=== PATIENT | female | born 1970 | race American Indian/Alaskan Native ===

== ENCOUNTER 2018-12-21 10:48 | Outpatient (CLI) | payer OTHER ==
[2018-12-21] MEDS ORDERED: XYLOCAINE TOPICAL 4% TP ONE (10:53)
[2018-12-21] MEDS ORDERED: SILVER NITRATE TP ONE (10:54)
== END 2018-12-21 10:49 | disposition home or self-care (01) ==
LOC: WOUND 10:48
PROVIDERS: ATTEND Surgery
DX: E11.621 Type 2 diabetes mellitus with foot ulcer (principal); L97.521 Non-pressure chronic ulcer of other part of left foot limited to breakdown of skin; I10 Essential (primary) hypertension; F41.9 Anxiety disorder, unspecified; F32.9 Major depressive disorder, single episode, unspecified
CPT/HCPCS: 10060; G0463; 99205

== ENCOUNTER 2018-12-21 12:32 | Inpatient (IN) | payer OTHER ==
[2018-12-21] MEDS ORDERED: NACL 0.9% 1000 ML 1,000 ML IV ONE (13:10)
--- NOTE | 2018-12-21 13:10 | Event Note ---
ED Screening Note ED Screening Note: SENT FROM WOUND CLINIC FOR ADMIT DM FOOT ULCER ON LEVAQUIN FOR 1 WEEK HYPOGLYCEMIA 56-OJ- AND BG 63 NPO P MN RX LEVAQUIN, STARTED LAST WEEK PO NORVASC WELLBUTRIN GLIMPEPIRIDE HUMALOG HCTZ HYDROXYZINE PRN INS PEN BID LOSARTAN METFORMIN SIMVASTATIN EFFEXOR This initial assessment/diagnostic orders/clinical plan/treatment(s) is/are subject to change based on patients health status, clinical progression and re- assessment by fellow clinical providers in the ED. Further treatment and workup at subsequent clinical providers discretion. Patient/guardian urged not to elope from the ED as their condition may be serious if not clinically assessed and managed. Initial orders include: SEPTIC WORK UP HYPOGLYCEMIA
[2018-12-21] MEDS ORDERED: D50W (25GM) Syringe IV ONE (13:12)
[2018-12-21] MEDS ORDERED: VANCOMYCIN PHARMACY TO DOSE IV SCH (14:00)
[2018-12-21] MEDS ORDERED: VANCOMYCIN 1,750 MG in NACL 0.9% 500 ML 500 ML IV ONE (14:00)
[2018-12-21 14:06] LABS: Basophils # (Auto) 0.1 K/mm3 (0.0-0.1); Basophils % (Auto) 0.7 % (0.0-1.8); Eosinophils # (Auto) 0.1 K/mm3 (0.0-0.4); Eosinophils % (Auto) 1.4 % (0.0-4.3); Hemoglobin 9.9 gm/dl (10.1-14.3); Lymphocytes # (Auto) 1.8 K/mm3 (1.2-5.4); Mean Corpuscular HGB Conc 33 % (30-34); Mean Corpuscular Volume 79 fl (79-97); Monocytes # (Auto) 0.5 K/mm3 (0.0-0.8); Monocytes % (Auto) 5.2 % (0.0-7.3); Platelet Count 527 K/mm3 (140-440); Red Blood Count 3.81 M/mm3 (3.65-5.03); Red Cell Distribution Width 15.4 % (13.2-15.2)
[2018-12-21 14:08] LABS: Mean Corpuscular Hemoglobin 26 pg (28-32)
--- NOTE | 2018-12-21 14:11 | XRay Report ---
LEFT FOOT HISTORY: Wound infection and concern for osteomyelitis. COMPARISON: None. TECHNIQUE: 3 views of the left foot were obtained. FINDINGS: Bones: No fracture or dislocation. Subtle erosion at the base of the proximal phalanx of the fifth t oe and questionable erosion of the medial aspect of the distal fourth metatarsal. Joint spaces: Maintained. Soft tissues: Soft tissue swelling of the forefoot and an oval well demarcated collection of air over lying the distal fourth and fifth tarsals and the proximal phalanx of the or thin fifth toes. No othe r soft tissue air. Additional findings: No foreign body. IMPRESSION: 1. Subtle erosions consistent with osteomyelitis involving the base of the proximal phalanx of the fi fth toe and the distal fourth metatarsal. 2. An air-containing soft tissue defect of the dorsum of the forefoot overlying the distal fourth and fifth metatarsals and the proximal phalanx of the fourth and fifth toes. This may represent air cont ained in a large soft tissue defect. No diffuse air in the soft tissues. Signer Name: Anthony Haddad MD Signed: 12/21/2018 2:07 PM Workstation Name: [id number]
[2018-12-21] MEDS ORDERED: ZOSYN/NS 4.5GM/100ML 4.5 GM/100 ML VIAL IV ONE (14:16)
--- NOTE | 2018-12-21 14:19 | Emergency Department Report ---
- General Chief Complaint: Wound/Laceration Stated Complaint: LT FOOT POST OP Time Seen by Provider: 12/21/18 13:04 Source: patient Mode of arrival: Ambulatory Limitations: No Limitations - History of Present Illness Initial Comments: Patient is a 48-year-old female that presents emergency room for left foot wound. Patient states she went to her primary care and the opening of her foot and found a massive amount of pus and infection. The patient denies pain. Patient states she has diabetes. Patient states that the wound is been going on for about 2 days. Patient states the redness is worsening. Patient states her foot feels warm. -: Sudden Location: other Extremity Location: Left: Foot Place: home Patient Tetanus UTD: Yes Context: other Associated Symptoms: other - Related Data Allergies Allergy/AdvReac Type Severity Reaction Status Date / Time No Known Allergies Allergy Verified 12/21/18 13:12 ED Review of Systems ROS: Stated complaint: LT FOOT POST OP Other details as noted in HPI Constitutional: denies: chills, fever Eyes: denies: eye pain, eye discharge, vision change ENT: denies: ear pain, throat pain Respiratory: denies: cough, shortness of breath, wheezing Cardiovascular: denies: chest pain, palpitations Endocrine: no symptoms reported Gastrointestinal: denies: abdominal pain, nausea, diarrhea Genitourinary: denies: urgency, dysuria, discharge Musculoskeletal: denies: back pain, joint swelling, arthralgia Skin: denies: rash, lesions Neurological: denies: headache, weakness, paresthesias Psychiatric: denies: anxiety, depression Hematological/Lymphatic: denies: easy bleeding, easy bruising ED Past Medical Hx - Past Medical History Previous Medical History?: Yes Hx Hypertension: Yes Hx Diabetes: Yes Hx Headaches / Migraines: Yes Hx Psychiatric Treatment: Yes (Depression/anxiety) Additional medical history: HLD, insomnia, left foot ulcer - Surgical History Past Surgical History?: No - Social History Smoking Status: Never Smoker Substance Use Type: None ED Physical Exam - General Limitations: No Limitations General appearance: alert, in no apparent distress - Head Head exam: Present: atraumatic, normocephalic - Eye Eye exam: Present: normal appearance - ENT ENT exam: Present: mucous membranes moist - Neck Neck exam: Present: normal inspection - Respiratory Respiratory exam: Present: normal lung sounds bilaterally. Absent: respiratory distress - Cardiovascular Cardiovascular Exam: Present: regular rate, normal rhythm. Absent: systolic murmur, diastolic murmur, rubs, gallop - GI/Abdominal GI/Abdominal exam: Present: soft, normal bowel sounds - Extremities Exam Extremities exam: Present: tenderness, other (large open area to the left foot i n between fourth and fifth digit. Redness extends to the ankle. Swelling noted. Discharge noted) - Back Exam Back exam: Present: normal inspection - Neurological Exam Neurological exam: Present: alert, oriented X3 - Psychiatric Psychiatric exam: Present: normal affect, normal mood - Skin Skin exam: Present: warm, dry, intact, normal color. Absent: rash ED Course Vital Signs 12/21/18 12/21/18 12/21/18 13:06 14:24 14:31 Temperature 98.3 F Pulse Rate 116 H 116 H Respiratory 14 16 Rate Blood Pressure 131/79 141/93 Blood Pressure 131/79 [Right] O2 Sat by Pulse 100 99 Oximetry 12/21/18 12/21/18 12/21/18 14:45 15:00 15:15 Temperature 98.5 F Pulse Rate 120 H 112 H 111 H Respiratory 19 13 14 Rate Blood Pressure 134/84 154/92 155/86 Blood Pressure 134/84 [Right] O2 Sat by Pulse 99 95 100 Oximetry - Reevaluation(s) Reevaluation #1: Discussed all results with patient. Patient will be admitted to the hospitalist service. Patient agrees to plan of care. 12/21/18 15:26 - Consultations Consultation #1: Hospitalist consulted for admission. Hospitalist to admit patient. Hospitalist to assume care patient. 12/21/18 15:26 ED Medical Decision Making - Lab Data Result diagrams: 12/21/18 13:45 12/21/18 13:45 - Radiology Data Radiology results: report reviewed LEFT FOOT HISTORY: Wound infection and concern for osteomyelitis. COMPARISON: None. TECHNIQUE: 3 views of the left foot were obtained. FINDINGS: Bones: No fracture or dislocation. Subtle erosion at the base of the proximal phalanx of the fifth toe and questionable erosion of the medial aspect of the distal fourth metatarsal. Joint spaces: Maintained. Soft tissues: Soft tissue swelling of the forefoot and an oval well demarcated collection of air overlying the distal fourth and fifth tarsals and the proximal phalanx of the or thin fifth toes. No other soft tissue air. Additional findings: No foreign body. IMPRESSION: 1. Subtle erosions consistent with osteomyelitis involving the base of the proximal phalanx of the fifth toe and the distal fourth metatarsal. 2. An air-containing soft tissue defect of the dorsum of the forefoot overlying the distal fourth and fifth metatarsals and the proximal phalanx of the fourth and fifth toes. This may represent air contained in a large soft tissue defect. No diffuse air in the soft tissues - Medical Decision Making Patient is a 48-year-old female presents to emergency room with complaints of left foot ulcer and infection. Patient was sent to by her home care for admission. Patient's x-ray done and found to be consistent with osteoarthritis. Patient's labs unremarkable. Patient initially hypoglycemic and given by mouth intake and sugar improved. Patient given IV antibiotics. Patient admitted to the hospitalist service. - Differential Diagnosis possible cellulitis. Foot infection. Diabetic ulcer Critical Care Time: Yes Critical care attestation.: If time is entered above; I have spent that time in minutes in the direct care of this critically ill patient, excluding procedure time. Critical Care Time: 35 minutes ED Disposition Clinical Impression: Diabetic foot infection, Hypoglycemia Diabetic foot ulcer Qualifiers: Diabetic foot ulcer location: midfoot Diabetes mellitus type: type 2 Lat erality: left Non-pressure ulcer stage: with muscle involvement without evidence of necrosis Qualified Code(s): E11.621 - Type 2 diabetes mellitus with foot ulcer Osteomyelitis Qualifiers: Osteomyelitis type: other acute Osteomyelitis location: foot Laterality: left Qualified Code(s): M86.172 - Other acute osteomyelitis, left ankle and foot Disposition: 09 OP ADMIT IP TO THIS HOSP Is pt being admited?: Yes Does the pt Need Aspirin: No Condition: Critical Referrals: EPHRAIM SIMMONS MD [Primary Care Provider] - 3-5 Days Time of Disposition: 15:26
[2018-12-21 14:34] LABS: Alanine Aminotransferase 14 units/L (7-56); Albumin 3.3 g/dL (3.9-5); Albumin 3.7 g/dL (3.9-5); BUN/Creatinine Ratio 12; Blood Urea Nitrogen 7 mg/dL (7-17); Calcium 9.1 mg/dL (8.4-10.2); Hemolysis Index 5
[2018-12-21 14:35] LABS: Bilirubin,Direct < 0.2 mg/dL (0-0.2)
[2018-12-21] MEDS ORDERED: COZAAR PO ONE (16:22)
--- NOTE | 2018-12-22 00:18 | Event Note ---
Date: 12/21/18 See history and physical in the reports Left foot cellulitis//osteomyelitis IV Unasyn and vancomycin initiated
[2018-12-22] MEDS ORDERED: SODIUM CHLORIDE FLUSH SYRINGE 10 ML IV PRN (00:19)
[2018-12-22] MEDS ORDERED: REGLAN IV PRN (00:19)
[2018-12-22] MEDS ORDERED: DILAUDID IV PRN (00:19)
[2018-12-22] MEDS ORDERED: ZOFRAN IV PRN (00:19)
[2018-12-22] MEDS ORDERED: VISTARIL PO PRN (00:28)
[2018-12-22] MEDS: NACL 0.9% 1000 ML 1,000 ML IV SCH (01:19)
[2018-12-22] MEDS: UNASYN/NS 3 GM/100 ML 3 GM/100 ML BAG IV SCH ×4 (01:20→17:17)
--- NOTE | 2018-12-22 03:03 | History and Physical Report ---
CHIEF COMPLAINT: Left foot wound with drainage. HISTORY OF PRESENT ILLNESS: A 48-year-old female with multiple medical problems including hypertension and insulin-dependent diabetes and also depression and anxiety, sent from [facility] for left foot wound and swelling. Apparently, I and D was done and a lot of pus was drained in the wound care clinic. The patient was sent for pain and swelling of the left foot and for IV antibiotics. The patient has pain of 7 on a scale of 1-10. She says it has been going on for only 2 days. No fever or chills. PAST MEDICAL HISTORY: Significant for hypertension, diabetes, headaches, depression, anxiety and hyperlipidemia. PAST SURGICAL HISTORY: Recent I and D of the left foot. SOCIAL HISTORY: Does not smoke. FAMILY HISTORY: Hypertension. REVIEW OF SYSTEMS: Significant for left foot swelling and pain and drainage of pus. Otherwise, review of systems negative. PHYSICAL EXAMINATION: GENERAL: Middle-aged female, cooperative during examination. VITAL SIGNS: Temperature 98.9, pulse is 111, respirations are 16, blood pressure is 150/91. HEENT: Unremarkable. Pupils equal and reactive. NECK: Supple, no lymphadenopathy, no thyromegaly. LUNGS: Clear to auscultation and percussion. Good air entry. CARDIOVASCULAR: S1, S2 heard. No gallop, no murmur, no rub. Apical impulse in left fifth intercostal space and midclavicular line. ABDOMEN: Soft and benign. No hepatosplenomegaly. No guarding, no rigidity. Hernial orifices are normal. EXTREMITIES: Left foot swollen. Drainage in the middle aspect of the dorsum of the foot with a drain present. CENTRAL NERVOUS SYSTEM: Alert and oriented x 4, nonfocal exam. LABORATORY DATA: Significant for white count of 9400, H and H of 9.9 and 30.0, platelet count of 527,000. Electrolytes are normal. Sodium slightly low at 136. Glucose is 106, 118. A1c is 16.1. AST, ALT are normal. Albumin is 3.7, slightly low. X-ray of the foot shows circular erosions consistent with osteomyelitis involving the base of the proximal phalanx of the fifth toe in the distal fourth metatarsal. Air containing soft tissue defect on the dorsum of the forefoot overlying the distal fourth and fifth metatarsals. ASSESSMENT AND PLAN: 1. Left foot cellulitis. The patient initiated on intravenous Unasyn and intravenous vancomycin. The patient may need further debridement. The patient may also have early osteomyelitis. We will consult Surgery and if necessary, orthopedic surgeon. To keep the wound clean. Continue intravenous antibiotics for at least 1 week and depending on the resolution send her home on p.o. oral antibiotics. Infectious Disease consult will be requested. 2. Hypertension. Continue antihypertensives. 3. Insulin-dependent diabetes. Continue home insulin and coverage. Glimepiride may be discontinued. 4. Hyperlipidemia. Continue statins. 5. Deep venous thrombosis prophylaxis. Lovenox 40 mg subcutaneous daily and gastrointestinal prophylaxis. JOB# [id number] JACQUELINE/HERMILO
[2018-12-22] MEDS: VANCOMYCIN 1,500 MG in NACL 0.9% 500 ML 500 ML IV SCH ×2 (04:38→17:51)
[2018-12-22 06:20] LABS: Bilirubin,Urine NEG (Negative); Blood,Urine NEG (Negative); Color,Urine Straw (Yellow); Protein,Urine <15 mg/dL mg/dL (Negative); Urobilinogen,Urine < 2.0 mg/dL (<2.0)
[2018-12-22 06:24] LABS: HCG Qualitative,Urine Negative (Negative)
[2018-12-22] MEDS: HumaLOG SUB-Q SCH ×4 (08:00→22:51)
--- NOTE | 2018-12-22 08:45 | Progress Note ---
Assessment and Plan Assessment and plan: Patient is a 48 yo woman with a history of type 2 DM, hypertension, dyslipidemia, insominia, depression and anxiety disorders who presented to [facility] ED with worsening left foot ulcer from wound care clinich after I-n-D done there resulting in copious amounts of pus drained. In ED triage, she was found to be hypoglycemic at 58 and was given a sugary drink. * MRI left foot with and without contrast Impression: 1. Large soft tissue wound along dorsal aspect of forefoot 2. Osteomyelitis involving the fourth and fifth proximal phalnages and fourth toe metatarsal head 3. Moderate cellulitis of left foot, no drainage fluid collection. Left foot ulcer with Osteomyelitis: consult Surgeon, cellulitis with abscess s/o excisional debridement at wound care clinic, treat with iv abx for couple days, consulted Wound care nurse, ID input noted Hypertension: low salt diet, monitor bmp closely Type 2 DM: ssi, accuchecks and ada diet Dyslipidemia: statin History Interval history: Patient was seen and examined. Follow-up on current diagnosis of Left foot ulcer. No overnight events reported to me. Patient denies any chest pain, shortness breath, nausea/vomiting or severe headaches. Imaging, nursing note, chart, labs and old chart reviewed. Discussed with patient. Hospitalist Physical - Physical exam Narrative exam: Gen: WDWN, NAD, Awake, Alert, Orientated HEENT: NCAT, EOMI, PERRL, OP Clear Neck: supple, no adenopathy, no thyromegaly, no JVD CVS/Heart: Regular tachycardia, normal S1S2, pulses present bilaterally Chest/Lungs: CTA B, Symmetrical chest expansion, good air entry bilaterally GI/Abdomen: soft, NTND, good bowel sounds, no guarding or rebound /Bladder: no suprapubic tenderness, no CVA or paraspinal tenderness Extermity/Skin: abnormal, left anterior foot next under the big toe is a very large at least stage 4 ulcer/crater with sloughing and surrounding redness, warmth, erythema MSK: FROM x 4 Neuro: CN 2-12 grossly intact, no new focal deficits Psych: calm - Constitutional Vitals: Temp Pulse Resp BP Pulse Ox 98.3 F 91 H 18 113/60 96 12/22/18 05:34 12/22/18 05:34 12/22/18 05:34 12/22/18 05:34 12/22/18 05:34 Results - Labs CBC & Chem 7: 12/21/18 13:45 12/21/18 13:45 Labs: Laboratory Last Values WBC 9.4 K/mm3 (4.5-11.0) 12/21/18 13:45 RBC 3.81 M/mm3 (3.65-5.03) 12/21/18 13:45 Hgb 9.9 gm/dl (10.1-14.3) L 12/21/18 13:45 Hct 30.0 % (30.3-42.9) L 12/21/18 13:45 MCV 79 fl (79-97) 12/21/18 13:45 MCH 26 pg (28-32) L 12/21/18 13:45 MCHC 33 % (30-34) 12/21/18 13:45 RDW 15.4 % (13.2-15.2) H 12/21/18 13:45 Plt Count 527 K/mm3 (140-440) H 12/21/18 13:45 Lymph % (Auto) 19.0 % (13.4-35.0) 12/21/18 13:45 [place] % (Auto) 5.2 % (0.0-7.3) 12/21/18 13:45 Eos % (Auto) 1.4 % (0.0-4.3) 12/21/18 13:45 Baso % (Auto) 0.7 % (0.0-1.8) 12/21/18 13:45 Lymph # 1.8 K/mm3 (1.2-5.4) 12/21/18 13:45 [place] # 0.5 K/mm3 (0.0-0.8) 12/21/18 13:45 Eos # 0.1 K/mm3 (0.0-0.4) 12/21/18 13:45 Baso # 0.1 K/mm3 (0.0-0.1) 12/21/18 13:45 Seg Neutrophils % 73.7 % (40.0-70.0) H 12/21/18 13:45 Seg Neutrophils # 7.0 K/mm3 (1.8-7.7) 12/21/18 13:45 APTT 33.2 Sec. (24.2-36.6) 12/21/18 13:45 Sodium 136 mmol/L (137-145) L 12/21/18 13:45 Potassium 4.2 mmol/L (3.6-5.0) 12/21/18 13:45 Chloride 100.2 mmol/L (98-107) 12/21/18 13:45 Carbon Dioxide 24 mmol/L (22-30) 12/21/18 13:45 16 mmol/L 12/21/18 13:45 BUN 7 mg/dL (7-17) 12/21/18 13:45 0.6 mg/dL (0.7-1.2) L 12/21/18 13:45 Estimated GFR > 60 ml/min 12/21/18 13:45 12 % 12/21/18 13:45 Glucose 60 mg/dL (65-100) L 12/21/18 13:45 POC Glucose 79 (70-105) 12/22/18 07:39 16.1 % (4-6) H 12/22/18 00:30 Lactic Acid 1.30 mmol/L (0.7-2.0) 12/21/18 13:45 Calcium 9.1 mg/dL (8.4-10.2) 12/21/18 13:45 < 0.20 mg/dL (0.1-1.2) 12/21/18 13:45 < 0.20 mg/dL (0.1-1.2) 12/21/18 13:45 < 0.2 mg/dL (0-0.2) 12/21/18 13:45 0.0 mg/dL 12/21/18 13:45 AST 18 units/L (5-40) 12/21/18 13:45 AST 18 units/L (5-40) 12/21/18 13:45 ALT 14 units/L (7-56) 12/21/18 13:45 ALT 14 units/L (7-56) 12/21/18 13:45 74 units/L (35-129) 12/21/18 13:45 75 units/L (35-129) 12/21/18 13:45 7.8 g/dL (6.3-8.2) 12/21/18 13:45 7.8 g/dL (6.3-8.2) 12/21/18 13:45 3.3 g/dL (3.9-5) L 12/21/18 13:45 3.7 g/dL (3.9-5) L 12/21/18 13:45 0.7 % 12/21/18 13:45 0.9 % 12/21/18 13:45 Straw (Yellow) 12/22/18 Unknown Clear (Clear) 12/22/18 Unknown 6.0 (5.0-7.0) 12/22/18 Unknown Ur Specific [place] 1.006 (1.003-1.030) 12/22/18 Unknown <15 mg/dl mg/dL (Negative) 12/22/18 Unknown Neg mg/dL (Negative) 12/22/18 Unknown Neg mg/dL (Negative) 12/22/18 Unknown Neg (Negative) 12/22/18 Unknown Neg (Negative) 12/22/18 Unknown Neg (Negative) 12/22/18 Unknown < 2.0 mg/dL (<2.0) 12/22/18 Unknown Ur Leukocyte Esterase Neg (Negative) 12/22/18 Unknown 1.0 /HPF (0.0-6.0) 12/22/18 Unknown 1.0 /HPF (0.0-6.0) 12/22/18 Unknown U Epithel Cells (Auto) 5.0 /HPF (0-13.0) 12/22/18 Unknown Urine HCG, Qual Negative (Negative) 12/22/18 Unknown Active Medications - Current Medications Current Medications: Generic Name Dose Route Start Last Admin Trade Name Freq PRN Reason Stop Dose Admin Acetaminophen 650 mg 12/22/18 00:19 Tylenol PO Q4H PRN Pain MILD(1-3)/Fever >100.5/BASS Amlodipine Besylate 10 mg 12/22/18 10:00 Norvasc PO DAILY CANDY Bupropion HCl 150 mg 12/22/18 10:00 Wellbutrin Xl PO QAM CANDY Enoxaparin Sodium 40 mg 12/22/18 22:00 Lovenox SUB-Q QDAY@2200 CANDY Famotidine 20 mg 12/22/18 10:00 Pepcid PO BID CANDY Hydrochlorothiazide 25 mg 12/22/18 10:00 Hctz PO QDAY CANDY Hydromorphone HCl 0.5 mg 12/22/18 00:19 Dilaudid IV Q3H PRN Pain , Severe (7-10) Hydroxyzine Pamoate 50 mg 12/22/18 00:28 Vistaril PO HS PRN Insomnia Vancomycin HCl 1,500 mg/ 530 mls @ 333.333 mls/hr 12/22/18 05:00 12/22/18 04:38 Sodium Chloride IV 333.333 mls/hr Q12H CANDY Administration Sodium Chloride 1,000 mls @ 42 mls/hr 12/22/18 01:00 12/22/18 01:19 Nacl 0.9% 1000 Ml IV 42 mls/hr DIRECT CANDY Administration Ampicillin Sodium/Sulbactam Sodium 3 gm in 100 mls @ 100 mls/hr 12/22/18 01:00 12/22/18 06:28 Unasyn/Ns 3 Gm/100 Ml IV 100 mls/hr Q6HR CANDY Administration Protocol Insulin Human Lispro 0 unit 12/22/18 07:30 Humalog SUB-Q ACHS [facility] Protocol Losartan Potassium 50 mg 12/22/18 10:00 Cozaar PO QDAY [facility] Metformin HCl 500 mg 12/22/18 08:00 Glucophage PO BIDDIAB [facility] Metoclopramide HCl 10 mg 12/22/18 00:19 Reglan IV Q6H PRN Nausea And Vomiting Ondansetron HCl 4 mg 12/22/18 00:19 Zofran IV Q8H PRN Nausea And Vomiting Oxycodone/Acetaminophen 1 tab 12/22/18 00:19 Percocet 5/325 PO Q6H PRN Pain, Moderate (4-6) Pravastatin Sodium 40 mg 12/22/18 22:00 Pravachol PO QHS [facility] Sodium Chloride 10 ml 12/22/18 10:00 Sodium Chloride Flush Syringe 10 Ml IV BID CANDY Sodium Chloride 10 ml 12/22/18 00:19 Sodium Chloride Flush Syringe 10 Ml IV PRN PRN LINE FLUSH Venlafaxine HCl 37.5 mg 12/22/18 10:00 Effexor PO BID [facility]
[2018-12-22] MEDS: GLUCOPHAGE PO SCH ×2 (09:00→17:51)
[2018-12-22] MEDS ORDERED: VENLAFAXINE HCL 37.5 MG PO SCH (10:00)
[2018-12-22] MEDS: EFFEXOR PO SCH ×2 (11:45→22:50)
[2018-12-22] MEDS: PERCOCET 5/325 PO PRN (12:57)
[2018-12-22] MEDS: NORVASC PO SCH (12:58)
[2018-12-22] MEDS: HCTZ PO SCH (12:58)
[2018-12-22] MEDS: WELLBUTRIN XL PO SCH (12:58)
[2018-12-22] MEDS: COZAAR PO SCH (12:58)
[2018-12-22] MEDS: PEPCID PO SCH ×2 (12:59→22:50)
[2018-12-22] MEDS: SODIUM CHLORIDE FLUSH SYRINGE 10 ML IV SCH ×2 (13:00→22:57)
--- NOTE | 2018-12-22 13:46 | Magnetic Resonance Report ---
MR LE joint LT foot wo/w con INDICATION: Left foot infection. TECHNIQUE: Multiplanar, multisequence MR images were obtained. COMPARISON: Left foot x-ray 12/21/2018 FINDINGS: This study was performed with and without IV contrast. A large soft tissue wound is seen along the do rsal aspect of the forefoot superior to the third and fourth metatarsals. Decreased T1 and increased T2 signal intensity and bone enhancement is seen within the fourth metatarsal head and base of fourt h metatarsal proximal. Abnormal mild increased T2 and decreased T1 signal intensity is seen within th e fifth toe proximal phalanx with corresponding enhancement on postcontrast images. No other abnormal bone marrow signal intensity is seen within the left forefoot. Moderate subcutaneous edema and enhan cement is seen along the dorsal aspect of the foot and intrinsic muscles characteristic for deep and superficial cellulitis. There is no drainable fluid collection IMPRESSION: 1. Large soft tissue wound along dorsal aspect of forefoot. 2 osteomyelitis involving the fourth and fifth proximal phalanges and fourth toe metatarsal head. 3. Moderate cellulitis of left foot. No drainable fluid collection. Signer Name: Sravan Steele MD Signed: 12/22/2018 1:41 PM Workstation Name: [id number]
--- NOTE | 2018-12-22 14:02 | Vascular Lab Report ---
DUPLEX DOPPLER LOWER EXTREMITY ARTERIAL, LEFT LOWER EXTREMITY INDICATION: diabetic foot infection. Left foot ulcer. TECHNIQUE: Arterial duplex examination of both lower extremities performed using B-mode, color flow and spectral Doppler assessment. FINDINGS: LEFT: Common Femoral Artery: PSV 131 cm/sec. Triphasic waveform. Proximal SFA: PSV 134 cm/sec. Triphasic waveform. Mid SFA: PSV 97 cm/sec. Triphasic waveform. Distal SFA: PSV 88 cm/sec. Triphasic waveform. Popliteal artery: PSV 90 cm/sec. Triphasic waveform. Posterior tibial artery: PSV 81 cm/sec. Triphasic waveform. Anterior tibial artery: PSV 60 cm/sec. Triphasic waveform. Mild smooth homogeneous plaque is noted throughout the left lower extremity without evidence of steno sis. IMPRESSION: No significant lower extremity peripheral artery disease. Doppler Waveform: * Triphasic is normal. * Biphasic is abnormal if clear transition from triphasic signal along vascular tree. * Monophasic is abnormal. Signer Name: Param Neves Jr, MD Signed: 12/22/2018 1:58 PM Workstation Name: [id number]
--- NOTE | 2018-12-22 14:20 | Consultation ---
History of Present Illness - Reason for Consult Consult date: 12/22/18 left foot abscess Requesting physician: ELEANOR HENSON - History of Present Illness 48 y/o female with uncontrolled diabetes admitted on 12/21/2018 due to a week history of left forefoot edema, erythema and tenderness. She reports lesion initially was a small blister. She picked on it with twitters and noted worsening edema, erythema and large bulla formation. Seen by primary care and noted massive amount of pus. She wears sandals and has been on her foot a lot recently. In the ED, temp 98.3, HR 116, R 14, BP 131/79. WBC 9.4. Creat 0.6. UA neg. Blood cultures 12/21/2018 no growth today. Wound culture 12/21/2018 Staph. MRI shows large soft tissue wound with osteomyelitis of 4 and 5 phalanx and 4 metatarsal and extensive cellulitis. Art doppler no critical stenosis. Review of Systems: General: no fever, chills, no malaise Cutaneous: no rash, pruritus Head: no headaches or injury Eyes: no changes in vision, eye pain, double vision Ears: no ear pain, ear discharge, ringing or hearing loss Nose: no nose bleeding, stuffiness Mouth & throat: no bleeding gums, no horseness, no dental problems, or swollen glands Neck: no pain, node enlargement/lumps, tyroid enlargement or tenderness Respiratory: no cough, wheezing, sputum, hemoptysis, pleuritic chest pain Cardiovascular: no chest pain, leg edema, cyanosis, [place], orthopnea Musculoskeletal: +left foot edema, erythema Gastrointestinal: +nausea, no vomiting, no hematemesis, diarrhea, constipation, melena, bright red blood in stools, fecal incontinence, jaundice Genitourinary/Reproductive: no frequent urination, dysuria, hematuria, incontinence Neurogical: no seizures, no headaches, no weakness, no paresthesias, no loss of speech or vision; no memory loss, no vertigo, no tremors, no numbness Psychiatric: stable mood; no excessive anxiety, sadness or moodiness Medications and Allergies Allergies Allergy/AdvReac Type Severity Reaction Status Date / Time No Known Allergies Allergy Verified 12/21/18 13:12 Home Medications Medication Instructions Recorded Confirmed Last Taken Type Glimepiride [Amaryl] 2 mg PO BID 12/21/18 12/21/18 Unknown History Hydroxyzine HCl [hydrOXYzine] 50 mg PO HS PRN 12/21/18 12/21/18 Unknown History Insulin Lispro Protamin/Lispro 50 units SUB-Q QAM 12/21/18 12/21/18 12/21/18 History [HumaLOG Mix 75-25 Kwikpen] Insulin Lispro Protamin/Lispro 55 units SUB-Q QPM 12/21/18 12/21/18 Unknown History [HumaLOG Mix 75-25 Kwikpen] Losartan [Cozaar] 50 mg PO QDAY 12/21/18 12/21/18 Unknown History Simvastatin 20 mg PO QPM 12/21/18 12/21/18 Unknown History Venlafaxine HCl [Effexor Xr] 37.5 mg PO BID 12/21/18 12/21/18 Unknown History amLODIPine [Norvasc] 10 mg PO DAILY 12/21/18 12/21/18 Unknown History buPROPion XL [Wellbutrin Xl] 150 mg PO QAM 12/21/18 12/21/18 Unknown History hydroCHLOROthiazide [HCTZ] 25 mg PO QDAY 12/21/18 12/21/18 Unknown History levoFLOXacin [Levaquin TAB] 500 mg PO QDAY 12/21/18 12/21/18 12/21/18 History metFORMIN [Glucophage] 500 mg PO BIDWM 12/21/18 12/21/18 Unknown History Active Meds: Active Medications Acetaminophen (Tylenol) 650 mg PO Q4H PRN PRN Reason: Pain MILD(1-3)/Fever >100.5/BASS Amlodipine Besylate (Norvasc) 10 mg PO DAILY [facility] Last Admin: 12/22/18 12:58 Dose: 10 mg Documented by: Bupropion HCl (Wellbutrin Xl) 150 mg PO QAM [facility] Last Admin: 12/22/18 12:58 Dose: 150 mg Documented by: Enoxaparin Sodium (Lovenox) 40 mg SUB-Q QDAY@2200 [facility] Famotidine (Pepcid) 20 mg PO BID [facility] Last Admin: 12/22/18 12:59 Dose: 20 mg Documented by: Hydrochlorothiazide (Hctz) 25 mg PO QDAY [facility] Last Admin: 12/22/18 12:58 Dose: 25 mg Documented by: Hydromorphone HCl (Dilaudid) 0.5 mg IV Q3H PRN PRN Reason: Pain , Severe (7-10) Hydroxyzine Pamoate (Vistaril) 50 mg PO HS PRN PRN Reason: Insomnia Vancomycin HCl 1,500 mg/ (Sodium Chloride) 530 mls @ 333.333 mls/hr IV Q12H [facility] Last Admin: 12/22/18 04:38 Dose: 333.333 mls/hr Documented by: Sodium Chloride (Nacl 0.9% 1000 Ml) 1,000 mls @ 42 mls/hr IV DIRECT [facility] Last Admin: 12/22/18 01:19 Dose: 42 mls/hr Documented by: Ampicillin Sodium/Sulbactam Sodium (Unasyn/Ns 3 Gm/100 Ml) 3 gm in 100 mls @ 100 mls/hr IV Q6HR [facility]; Protocol Last Admin: 12/22/18 06:28 Dose: 100 mls/hr Documented by: Insulin Human Lispro (Humalog) 0 unit SUB-Q ACHS [facility]; Protocol Last Admin: 12/22/18 13:01 Dose: Not Given Documented by: Losartan Potassium (Cozaar) 50 mg PO QDAY [facility] Last Admin: 12/22/18 12:58 Dose: 50 mg Documented by: Metformin HCl (Glucophage) 500 mg PO BIDDIAB [facility] Last Admin: 12/22/18 09:00 Dose: Not Given Documented by: Metoclopramide HCl (Reglan) 10 mg IV Q6H PRN PRN Reason: Nausea And Vomiting Ondansetron HCl (Zofran) 4 mg IV Q8H PRN PRN Reason: Nausea And Vomiting Oxycodone/Acetaminophen (Percocet 5/325) 1 tab PO Q6H PRN PRN Reason: Pain, Moderate (4-6) Last Admin: 12/22/18 12:57 Dose: 1 tab Documented by: Pravastatin Sodium (Pravachol) 40 mg PO QHS [facility] Sodium Chloride (Sodium Chloride Flush Syringe 10 Ml) 10 ml IV BID [facility] Last Admin: 12/22/18 13:00 Dose: 10 ml Documented by: Sodium Chloride (Sodium Chloride Flush Syringe 10 Ml) 10 ml IV PRN PRN PRN Reason: LINE FLUSH Venlafaxine HCl (Effexor) 37.5 mg PO BID [facility] Physical Examination - Physical Exam Narrative exam: General appearance: Alert in NAD Eyes: anicteric sclerae, moist conjunctivae; no lid-lag; PERRLA HENT: Atraumatic; oropharynx clear with moist mucous membranes and no mucosal ulcerations/no oral thrush; normal hard and soft palate. Normal external ears. Neck: Trachea midline; supple, no thyromegaly or lymphadenopathy Lungs: CTA, with normal respiratory effort and no intercostal retractions CV: RRR no murmur Abdomen: Soft, non-tender; no masses or hepatosplenomegaly Extremities:+extensive left forefoot edema, erythema and wound packed with skin sloughing Skin: Normal temperature, turgor and texture; no rash, ulcers or subcutaneous nodules Psych: Appropriate affect, alert and oriented to person, place and time. Neuro: alert and oriented x 3. Moving all extermities - Constitutional Vitals: Vital Signs Temp Pulse Resp BP Pulse Ox 98.6 F 99 H 20 170/81 97 12/22/18 12:21 12/22/18 12:21 12/22/18 12:21 12/22/18 12:21 12/22/18 12:21 Temperature -Last 24 Hours Temperature 98.6 F Temperature 98.3 F Temperature 98.5 F Temperature 98.9 F Temperature 98.5 F Results - Labs CBC & Chem 7: 12/21/18 13:45 12/21/18 13:45 Labs: Abnormal lab results 12/21/18 12/21/18 12/21/18 Range/Units 13:45 13:45 14:27 Sodium 136 L (137-145) mmol/L Creatinine 0.6 L (0.7-1.2) mg/dL Glucose 60 L (65-100) mg/dL POC Glucose 58 L (70-105) Hemoglobin A1c (4-6) % Albumin 3.3 L 3.7 L (3.9-5) g/dL 12/21/18 12/21/18 12/21/18 Range/Units 15:14 15:53 21:36 Sodium (137-145) mmol/L Creatinine (0.7-1.2) mg/dL Glucose (65-100) mg/dL POC Glucose 68 L 106 H 118 H (70-105) Hemoglobin A1c (4-6) % Albumin (3.9-5) g/dL 12/22/18 Range/Units 00:30 Sodium (137-145) mmol/L Creatinine (0.7-1.2) mg/dL Glucose (65-100) mg/dL POC Glucose (70-105) Hemoglobin A1c 16.1 H (4-6) % Albumin (3.9-5) g/dL Assessment and Plan Cultures: Blood cultures 12/21/2018 no growth today. Wound culture 12/21/2018 Staph. Assessment: 48 y/o female with uncontrolled diabetes admitted on 12/21/2018 due to a week history of left forefoot edema, erythema and tenderness. She reports lesion initially was a small blister. She picked on it with twitters and noted worsening edema, erythema and large bulla formation. Seen by primary care and noted massive amount of pus: 1) Left diabetic foot ulcer with necrotizing cellulitis and osteomyelitis: Wound culture 12/21/2018 Staph. MRI shows large soft tissue wound with osteomyelitis of 4 and 5 phalanx and 4 metatarsal and extensive cellulitis. Art doppler no critical stenosis. 2) Diabetes: uncontrolled. Recommendations: - follow-up blood cultures, wound culture - contact isolation until MRSA is r/o - needs aggressive wound care and IV antibiotics for 6 weeks - place a PICC Will follow. Lois Duran MD Infectious Diseases [employer] [facility] ([facility]) M [phone] O [phone]
--- NOTE | 2018-12-22 15:19 | Progress Note ---
Assessment and Plan - Patient Problems (1) Osteomyelitis of left foot Current Visit: Yes Status: Acute Plan to address problem: 1) I will debride wound at bedside today. 2) Continue IV antibiotics per ID. 3) Continue wound care per Wound Care nurse 4) HBOT in Wound Clinic after discharge. 5) F/u wound cultures Subjective Date of service: 12/22/18 Patient Reports: Positive: no new complaints Objective Vital Signs - 12hr 12/22/18 12/22/18 05:34 12:21 Temperature 98.3 F 98.6 F Pulse Rate 91 H 99 H Respiratory 18 20 Rate Blood Pressure 113/60 170/81 O2 Sat by Pulse 96 97 Oximetry - Integumentary other (Left foot with improved cellulitis but with a moderate amount of necrotic SQ within wound. Will need add'l debridement which will be performed today.) - Labs 12/21/18 13:45 12/21/18 13:45 Diabetes panel 12/22/18 Range/Units 00:30 Hemoglobin A1c 16.1 H (4-6) % - Imaging Additional Studies: LLE arterial dopplers were unremarkable. MRI of left foot was positive for osteomyelitis of the proximal 4th and 5th phalanges and the 4th metatarsal head.
--- NOTE | 2018-12-22 15:26 | Procedure Note ---
Date of procedure: 12/22/18 Pre-op diagnosis: Diabetic left foot wound with infection Post-op diagnosis: same Procedure: Debridement of diabetic left foot wound Description of procedure: The left foot wound was prepped and draped. The wound was surgically, excisionally debrided of necrotic SQ tissue with a curette. Bleeding was minimal and was controlled with pressure. Wound was then packed open with a dry 4 X 4. Procedure was well tolerated. Final wound measurements were: 5 X 2 X 1.5 cm Anesthesia: none Surgeon: ELEANOR HENSON Estimated blood loss: minimal Pathology: none Specimen disposition: discarded Condition: stable Disposition: no change
[2018-12-22] MEDS: TYLENOL PO PRN (20:34)
[2018-12-22] MEDS: LOVENOX SUB-Q SCH (22:50)
[2018-12-22] MEDS: PRAVACHOL PO SCH (22:50)
[2018-12-23] MEDS: UNASYN/NS 3 GM/100 ML 3 GM/100 ML BAG IV SCH ×3 (01:04→12:36)
[2018-12-23] MEDS: PERCOCET 5/325 PO PRN ×2 (01:45→12:30)
[2018-12-23 06:24] LABS: Basophils # (Auto) 0.1 K/mm3 (0.0-0.1); Basophils % (Auto) 0.9 % (0.0-1.8); Eosinophils # (Auto) 0.3 K/mm3 (0.0-0.4); Eosinophils % (Auto) 4.8 % (0.0-4.3); Hematocrit 27.2 % (30.3-42.9); Hemoglobin 8.9 gm/dl (10.1-14.3); Lymphocytes # (Auto) 2.9 K/mm3 (1.2-5.4); Lymphocytes % (Auto) 47.4 % (13.4-35.0); Mean Corpuscular HGB Conc 33 % (30-34); Mean Corpuscular Volume 79 fl (79-97); Monocytes # (Auto) 0.4 K/mm3 (0.0-0.8); Monocytes % (Auto) 7.1 % (0.0-7.3); Platelet Count 456 K/mm3 (140-440); Red Blood Count 3.44 M/mm3 (3.65-5.03); Red Cell Distribution Width 15.6 % (13.2-15.2)
[2018-12-23 06:47] LABS: Mean Corpuscular Hemoglobin 26 pg (28-32)
[2018-12-23 06:49] LABS: Alanine Aminotransferase 10 units/L (7-56); Albumin 2.8 g/dL (3.9-5); BUN/Creatinine Ratio 7; Blood Urea Nitrogen 4 mg/dL (7-17); Calcium 8.7 mg/dL (8.4-10.2); Hemolysis Index 4
[2018-12-23] MEDS: HumaLOG SUB-Q SCH ×3 (08:27→16:30)
[2018-12-23] MEDS: GLUCOPHAGE PO SCH ×2 (08:28→17:51)
--- NOTE | 2018-12-23 12:09 | Progress Note ---
Assessment and Plan Cultures: Blood cultures 12/21/2018 no growth today. Wound culture 12/21/2018 MSSA Assessment: 48 y/o female with uncontrolled diabetes admitted on 12/21/2018 due to a week history of left forefoot edema, erythema and tenderness. She reports lesion initially was a small blister. She picked on it with twitters and noted worsening edema, erythema and large bulla formation. Seen by primary care and noted massive amount of pus: 1) Left diabetic foot ulcer with necrotizing cellulitis and osteomyelitis: Wound culture 12/21/2018 MSSA. MRI shows large soft tissue wound with osteomyelitis of 4 and 5 phalanx and 4 metatarsal and extensive cellulitis. Art doppler no critical stenosis. 2) Diabetes: uncontrolled. Recommendations: - stop contact isolation - needs aggressive wound care - place a PICC today - stop vancomycin and unasyn - start cefazolin - start cefazolin 2 gm IV q 8 hour total 6 weeks until 02/01/2019. Order sent to rehabilitation caseworker. - Ok to d/c home once IV abx are arranged Will follow. Lois Duran MD Infectious Diseases [employer] [facility] ([facility]) M [phone] O [phone] Subjective Date of service: 12/23/18 Principal diagnosis: foot infection Interval history: Patient feels better, pain under control, no fever. Objective - Exam Narrative Exam: General appearance: Alert in NAD Eyes: anicteric sclerae, moist conjunctivae; no lid-lag; PERRLA HENT: Atraumatic; oropharynx clear with moist mucous membranes and no mucosal ulcerations/no oral thrush; normal hard and soft palate. Normal external ears. Neck: Trachea midline; supple, no thyromegaly or lymphadenopathy Lungs: CTA, with normal respiratory effort and no intercostal retractions CV: RRR no murmur Abdomen: Soft, non-tender; no masses or hepatosplenomegaly Extremities:+extensive left forefoot edema, erythema and wound packed with skin sloughing Skin: Normal temperature, turgor and texture; no rash, ulcers or subcutaneous nodules Psych: Appropriate affect, alert and oriented to person, place and time. Neuro: alert and oriented x 3. Moving all extermities - Constitutional Vitals: Vital Signs Temp Pulse Resp BP Pulse Ox 97.8 F 90 20 155/79 94 12/23/18 00:16 12/23/18 00:16 12/23/18 00:16 12/23/18 00:16 12/23/18 00:16 Temperature -Last 24 Hours Temperature 97.8 F Temperature 98.4 F Temperature 98.6 F - Labs CBC & Chem 7: 12/23/18 05:51 12/23/18 05:51 Labs: Abnormal lab results 12/22/18 12/22/18 12/22/18 Range/Units 15:47 17:17 22:03 RBC (3.65-5.03) M/mm3 Hgb (10.1-14.3) gm/dl Hct (30.3-42.9) % MCH (28-32) pg RDW (13.2-15.2) % Plt Count (140-440) K/mm3 Lymph % (Auto) (13.4-35.0) % Eos % (Auto) (0.0-4.3) % Seg Neutrophils % (40.0-70.0) % BUN (7-17) mg/dL Creatinine (0.7-1.2) mg/dL Glucose (65-100) mg/dL POC Glucose 151 H 187 H (70-105) C-Reactive Protein 3.20 H (0.00-1.30) mg/dL Albumin (3.9-5) g/dL 12/23/18 12/23/18 12/23/18 Range/Units 05:51 05:51 07:24 RBC 3.44 L (3.65-5.03) M/mm3 Hgb 8.9 L (10.1-14.3) gm/dl Hct 27.2 L (30.3-42.9) % MCH 26 L (28-32) pg RDW 15.6 H (13.2-15.2) % Plt Count 456 H (140-440) K/mm3 Lymph % (Auto) 47.4 H (13.4-35.0) % Eos % (Auto) 4.8 H (0.0-4.3) % Seg Neutrophils % 39.8 L (40.0-70.0) % BUN 4 L (7-17) mg/dL Creatinine 0.6 L (0.7-1.2) mg/dL Glucose 144 H (65-100) mg/dL POC Glucose 150 H (70-105) C-Reactive Protein (0.00-1.30) mg/dL Albumin 2.8 L (3.9-5) g/dL
[2018-12-23] MEDS: COZAAR PO SCH (12:23)
[2018-12-23] MEDS: PEPCID PO SCH (12:24)
[2018-12-23] MEDS: NORVASC PO SCH (12:24)
[2018-12-23] MEDS: HCTZ PO SCH (12:24)
[2018-12-23] MEDS: WELLBUTRIN XL PO SCH (12:24)
[2018-12-23] MEDS: SODIUM CHLORIDE FLUSH SYRINGE 10 ML IV SCH (12:26)
[2018-12-23] MEDS: EFFEXOR PO SCH (12:30)
[2018-12-23] MEDS: VANCOMYCIN 1,500 MG in NACL 0.9% 500 ML 500 ML IV SCH (12:36)
--- NOTE | 2018-12-23 15:30 | Progress Note ---
Assessment and Plan Assessment and plan: Patient is a 48 yo woman with a history of type 2 DM, hypertension, dyslipidemia, insominia, depression and anxiety disorders who presented to [facility] ED with worsening left foot ulcer from wound care clinich after I-n-D done there resulting in copious amounts of pus drained. In ED triage, she was found to be hypoglycemic at 58 and was given a sugary drink. * MRI left foot with and without contrast Impression: 1. Large soft tissue wound along dorsal aspect of forefoot 2. Osteomyelitis involving the fourth and fifth proximal phalnages and fourth toe metatarsal head 3. Moderate cellulitis of left foot, no drainage fluid collection. Left foot ulcer with Osteomyelitis: consult Surgeon, cellulitis with abscess s/o excisional debridement at wound care clinic, treat with iv abx for couple days, consulted Wound care nurse, ID input noted Hypertension: low salt diet, monitor bmp closely Type 2 DM: ssi, accuchecks and ada diet Dyslipidemia: statin home once IV abx setup. History Interval history: Patient was seen and examined. Follow-up on current diagnosis of Left foot ulcer. No overnight events reported to me. Patient denies any chest pain, shortness breath, nausea/vomiting or severe headaches. Imaging, nursing note, chart, labs and old chart reviewed. Discussed with patient. Hospitalist Physical - Physical exam Narrative exam: Gen: WDWN, NAD, Awake, Alert, Orientated HEENT: NCAT, EOMI, PERRL, OP Clear Neck: supple, no adenopathy, no thyromegaly, no JVD CVS/Heart: Regular tachycardia, normal S1S2, pulses present bilaterally Chest/Lungs: CTA B, Symmetrical chest expansion, good air entry bilaterally GI/Abdomen: soft, NTND, good bowel sounds, no guarding or rebound /Bladder: no suprapubic tenderness, no CVA or paraspinal tenderness Extermity/Skin: abnormal, left anterior foot next under the big toe is a very large at least stage 4 ulcer/crater with sloughing and surrounding redness, wa rmth, erythema MSK: FROM x 4 Neuro: CN 2-12 grossly intact, no new focal deficits Psych: calm - Constitutional Vitals: Temp Pulse Resp BP Pulse Ox 98.4 F 95 H 20 151/81 92 12/23/18 12:01 12/23/18 12:01 12/23/18 12:01 12/23/18 12:01 12/23/18 12:01 Results - Labs CBC & Chem 7: 12/23/18 05:51 12/23/18 05:51 Labs: Laboratory Last Values WBC 6.0 K/mm3 (4.5-11.0) 12/23/18 05:51 RBC 3.44 M/mm3 (3.65-5.03) L 12/23/18 05:51 Hgb 8.9 gm/dl (10.1-14.3) L 12/23/18 05:51 Hct 27.2 % (30.3-42.9) L 12/23/18 05:51 MCV 79 fl (79-97) 12/23/18 05:51 MCH 26 pg (28-32) L 12/23/18 05:51 MCHC 33 % (30-34) 12/23/18 05:51 RDW 15.6 % (13.2-15.2) H 12/23/18 05:51 Plt Count 456 K/mm3 (140-440) H 12/23/18 05:51 Lymph % (Auto) 47.4 % (13.4-35.0) H 12/23/18 05:51 [place] % (Auto) 7.1 % (0.0-7.3) 12/23/18 05:51 Eos % (Auto) 4.8 % (0.0-4.3) H 12/23/18 05:51 Baso % (Auto) 0.9 % (0.0-1.8) 12/23/18 05:51 Lymph # 2.9 K/mm3 (1.2-5.4) 12/23/18 05:51 [place] # 0.4 K/mm3 (0.0-0.8) 12/23/18 05:51 Eos # 0.3 K/mm3 (0.0-0.4) 12/23/18 05:51 Baso # 0.1 K/mm3 (0.0-0.1) 12/23/18 05:51 Seg Neutrophils % 39.8 % (40.0-70.0) L 12/23/18 05:51 Seg Neutrophils # 2.4 K/mm3 (1.8-7.7) 12/23/18 05:51 APTT 33.2 Sec. (24.2-36.6) 12/21/18 13:45 Sodium 139 mmol/L (137-145) 12/23/18 05:51 Potassium 4.6 mmol/L (3.6-5.0) 12/23/18 05:51 Chloride 103.4 mmol/L (98-107) 12/23/18 05:51 Carbon Dioxide 27 mmol/L (22-30) 12/23/18 05:51 13 mmol/L 12/23/18 05:51 BUN 4 mg/dL (7-17) L 12/23/18 05:51 0.6 mg/dL (0.7-1.2) L 12/23/18 05:51 Estimated GFR > 60 ml/min 12/23/18 05:51 7 % 12/23/18 05:51 Glucose 144 mg/dL (65-100) H 12/23/18 05:51 POC Glucose 147 (70-105) H 12/23/18 12:56 16.1 % (4-6) H 12/22/18 00:30 Lactic Acid 1.30 mmol/L (0.7-2.0) 12/21/18 13:45 Calcium 8.7 mg/dL (8.4-10.2) 12/23/18 05:51 < 0.20 mg/dL (0.1-1.2) 12/23/18 05:51 < 0.2 mg/dL (0-0.2) 12/21/18 13:45 0.0 mg/dL 12/21/18 13:45 AST 15 units/L (5-40) 12/23/18 05:51 ALT 10 units/L (7-56) 12/23/18 05:51 60 units/L (35-129) 12/23/18 05:51 3.20 mg/dL (0.00-1.30) H 12/22/18 15:47 6.4 g/dL (6.3-8.2) 12/23/18 05:51 2.8 g/dL (3.9-5) L 12/23/18 05:51 0.8 % 12/23/18 05:51 Straw (Yellow) 12/22/18 Unknown Clear (Clear) 12/22/18 Unknown 6.0 (5.0-7.0) 12/22/18 Unknown Ur Specific [place] 1.006 (1.003-1.030) 12/22/18 Unknown <15 mg/dl mg/dL (Negative) 12/22/18 Unknown Neg mg/dL (Negative) 12/22/18 Unknown Neg mg/dL (Negative) 12/22/18 Unknown Neg (Negative) 12/22/18 Unknown Neg (Negative) 12/22/18 Unknown Neg (Negative) 12/22/18 Unknown < 2.0 mg/dL (<2.0) 12/22/18 Unknown Ur Leukocyte Esterase Neg (Negative) 12/22/18 Unknown 1.0 /HPF (0.0-6.0) 12/22/18 Unknown 1.0 /HPF (0.0-6.0) 12/22/18 Unknown U Epithel Cells (Auto) 5.0 /HPF (0-13.0) 12/22/18 Unknown Urine HCG, Qual Negative (Negative) 12/22/18 Unknown Vancomycin Trough 9.7 ug/mL (5.0-20.0) 12/23/18 09:02 Active Medications - Current Medications Current Medications: Generic Name Dose Route Start Last Admin Trade Name Freq PRN Reason Stop Dose Admin Acetaminophen 650 mg 12/22/18 00:19 12/22/18 20:34 Tylenol PO 650 mg Q4H PRN Administration Pain MILD(1-3)/Fever >100.5/BASS Amlodipine Besylate 10 mg 12/22/18 10:00 12/23/18 12:24 Norvasc PO 10 mg DAILY C[facility]Y Administration Bupropion HCl 150 mg 12/22/18 10:00 12/23/18 12:24 Wellbutrin Xl PO 150 mg QAM C[facility]Y Administration Enoxaparin Sodium 40 mg 12/22/18 22:00 12/22/18 22:50 Lovenox SUB-Q 40 mg QDAY@2200 [facility] Administration Famotidine 20 mg 12/22/18 10:00 12/23/18 12:24 Pepcid PO 20 mg BID [facility]Y Administration Hydrochlorothiazide 25 mg 12/22/18 10:00 12/23/18 12:24 Hctz PO 25 mg QDAY C[facility]Y Administration Hydromorphone HCl 0.5 mg 12/22/18 00:19 Dilaudid IV Q3H PRN Pain , Severe (7-10) Hydroxyzine Pamoate 50 mg 12/22/18 00:28 Vistaril PO HS PRN Insomnia Sodium Chloride 1,000 mls @ 42 mls/hr 12/22/18 01:00 12/22/18 01:19 Nacl 0.9% 1000 Ml IV 42 mls/hr DIRECT [facility] Administration Cefazolin Sodium 2 gm/ Sodium 100 mls @ 200 mls/hr 12/23/18 14:00 Chloride IV 02/01/19 13:59 Q8H [facility]Y Protocol Insulin Human Lispro 0 unit 12/22/18 07:30 12/23/18 08:27 Humalog SUB-Q 2 unit ACHS [facility]Y Administration Protocol Losartan Potassium 50 mg 12/22/18 10:00 12/23/18 12:23 Cozaar PO 50 mg QDAY [facility] Administration Metformin HCl 500 mg 12/22/18 08:00 12/23/18 08:28 Glucophage PO 500 mg BIDDIAB [facility] Administration Metoclopramide HCl 10 mg 12/22/18 00:19 Reglan IV Q6H PRN Nausea And Vomiting Ondansetron HCl 4 mg 12/22/18 00:19 Zofran IV Q8H PRN Nausea And Vomiting Oxycodone/Acetaminophen 1 tab 12/22/18 00:19 12/23/18 12:30 Percocet 5/325 PO 1 tab Q6H PRN Administration Pain, Moderate (4-6) Pravastatin Sodium 40 mg 12/22/18 22:00 12/22/18 22:50 Pravachol PO 40 mg QHS [facility]Y Administration Sodium Chloride 10 ml 12/22/18 10:00 12/23/18 12:26 Sodium Chloride Flush Syringe 10 Ml IV 10 ml BID [facility]Y Administration Sodium Chloride 10 ml 12/22/18 00:19 Sodium Chloride Flush Syringe 10 Ml IV PRN PRN LINE FLUSH Venlafaxine HCl 37.5 mg 12/22/18 10:00 12/23/18 12:30 Effexor PO 37.5 mg BID [facility] Administration
[2018-12-23] MEDS: ceFAZolin 2 GM in NACL 0.9% 100 ML IV SCH (17:51)
[2018-12-23] MEDS: NACL 0.9% 1000 ML 1,000 ML IV SCH (17:52)
[2018-12-24] MEDS: PRAVACHOL PO SCH ×2 (00:03→21:56)
[2018-12-24] MEDS: ceFAZolin 2 GM in NACL 0.9% 100 ML IV SCH ×4 (00:03→21:56)
[2018-12-24] MEDS: LOVENOX SUB-Q SCH ×2 (00:03→21:56)
[2018-12-24] MEDS: PEPCID PO SCH ×3 (00:03→21:56)
[2018-12-24] MEDS: EFFEXOR PO SCH ×3 (00:03→21:56)
[2018-12-24] MEDS: HumaLOG SUB-Q SCH ×5 (00:11→22:00)
[2018-12-24] MEDS: SODIUM CHLORIDE FLUSH SYRINGE 10 ML IV SCH ×3 (00:14→21:57)
[2018-12-24] MEDS: GLUCOPHAGE PO SCH ×2 (09:11→17:31)
[2018-12-24] MEDS: COZAAR PO SCH (11:05)
[2018-12-24] MEDS: NORVASC PO SCH (11:05)
[2018-12-24] MEDS: HCTZ PO SCH (11:05)
[2018-12-24] MEDS: WELLBUTRIN XL PO SCH (11:06)
[2018-12-24] MEDS: TYLENOL PO PRN (11:10)
--- NOTE | 2018-12-24 15:11 | Progress Note ---
Assessment and Plan Assessment and plan: Patient is a 48 yo woman with a history of type 2 DM, hypertension, dyslipidemia, insominia, depression and anxiety disorders who presented to [facility] ED with worsening left foot ulcer from wound care clinich after I-n-D done there resulting in copious amounts of pus drained. In ED triage, she was found to be hypoglycemic at 58 and was given a sugary drink. * MRI left foot with and without contrast Impression: 1. Large soft tissue wound along dorsal aspect of forefoot 2. Osteomyelitis involving the fourth and fifth proximal phalnages and fourth toe metatarsal head 3. Moderate cellulitis of left foot, no drainage fluid collection. Left foot ulcer with Osteomyelitis: consult Surgeon, cellulitis with abscess s/o excisional debridement at wound care clinic, treat with iv abx for couple days, consulted Wound care nurse, ID input noted Hypertension: low salt diet, monitor bmp closely Type 2 DM: ssi, accuchecks and ada diet Dyslipidemia: statin home once IV abx setup. History Interval history: Patient was seen and examined. Follow-up on current diagnosis of Left foot ulcer. No overnight events reported to me. Patient denies any chest pain, shortness breath, nausea/vomiting or severe headaches. Imaging, nursing note, chart, labs and old chart reviewed. Discussed with patient. Hospitalist Physical - Physical exam Narrative exam: Gen: WDWN, NAD, Awake, Alert, Orientated HEENT: NCAT, EOMI, PERRL, OP Clear Neck: supple, no adenopathy, no thyromegaly, no JVD CVS/Heart: Regular tachycardia, normal S1S2, pulses present bilaterally Chest/Lungs: CTA B, Symmetrical chest expansion, good air entry bilaterally GI/Abdomen: soft, NTND, good bowel sounds, no guarding or rebound /Bladder: no suprapubic tenderness, no CVA or paraspinal tenderness Extermity/Skin: abnormal, left anterior foot next under the big toe is a very large at least stage 4 ulcer/crater with sloughing and surrounding redness, wa rmth, erythema MSK: FROM x 4 Neuro: CN 2-12 grossly intact, no new focal deficits Psych: calm - Constitutional Vitals: Temp Pulse Resp BP Pulse Ox 98.3 F 92 H 20 154/92 93 12/24/18 06:11 12/24/18 11:34 12/24/18 11:34 12/24/18 11:34 12/24/18 11:34 Results - Labs CBC & Chem 7: 12/23/18 05:51 12/23/18 05:51 Labs: Laboratory Last Values WBC 6.0 K/mm3 (4.5-11.0) 12/23/18 05:51 RBC 3.44 M/mm3 (3.65-5.03) L 12/23/18 05:51 Hgb 8.9 gm/dl (10.1-14.3) L 12/23/18 05:51 Hct 27.2 % (30.3-42.9) L 12/23/18 05:51 MCV 79 fl (79-97) 12/23/18 05:51 MCH 26 pg (28-32) L 12/23/18 05:51 MCHC 33 % (30-34) 12/23/18 05:51 RDW 15.6 % (13.2-15.2) H 12/23/18 05:51 Plt Count 456 K/mm3 (140-440) H 12/23/18 05:51 Lymph % (Auto) 47.4 % (13.4-35.0) H 12/23/18 05:51 [place] % (Auto) 7.1 % (0.0-7.3) 12/23/18 05:51 Eos % (Auto) 4.8 % (0.0-4.3) H 12/23/18 05:51 Baso % (Auto) 0.9 % (0.0-1.8) 12/23/18 05:51 Lymph # 2.9 K/mm3 (1.2-5.4) 12/23/18 05:51 [place] # 0.4 K/mm3 (0.0-0.8) 12/23/18 05:51 Eos # 0.3 K/mm3 (0.0-0.4) 12/23/18 05:51 Baso # 0.1 K/mm3 (0.0-0.1) 12/23/18 05:51 Seg Neutrophils % 39.8 % (40.0-70.0) L 12/23/18 05:51 Seg Neutrophils # 2.4 K/mm3 (1.8-7.7) 12/23/18 05:51 APTT 33.2 Sec. (24.2-36.6) 12/21/18 13:45 Sodium 139 mmol/L (137-145) 12/23/18 05:51 Potassium 4.6 mmol/L (3.6-5.0) 12/23/18 05:51 Chloride 103.4 mmol/L (98-107) 12/23/18 05:51 Carbon Dioxide 27 mmol/L (22-30) 12/23/18 05:51 13 mmol/L 12/23/18 05:51 BUN 4 mg/dL (7-17) L 12/23/18 05:51 0.6 mg/dL (0.7-1.2) L 12/23/18 05:51 Estimated GFR > 60 ml/min 12/23/18 05:51 7 % 12/23/18 05:51 Glucose 144 mg/dL (65-100) H 12/23/18 05:51 POC Glucose 215 (70-105) H 12/24/18 12:54 16.1 % (4-6) H 12/22/18 00:30 Lactic Acid 1.30 mmol/L (0.7-2.0) 12/21/18 13:45 Calcium 8.7 mg/dL (8.4-10.2) 12/23/18 05:51 < 0.20 mg/dL (0.1-1.2) 12/23/18 05:51 < 0.2 mg/dL (0-0.2) 12/21/18 13:45 0.0 mg/dL 12/21/18 13:45 AST 15 units/L (5-40) 12/23/18 05:51 ALT 10 units/L (7-56) 12/23/18 05:51 60 units/L (35-129) 12/23/18 05:51 3.20 mg/dL (0.00-1.30) H 12/22/18 15:47 6.4 g/dL (6.3-8.2) 12/23/18 05:51 2.8 g/dL (3.9-5) L 12/23/18 05:51 0.8 % 12/23/18 05:51 Straw (Yellow) 12/22/18 Unknown Clear (Clear) 12/22/18 Unknown 6.0 (5.0-7.0) 12/22/18 Unknown Ur Specific [place] 1.006 (1.003-1.030) 12/22/18 Unknown <15 mg/dl mg/dL (Negative) 12/22/18 Unknown Neg mg/dL (Negative) 12/22/18 Unknown Neg mg/dL (Negative) 12/22/18 Unknown Neg (Negative) 12/22/18 Unknown Neg (Negative) 12/22/18 Unknown Neg (Negative) 12/22/18 Unknown < 2.0 mg/dL (<2.0) 12/22/18 Unknown Ur Leukocyte Esterase Neg (Negative) 12/22/18 Unknown 1.0 /HPF (0.0-6.0) 12/22/18 Unknown 1.0 /HPF (0.0-6.0) 12/22/18 Unknown U Epithel Cells (Auto) 5.0 /HPF (0-13.0) 12/22/18 Unknown Urine HCG, Qual Negative (Negative) 12/22/18 Unknown Vancomycin Trough 9.7 ug/mL (5.0-20.0) 12/23/18 09:02 Active Medications - Current Medications Current Medications: Generic Name Dose Route Start Last Admin Trade Name Freq PRN Reason Stop Dose Admin Acetaminophen 650 mg 12/22/18 00:19 12/24/18 11:10 Tylenol PO 650 mg Q4H PRN Administration Pain MILD(1-3)/Fever >100.5/BASS Amlodipine Besylate 10 mg 12/22/18 10:00 12/24/18 11:05 Norvasc PO 10 mg DAILY CANDY Administration Bupropion HCl 150 mg 12/22/18 10:00 12/24/18 11:06 Wellbutrin Xl PO 150 mg QAM CANDY Administration Enoxaparin Sodium 40 mg 12/22/18 22:00 12/24/18 00:03 Lovenox SUB-Q 40 mg QDAY@2200 CANDY Administration Famotidine 20 mg 12/22/18 10:00 12/24/18 11:05 Pepcid PO 20 mg BID CANDY Administration Hydrochlorothiazide 25 mg 12/22/18 10:00 12/24/18 11:05 Hctz PO 25 mg QDAY CANDY Administration Hydromorphone HCl 0.5 mg 12/22/18 00:19 Dilaudid IV Q3H PRN Pain , Severe (7-10) Hydroxyzine Pamoate 50 mg 12/22/18 00:28 Vistaril PO HS PRN Insomnia Sodium Chloride 1,000 mls @ 42 mls/hr 12/22/18 01:00 12/23/18 17:52 Nacl 0.9% 1000 Ml IV 42 mls/hr DIRECT CANDY Administration Cefazolin Sodium 2 gm/ Sodium 100 mls @ 200 mls/hr 12/23/18 14:00 12/24/18 13:27 Chloride IV 02/01/19 13:59 200 mls/hr Q8H CANDY Administration Protocol Insulin Human Lispro 0 unit 12/22/18 07:30 12/24/18 13:29 Humalog SUB-Q 3 unit ACHS CANDY Administration Protocol Losartan Potassium 50 mg 12/22/18 10:00 12/24/18 11:05 Cozaar PO 50 mg QDAY CANDY Administration Metformin HCl 500 mg 12/22/18 08:00 12/24/18 09:11 Glucophage PO 500 mg BIDDIAB CANDY Administration Metoclopramide HCl 10 mg 12/22/18 00:19 Reglan IV Q6H PRN Nausea And Vomiting Ondansetron HCl 4 mg 12/22/18 00:19 Zofran IV Q8H PRN Nausea And Vomiting Oxycodone/Acetaminophen 1 tab 12/22/18 00:19 12/23/18 12:30 Percocet 5/325 PO 1 tab Q6H PRN Administration Pain, Moderate (4-6) Pravastatin Sodium 40 mg 12/22/18 22:00 12/24/18 00:03 Pravachol PO 40 mg QHS CANDY Administration Sodium Chloride 10 ml 12/22/18 10:00 12/24/18 13:26 Sodium Chloride Flush Syringe 10 Ml IV 10 ml BID CANDY Administration Sodium Chloride 10 ml 12/22/18 00:19 Sodium Chloride Flush Syringe 10 Ml IV PRN PRN LINE FLUSH Venlafaxine HCl 37.5 mg 12/22/18 10:00 12/24/18 11:06 Effexor PO 37.5 mg BID CANDY Administration
[2018-12-25] MEDS: NACL 0.9% 1000 ML 1,000 ML IV SCH (03:13)
[2018-12-25] MEDS: ceFAZolin 2 GM in NACL 0.9% 100 ML IV SCH ×3 (06:05→23:10)
[2018-12-25] MEDS: GLUCOPHAGE PO SCH ×2 (08:57→17:35)
[2018-12-25] MEDS: HumaLOG SUB-Q SCH ×4 (08:58→23:11)
[2018-12-25] MEDS: HCTZ PO SCH (10:12)
[2018-12-25] MEDS: PEPCID PO SCH ×2 (10:12→23:11)
[2018-12-25] MEDS: NORVASC PO SCH (10:13)
[2018-12-25] MEDS: WELLBUTRIN XL PO SCH (10:13)
[2018-12-25] MEDS: EFFEXOR PO SCH ×2 (10:13→23:11)
[2018-12-25] MEDS: COZAAR PO SCH (10:13)
[2018-12-25] MEDS: SODIUM CHLORIDE FLUSH SYRINGE 10 ML IV SCH ×2 (10:14→23:12)
--- NOTE | 2018-12-25 14:33 | Progress Note ---
Assessment and Plan Assessment and plan: Patient is a 48 yo woman with a history of type 2 DM, hypertension, dyslipidemia, insominia, depression and anxiety disorders who presented to [facility] ED with worsening left foot ulcer from wound care clinich after I-n-D done there resulting in copious amounts of pus drained. In ED triage, she was found to be hypoglycemic at 58 and was given a sugary drink. * MRI left foot with and without contrast Impression: 1. Large soft tissue wound along dorsal aspect of forefoot 2. Osteomyelitis involving the fourth and fifth proximal phalnages and fourth toe metatarsal head 3. Moderate cellulitis of left foot, no drainage fluid collection. Left foot ulcer with Osteomyelitis: consult Surgeon, cellulitis with abscess s/o excisional debridement at wound care clinic, treat with iv abx for couple days, consulted Wound care nurse, ID input noted Hypertension: low salt diet, monitor bmp closely Type 2 DM: ssi, accuchecks and ada diet Dyslipidemia: statin home once IV abx setup. History Interval history: Patient was seen and examined. Follow-up on current diagnosis of Left foot ulcer. No overnight events reported to me. Patient denies any chest pain, shortness breath, nausea/vomiting or severe headaches. Imaging, nursing note, chart, labs and old chart reviewed. Discussed with patient. Hospitalist Physical - Physical exam Narrative exam: Gen: WDWN, NAD, Awake, Alert, Orientated HEENT: NCAT, EOMI, PERRL, OP Clear Neck: supple, no adenopathy, no thyromegaly, no JVD CVS/Heart: Regular tachycardia, normal S1S2, pulses present bilaterally Chest/Lungs: CTA B, Symmetrical chest expansion, good air entry bilaterally GI/Abdomen: soft, NTND, good bowel sounds, no guarding or rebound /Bladder: no suprapubic tenderness, no CVA or paraspinal tenderness Extermity/Skin: abnormal, left anterior foot next under the big toe is a very large at least stage 4 ulcer/crater with sloughing and surrounding redness, wa rmth, erythema MSK: FROM x 4 Neuro: CN 2-12 grossly intact, no new focal deficits Psych: calm - Constitutional Vitals: Temp Pulse Resp BP Pulse Ox 98.5 F 90 16 152/86 92 12/25/18 11:19 12/25/18 11:19 12/25/18 11:19 12/25/18 11:19 12/25/18 11:19 Results - Labs CBC & Chem 7: 12/23/18 05:51 12/23/18 05:51 Labs: Laboratory Last Values WBC 6.0 K/mm3 (4.5-11.0) 12/23/18 05:51 RBC 3.44 M/mm3 (3.65-5.03) L 12/23/18 05:51 Hgb 8.9 gm/dl (10.1-14.3) L 12/23/18 05:51 Hct 27.2 % (30.3-42.9) L 12/23/18 05:51 MCV 79 fl (79-97) 12/23/18 05:51 MCH 26 pg (28-32) L 12/23/18 05:51 MCHC 33 % (30-34) 12/23/18 05:51 RDW 15.6 % (13.2-15.2) H 12/23/18 05:51 Plt Count 456 K/mm3 (140-440) H 12/23/18 05:51 Lymph % (Auto) 47.4 % (13.4-35.0) H 12/23/18 05:51 [place] % (Auto) 7.1 % (0.0-7.3) 12/23/18 05:51 Eos % (Auto) 4.8 % (0.0-4.3) H 12/23/18 05:51 Baso % (Auto) 0.9 % (0.0-1.8) 12/23/18 05:51 Lymph # 2.9 K/mm3 (1.2-5.4) 12/23/18 05:51 [place] # 0.4 K/mm3 (0.0-0.8) 12/23/18 05:51 Eos # 0.3 K/mm3 (0.0-0.4) 12/23/18 05:51 Baso # 0.1 K/mm3 (0.0-0.1) 12/23/18 05:51 Seg Neutrophils % 39.8 % (40.0-70.0) L 12/23/18 05:51 Seg Neutrophils # 2.4 K/mm3 (1.8-7.7) 12/23/18 05:51 APTT 33.2 Sec. (24.2-36.6) 12/21/18 13:45 Sodium 139 mmol/L (137-145) 12/23/18 05:51 Potassium 4.6 mmol/L (3.6-5.0) 12/23/18 05:51 Chloride 103.4 mmol/L (98-107) 12/23/18 05:51 Carbon Dioxide 27 mmol/L (22-30) 12/23/18 05:51 13 mmol/L 12/23/18 05:51 BUN 4 mg/dL (7-17) L 12/23/18 05:51 0.6 mg/dL (0.7-1.2) L 12/23/18 05:51 Estimated GFR > 60 ml/min 12/23/18 05:51 7 % 12/23/18 05:51 Glucose 144 mg/dL (65-100) H 12/23/18 05:51 POC Glucose 149 (70-105) H 12/25/18 12:24 16.1 % (4-6) H 12/22/18 00:30 Lactic Acid 1.30 mmol/L (0.7-2.0) 12/21/18 13:45 Calcium 8.7 mg/dL (8.4-10.2) 12/23/18 05:51 < 0.20 mg/dL (0.1-1.2) 12/23/18 05:51 < 0.2 mg/dL (0-0.2) 12/21/18 13:45 0.0 mg/dL 12/21/18 13:45 AST 15 units/L (5-40) 12/23/18 05:51 ALT 10 units/L (7-56) 12/23/18 05:51 60 units/L (35-129) 12/23/18 05:51 3.20 mg/dL (0.00-1.30) H 12/22/18 15:47 6.4 g/dL (6.3-8.2) 12/23/18 05:51 2.8 g/dL (3.9-5) L 12/23/18 05:51 0.8 % 12/23/18 05:51 Straw (Yellow) 12/22/18 Unknown Clear (Clear) 12/22/18 Unknown 6.0 (5.0-7.0) 12/22/18 Unknown Ur Specific [place] 1.006 (1.003-1.030) 12/22/18 Unknown <15 mg/dl mg/dL (Negative) 12/22/18 Unknown Neg mg/dL (Negative) 12/22/18 Unknown Neg mg/dL (Negative) 12/22/18 Unknown Neg (Negative) 12/22/18 Unknown Neg (Negative) 12/22/18 Unknown Neg (Negative) 12/22/18 Unknown < 2.0 mg/dL (<2.0) 12/22/18 Unknown Ur Leukocyte Esterase Neg (Negative) 12/22/18 Unknown 1.0 /HPF (0.0-6.0) 12/22/18 Unknown 1.0 /HPF (0.0-6.0) 12/22/18 Unknown U Epithel Cells (Auto) 5.0 /HPF (0-13.0) 12/22/18 Unknown Urine HCG, Qual Negative (Negative) 12/22/18 Unknown Vancomycin Trough 9.7 ug/mL (5.0-20.0) 12/23/18 09:02 Active Medications - Current Medications Current Medications: Generic Name Dose Route Start Last Admin Trade Name Freq PRN Reason Stop Dose Admin Acetaminophen 650 mg 12/22/18 00:19 12/24/18 11:10 Tylenol PO 650 mg Q4H PRN Administration Pain MILD(1-3)/Fever >100.5/BASS Amlodipine Besylate 10 mg 12/22/18 10:00 12/25/18 10:13 Norvasc PO 10 mg DAILY CANDY Administration Bupropion HCl 150 mg 12/22/18 10:00 12/25/18 10:13 Wellbutrin Xl PO 150 mg QAM CANDY Administration Enoxaparin Sodium 40 mg 12/22/18 22:00 12/24/18 21:56 Lovenox SUB-Q 40 mg QDAY@2200 CANDY Administration Famotidine 20 mg 12/22/18 10:00 12/25/18 10:12 Pepcid PO 20 mg BID CANDY Administration Hydrochlorothiazide 25 mg 12/22/18 10:00 12/25/18 10:12 Hctz PO 25 mg QDAY CANDY Administration Hydromorphone HCl 0.5 mg 12/22/18 00:19 Dilaudid IV Q3H PRN Pain , Severe (7-10) Hydroxyzine Pamoate 50 mg 12/22/18 00:28 Vistaril PO HS PRN Insomnia Sodium Chloride 1,000 mls @ 42 mls/hr 12/22/18 01:00 12/25/18 03:13 Nacl 0.9% 1000 Ml IV 42 mls/hr DIRECT CANDY Administration Cefazolin Sodium 2 gm/ Sodium 100 mls @ 200 mls/hr 12/23/18 14:00 12/25/18 06:05 Chloride IV 02/01/19 13:59 200 mls/hr Q8H CANDY Administration Protocol Insulin Human Lispro 0 unit 12/22/18 07:30 12/25/18 12:53 Humalog SUB-Q Not Given ACHS CANDY Protocol Losartan Potassium 50 mg 12/22/18 10:00 12/25/18 10:13 Cozaar PO 50 mg QDAY CANDY Administration Metformin HCl 500 mg 12/22/18 08:00 12/25/18 08:57 Glucophage PO 500 mg BIDDIAB CANDY Administration Metoclopramide HCl 10 mg 12/22/18 00:19 Reglan IV Q6H PRN Nausea And Vomiting Ondansetron HCl 4 mg 12/22/18 00:19 Zofran IV Q8H PRN Nausea And Vomiting Oxycodone/Acetaminophen 1 tab 12/22/18 00:19 12/23/18 12:30 Percocet 5/325 PO 1 tab Q6H PRN Administration Pain, Moderate (4-6) Pravastatin Sodium 40 mg 12/22/18 22:00 12/24/18 21:56 Pravachol PO 40 mg QHS CANDY Administration Sodium Chloride 10 ml 12/22/18 10:00 12/25/18 10:14 Sodium Chloride Flush Syringe 10 Ml IV Not Given BID CANDY Sodium Chloride 10 ml 12/22/18 00:19 Sodium Chloride Flush Syringe 10 Ml IV PRN PRN LINE FLUSH Venlafaxine HCl 37.5 mg 12/22/18 10:00 12/25/18 10:13 Effexor PO 37.5 mg BID CANDY Administration
[2018-12-25] MEDS: LOVENOX SUB-Q SCH (23:10)
[2018-12-25] MEDS: PERCOCET 5/325 PO PRN (23:11)
[2018-12-25] MEDS: PRAVACHOL PO SCH (23:11)
[2018-12-26] MEDS: ceFAZolin 2 GM in NACL 0.9% 100 ML IV SCH ×2 (06:54→13:57)
[2018-12-26] MEDS: NACL 0.9% 1000 ML 1,000 ML IV SCH (06:55)
[2018-12-26] MEDS: HumaLOG SUB-Q SCH ×3 (09:00→18:34)
[2018-12-26] MEDS: GLUCOPHAGE PO SCH ×2 (09:01→18:35)
--- NOTE | 2018-12-26 09:10 | Progress Note ---
Assessment and Plan Cultures: Blood cultures 12/21/2018 no growth today. Wound culture 12/21/2018 MSSA Assessment: 48 y/o female with uncontrolled diabetes admitted on 12/21/2018 due to a week history of left forefoot edema, erythema and tenderness. She reports lesion initially was a small blister. She picked on it with twitters and noted worsening edema, erythema and large bulla formation. Seen by primary care and noted massive amount of pus: 1) Left diabetic foot ulcer with necrotizing cellulitis and osteomyelitis: Wound culture 12/21/2018 MSSA. MRI shows large soft tissue wound with osteomyelitis of 4 and 5 phalanx and 4 metatarsal and extensive cellulitis. Art doppler no critical stenosis. 2) Diabetes: uncontrolled. Recommendations: - needs aggressive wound care - continue Cefazolin - anticipate discharge on cefazolin 2 gm IV q 8 hour total 6 weeks until 02/01/2019. Order sent to case fitter. - Ok to d/c home once IV abx are arranged -f/u ID clinic in 2-3 weeks ID is signing off [facility] M: [phone] O:[phone] Subjective Date of service: 12/26/18 Principal diagnosis: foot infection Interval history: Patient seen and examined. Sitting up in bed, reports no generalized pain or weakness. No fevers. Objective - Exam Narrative Exam: General appearance: Awake. Alert. No acute distress Eyes: anicteric sclerae, moist conjunctivae; no lid-lag; PERRLA HENT: Atraumatic; oropharynx clear with moist mucous membranes and no mucosal ulcerations/no oral thrush; normal hard and soft palate. Normal external ears. Neck: Trachea midline; supple, no thyromegaly or lymphadenopathy Lungs: CTA, with normal respiratory effort and no intercostal retractions CV: RRR no murmur Abdomen: Soft, non-tender; no masses or hepatosplenomegaly Extremities:+extensive left forefoot edema, erythema and wound packed with skin sloughing Skin: Normal temperature, turgor and texture; no rash, ulcers or subcutaneous nodules Psych: Appropriate affect, alert and oriented to person, place and time. Neuro: alert and oriented x 3. Moving all extermities - Constitutional Vitals: Vital Signs Temp Pulse Resp BP Pulse Ox 98.4 F 84 20 149/85 96 12/26/18 06:29 12/26/18 06:29 12/25/18 20:00 12/26/18 06:29 12/26/18 06:29 Temperature -Last 24 Hours Temperature 98.4 F Temperature 97.6 F Temperature 98.8 F Temperature 98.5 F - Labs CBC & Chem 7: 12/23/18 05:51 12/23/18 05:51 Labs: Abnormal lab results 12/25/18 12/25/18 12/25/18 Range/Units 12:24 16:29 22:36 POC Glucose 149 H 164 H 125 H (70-105) 12/26/18 Range/Units 07:26 POC Glucose 164 H (70-105)
[2018-12-26] MEDS: HCTZ PO SCH (10:00)
[2018-12-26] MEDS: COZAAR PO SCH (10:00)
[2018-12-26] MEDS: NORVASC PO SCH (10:00)
[2018-12-26] MEDS: PEPCID PO SCH (10:00)
[2018-12-26] MEDS: WELLBUTRIN XL PO SCH (10:00)
[2018-12-26] MEDS: EFFEXOR PO SCH (10:00)
[2018-12-26] MEDS: SODIUM CHLORIDE FLUSH SYRINGE 10 ML IV SCH (10:01)
--- NOTE | 2018-12-26 14:14 | Progress Note ---
Assessment and Plan Assessment and plan: Patient is a 48 yo woman with a history of type 2 DM, hypertension, dyslipidemia, insominia, depression and anxiety disorders who presented to [facility] ED with worsening left foot ulcer from wound care clinich after I-n-D done there resulting in copious amounts of pus drained. In ED triage, she was found to be hypoglycemic at 58 and was given a sugary drink. * MRI left foot with and without contrast Impression: 1. Large soft tissue wound along dorsal aspect of forefoot 2. Osteomyelitis involving the fourth and fifth proximal phalnages and fourth toe metatarsal head 3. Moderate cellulitis of left foot, no drainage fluid collection. Left foot ulcer with Osteomyelitis: consult Surgeon, cellulitis with abscess s/o excisional debridement at wound care clinic, treat with iv abx for couple days, consulted Wound care nurse, ID input noted Hypertension: low salt diet, monitor bmp closely Type 2 DM: ssi, accuchecks and ada diet Dyslipidemia: statin Disposition: Home once IV abx setup. Patient dose of Vancomycin at 10 pm tonight so discharge in Am to setup prior to night time History Interval history: Patient was seen and examined. Follow-up on current diagnosis of Left foot ulcer. No overnight events reported to me. Patient denies any chest pain, shortn ess breath, nausea/vomiting or severe headaches. Imaging, nursing note, chart, labs and old chart reviewed. Discussed with patient. Hospitalist Physical - Physical exam Narrative exam: Gen: WDWN, NAD, Awake, Alert, Orientated HEENT: NCAT, EOMI, PERRL, OP Clear Neck: supple, no adenopathy, no thyromegaly, no JVD CVS/Heart: Regular tachycardia, normal S1S2, pulses present bilaterally Chest/Lungs: CTA B, Symmetrical chest expansion, good air entry bilaterally GI/Abdomen: soft, NTND, good bowel sounds, no guarding or rebound /Bladder: no suprapubic tenderness, no CVA or paraspinal tenderness Extermity/Skin: abnormal, left anterior foot next under the big toe is a very large at least stage 4 ulcer/crater with sloughing and surrounding redness, warmth, erythema MSK: FROM x 4 Neuro: CN 2-12 grossly intact, no new focal deficits Psych: calm - Constitutional Vitals: Temp Pulse Resp BP Pulse Ox 98.4 F 84 20 149/85 96 07/22/19 06:29 12/26/18 06:29 12/25/18 20:00 12/26/18 06:29 12/26/18 06:29 Results - Labs CBC & Chem 7: 12/23/18 05:51 12/23/18 05:51 Labs: Laboratory Last Values WBC 6.0 K/mm3 (4.5-11.0) 12/23/18 05:51 RBC 3.44 M/mm3 (3.65-5.03) L 12/23/18 05:51 Hgb 8.9 gm/dl (10.1-14.3) L 12/23/18 05:51 Hct 27.2 % (30.3-42.9) L 12/23/18 05:51 MCV 79 fl (79-97) 12/23/18 05:51 MCH 26 pg (28-32) L 12/23/18 05:51 MCHC 33 % (30-34) 12/23/18 05:51 RDW 15.6 % (13.2-15.2) H 12/23/18 05:51 Plt Count 456 K/mm3 (140-440) H 12/23/18 05:51 Lymph % (Auto) 47.4 % (13.4-35.0) H 12/23/18 05:51 [place] % (Auto) 7.1 % (0.0-7.3) 12/23/18 05:51 Eos % (Auto) 4.8 % (0.0-4.3) H 12/23/18 05:51 Baso % (Auto) 0.9 % (0.0-1.8) 12/23/18 05:51 Lymph # 2.9 K/mm3 (1.2-5.4) 12/23/18 05:51 [place] # 0.4 K/mm3 (0.0-0.8) 12/23/18 05:51 Eos # 0.3 K/mm3 (0.0-0.4) 12/23/18 05:51 Baso # 0.1 K/mm3 (0.0-0.1) 12/23/18 05:51 Seg Neutrophils % 39.8 % (40.0-70.0) L 12/23/18 05:51 Seg Neutrophils # 2.4 K/mm3 (1.8-7.7) 12/23/18 05:51 APTT 33.2 Sec. (24.2-36.6) 12/21/18 13:45 Sodium 139 mmol/L (137-145) 12/23/18 05:51 Potassium 4.6 mmol/L (3.6-5.0) 12/23/18 05:51 Chloride 103.4 mmol/L (98-107) 12/23/18 05:51 Carbon Dioxide 27 mmol/L (22-30) 12/23/18 05:51 13 mmol/L 12/23/18 05:51 BUN 4 mg/dL (7-17) L 12/23/18 05:51 0.6 mg/dL (0.7-1.2) L 12/23/18 05:51 Estimated GFR > 60 ml/min 12/23/18 05:51 7 % 12/23/18 05:51 Glucose 144 mg/dL (65-100) H 12/23/18 05:51 POC Glucose 253 (70-105) H 12/26/18 11:23 16.1 % (4-6) H 12/22/18 00:30 Lactic Acid 1.30 mmol/L (0.7-2.0) 12/21/18 13:45 Calcium 8.7 mg/dL (8.4-10.2) 12/23/18 05:51 < 0.20 mg/dL (0.1-1.2) 12/23/18 05:51 < 0.2 mg/dL (0-0.2) 12/21/18 13:45 0.0 mg/dL 12/21/18 13:45 AST 15 units/L (5-40) 12/23/18 05:51 ALT 10 units/L (7-56) 12/23/18 05:51 60 units/L (35-129) 12/23/18 05:51 3.20 mg/dL (0.00-1.30) H 12/22/18 15:47 6.4 g/dL (6.3-8.2) 12/23/18 05:51 2.8 g/dL (3.9-5) L 12/23/18 05:51 0.8 % 12/23/18 05:51 Straw (Yellow) 12/22/18 Unknown Clear (Clear) 12/22/18 Unknown 6.0 (5.0-7.0) 12/22/18 Unknown Ur Specific [place] 1.006 (1.003-1.030) 12/22/18 Unknown <15 mg/dl mg/dL (Negative) 12/22/18 Unknown Neg mg/dL (Negative) 12/22/18 Unknown Neg mg/dL (Negative) 12/22/18 Unknown Neg (Negative) 12/22/18 Unknown Neg (Negative) 12/22/18 Unknown Neg (Negative) 12/22/18 Unknown < 2.0 mg/dL (<2.0) 12/22/18 Unknown Ur Leukocyte Esterase Neg (Negative) 12/22/18 Unknown 1.0 /HPF (0.0-6.0) 12/22/18 Unknown 1.0 /HPF (0.0-6.0) 12/22/18 Unknown U Epithel Cells (Auto) 5.0 /HPF (0-13.0) 12/22/18 Unknown Urine HCG, Qual Negative (Negative) 12/22/18 Unknown Vancomycin Trough 9.7 ug/mL (5.0-20.0) 12/23/18 09:02 Active Medications - Current Medications Current Medications: Generic Name Dose Route Start Last Admin Trade Name Freq PRN Reason Stop Dose Admin Acetaminophen 650 mg 12/22/18 00:19 12/24/18 11:10 Tylenol PO 650 mg Q4H PRN Administration Pain MILD(1-3)/Fever >100.5/BASS Amlodipine Besylate 10 mg 12/22/18 10:00 12/26/18 10:00 Norvasc PO 10 mg DAILY CANDY Administration Bupropion HCl 150 mg 12/22/18 10:00 12/26/18 10:00 Wellbutrin Xl PO 150 mg QAM CANDY Administration Enoxaparin Sodium 40 mg 12/22/18 22:00 12/25/18 23:10 Lovenox SUB-Q 40 mg QDAY@2200 CANDY Administration Famotidine 20 mg 12/22/18 10:00 12/26/18 10:00 Pepcid PO 20 mg BID CANDY Administration Hydrochlorothiazide 25 mg 12/22/18 10:00 12/26/18 10:00 Hctz PO 25 mg QDAY CANDY Administration Hydromorphone HCl 0.5 mg 12/22/18 00:19 Dilaudid IV Q3H PRN Pain , Severe (7-10) Hydroxyzine Pamoate 50 mg 12/22/18 00:28 Vistaril PO HS PRN Insomnia Sodium Chloride 1,000 mls @ 42 mls/hr 12/22/18 01:00 12/26/18 06:55 Nacl 0.9% 1000 Ml IV 42 mls/hr DIRECT CANDY Administration Cefazolin Sodium 2 gm/ Sodium 100 mls @ 200 mls/hr 12/23/18 14:00 12/26/18 13:57 Chloride IV 02/01/19 22:29 200 mls/hr Q8H CANDY Administration Protocol Insulin Human Lispro 0 unit 12/22/18 07:30 12/26/18 13:57 Humalog SUB-Q 4 unit ACHS CANDY Administration Protocol Losartan Potassium 50 mg 12/22/18 10:00 12/26/18 10:00 Cozaar PO 50 mg QDAY CANDY Administration Metformin HCl 500 mg 12/22/18 08:00 12/26/18 09:01 Glucophage PO 500 mg BIDDIAB CANDY Administration Metoclopramide HCl 10 mg 12/22/18 00:19 Reglan IV Q6H PRN Nausea And Vomiting Ondansetron HCl 4 mg 12/22/18 00:19 Zofran IV Q8H PRN Nausea And Vomiting Oxycodone/Acetaminophen 1 tab 12/22/18 00:19 12/25/18 23:11 Percocet 5/325 PO 1 tab Q6H PRN Administration Pain, Moderate (4-6) Pravastatin Sodium 40 mg 12/22/18 22:00 12/25/18 23:11 Pravachol PO 40 mg QHS CANDY Administration Sodium Chloride 10 ml 12/22/18 10:00 12/26/18 10:01 Sodium Chloride Flush Syringe 10 Ml IV 10 ml BID CANDY Administration Sodium Chloride 10 ml 12/22/18 00:19 Sodium Chloride Flush Syringe 10 Ml IV PRN PRN LINE FLUSH Venlafaxine HCl 37.5 mg 12/22/18 10:00 12/26/18 10:00 Effexor PO 37.5 mg BID CANDY Administration
[2018-12-27] MEDS: PRAVACHOL PO SCH (01:06)
[2018-12-27] MEDS: PERCOCET 5/325 PO PRN ×2 (01:06→09:58)
[2018-12-27] MEDS: EFFEXOR PO SCH ×2 (01:06→09:11)
[2018-12-27] MEDS: PEPCID PO SCH ×2 (01:06→09:11)
[2018-12-27] MEDS: LOVENOX SUB-Q SCH (01:07)
[2018-12-27] MEDS: ceFAZolin 2 GM in NACL 0.9% 100 ML IV SCH ×3 (01:07→14:33)
[2018-12-27] MEDS: HumaLOG SUB-Q SCH ×3 (01:20→12:54)
[2018-12-27] MEDS: SODIUM CHLORIDE FLUSH SYRINGE 10 ML IV SCH ×2 (01:22→09:23)
[2018-12-27 08:54] LABS: Hematocrit 24.9 % (30.3-42.9); Hemoglobin 8.1 gm/dl (10.1-14.3); Mean Corpuscular HGB Conc 33 % (30-34); Mean Corpuscular Volume 79 fl (79-97); Platelet Count 336 K/mm3 (140-440); Red Blood Count 3.16 M/mm3 (3.65-5.03); Red Cell Distribution Width 15.2 % (13.2-15.2)
[2018-12-27 09:06] LABS: Mean Corpuscular Hemoglobin 26 pg (28-32)
[2018-12-27] MEDS: HCTZ PO SCH (09:11)
[2018-12-27] MEDS: WELLBUTRIN XL PO SCH (09:11)
[2018-12-27] MEDS: NORVASC PO SCH (09:11)
[2018-12-27] MEDS: COZAAR PO SCH (09:11)
[2018-12-27 09:20] LABS: BUN/Creatinine Ratio 14; Blood Urea Nitrogen 7 mg/dL (7-17); Hemolysis Index 7
[2018-12-27] MEDS: GLUCOPHAGE PO SCH (09:23)
--- NOTE | 2018-12-27 09:44 | Progress Note ---
Assessment and Plan - Patient Problems (1) Osteomyelitis of left foot Current Visit: Yes Status: Acute Plan to address problem: 1) Continue local wound care. 2) Antibiotics per ID 3) F/u in Wound Clinic for HBOT 4) Strict DM management 5) I will sign off. Subjective Date of service: 12/27/18 Patient Reports: Positive: no new complaints Objective Vital Signs - 12hr 12/27/18 12/27/18 00:45 05:30 Temperature 98.1 F 97.8 F Pulse Rate 89 82 Respiratory 20 20 Rate Blood Pressure 147/84 152/79 O2 Sat by Pulse 94 94 Oximetry - Musculoskeletal other (Left foot wound is clean.) - Labs 12/27/18 07:35 12/27/18 07:35 Diabetes panel 12/27/18 Range/Units 07:35 Sodium 137 (137-145) mmol/L Potassium 3.8 (3.6-5.0) mmol/L Chloride 98.2 (98-107) mmol/L Carbon Dioxide 28 (22-30) mmol/L BUN 7 (7-17) mg/dL Creatinine 0.5 L (0.7-1.2) mg/dL Glucose 175 H (65-100) mg/dL Calcium 9.0 (8.4-10.2) mg/dL Calcium panel 12/27/18 Range/Units 07:35 Calcium 9.0 (8.4-10.2) mg/dL Pituitary panel 12/27/18 Range/Units 07:35 Sodium 137 (137-145) mmol/L Potassium 3.8 (3.6-5.0) mmol/L Chloride 98.2 (98-107) mmol/L Carbon Dioxide 28 (22-30) mmol/L BUN 7 (7-17) mg/dL Creatinine 0.5 L (0.7-1.2) mg/dL Glucose 175 H (65-100) mg/dL Calcium 9.0 (8.4-10.2) mg/dL Adrenal panel 12/27/18 Range/Units 07:35 Sodium 137 (137-145) mmol/L Potassium 3.8 (3.6-5.0) mmol/L Chloride 98.2 (98-107) mmol/L Carbon Dioxide 28 (22-30) mmol/L BUN 7 (7-17) mg/dL Creatinine 0.5 L (0.7-1.2) mg/dL Glucose 175 H (65-100) mg/dL Calcium 9.0 (8.4-10.2) mg/dL
[2018-12-27] MEDS: NACL 0.9% 1000 ML 1,000 ML IV SCH (09:58)
[2018-12-27 11:48] VITALS: BP 135/79
--- NOTE | 2018-12-27 11:49 | Discharge Summary ---
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 Remove PICC line after last dose unless otherwise instructed. Lines: PICC Lab monitoring: CBC, AST, ALT, CRP, creat once a week preferly on Wednesday morning. Please fax results to [phone] and call [phone] for critical lab results. Lois Leyva Date: 12/23/2018 Consult to PICC Line RN [CONS] Stat Reason For Exam: IV antibiotics Type Line:: PICC [facility]: [facility] Hospitalization Condition: Critical Pertinent studies: LE MRI LE arterial doppler Foot xry Hospital course: 48 y/o female with uncontrolled diabetes admitted on 12/21/2018 due to a week history of left forefoot edema, erythema and tenderness. She reports lesion initially was a small blister. She picked on it with twitters and noted worsening edema, erythema and large bulla formation. Seen by primary care and noted massive amount of pus: Discharge diagnosis: 1) Left diabetic foot ulcer with necrotizing cellulitis and osteomyelitis: Wound culture 12/21/2018 MSSA. MRI shows large soft tissue wound with osteomyelitis of 4 and 5 phalanx and 4 metatarsal and extensive cellulitis. Art doppler no critical stenosis. s/p excisional debridgement by Dr connolly. d recommended to d/c discharge on cefazolin 2 gm IV q 8 hour total 6 weeks until 02/01/2019. will f/u ID clinic in 2-3 weeks. 2) Diabetes: uncontrolled. counseled compliance 3) HTN, stable 4) HLD, on statin Disposition: [id number] HOME [facility] Time spent for discharge: 34 minutes Core Measure Documentation - Palliative Care Palliative Care/ Comfort Measures: Not Applicable - Core Measures Any of the following diagnoses?: none Exam - Constitutional Vitals: Temp Pulse Resp BP Pulse Ox 97.8 F 82 20 152/79 94 12/27/18 05:30 12/27/18 05:30 12/27/18 05:30 12/27/18 05:30 12/27/18 05:30 Plan Activity: advance as tolerated Weight Bearing Status: Weight Bear as Tolerated Diet: diabetic Wound: per your surgeon's advice Follow up with: EPHRAIM SIMMONS MD [Primary Care Provider] - 3-5 Days LOIS MUNOZ MD [Staff Physician] - 7 Days
== END 2018-12-27 16:27 | disposition home health service (06) | DRG 623 ==
LOC: ED 12:32 → 3A 15:42
PROVIDERS: ADMIT Internal Medicine; ATTEND Internal Medicine
PROC: 0JBR0ZZ Excision of Left Foot Subcutaneous Tissue and Fascia, Open Approach (ICD-10-PCS; principal; 2018-12-22)
PROC: 02HV33Z Insertion of Infusion Device into Superior Vena Cava, Percutaneous Approach (ICD-10-PCS; 2018-12-23)
DX: E11.69 Type 2 diabetes mellitus with other specified complication (principal); M86.172 Other acute osteomyelitis, left ankle and foot; L03.116 Cellulitis of left lower limb; E11.621 Type 2 diabetes mellitus with foot ulcer; L97.529 Non-pressure chronic ulcer of other part of left foot with unspecified severity; I10 Essential (primary) hypertension; E78.5 Hyperlipidemia, unspecified; F41.9 Anxiety disorder, unspecified; F32.9 Major depressive disorder, single episode, unspecified; G43.909 Migraine, unspecified, not intractable, without status migrainosus; E11.649 Type 2 diabetes mellitus with hypoglycemia without coma; Z22.321 Carrier or suspected carrier of Methicillin susceptible Staphylococcus aureus; Z79.899 Other long term (current) drug therapy; Z82.49 Family history of ischemic heart disease and other diseases of the circulatory system; Z79.4 Long term (current) use of insulin
CPT/HCPCS: 36415; 80048; 80053; 80076; 80202; 81001; 81025; 82140; 82962; 83036; 85025; 85027; 85730; 86140; 87040; 87076; 87116; 87186; 96365; 96366; 96367; G0378; A9270-GY; J0295; J0690; J1650; J1815; J2543; J3370; J7030; J7040

== ENCOUNTER 2019-01-04 09:46 | Outpatient (CLI) | payer OTHER ==
[2019-01-04] MEDS ORDERED: XYLOCAINE TOPICAL 4% TP ONE (10:30)
[2019-01-04] MEDS ORDERED: SILVER NITRATE TP ONE (10:30)
== END 2019-01-04 09:47 | disposition home or self-care (01) ==
LOC: WOUND 09:46
PROVIDERS: ATTEND Surgery
DX: E11.621 Type 2 diabetes mellitus with foot ulcer (principal); L97.522 Non-pressure chronic ulcer of other part of left foot with fat layer exposed; I10 Essential (primary) hypertension; F41.9 Anxiety disorder, unspecified; F32.9 Major depressive disorder, single episode, unspecified

== ENCOUNTER 2019-01-04 11:14 | Outpatient (CLI) | payer OTHER ==
--- NOTE | 2019-01-04 12:26 | XRay Report ---
CHEST 2 VIEWS INDICATION: Hyperbaric oxygen therapy preclearance. COMPARISON: None FINDINGS: Support devices: A right arm PICC terminates in the lower SVC. Heart: Within normal limits. Lungs/pleura: No acute air space or interstitial disease. No pneumothorax. Additional findings: None. IMPRESSION: Chest x-ray within normal limits. Signer Name: Param Neves Jr, MD Signed: 01/04/2019 12:21 PM Workstation Name: [id number]
== END 2019-01-04 11:15 | disposition home or self-care (01) ==
LOC: XRAY 11:14
PROVIDERS: ATTEND Surgery
DX: E11.621 Type 2 diabetes mellitus with foot ulcer (principal); L97.521 Non-pressure chronic ulcer of other part of left foot limited to breakdown of skin; I10 Essential (primary) hypertension
CPT/HCPCS: 71046

== ENCOUNTER 2019-01-10 07:44 | Outpatient (CLI) | payer OTHER | END 2019-01-10 07:45 | disposition home or self-care (01) | LOC: WOUND 07:44 | PROVIDERS: ATTEND Surgery | DX: E11.621 Type 2 diabetes mellitus with foot ulcer (principal); L97.422 Non-pressure chronic ulcer of left heel and midfoot with fat layer exposed; I10 Essential (primary) hypertension; F41.9 Anxiety disorder, unspecified; F32.9 Major depressive disorder, single episode, unspecified | CPT/HCPCS: 82962; G0277; 99183 ==

== ENCOUNTER 2019-01-11 07:56 | Outpatient (CLI) | payer OTHER | END 2019-01-11 07:57 | disposition home or self-care (01) | LOC: WOUND 07:56 | PROVIDERS: ATTEND Surgery | DX: E11.621 Type 2 diabetes mellitus with foot ulcer (principal); L97.522 Non-pressure chronic ulcer of other part of left foot with fat layer exposed; L97.422 Non-pressure chronic ulcer of left heel and midfoot with fat layer exposed; I10 Essential (primary) hypertension; F41.9 Anxiety disorder, unspecified; F32.9 Major depressive disorder, single episode, unspecified | CPT/HCPCS: 11043; 82962; G0277; 99183 ==

== ENCOUNTER 2019-01-12 07:54 | Outpatient (CLI) | payer OTHER | END 2019-01-12 07:55 | disposition home or self-care (01) | LOC: WOUND 07:54 | PROVIDERS: ATTEND Surgery | DX: E11.621 Type 2 diabetes mellitus with foot ulcer (principal); L97.422 Non-pressure chronic ulcer of left heel and midfoot with fat layer exposed; I10 Essential (primary) hypertension; F41.9 Anxiety disorder, unspecified; F32.9 Major depressive disorder, single episode, unspecified | CPT/HCPCS: 82962; G0277; 99183 ==

== ENCOUNTER 2019-01-13 07:49 | Outpatient (CLI) | payer OTHER | END 2019-01-13 07:50 | disposition home or self-care (01) | LOC: WOUND 07:49 | PROVIDERS: ATTEND Surgery | DX: E11.621 Type 2 diabetes mellitus with foot ulcer (principal); L97.422 Non-pressure chronic ulcer of left heel and midfoot with fat layer exposed; I10 Essential (primary) hypertension; F41.9 Anxiety disorder, unspecified; F32.9 Major depressive disorder, single episode, unspecified | CPT/HCPCS: 82962; G0277; 99183 ==

== ENCOUNTER 2019-01-16 07:51 | Outpatient (CLI) | payer OTHER | END 2019-01-16 07:52 | disposition home or self-care (01) | LOC: WOUND 07:51 | PROVIDERS: ATTEND Surgery | DX: E11.621 Type 2 diabetes mellitus with foot ulcer (principal); L97.422 Non-pressure chronic ulcer of left heel and midfoot with fat layer exposed; I10 Essential (primary) hypertension; F41.9 Anxiety disorder, unspecified; F32.9 Major depressive disorder, single episode, unspecified | CPT/HCPCS: 82962; G0277; 99183 ==

== ENCOUNTER 2019-01-17 07:52 | Outpatient (CLI) | payer OTHER | END 2019-01-17 07:53 | disposition home or self-care (01) | LOC: WOUND 07:52 | PROVIDERS: ATTEND Surgery | DX: E11.621 Type 2 diabetes mellitus with foot ulcer (principal); L97.422 Non-pressure chronic ulcer of left heel and midfoot with fat layer exposed; I10 Essential (primary) hypertension; F41.9 Anxiety disorder, unspecified; F32.9 Major depressive disorder, single episode, unspecified | CPT/HCPCS: 82962; G0277; 99183 ==

== ENCOUNTER 2019-01-18 07:49 | Outpatient (CLI) | payer OTHER ==
[2019-01-18] MEDS ORDERED: XYLOCAINE TOPICAL 4% TP ONE (10:30)
== END 2019-01-18 07:50 | disposition home or self-care (01) ==
LOC: WOUND 07:49
PROVIDERS: ATTEND Surgery
DX: E11.621 Type 2 diabetes mellitus with foot ulcer (principal); L97.525 Non-pressure chronic ulcer of other part of left foot with muscle involvement without evidence of necrosis; L97.422 Non-pressure chronic ulcer of left heel and midfoot with fat layer exposed; I10 Essential (primary) hypertension; F41.9 Anxiety disorder, unspecified; F32.9 Major depressive disorder, single episode, unspecified
CPT/HCPCS: 11043; 82962; G0277; 99183

== ENCOUNTER 2019-01-19 07:49 | Outpatient (CLI) | payer OTHER | END 2019-01-19 07:50 | disposition home or self-care (01) | LOC: WOUND 07:49 | PROVIDERS: ATTEND Surgery | DX: E11.621 Type 2 diabetes mellitus with foot ulcer (principal); L97.422 Non-pressure chronic ulcer of left heel and midfoot with fat layer exposed; I10 Essential (primary) hypertension; F41.9 Anxiety disorder, unspecified; F32.9 Major depressive disorder, single episode, unspecified | CPT/HCPCS: 82962; G0277; 99183 ==

== ENCOUNTER 2019-01-20 07:57 | Outpatient (CLI) | payer OTHER | END 2019-01-20 07:58 | disposition home or self-care (01) | LOC: WOUND 07:57 | PROVIDERS: ATTEND Surgery | DX: E11.621 Type 2 diabetes mellitus with foot ulcer (principal); L97.422 Non-pressure chronic ulcer of left heel and midfoot with fat layer exposed; I10 Essential (primary) hypertension; F41.9 Anxiety disorder, unspecified; F32.9 Major depressive disorder, single episode, unspecified | CPT/HCPCS: 82962; G0277; 99183 ==

== ENCOUNTER 2019-01-23 07:51 | Outpatient (CLI) | payer OTHER | END 2019-01-23 07:52 | disposition home or self-care (01) | LOC: WOUND 07:51 | PROVIDERS: ATTEND Surgery | DX: E11.621 Type 2 diabetes mellitus with foot ulcer (principal); L97.422 Non-pressure chronic ulcer of left heel and midfoot with fat layer exposed; I10 Essential (primary) hypertension; F41.9 Anxiety disorder, unspecified; F32.9 Major depressive disorder, single episode, unspecified | CPT/HCPCS: 82962; G0277; 99183 ==

== ENCOUNTER 2019-01-24 07:55 | Outpatient (CLI) | payer OTHER | END 2019-01-24 07:56 | disposition home or self-care (01) | LOC: WOUND 07:55 | PROVIDERS: ATTEND Surgery | DX: E11.621 Type 2 diabetes mellitus with foot ulcer (principal); L97.422 Non-pressure chronic ulcer of left heel and midfoot with fat layer exposed; I10 Essential (primary) hypertension; F41.9 Anxiety disorder, unspecified; F32.9 Major depressive disorder, single episode, unspecified | CPT/HCPCS: 82962; G0277; 99183 ==

== ENCOUNTER 2019-01-25 07:54 | Outpatient (CLI) | payer OTHER ==
[2019-01-25] MEDS ORDERED: XYLOCAINE TOPICAL 4% TP ONE (11:00)
[2019-01-25] MEDS ORDERED: SILVER NITRATE TP ONE (11:00)
== END 2019-01-25 07:55 | disposition home or self-care (01) ==
LOC: WOUND 07:54
PROVIDERS: ATTEND Surgery
DX: E11.621 Type 2 diabetes mellitus with foot ulcer (principal); L97.422 Non-pressure chronic ulcer of left heel and midfoot with fat layer exposed; L97.522 Non-pressure chronic ulcer of other part of left foot with fat layer exposed; I10 Essential (primary) hypertension; F41.9 Anxiety disorder, unspecified; F32.9 Major depressive disorder, single episode, unspecified
CPT/HCPCS: 11042; 82962; G0277; 99183

== ENCOUNTER 2019-01-26 07:54 | Outpatient (CLI) | payer OTHER | END 2019-01-26 07:55 | disposition home or self-care (01) | LOC: WOUND 07:54 | PROVIDERS: ATTEND Surgery | DX: E11.621 Type 2 diabetes mellitus with foot ulcer (principal); L97.422 Non-pressure chronic ulcer of left heel and midfoot with fat layer exposed; L97.521 Non-pressure chronic ulcer of other part of left foot limited to breakdown of skin; I10 Essential (primary) hypertension; F41.9 Anxiety disorder, unspecified; F32.9 Major depressive disorder, single episode, unspecified | CPT/HCPCS: 82962; G0277; 99183 ==

== ENCOUNTER 2019-01-27 07:44 | Outpatient (CLI) | payer OTHER | END 2019-01-27 07:45 | disposition home or self-care (01) | LOC: WOUND 07:44 | PROVIDERS: ATTEND Surgery | DX: E11.621 Type 2 diabetes mellitus with foot ulcer (principal); L97.422 Non-pressure chronic ulcer of left heel and midfoot with fat layer exposed; L97.521 Non-pressure chronic ulcer of other part of left foot limited to breakdown of skin; I10 Essential (primary) hypertension; F41.9 Anxiety disorder, unspecified; F32.9 Major depressive disorder, single episode, unspecified | CPT/HCPCS: 82962; G0277; 99183 ==

== ENCOUNTER 2019-01-29 14:22 | Emergency (ER) | payer OTHER ==
[2019-01-29 14:31] VITALS: BP 149/88
--- NOTE | 2019-01-29 14:31 | Event Note ---
ED Screening Note Date of service: 01/29/19 Time: 14:29 ED Screening Note: 48 y o female presents with needing a picc line replacement after hers fell out her right arm on wednesday. had no treatment in 2 days no other cc This initial assessment/diagnostic orders/clinical plan/treatment(s) is/are subject to change based on patients health status, clinical progression and re- assessment by fellow clinical providers in the ED. Further treatment and workup at subsequent clinical providers discretion. Patient/guardian urged not to elope from the ED as their condition may be serious if not clinically assessed and managed. Initial orders include:
--- NOTE | 2019-01-29 14:46 | Emergency Department Report ---
ED General Adult HPI - General Chief complaint: Extremity Problem,Nontraumatic Stated complaint: RT ARM PICC LINE PULLED Time Seen by Provider: 01/29/19 14:29 Source: patient Mode of arrival: Ambulatory Limitations: No Limitations - History of Present Illness Initial comments: 48-year-old female had accidental dislodgment of the PICC line earlier today. She was as a discharge summary indicates below to be continued on Cefzil and until February 01 for osteomyelitis. She goes to hyperbaric therapy daily and the wound clinic weekly. She states that her wound has done very well. Last culture reported on 12/21/2018 indicates MSSA pansensitive to everything. The patient does not complain of any foot pain nor fever or chills. She presents to the emergency Department for for further instruction on what to do. 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 Remove PICC line after last dose unless otherwise instructed. Lines: PICC Lab monitoring: CBC, AST, ALT, CRP, creat once a week preferly on Wednesday morning. Please fax results to [phone] and call [phone] for critical lab results. Lois Leyva Date: 12/23/2018 Consult to PICC Line RN [CONS] Stat Reason For Exam: IV antibiotics Type Line:: PICC - Related Data Home Medications Medication Instructions Recorded Confirmed Last Taken Glimepiride [Amaryl] 2 mg PO BID 12/21/18 12/21/18 Unknown Hydroxyzine HCl [hydrOXYzine] 50 mg PO HS PRN 12/21/18 12/21/18 Unknown Insulin Lispro Protamin/Lispro 50 units SUB-Q QAM 12/21/18 12/21/18 12/21/18 [HumaLOG Mix 75-25 Kwikpen] Insulin Lispro Protamin/Lispro 55 units SUB-Q QPM 12/21/18 12/21/18 Unknown [HumaLOG Mix 75-25 Kwikpen] Losartan [Cozaar] 50 mg PO QDAY 12/21/18 12/21/18 Unknown Simvastatin 20 mg PO QPM 12/21/18 12/21/18 Unknown Venlafaxine HCl [Effexor Xr] 37.5 mg PO BID 12/21/18 12/21/18 Unknown amLODIPine [Norvasc] 10 mg PO DAILY 12/21/18 12/21/18 Unknown buPROPion XL [Wellbutrin XL] 150 mg PO QAM 12/21/18 12/21/18 Unknown hydroCHLOROthiazide [HCTZ] 25 mg PO QDAY 12/21/18 12/21/18 Unknown metFORMIN [Glucophage] 500 mg PO BIDWM 12/21/18 12/21/18 Unknown Previous Rx's Medication Instructions Recorded Last Taken Type oxyCODONE /ACETAMINOPHEN [Percocet 1 tab PO Q6HR PRN #10 tablet 12/27/18 Unknown Rx 5/325] cephALEXin [Keflex] 500 mg PO QID #30 capsule 01/29/19 Unknown Rx Allergies Allergy/AdvReac Type Severity Reaction Status Date / Time No Known Allergies Allergy Verified 12/21/18 13:12 ED Review of Systems ROS: Stated complaint: RT ARM PICC LINE PULLED Other details as noted in HPI Constitutional: denies: chills, fever Eyes: denies: eye pain, eye discharge, vision change ENT: denies: ear pain, throat pain Respiratory: denies: cough, shortness of breath, wheezing Cardiovascular: denies: chest pain, palpitations Endocrine: no symptoms reported Gastrointestinal: denies: abdominal pain, nausea, diarrhea Genitourinary: denies: urgency, dysuria, discharge Musculoskeletal: denies: back pain, joint swelling, arthralgia Skin: denies: rash, lesions Neurological: denies: headache, weakness, paresthesias Psychiatric: denies: anxiety, depression Hematological/Lymphatic: denies: easy bleeding, easy bruising ED Past Medical Hx - Past Medical History Hx Hypertension: Yes Hx Congestive Heart Failure: No Hx Diabetes: Yes Hx Deep Vein Thrombosis: No Hx Headaches / Migraines: Yes Hx Psychiatric Treatment: Yes (Depression/anxiety) Hx Asthma: No Hx COPD: No Additional medical history: HLD, insomnia, left foot ulcer - Surgical History Hx Pacemaker: No Hx Internal Defibrillator: No - Social History Smoking Status: Never Smoker Substance Use Type: None - Medications Home Medications: Home Medications Medication Instructions Recorded Confirmed Last Taken Type Glimepiride [Amaryl] 2 mg PO BID 12/21/18 12/21/18 Unknown History Hydroxyzine HCl [hydrOXYzine] 50 mg PO HS PRN 12/21/18 12/21/18 Unknown History Insulin Lispro Protamin/Lispro 50 units SUB-Q QAM 12/21/18 12/21/18 12/21/18 History [HumaLOG Mix 75-25 Kwikpen] Insulin Lispro Protamin/Lispro 55 units SUB-Q QPM 12/21/18 12/21/18 Unknown History [HumaLOG Mix 75-25 Kwikpen] Losartan [Cozaar] 50 mg PO QDAY 12/21/18 12/21/18 Unknown History Simvastatin 20 mg PO QPM 12/21/18 12/21/18 Unknown History Venlafaxine HCl [Effexor Xr] 37.5 mg PO BID 12/21/18 12/21/18 Unknown History amLODIPine [Norvasc] 10 mg PO DAILY 12/21/18 12/21/18 Unknown History buPROPion XL [Wellbutrin XL] 150 mg PO QAM 12/21/18 12/21/18 Unknown History hydroCHLOROthiazide [HCTZ] 25 mg PO QDAY 12/21/18 12/21/18 Unknown History metFORMIN [Glucophage] 500 mg PO BIDWM 12/21/18 12/21/18 Unknown History oxyCODONE /ACETAMINOPHEN [Percocet 1 tab PO Q6HR PRN #10 tablet 12/27/18 Unknown Rx 5/325] cephALEXin [Keflex] 500 mg PO QID #30 capsule 01/29/19 Unknown Rx ED Physical Exam - General Limitations: No Limitations General appearance: alert, in no apparent distress - Head Head exam: Present: atraumatic, normocephalic - Eye Eye exam: Present: normal appearance. Absent: scleral icterus - ENT ENT exam: Present: mucous membranes moist - Neck Neck exam: Present: normal inspection. Absent: meningismus - Respiratory Respiratory exam: Present: normal lung sounds bilaterally. Absent: respiratory distress - Cardiovascular Cardiovascular Exam: Present: regular rate, normal rhythm. Absent: systolic murmur, diastolic murmur, rubs, gallop - GI/Abdominal GI/Abdominal exam: Present: soft, normal bowel sounds. Absent: distended, tenderness - Extremities Exam Extremities exam: Absent: pedal edema, calf tenderness - Back Exam Back exam: Present: normal inspection - Neurological Exam Neurological exam: Present: alert, oriented X3, CN II-XII intact. Absent: motor sensory deficit (grossly) - Psychiatric Psychiatric exam: Present: normal affect, normal mood - Skin Skin exam: Present: warm, dry, intact, other (there is a skin ulcer which is full thickness of the dorsum of the foot. The edges are clean and well demarcated. The dorsal foot skin is not red and is normal color. There is no signs of any vascular compromise or superinfection.). Absent: rash ED Course Vital Signs 01/29/19 14:29 Temperature 99.3 F Pulse Rate 104 H Respiratory 18 Rate Blood Pressure 149/88 O2 Sat by Pulse 99 Oximetry - Reevaluation(s) Reevaluation #1: I spoke to the infectious disease specialist Dr. Floyd. He stated that it would be appropriate to start the patient on Keflex at this point. She should follow up with them in the office. The patient's last creatinine was 0.5. She'll be started on 500 Keflex 4 times a day. 01/29/19 15:21 01/29/19 15:22 Critical care attestation.: If time is entered above; I have spent that time in minutes in the direct care of this critically ill patient, excluding procedure time. ED Disposition Clinical Impression: Osteomyelitis Qualifiers: Osteomyelitis type: unspecified type Osteomyelitis location: foot Laterality: right Qualified Code(s): M86.9 - Osteomyelitis, unspecified Diabetic foot ulcer Qualifiers: Diabetic foot ulcer location: midfoot Diabetes mellitus type: type 2 Laterality: right Non-pressure ulcer stage: unspecified non-pressure ulcer stage Qualified Code(s): E11.621 - Type 2 diabetes mellitus with foot ulcer; L97.419 - Non-pressure chronic ulcer of right heel and midfoot with unspecified severity Disposition: -01 TO HOME OR SELFCARE Is pt being admited?: No Does the pt Need Aspirin: No Condition: Stable Instructions: Diabetes Mellitus Type 2 in Adults (ED), Diabetic Foot Ulcers (ED) Additional Instructions: Continue your wound care and hyperbaric program. See her infectious disease specialist in the office this week. Rx as directed. Return any apparent probl ems. Prescriptions: cephALEXin [Keflex] 500 mg PO QID #30 capsule Referrals: LOIS MUNOZ MD [Staff Physician] - 2-3 Days Time of Disposition: 15:24
== END 2019-01-29 15:40 | disposition home or self-care (01) ==
LOC: ED 14:22
DX: E11.621 Type 2 diabetes mellitus with foot ulcer (principal); L97.529 Non-pressure chronic ulcer of other part of left foot with unspecified severity; I10 Essential (primary) hypertension; G43.909 Migraine, unspecified, not intractable, without status migrainosus; F32.9 Major depressive disorder, single episode, unspecified; F41.9 Anxiety disorder, unspecified; Z79.4 Long term (current) use of insulin; Z79.899 Other long term (current) drug therapy
CPT/HCPCS: 99282

== ENCOUNTER 2019-01-30 07:41 | Outpatient (CLI) | payer OTHER | END 2019-01-30 07:42 | disposition home or self-care (01) | LOC: WOUND 07:41 | PROVIDERS: ATTEND Surgery | DX: E11.621 Type 2 diabetes mellitus with foot ulcer (principal); L97.422 Non-pressure chronic ulcer of left heel and midfoot with fat layer exposed; L97.521 Non-pressure chronic ulcer of other part of left foot limited to breakdown of skin; I10 Essential (primary) hypertension; F41.9 Anxiety disorder, unspecified; F32.9 Major depressive disorder, single episode, unspecified | CPT/HCPCS: 82962; G0277; 99183 ==

== ENCOUNTER 2019-01-31 07:46 | Outpatient (CLI) | payer OTHER | END 2019-01-31 07:47 | disposition home or self-care (01) | LOC: WOUND 07:46 | PROVIDERS: ATTEND Surgery | DX: E11.621 Type 2 diabetes mellitus with foot ulcer (principal); L97.422 Non-pressure chronic ulcer of left heel and midfoot with fat layer exposed; L97.521 Non-pressure chronic ulcer of other part of left foot limited to breakdown of skin; I10 Essential (primary) hypertension; F41.9 Anxiety disorder, unspecified; F32.9 Major depressive disorder, single episode, unspecified | CPT/HCPCS: 82962; G0277; 99183 ==

== ENCOUNTER 2019-02-01 07:49 | Outpatient (CLI) | payer OTHER | END 2019-02-01 07:50 | disposition home or self-care (01) | LOC: WOUND 07:49 | PROVIDERS: ATTEND Surgery | DX: E11.621 Type 2 diabetes mellitus with foot ulcer (principal); L97.422 Non-pressure chronic ulcer of left heel and midfoot with fat layer exposed; L97.521 Non-pressure chronic ulcer of other part of left foot limited to breakdown of skin; I10 Essential (primary) hypertension; F41.9 Anxiety disorder, unspecified; F32.9 Major depressive disorder, single episode, unspecified | CPT/HCPCS: 11042; 82962; G0277; 99183 ==

== ENCOUNTER 2019-02-02 07:49 | Outpatient (CLI) | payer OTHER | END 2019-02-02 07:50 | disposition home or self-care (01) | LOC: WOUND 07:49 | PROVIDERS: ATTEND Surgery | DX: E11.621 Type 2 diabetes mellitus with foot ulcer (principal); L97.422 Non-pressure chronic ulcer of left heel and midfoot with fat layer exposed; L97.521 Non-pressure chronic ulcer of other part of left foot limited to breakdown of skin; I10 Essential (primary) hypertension; F41.9 Anxiety disorder, unspecified; F32.9 Major depressive disorder, single episode, unspecified | CPT/HCPCS: 82962; 99183; G0277 ==

== ENCOUNTER 2019-02-07 07:42 | Outpatient (CLI) | payer OTHER | END 2019-02-07 07:43 | disposition home or self-care (01) | LOC: WOUND 07:42 | PROVIDERS: ATTEND Surgery | DX: E11.621 Type 2 diabetes mellitus with foot ulcer (principal); L97.422 Non-pressure chronic ulcer of left heel and midfoot with fat layer exposed; L97.521 Non-pressure chronic ulcer of other part of left foot limited to breakdown of skin; I10 Essential (primary) hypertension; F41.9 Anxiety disorder, unspecified; F32.9 Major depressive disorder, single episode, unspecified | CPT/HCPCS: 82962; G0277; 99183 ==

== ENCOUNTER 2019-02-08 07:51 | Outpatient (CLI) | payer OTHER ==
[2019-02-08] MEDS ORDERED: XYLOCAINE TOPICAL 4% TP ONE (10:14)
[2019-02-08] MEDS ORDERED: SILVER NITRATE TP ONE (11:33)
== END 2019-02-08 07:52 | disposition home or self-care (01) ==
LOC: WOUND 07:51
PROVIDERS: ATTEND Surgery
DX: E11.621 Type 2 diabetes mellitus with foot ulcer (principal); L97.422 Non-pressure chronic ulcer of left heel and midfoot with fat layer exposed; L97.521 Non-pressure chronic ulcer of other part of left foot limited to breakdown of skin; I10 Essential (primary) hypertension; F41.9 Anxiety disorder, unspecified; F32.9 Major depressive disorder, single episode, unspecified
CPT/HCPCS: 11042; 82962; G0277; 99183

== ENCOUNTER 2019-02-09 07:57 | Outpatient (CLI) | payer OTHER | END 2019-02-09 07:58 | disposition home or self-care (01) | LOC: WOUND 07:57 | PROVIDERS: ATTEND Surgery | DX: E11.621 Type 2 diabetes mellitus with foot ulcer (principal); L97.422 Non-pressure chronic ulcer of left heel and midfoot with fat layer exposed; L97.521 Non-pressure chronic ulcer of other part of left foot limited to breakdown of skin; I10 Essential (primary) hypertension; F41.9 Anxiety disorder, unspecified; F32.9 Major depressive disorder, single episode, unspecified | CPT/HCPCS: 82962; G0277; 99183 ==

== ENCOUNTER 2019-02-10 07:51 | Outpatient (CLI) | payer OTHER | END 2019-02-10 07:52 | disposition home or self-care (01) | LOC: WOUND 07:51 | PROVIDERS: ATTEND Surgery | DX: E11.621 Type 2 diabetes mellitus with foot ulcer (principal); L97.422 Non-pressure chronic ulcer of left heel and midfoot with fat layer exposed; L97.521 Non-pressure chronic ulcer of other part of left foot limited to breakdown of skin; I10 Essential (primary) hypertension; F41.9 Anxiety disorder, unspecified; F32.9 Major depressive disorder, single episode, unspecified | CPT/HCPCS: 82962; G0277; 99183 ==

== ENCOUNTER 2019-02-13 07:50 | Outpatient (CLI) | payer OTHER | END 2019-02-13 07:51 | disposition home or self-care (01) | LOC: WOUND 07:50 | PROVIDERS: ATTEND Surgery | DX: E11.621 Type 2 diabetes mellitus with foot ulcer (principal); L97.422 Non-pressure chronic ulcer of left heel and midfoot with fat layer exposed; L97.521 Non-pressure chronic ulcer of other part of left foot limited to breakdown of skin; I10 Essential (primary) hypertension; F41.9 Anxiety disorder, unspecified; F32.9 Major depressive disorder, single episode, unspecified | CPT/HCPCS: 82962; G0277; 99183 ==

== ENCOUNTER 2019-02-14 07:58 | Outpatient (CLI) | payer OTHER | END 2019-02-14 07:59 | disposition home or self-care (01) | LOC: WOUND 07:58 | PROVIDERS: ATTEND Surgery | DX: E11.621 Type 2 diabetes mellitus with foot ulcer (principal); L97.422 Non-pressure chronic ulcer of left heel and midfoot with fat layer exposed; L97.521 Non-pressure chronic ulcer of other part of left foot limited to breakdown of skin; I10 Essential (primary) hypertension; F41.9 Anxiety disorder, unspecified; F32.9 Major depressive disorder, single episode, unspecified | CPT/HCPCS: 82962; G0277; 99183 ==

== ENCOUNTER 2019-02-15 07:59 | Outpatient (CLI) | payer OTHER ==
[2019-02-15] MEDS ORDERED: SILVER NITRATE TP NR (10:30)
[2019-02-15] MEDS ORDERED: XYLOCAINE TOPICAL 4% TP ONE (11:00)
== END 2019-02-15 08:00 | disposition home or self-care (01) ==
LOC: WOUND 07:59
PROVIDERS: ATTEND Surgery
DX: E11.621 Type 2 diabetes mellitus with foot ulcer (principal); L97.422 Non-pressure chronic ulcer of left heel and midfoot with fat layer exposed; L97.521 Non-pressure chronic ulcer of other part of left foot limited to breakdown of skin; I10 Essential (primary) hypertension; F41.9 Anxiety disorder, unspecified; F32.9 Major depressive disorder, single episode, unspecified
CPT/HCPCS: 11042; 82962; G0277; 99183

== ENCOUNTER 2019-02-16 07:58 | Outpatient (CLI) | payer OTHER | END 2019-02-16 07:59 | disposition home or self-care (01) | LOC: WOUND 07:58 | PROVIDERS: ATTEND Surgery | DX: E11.621 Type 2 diabetes mellitus with foot ulcer (principal); L97.422 Non-pressure chronic ulcer of left heel and midfoot with fat layer exposed; L97.521 Non-pressure chronic ulcer of other part of left foot limited to breakdown of skin; I10 Essential (primary) hypertension; F41.9 Anxiety disorder, unspecified; F32.9 Major depressive disorder, single episode, unspecified | CPT/HCPCS: 82962; 99183; G0277 ==

== ENCOUNTER 2019-02-17 07:41 | Outpatient (CLI) | payer OTHER | END 2019-02-17 07:42 | disposition home or self-care (01) | LOC: WOUND 07:41 | PROVIDERS: ATTEND Surgery | DX: E11.621 Type 2 diabetes mellitus with foot ulcer (principal); L97.422 Non-pressure chronic ulcer of left heel and midfoot with fat layer exposed; L97.521 Non-pressure chronic ulcer of other part of left foot limited to breakdown of skin; I10 Essential (primary) hypertension; F41.9 Anxiety disorder, unspecified; F32.9 Major depressive disorder, single episode, unspecified | CPT/HCPCS: 99183; G0277 ==

== ENCOUNTER 2019-02-20 07:52 | Outpatient (CLI) | payer OTHER | END 2019-02-20 07:53 | disposition home or self-care (01) | LOC: WOUND 07:52 | PROVIDERS: ATTEND Surgery | DX: E11.621 Type 2 diabetes mellitus with foot ulcer (principal); L97.422 Non-pressure chronic ulcer of left heel and midfoot with fat layer exposed; L97.521 Non-pressure chronic ulcer of other part of left foot limited to breakdown of skin; I10 Essential (primary) hypertension; F41.9 Anxiety disorder, unspecified; F32.9 Major depressive disorder, single episode, unspecified | CPT/HCPCS: 82962; 99183; G0277 ==

== ENCOUNTER 2019-02-21 07:51 | Outpatient (CLI) | payer OTHER | END 2019-02-21 07:52 | disposition home or self-care (01) | LOC: WOUND 07:51 | PROVIDERS: ATTEND Surgery | DX: E11.621 Type 2 diabetes mellitus with foot ulcer (principal); L97.422 Non-pressure chronic ulcer of left heel and midfoot with fat layer exposed; L97.521 Non-pressure chronic ulcer of other part of left foot limited to breakdown of skin; I10 Essential (primary) hypertension; F41.9 Anxiety disorder, unspecified; F32.9 Major depressive disorder, single episode, unspecified | CPT/HCPCS: 82962; 99183; G0277 ==

== ENCOUNTER 2019-02-22 07:46 | Outpatient (CLI) | payer OTHER ==
[2019-02-22] MEDS ORDERED: XYLOCAINE TOPICAL 4% TP ONE (10:09)
[2019-02-22] MEDS ORDERED: SILVER NITRATE TP ONE (10:30)
== END 2019-02-22 07:47 | disposition home or self-care (01) ==
LOC: WOUND 07:46
PROVIDERS: ATTEND Surgery
DX: E11.621 Type 2 diabetes mellitus with foot ulcer (principal); L97.422 Non-pressure chronic ulcer of left heel and midfoot with fat layer exposed; L97.521 Non-pressure chronic ulcer of other part of left foot limited to breakdown of skin; I10 Essential (primary) hypertension; F41.9 Anxiety disorder, unspecified; F32.9 Major depressive disorder, single episode, unspecified
CPT/HCPCS: 11042; G0277; 82962; 99183

== ENCOUNTER 2019-02-23 07:50 | Outpatient (CLI) | payer OTHER | END 2019-02-23 07:51 | disposition home or self-care (01) | LOC: WOUND 07:50 | PROVIDERS: ATTEND Surgery | DX: E11.621 Type 2 diabetes mellitus with foot ulcer (principal); L97.422 Non-pressure chronic ulcer of left heel and midfoot with fat layer exposed; L97.521 Non-pressure chronic ulcer of other part of left foot limited to breakdown of skin; I10 Essential (primary) hypertension; F41.9 Anxiety disorder, unspecified; F32.9 Major depressive disorder, single episode, unspecified | CPT/HCPCS: 82962; 99183; G0277 ==

== ENCOUNTER 2019-03-06 07:53 | Outpatient (CLI) | payer OTHER | END 2019-03-06 07:54 | disposition home or self-care (01) | LOC: WOUND 07:53 | PROVIDERS: ATTEND Surgery | DX: E11.621 Type 2 diabetes mellitus with foot ulcer (principal); L97.422 Non-pressure chronic ulcer of left heel and midfoot with fat layer exposed; L97.521 Non-pressure chronic ulcer of other part of left foot limited to breakdown of skin; I10 Essential (primary) hypertension; F41.9 Anxiety disorder, unspecified; F32.9 Major depressive disorder, single episode, unspecified | CPT/HCPCS: 82962; G0277; 99183 ==

== ENCOUNTER 2019-03-07 07:57 | Outpatient (CLI) | payer OTHER | END 2019-03-07 07:58 | disposition home or self-care (01) | LOC: WOUND 07:57 | PROVIDERS: ATTEND Surgery | DX: E11.621 Type 2 diabetes mellitus with foot ulcer (principal); L97.422 Non-pressure chronic ulcer of left heel and midfoot with fat layer exposed; L97.521 Non-pressure chronic ulcer of other part of left foot limited to breakdown of skin; I10 Essential (primary) hypertension; F41.9 Anxiety disorder, unspecified; F32.9 Major depressive disorder, single episode, unspecified | CPT/HCPCS: 82962; G0277; 99183 ==

== ENCOUNTER 2019-03-08 10:37 | Outpatient (CLI) | payer OTHER | END 2019-03-08 10:38 | disposition home or self-care (01) | LOC: WOUND 10:37 | PROVIDERS: ATTEND Surgery | DX: E11.621 Type 2 diabetes mellitus with foot ulcer (principal); L97.422 Non-pressure chronic ulcer of left heel and midfoot with fat layer exposed; L97.522 Non-pressure chronic ulcer of other part of left foot with fat layer exposed; I10 Essential (primary) hypertension; F41.9 Anxiety disorder, unspecified; F32.9 Major depressive disorder, single episode, unspecified ==

== ENCOUNTER 2019-03-16 11:06 | Outpatient (CLI) | payer OTHER | END 2019-03-16 11:07 | disposition home or self-care (01) | LOC: WOUND 11:06 | PROVIDERS: ATTEND Surgery | DX: E11.621 Type 2 diabetes mellitus with foot ulcer (principal); L97.528 Non-pressure chronic ulcer of other part of left foot with other specified severity; L97.422 Non-pressure chronic ulcer of left heel and midfoot with fat layer exposed; I10 Essential (primary) hypertension; F41.9 Anxiety disorder, unspecified; F32.9 Major depressive disorder, single episode, unspecified | CPT/HCPCS: 99213; G0463 ==

== ENCOUNTER 2022-02-22 19:00 | Inpatient (IN) | payer OTHER ==
[2022-02-23] MEDS ORDERED: KETOROLAC 30 MG/1 ML INJ IV ONE (02:34)
[2022-02-23] MEDS ORDERED: SODIUM CHLORIDE 0.9% 1000 ML 1,000 ML IV ONE ×2 (03:33→04:19)
--- NOTE | 2022-02-23 04:06 | XRay Report ---
CHEST 1 VIEW INDICATION / CLINICAL INFORMATION: FEVER. COMPARISON: 01/04/2019 FINDINGS: SUPPORT DEVICES: None. HEART / MEDIASTINUM: No significant abnormality. LUNGS / PLEURA: Markedly suboptimal inspiration. Given the degree of inspiration, the lungs are diffi cult to evaluate. Given this limitation I do not see any gross acute pulmonary abnormality. No large pleural effusion. No pneumothorax. ADDITIONAL FINDINGS: No significant additional findings. IMPRESSION: 1. Suboptimal inspiration. Given this limitation, no gross acute pulmonary or pleural disease is note d. Signer Name: Mickie Curry MD Signed: 02/23/2022 4:02 AM Workstation Name: [id number]
[2022-02-23 04:25] LABS: Hemoglobin 7.7 gm/dl (10.1-14.3); Mean Corpuscular HGB Conc 33 % (30-34); Mean Corpuscular Volume 77 fl (79-97); Platelet Count 153 K/mm3 (140-440); Red Blood Count 2.98 M/mm3 (3.65-5.03); Red Cell Distribution Width 15.2 % (13.2-15.2)
[2022-02-23 04:33] LABS: Alanine Aminotransferase 144 units/L (7-56); Albumin 3.2 g/dL (3.9-5); BUN/Creatinine Ratio 22; Blood Urea Nitrogen 73 mg/dL (7-17); Calcium 8.2 mg/dL (8.4-10.2); Hemolysis Index 25
[2022-02-23 04:34] LABS: Bacteria,Urine 2+ /HPF (Negative); RBC,Urine < 1.0 /HPF (0.0-6.0); WBC,Urine < 1.0 /HPF (0.0-6.0)
[2022-02-23 04:36] LABS: Color,Urine Yellow (Yellow)
--- NOTE | 2022-02-23 04:38 | Emergency Department Report ---
ED General Adult HPI - General Chief complaint: Hyperglycemia Stated complaint: HYPERGLYCEMIA PUI?: No Time Seen by Provider: 02/23/22 03:25 Source: family (Significant other.), EMS Mode of arrival: Stretcher Limitations: No Limitations - History of Present Illness Initial comments: This is a 51-year-old female brought in by significant other who has known her for the past at least 20 years state that she has a history of hypertension, anxiety, depression; came in today with concerns of elevated glucose. The significant other also state that patient has been more tired and also more flat for the past few days since she was started on amitriptyline for unknown reason. Patient herself denies any discomfort; patient appears to have slow mentation. Severity scale (0 -10): 6 - Related Data Home Medications Medication Instructions Recorded Confirmed Last Taken Glimepiride [Amaryl] 2 mg PO BID 12/21/18 12/21/18 Unknown Hydroxyzine HCl [hydrOXYzine] 50 mg PO HS PRN 12/21/18 12/21/18 Unknown Insulin Lispro Protamin/Lispro 50 units SUB-Q QAM 12/21/18 12/21/18 12/21/18 [HumaLOG Mix 75-25 Kwikpen] Insulin Lispro Protamin/Lispro 55 units SUB-Q QPM 12/21/18 12/21/18 Unknown [HumaLOG Mix 75-25 Kwikpen] Losartan [Cozaar] 50 mg PO QDAY 12/21/18 12/21/18 Unknown Simvastatin 20 mg PO QPM 12/21/18 12/21/18 Unknown Venlafaxine HCl [Effexor Xr] 37.5 mg PO BID 12/21/18 12/21/18 Unknown amLODIPine 10 mg PO DAILY 12/21/18 12/21/18 Unknown buPROPion XL [Wellbutrin XL] 150 mg PO QAM 12/21/18 12/21/18 Unknown hydroCHLOROthiazide [HCTZ] 25 mg PO QDAY 12/21/18 12/21/18 Unknown metFORMIN [Glucophage] 500 mg PO BIDWM 12/21/18 12/21/18 Unknown Previous Rx's Medication Instructions Recorded Last Taken Type oxyCODONE /ACETAMINOPHEN [Percocet 1 tab PO Q6HR PRN #10 tablet 12/27/18 Unknown Rx 5/325] cephALEXin [Keflex] 500 mg PO QID #30 capsule 01/29/19 Unknown Rx Allergies Allergy/AdvReac Type Severity Reaction Status Date / Time No Known Allergies Allergy Verified 12/21/18 13:12 ED Review of Systems ROS: Stated complaint: HYPERGLYCEMIA Other details as noted in HPI Comment: All other systems reviewed and negative ED Past Medical Hx - Past Medical History Previous Medical History?: Yes Hx Hypertension: Yes Hx Congestive Heart Failure: No Hx Diabetes: Yes Hx Deep Vein Thrombosis: No Hx Headaches / Migraines: Yes Hx Psychiatric Treatment: Yes (Depression/anxiety) Hx Asthma: No Hx COPD: No Additional medical history: HLD, insomnia, left foot ulcer - Surgical History Past Surgical History?: No Hx Pacemaker: No Hx Internal Defibrillator: No - Social History Smoking Status: Unknown if ever smoked - Medications Home Medications: Home Medications Medication Instructions Recorded Confirmed Last Taken Type Glimepiride [Amaryl] 2 mg PO BID 12/21/18 12/21/18 Unknown History Hydroxyzine HCl [hydrOXYzine] 50 mg PO HS PRN 12/21/18 12/21/18 Unknown History Insulin Lispro Protamin/Lispro 50 units SUB-Q QAM 12/21/18 12/21/18 12/21/18 History [HumaLOG Mix 75-25 Kwikpen] Insulin Lispro Protamin/Lispro 55 units SUB-Q QPM 12/21/18 12/21/18 Unknown History [HumaLOG Mix 75-25 Kwikpen] Losartan [Cozaar] 50 mg PO QDAY 12/21/18 12/21/18 Unknown History Simvastatin 20 mg PO QPM 12/21/18 12/21/18 Unknown History Venlafaxine HCl [Effexor Xr] 37.5 mg PO BID 12/21/18 12/21/18 Unknown History amLODIPine 10 mg PO DAILY 12/21/18 12/21/18 Unknown History buPROPion XL [Wellbutrin XL] 150 mg PO QAM 12/21/18 12/21/18 Unknown History hydroCHLOROthiazide [HCTZ] 25 mg PO QDAY 12/21/18 12/21/18 Unknown History metFORMIN [Glucophage] 500 mg PO BIDWM 12/21/18 12/21/18 Unknown History oxyCODONE /ACETAMINOPHEN [Percocet 1 tab PO Q6HR PRN #10 tablet 12/27/18 Unknown Rx 5/325] cephALEXin [Keflex] 500 mg PO QID #30 capsule 01/29/19 Unknown Rx ED Physical Exam - General Limitations: No Limitations General appearance: alert, in no apparent distress, lethargic, obese - Head Head exam: Present: atraumatic, normocephalic, normal inspection - Eye Eye exam: Present: normal appearance, PERRL, EOMI Pupils: Present: normal accommodation - ENT ENT exam: Present: normal exam, mucous membranes dry - Neck Neck exam: Present: normal inspection, full ROM - Respiratory Respiratory exam: Present: normal lung sounds bilaterally - Cardiovascular Cardiovascular Exam: Present: regular rate, normal rhythm, normal heart sounds - GI/Abdominal GI/Abdominal exam: Present: soft - Extremities Exam Extremities exam: Present: normal inspection, full ROM, normal capillary refill - Neurological Exam Neurological exam: Present: alert, CN II-XII intact - Psychiatric Psychiatric exam: Present: flat affect (appears to be hyopmanic) - Skin Skin exam: Present: warm, dry, normal color ED Course Vital Signs 02/22/22 02/23/22 02/23/22 19:41 02:25 03:33 Temperature 98.6 F 102.1 F H Pulse Rate 110 H 110 H 108 H Respiratory 18 18 24 Rate Blood Pressure 165/88 126/74 Blood Pressure [Left] O2 Sat by Pulse 96 99 89 Oximetry 02/23/22 02/23/22 02/23/22 03:46 03:53 03:54 Temperature 97.7 F Pulse Rate 107 H 107 H Respiratory 14 14 15 Rate Blood Pressure 131/73 Blood Pressure 131/71 [Left] O2 Sat by Pulse 94 94 94 Oximetry 02/23/22 02/23/22 02/23/22 04:00 04:16 04:30 Temperature Pulse Rate 104 H 105 H 104 H Respiratory 22 11 L 25 H Rate Blood Pressure 102/64 125/68 134/77 Blood Pressure [Left] O2 Sat by Pulse 95 96 100 Oximetry 02/23/22 02/23/22 04:49 05:00 Temperature 97.9 F Pulse Rate 99 H Respiratory 16 20 Rate Blood Pressure 111/67 135/76 Blood Pressure [Left] O2 Sat by Pulse 95 Oximetry - Reevaluation(s) Reevaluation #1: 02/23/22 05:36 SPOKE TO HOSPITALIST WHO KINDLY ACCEPTED THE PATIENT. ED Medical Decision Making - Lab Data Result diagrams: 02/23/22 03:40 02/23/22 03:40 Critical care attestation.: If time is entered above; I have spent that time in minutes in the direct care of this critically ill patient, excluding procedure time. ED Disposition Clinical Impression: Hyperglycemia, BERRY (acute kidney injury), Elevated liver enzymes, UTI (urinary tract infection), Hyponatremia, Microcytic anemia Disposition: ADMITTED INPATIENT Is pt being admited?: Yes Does the pt Need Aspirin: No Condition: Stable Time of Disposition: 05:36
[2022-02-23] MEDS ORDERED: LIDOCAINE-MPF (1%) 10 MG/1 ML VIAL 5 ML INFILTRATI ONE (05:02)
--- NOTE | 2022-02-23 05:02 | Cat Scan Report ---
CT head/brain wo con, 02/23/2022 INDICATION / CLINICAL INFORMATION: ams. TECHNIQUE: Axial CT imaging of the brain was obtained without contrast. Coronal and sagittal reformatted imaging obtained and reviewed. All CT scans at this location are performed using CT dose reduction for ALA RA by means of automated exposure control. COMPARISON: None available. FINDINGS: No intracranial hemorrhage, mass or midline shift is noted. No extra-axial fluid collection or sugges tion of acute territorial infarction. The ventricular system and basilar cisterns are unremarkable. Visualized paranasal sinuses and mastoid air cells are normal in appearance. No calvarial abnormality . IMPRESSION: 1. No acute intracranial abnormality. Signer Name: Mickie Curry MD Signed: 02/23/2022 4:57 AM Workstation Name: [id number]
[2022-02-23] MEDS ORDERED: MORPHINE 2 MG/1 ML INJ IV PRN (05:21)
[2022-02-23] MEDS ORDERED: ONDANSETRON 4 MG/2 ML INJ IV PRN (05:21)
[2022-02-23] MEDS ORDERED: MAGNESIUM HYDROXIDE (MOM) ORAL LIQD UDC PO PRN (05:21)
[2022-02-23] MEDS ORDERED: DEXTROSE 50% IN WATER (25GM) 50 ML SYRINGE IV PRN (05:21)
[2022-02-23] MEDS ORDERED: ACETAMINOPHEN 325 MG TAB PO PRN (05:21)
[2022-02-23] MEDS ORDERED: MORPHINE 4 MG/1 ML INJ IV PRN (05:21)
--- NOTE | 2022-02-23 05:30 | History and Physical Report ---
History of Present Illness Date of examination: 02/23/22 Date of admission: 02/23/2022 Chief complaint: Hyperglycemia History of present illness: 51-year-old female with known history of diabetes mellitus, depression, insomnia and hyperlipidemia presents in the emergency room today accompanied by her for evaluation of elevated blood glucose. Most of the history was provided by the significant order was by the bedside as patient is not quite coherent. Patient's medication was recently adjusted with amitriptyline being added to the regimen. Patient has become increasingly fatigued and has had changes in her mood over the past few days. There has been no fever or chills, no headache or dizziness and no diaphoresis. No nausea vomiting and no abdominal pain. Patient has been having poor oral intake over the past few days. Initial blood glucose was said to be in the 400s and later improved to the 200s upon arrival in the emergency room. Work-up in the emergency room today, significant findings on the labs includes leukocytosis of 12.1, hemoglobin of 7.7 and hematocrit of 23, hyponatremia of 127, BUN of 73 and creatinine of 3.3, elevated LFT with AST of 278 and ALT of 144. Urinalysis had 2+ bacteria and trace leukocyte esterase. CT scan of the head shows no acute abnormality. Chest x-ray shows no acute findings. Patient admits that she normally has heavy periods secondary to her history of uterine fibroids. Patient being admitted for hyperglycemia, anemia, BERRY, elevated liver enzymes and changes in mental status. Past History Past Medical History: diabetes, hypertension, hyperlipidemia, migraines, other (Anxiety/Depression, insomnia) Past Surgical History: No surgical history Social history: denies: no significant social history Family history: denies: no significant family history Medications and Allergies Allergies Allergy/AdvReac Type Severity Reaction Status Date / Time No Known Allergies Allergy Verified 12/21/18 13:12 Home Medications Medication Instructions Recorded Confirmed Last Taken Type Glimepiride [Amaryl] 2 mg PO BID 12/21/18 12/21/18 Unknown History Hydroxyzine HCl [hydrOXYzine] 50 mg PO HS PRN 12/21/18 12/21/18 Unknown History Insulin Lispro Protamin/Lispro 50 units SUB-Q QAM 12/21/18 12/21/18 12/21/18 History [HumaLOG Mix 75-25 Kwikpen] Insulin Lispro Protamin/Lispro 55 units SUB-Q QPM 12/21/18 12/21/18 Unknown History [HumaLOG Mix 75-25 Kwikpen] Losartan [Cozaar] 50 mg PO QDAY 12/21/18 12/21/18 Unknown History Simvastatin 20 mg PO QPM 12/21/18 12/21/18 Unknown History Venlafaxine HCl [Effexor Xr] 37.5 mg PO BID 12/21/18 12/21/18 Unknown History amLODIPine 10 mg PO DAILY 12/21/18 12/21/18 Unknown History buPROPion XL [Wellbutrin XL] 150 mg PO QAM 12/21/18 12/21/18 Unknown History hydroCHLOROthiazide [HCTZ] 25 mg PO QDAY 12/21/18 12/21/18 Unknown History metFORMIN [Glucophage] 500 mg PO BIDWM 12/21/18 12/21/18 Unknown History oxyCODONE /ACETAMINOPHEN [Percocet 1 tab PO Q6HR PRN #10 tablet 12/27/18 Unknown Rx 5/325] cephALEXin [Keflex] 500 mg PO QID #30 capsule 01/29/19 Unknown Rx Review of Systems Constitutional: no fever, no chills Ears, nose, mouth and throat: no nasal congestion, no sore throat Cardiovascular: no chest pain, no palpitations Respiratory: no cough, no shortness of breath Gastrointestinal: no abdominal pain, no nausea, no vomiting, no diarrhea Genitourinary Female: no pelvic pain, no flank pain, no dysuria, no hematuria Menstruation: period heavy Musculoskeletal: no neck pain, no low back pain Integumentary: no rash, no pruritis Neurological: change in mentation, no headaches, no confusion Psychiatric: no anxiety, no depression Endocrine: no polyphagia, no polydipsia, no polyuria, no nocturia Exam - Constitutional Vitals: Temp Pulse Resp BP Pulse Ox 97.9 F 99 H 20 135/76 95 02/23/22 05:00 02/23/22 05:00 02/23/22 05:00 02/23/22 05:00 02/23/22 04:49 General appearance: Present: no acute distress, well-nourished, obese, other (Dry Oral Mucosa, Moderate Pallor) - EENT Eyes: Present: PERRL, EOM intact. Absent: scleral icterus ENT: hearing intact, clear oral mucosa, dentition normal - Neck Neck: Present: supple, normal ROM - Respiratory Respiratory effort: normal Respiratory: bilateral: CTA - Cardiovascular Rhythm: regular Heart Sounds: Present: S1 & S2. Absent: gallop, systolic murmur, diastolic murmur, rub, click - Extremities Extremities: no ischemia, pulses intact, pulses symmetrical, No edema, normal temperature, normal color, Full ROM Peripheral Pulses: within normal limits - Abdominal General gastrointestinal: Present: soft, non-tender, non-distended, normal bowel sounds. Absent: mass - Integumentary Integumentary: Present: clear, warm, dry, normal turgor. Absent: rash - Musculoskeletal Musculoskeletal: strength equal bilaterally - Psychiatric Psychiatric: appropriate mood/affect, intact judgment & insight, memory intact, cooperative - Neurologic Neurologic: CNII-XII intact, no focal deficits, moves all extremities Results - Labs CBC & Chem 7: 02/23/22 03:40 02/23/22 03:40 Labs: Abnormal lab results 02/23/22 02/23/22 02/23/22 Range/Units 02:26 03:40 03:40 WBC 12.1 H (4.5-11.0) K/mm3 RBC 2.98 L (3.65-5.03) M/mm3 Hgb 7.7 L (10.1-14.3) gm/dl Hct 23.0 L (30.3-42.9) % MCV 77 L (79-97) fl MCH 26 L (28-32) pg Sodium 127 L (137-145) mmol/L Chloride 90.0 L (98-107) mmol/L BUN 73 H (7-17) mg/dL Creatinine 3.3 H (0.6-1.2) mg/dL Glucose 204 H (65-100) mg/dL POC Glucose 205 H (70-105) mg/dL Lactic Acid (0.7-2.0) mmol/L Calcium 8.2 L (8.4-10.2) mg/dL AST 278 H (5-40) units/L ALT 144 H (7-56) units/L Alkaline Phosphatase 131 H (35-129) units/L Total Protein 6.1 L (6.3-8.2) g/dL Albumin 3.2 L (3.9-5) g/dL 02/23/22 Range/Units 03:40 WBC (4.5-11.0) K/mm3 RBC (3.65-5.03) M/mm3 Hgb (10.1-14.3) gm/dl Hct (30.3-42.9) % MCV (79-97) fl MCH (28-32) pg Sodium (137-145) mmol/L Chloride (98-107) mmol/L BUN (7-17) mg/dL Creatinine (0.6-1.2) mg/dL Glucose (65-100) mg/dL POC Glucose (70-105) mg/dL Lactic Acid 2.50 H* (0.7-2.0) mmol/L Calcium (8.4-10.2) mg/dL AST (5-40) units/L ALT (7-56) units/L Alkaline Phosphatase (35-129) units/L Total Protein (6.3-8.2) g/dL Albumin (3.9-5) g/dL Assessment and Plan Assessment: 1. Hyperglycemia 2. Anemia 3. BERRY-possibly prerenal 4. Dehydration 5. History of anxiety/depression Plan: 1. Patient admitted and placed on IV fluid. Will monitor inputs and outputs 2. We will monitor Accu-Cheks. Patient placed on sliding scale insulin 3. Consult be placed to nephrology for evaluation of renal function. 4. We will continue to monitor CBC. 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 5. We will request a mental health evaluation prior to discharge. DVT Prophylaxis: Sequential Compression device Code Status: Full Code
--- NOTE | 2022-02-23 08:39 | Ultrasound Report ---
ULTRASOUND RENAL INDICATION / CLINICAL INFORMATION: BERRY. COMPARISON: None available. FINDINGS: RIGHT KIDNEY: Length = 11.2 cm. [normal > 9 cm] - Parenchymal Thickness = 1.6 cm. [normal > 1.5 cm] - Echogenicity: Normal. - Hydronephrosis: None. - Cyst or mass: No significant abnormality. - Stones: None seen. LEFT KIDNEY: Length = 12.4 cm. [normal > 9 cm] - Parenchymal Thickness = 1.7 cm. [normal > 1.5 cm] - Echogenicity: Normal. - Hydronephrosis: None. - Cyst or mass: 2.3 cm cyst near mid pole - Stones: None seen. URINARY BLADDER: There is a hypoechoic ovoid area along the inferior bladder on the right side. There is no convincing internal perfusion on color Doppler interrogation. This may represent debris within the bladder. Focal bladder wall mass is difficult to exclude. Consider further evaluation with CT wi th contrast. FREE FLUID: None. ADDITIONAL FINDINGS: None. IMPRESSION: Unremarkable sonographic appearance of the kidneys. Focal bladder wall thickening or debris is suggested on bladder imaging. Consider further evaluation with CT with contrast. Signer Name: Param Neves Jr, MD Signed: 02/23/2022 8:35 AM Workstation Name: [id number]
--- NOTE | 2022-02-23 08:42 | Ultrasound Report ---
ULTRASOUND PELVIS COMPLETE INDICATION / CLINICAL INFORMATION: Uterine Fibroid. TECHNIQUE: Transabdominal. Duplex Color Doppler used: Yes. COMPARISON: None available FINDINGS: UTERUS: Present. - Appearance (if present): Mildly enlarged - Size in cm (if present): 12.5 x 3.5 x 7.0. - Endometrial Complex (if present): No significant abnormality. Thickness in cm (if measured) = 1.0 - Mass lesions: An approximate 2.2 cm hypoechoic masslike lesion is identified in the lower posterior wall which may represent a fibroid. No additional fibroids are identified. - Additional findings: None. RIGHT ADNEXA: No significant ovarian cyst or mass. Normal color Doppler blood flow. LEFT ADNEXA: No significant ovarian cyst or mass. Normal color Doppler blood flow. URINARY BLADDER: No significant abnormality. FREE FLUID: None. ADDITIONAL FINDINGS: None. IMPRESSION: Mildly enlarged uterus. Probable small fibroid in the lower posterior wall. The ovaries are unremark able. Signer Name: Param Neves Jr, MD Signed: 02/23/2022 8:37 AM Workstation Name: [id number]
--- NOTE | 2022-02-23 08:49 | Consultation ---
History of Present Illness - Reason for Consult Consult date: 02/23/22 acute renal failure - History of Present Illness 51-year-old woman with known history of diabetes mellitus, depression, insomnia, and hyperlipidemia who presents for evaluation of elevated blood glucose. Per report, patient was brought in by as patient was having worsening mood, fatigue. At time of consult, patient awake and alert, denies any known history of kidneey disease. Notes long standing DM however. Currently denies any kidney related symptoms, concerns. Past History Past Medical History: diabetes, hypertension, hyperlipidemia, migraines, other (Anxiety/Depression, insomnia) Past Surgical History: No surgical history Social history: denies: no significant social history Family history: denies: no significant family history Medications and Allergies Allergies Allergy/AdvReac Type Severity Reaction Status Date / Time No Known Allergies Allergy Verified 12/21/18 13:12 Home Medications Medication Instructions Recorded Confirmed Last Taken Type Glimepiride [Amaryl] 2 mg PO BID 12/21/18 12/21/18 Unknown History Hydroxyzine HCl [hydrOXYzine] 50 mg PO HS PRN 12/21/18 12/21/18 Unknown History Insulin Lispro Protamin/Lispro 50 units SUB-Q QAM 12/21/18 12/21/18 12/21/18 History [HumaLOG Mix 75-25 Kwikpen] Insulin Lispro Protamin/Lispro 55 units SUB-Q QPM 12/21/18 12/21/18 Unknown History [HumaLOG Mix 75-25 Kwikpen] Losartan [Cozaar] 50 mg PO QDAY 12/21/18 12/21/18 Unknown History Simvastatin 20 mg PO QPM 12/21/18 12/21/18 Unknown History Venlafaxine HCl [Effexor Xr] 37.5 mg PO BID 12/21/18 12/21/18 Unknown History amLODIPine 10 mg PO DAILY 12/21/18 12/21/18 Unknown History buPROPion XL [Wellbutrin XL] 150 mg PO QAM 12/21/18 12/21/18 Unknown History hydroCHLOROthiazide [HCTZ] 25 mg PO QDAY 12/21/18 12/21/18 Unknown History metFORMIN [Glucophage] 500 mg PO BIDWM 12/21/18 12/21/18 Unknown History oxyCODONE /ACETAMINOPHEN [Percocet 1 tab PO Q6HR PRN #10 tablet 12/27/18 Unknown Rx 5/325] cephALEXin [Keflex] 500 mg PO QID #30 capsule 01/29/19 Unknown Rx Active Meds: Active Medications Acetaminophen (Acetaminophen 325 Mg Tab) 650 mg PO Q4H PRN PRN Reason: Pain MILD(1-3)/Fever >100.5/BASS Dextrose (Dextrose 50% In Water (25gm) 50 Ml Syringe) 0 ml IV Q30MIN PRN; Protocol PRN Reason: Hypoglycemia Sodium Chloride (Nacl 0.9% 1000 Ml) 1,000 mls @ 125 mls/hr IV DIRECT CANDY Insulin Human Lispro (Insulin Lispro 100 Unit/Ml) 0 unit SUB-Q ACHS CANDY; Protocol Magnesium Hydroxide (Magnesium Hydroxide (Mom) Oral Liqd Udc) 30 ml PO Q4H PRN PRN Reason: Constipation Morphine Sulfate (Morphine 2 Mg/1 Ml Inj) 2 mg IV Q4H PRN PRN Reason: Pain, Moderate (4-6) Morphine Sulfate (Morphine 4 Mg/1 Ml Inj) 4 mg IV Q4H PRN PRN Reason: Pain , Severe (7-10) Ondansetron HCl (Ondansetron 4 Mg/2 Ml Inj) 4 mg IV Q8H PRN PRN Reason: Nausea And Vomiting Sodium Chloride (Sodium Chloride 0.9% 10 Ml Flush Syringe) 10 ml IV BID CANDY Sodium Chloride (Sodium Chloride 0.9% 10 Ml Flush Syringe) 10 ml IV PRN PRN PRN Reason: LINE FLUSH Exam - Vital Signs Vital signs: Vital Signs Temp Pulse Resp BP Pulse Ox 98.6 F 110 H 18 165/88 96 02/22/22 19:41 02/22/22 19:41 02/22/22 19:41 02/22/22 19:41 02/22/22 19:41 - General Appearance General appearance: well-developed, well-nourished, obese EENT: ATNC, PERRL Neck: Present: neck supple Respiratory: Clear to Ascultation Heart: regular, S1S2 Gastrointestinal: Present: normoactive bowel sounds Integumentary: no rash, warm and dry Neurologic: no focal deficit, no asterixis, alert and oriented x3 Psychiatric: other (withdrawn) Results - Lab Results 02/23/22 03:40 02/23/22 03:40 Most recent lab results Calcium 8.2 mg/dL (8.4-10.2) L 02/23/22 03:40 Magnesium 2.20 mg/dL (1.7-2.3) 02/23/22 03:40 Assessment and Plan # Acute Kidney Injury: suspect pre-renal injury, no baseline known, do suspect CKD at baseline. - urinalysis noted, check UP/C, check serologies - check CK - check PTH, phos - renal ultrasound without acute obstruction - glucose control per primary, IVF as tolerated - avoid nephrotoxins - renally dose medications - I/Os - no immediate need for kidney biopsy or renal replacement therapy # Hyponatremia: suspect pseudohyponatremia in setting of hyperglycemia, follow for now # Hyperglycemia, DM: per primary # Elevated Liver Enzymes: GI input noted # Microcytic Anemia: check iron panel, GI input noted, plan for colonoscopy # History of anxiety/depression
[2022-02-23] MEDS: SODIUM CHLORIDE 0.9% 1000 ML 1,000 ML IV SCH ×2 (11:15→23:11)
[2022-02-23] MEDS: INSULIN LISPRO 100 UNIT/ML SUB-Q SCH ×4 (11:16→23:09)
--- NOTE | 2022-02-23 11:24 | Gastroenterology Consultation ---
History of Present Illness - Reason for Consult Consult date: 02/23/22 - History of Present Illness Ms. Colón is a 51 y/o F who GI has been consulted on for elevated LFTs. Pt's mentation is slow, but she states she came to the ED d/t new onset "inability to move/speak" after starting amitriptlyine 50mg last week for anxiety/depression. Pt states that she is having difficulty producing speech, but can understand what I am asking/saying w/o issues. Denies previous hepatitis infection or known cirrhosis. Endorses epigastric abd pain x30 days, denies hx of GERD or home PPI/H2 use. Endorses nausea, but denies vomiting. Reports hematochezia x1 month. States the blood is not only on the TP, but will fill the toilet bowel as well. Endorses filler leaf cutter long constipation. Denies previous EGD/Colonoscopy. Denies FMHx of CRC or IBD. Past History Past Medical History: diabetes, hypertension, hyperlipidemia, migraines, other (Anxiety/Depression, insomnia) Past Surgical History: No surgical history Social history: denies: no significant social history Family history: denies: no significant family history Medications and Allergies Allergies Allergy/AdvReac Type Severity Reaction Status Date / Time No Known Allergies Allergy Verified 12/21/18 13:12 Home Medications Medication Instructions Recorded Confirmed Last Taken Type Glimepiride [Amaryl] 2 mg PO BID 12/21/18 12/21/18 Unknown History Hydroxyzine HCl [hydrOXYzine] 50 mg PO HS PRN 12/21/18 12/21/18 Unknown History Insulin Lispro Protamin/Lispro 50 units SUB-Q QAM 12/21/18 12/21/18 12/21/18 History [HumaLOG Mix 75-25 Kwikpen] Insulin Lispro Protamin/Lispro 55 units SUB-Q QPM 12/21/18 12/21/18 Unknown History [HumaLOG Mix 75-25 Kwikpen] Losartan [Cozaar] 50 mg PO QDAY 12/21/18 12/21/18 Unknown History Simvastatin 20 mg PO QPM 12/21/18 12/21/18 Unknown History Venlafaxine HCl [Effexor Xr] 37.5 mg PO BID 12/21/18 12/21/18 Unknown History amLODIPine 10 mg PO DAILY 12/21/18 12/21/18 Unknown History buPROPion XL [Wellbutrin XL] 150 mg PO QAM 12/21/18 12/21/18 Unknown History hydroCHLOROthiazide [HCTZ] 25 mg PO QDAY 12/21/18 12/21/18 Unknown History metFORMIN [Glucophage] 500 mg PO BIDWM 12/21/18 12/21/18 Unknown History oxyCODONE /ACETAMINOPHEN [Percocet 1 tab PO Q6HR PRN #10 tablet 12/27/18 Unknown Rx 5/325] cephALEXin [Keflex] 500 mg PO QID #30 capsule 01/29/19 Unknown Rx Active Meds: Active Medications Acetaminophen (Acetaminophen 325 Mg Tab) 650 mg PO Q4H PRN PRN Reason: Pain MILD(1-3)/Fever >100.5/BASS Dextrose (Dextrose 50% In Water (25gm) 50 Ml Syringe) 0 ml IV Q30MIN PRN; Protocol PRN Reason: Hypoglycemia Sodium Chloride (Nacl 0.9% 1000 Ml) 1,000 mls @ 125 mls/hr IV DIRECT CANDY Insulin Human Lispro (Insulin Lispro 100 Unit/Ml) 0 unit SUB-Q ACHS CANDY; Protocol Magnesium Hydroxide (Magnesium Hydroxide (Mom) Oral Liqd Udc) 30 ml PO Q4H PRN PRN Reason: Constipation Morphine Sulfate (Morphine 2 Mg/1 Ml Inj) 2 mg IV Q4H PRN PRN Reason: Pain, Moderate (4-6) Morphine Sulfate (Morphine 4 Mg/1 Ml Inj) 4 mg IV Q4H PRN PRN Reason: Pain , Severe (7-10) Ondansetron HCl (Ondansetron 4 Mg/2 Ml Inj) 4 mg IV Q8H PRN PRN Reason: Nausea And Vomiting Sodium Chloride (Sodium Chloride 0.9% 10 Ml Flush Syringe) 10 ml IV BID CANDY Sodium Chloride (Sodium Chloride 0.9% 10 Ml Flush Syringe) 10 ml IV PRN PRN PRN Reason: LINE FLUSH Review of Systems - Review of Systems ROS unobtainable: due to mental status Exam - Constitutional Vital Signs: Temp Pulse Resp BP Pulse Ox 97.9 F 91 H 13 128/96 98 02/23/22 05:00 02/23/22 07:15 02/23/22 07:15 02/23/22 07:15 02/23/22 08:11 General appearance: no acute distress - EENT ENT: hearing intact - Gastrointestinal General gastrointestinal: Present: soft, non-tender, non-distended - Labs CBC & Chem 7: 02/23/22 03:40 02/23/22 03:40 Lab Results: Laboratory Results - last 24 hr 02/23/22 02/23/22 02/23/22 02:26 03:40 03:40 WBC 12.1 H RBC 2.98 L Hgb 7.7 L Hct 23.0 L MCV 77 L MCH 26 L MCHC 33 RDW 15.2 Plt Count 153 Sodium 127 L Potassium 3.9 Chloride 90.0 L Carbon Dioxide 22 Anion Gap 19 BUN 73 H Creatinine 3.3 H Estimated GFR 18 BUN/Creatinine Ratio 22 Glucose 204 H POC Glucose 205 H Ketones Quantitative Negative Lactic Acid Calcium 8.2 L Magnesium 2.20 Total Bilirubin 1.10 AST 278 H ALT 144 H Alkaline Phosphatase 131 H Total Protein 6.1 L Albumin 3.2 L Albumin/Globulin Ratio 1.1 TSH Urine Color Urine Turbidity Specific Luckey (Man) Ur Protein (Man) Urine Ketones Ur Ketones (Man) Ur Nitrite (Man) Ur Reducing Substances Urine Bilirubin (Man) Urine Ictotest Leukocyte Esterase (Man) Urine WBC (Auto) Urine RBC (Auto) Urine Bacteria (Auto) Urine RBC (Manual) Plasma/Serum Alcohol 02/23/22 02/23/22 02/23/22 03:40 04:24 04:26 WBC RBC Hgb Hct MCV MCH MCHC RDW Plt Count Sodium Potassium Chloride Carbon Dioxide Anion Gap BUN Creatinine Estimated GFR BUN/Creatinine Ratio Glucose POC Glucose Ketones Quantitative Lactic Acid 2.50 H* Calcium Magnesium Total Bilirubin AST ALT Alkaline Phosphatase Total Protein Albumin Albumin/Globulin Ratio TSH 1.260 Urine Color Yellow Urine Turbidity Cloudy Specific Luckey (Man) 1.020 Ur Protein (Man) 2+ Urine Ketones Negative Ur Ketones (Man) Negative Ur Nitrite (Man) Negative Ur Reducing Substances Not Reportable Urine Bilirubin (Man) Negative Urine Ictotest Not Reportable Leukocyte Esterase (Man) Trace Urine WBC (Auto) < 1.0 Urine RBC (Auto) < 1.0 Urine Bacteria (Auto) 2+ Urine RBC (Manual) 3+ Plasma/Serum Alcohol 02/23/22 02/23/22 05:01 05:17 WBC RBC Hgb Hct MCV MCH MCHC RDW Plt Count Sodium Potassium Chloride Carbon Dioxide Anion Gap BUN Creatinine Estimated GFR BUN/Creatinine Ratio Glucose POC Glucose Ketones Quantitative Lactic Acid 2.20 H* Calcium Magnesium Total Bilirubin AST ALT Alkaline Phosphatase Total Protein Albumin Albumin/Globulin Ratio TSH Urine Color Urine Turbidity Specific Luckey (Man) Ur Protein (Man) Urine Ketones Ur Ketones (Man) Ur Nitrite (Man) Ur Reducing Substances Urine Bilirubin (Man) Urine Ictotest Leukocyte Esterase (Man) Urine WBC (Auto) Urine RBC (Auto) Urine Bacteria (Auto) Urine RBC (Manual) Plasma/Serum Alcohol < 0.01 Assessment and Plan 1. Elevated LFT's - DDX: likely 2/2 to recently starting amitriptyline vs hepatitis vs alcohol vs cirrhosis vs acetaminophen vs other - AST: 278 ALT: 144 - check acute hepatitis panel - continue to trend LFTs - avoid hepatotoxic agents 2. Anemia/hematochezia - DDX: hemorrhoidal vs diverticular vs AVM vs malignancy vs other - hemoglobin 7.7, continue to monitor and transfuse as needed to maintain >7 - given no previous screening colonoscopy, pt is due and given recent onset of hematochezia and anemia, recommend inpatient workup. Timing pending clinical course 3. Constipation - start on daily Miralax 17g - maintain adequate hydration 4. Epigastric pain/Nausea - suspect some component of untreated GERD vs PUD vs gastritis vs esophagititis - start PPI - antiemetic as needed for nausea
--- NOTE | 2022-02-23 14:45 | Event Note ---
Date: 02/23/22 Patient seen and examined 51-year-old woman with known history of diabetes mellitus, depression, insomnia, and hyperlipidemia who presents for evaluation of elevated blood glucose. Per report, patient was brought in by as patient was having worsening mood, fatigue. She also found with elevated lactic acid, BERRY, low H/H. placed on IV f cash, GI consulted plan for EGD tomorrow, consulted psych for h/o depression. --cont current plan of care.
[2022-02-23] MEDS: PANTOPRAZOLE 40 MG INJ IV SCH ×2 (17:14→21:57)
[2022-02-23 17:45] LABS: Hepatitis B Surface Antigen Non-Reactive (Negative); Hepatitis C Virus Antibody Non-Reactive (NonReactive)
[2022-02-23] MEDS ORDERED: POLYETHYLENE GLYCOL/ELECT SOLN 4000 ML PO NR (18:00)
--- NOTE | 2022-02-23 18:02 | Consultation ---
History of Present Illness - Reason for Consult Consult date: 02/23/22 Reason for consult: depression, mental status changes - Chief Complaint Chief complaint: Hyperglycemia - History of Present Psychiatric Illness Patient is a 51 year old female with past psychiatric history of depression and anxiety treated with wellbutrin 150 mg qAM and recently amitriptyline 50 mg qhs. Patient was seen today with at bedside. Patient was alert, oriented to person, and cooperative throughout interview. Patient reports passive suicidal ideation of the last year "If I was gone, it would be better." Patient does not have history of suicide attempts. Patient reports chronic stressor of taking care of her mother who lives with her. Patient denies drug use. Patient attributes recent hospitalization to the amitriptyline 50 mg patient was prescribed by PCP. Patient open to making medication adjustments but asked for resources to establish psychiatric care with a new provider. PAST PSYCHIATRIC HISTORY: Diagnoses: Major depressive disorder Suicide attempts or Self-harm behavior: Denies Prior psychiatric hospitalizations: Denies Substance Abuse history: Denies Previous psychiatric medications tried: Wellbutrin, amitriptyline Outpatient treatment: Meds managed by PCP; no therapy Family Psychiatric History: Uncle and cousin committed suicide SOCIAL HISTORY Marital Status: Living Arrangements: With and mom Employment Status: Employed Access to guns/weapons: Denies Education: Some college History of Abuse: Denies Legal History: Denies MENTAL STATUS EXAMINATION General Appearance and Behavior: Age appropriate, wearing appropriate clothes, cooperative, polite with questioning, good eye contact Cooperation: cooperative Psychomotor Behavior: Psychomotor normal Mood: depressed Affect and affective range: congruent with stated mood Thought Process: goal-oriented Thought Content: reality-based Speech: Low volume, slow rate; apparent difficulty moving jaw Suicidal Ideation: Yes Homicidal Ideation: Denies Hallucination: Denies Delusions: Denies Impulse Control: Fair Insight and Judgment: Fair Memory: Intact Attention: Attentive Orientation: Alert and oriented to person only TREATMENT - advised patient to re-establish outpatient psychiatric care for medication management PSYCHOTHERAPY: Supportive psychotherapy provided MEDICAL: Per primary team DELIRIUM PRECAUTIONS: Please re-orient patient frequently, keep lights on during the day, and minimize benzodiazepines and opiates as these medications could worsen patient's confusion. 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 Mental health cook [facility] will provide outpatient psychiatric resources. FOLLOW-UP: Will sign off. Thank you for the consult. Please contact with any questions and/or concerns. Case staffed with Dr. Belén Varghese. Medications and Allergies Allergies Allergy/AdvReac Type Severity Reaction Status Date / Time No Known Allergies Allergy Verified 12/21/18 13:12 Home Medications Medication Instructions Recorded Confirmed Last Taken Type Glimepiride [Amaryl] 2 mg PO BID 12/21/18 12/21/18 Unknown History Hydroxyzine HCl [hydrOXYzine] 50 mg PO HS PRN 12/21/18 12/21/18 Unknown History Insulin Lispro Protamin/Lispro 50 units SUB-Q QAM 12/21/18 12/21/18 12/21/18 History [HumaLOG Mix 75-25 Kwikpen] Insulin Lispro Protamin/Lispro 55 units SUB-Q QPM 12/21/18 12/21/18 Unknown History [HumaLOG Mix 75-25 Kwikpen] Losartan [Cozaar] 50 mg PO QDAY 12/21/18 12/21/18 Unknown History Simvastatin 20 mg PO QPM 12/21/18 12/21/18 Unknown History Venlafaxine HCl [Effexor Xr] 37.5 mg PO BID 12/21/18 12/21/18 Unknown History amLODIPine 10 mg PO DAILY 12/21/18 12/21/18 Unknown History buPROPion XL [Wellbutrin XL] 150 mg PO QAM 12/21/18 12/21/18 Unknown History hydroCHLOROthiazide [HCTZ] 25 mg PO QDAY 12/21/18 12/21/18 Unknown History metFORMIN [Glucophage] 500 mg PO BIDWM 12/21/18 12/21/18 Unknown History oxyCODONE /ACETAMINOPHEN [Percocet 1 tab PO Q6HR PRN #10 tablet 12/27/18 Unknown Rx 5/325] cephALEXin [Keflex] 500 mg PO QID #30 capsule 01/29/19 Unknown Rx Active Meds: Active Medications Acetaminophen (Acetaminophen 325 Mg Tab) 650 mg PO Q4H PRN PRN Reason: Pain MILD(1-3)/Fever >100.5/BASS Dextrose (Dextrose 50% In Water (25gm) 50 Ml Syringe) 0 ml IV Q30MIN PRN; Protocol PRN Reason: Hypoglycemia Sodium Chloride (Nacl 0.9% 1000 Ml) 1,000 mls @ 125 mls/hr IV DIRECT CANDY Last Admin: 02/23/22 11:15 Dose: 125 mls/hr Insulin Human Lispro (Insulin Lispro 100 Unit/Ml) 0 unit SUB-Q ACHS CANDY; Protocol Last Admin: 02/23/22 17:19 Dose: Not Given Magnesium Hydroxide (Magnesium Hydroxide (Mom) Oral Liqd Udc) 30 ml PO Q4H PRN PRN Reason: Constipation Morphine Sulfate (Morphine 2 Mg/1 Ml Inj) 2 mg IV Q4H PRN PRN Reason: Pain, Moderate (4-6) Morphine Sulfate (Morphine 4 Mg/1 Ml Inj) 4 mg IV Q4H PRN PRN Reason: Pain , Severe (7-10) Ondansetron HCl (Ondansetron 4 Mg/2 Ml Inj) 4 mg IV Q8H PRN PRN Reason: Nausea And Vomiting Pantoprazole Sodium (Pantoprazole 40 Mg Inj) 40 mg IV BID [facility] Last Admin: 02/23/22 17:14 Dose: 40 mg Polyethylene Glycol/Electrolytes (Polyethylene Glycol/Elect Soln 4000 Ml) 4,000 ml PO ONCE NR Stop: 02/23/22 22:00 Sodium Chloride (Sodium Chloride 0.9% 10 Ml Flush Syringe) 10 ml IV BID CANDY Last Admin: 02/23/22 11:15 Dose: 10 ml Sodium Chloride (Sodium Chloride 0.9% 10 Ml Flush Syringe) 10 ml IV PRN PRN PRN Reason: LINE FLUSH Mental Status Exam - Vital signs Last Vital Signs Temp 97.9 F 02/23/22 05:00 Pulse 100 H 02/23/22 13:59 Resp 18 02/23/22 13:45 BP 138/75 02/23/22 13:45 Pulse Ox 93 02/23/22 13:59 Results Result Diagrams: 02/23/22 03:40 02/23/22 03:40 Abnormal lab results 02/23/22 02/23/22 02/23/22 Range/Units 02:26 03:40 03:40 WBC 12.1 H (4.5-11.0) K/mm3 RBC 2.98 L (3.65-5.03) M/mm3 Hgb 7.7 L (10.1-14.3) gm/dl Hct 23.0 L (30.3-42.9) % MCV 77 L (79-97) fl MCH 26 L (28-32) pg Sodium 127 L (137-145) mmol/L Chloride 90.0 L (98-107) mmol/L BUN 73 H (7-17) mg/dL Creatinine 3.3 H (0.6-1.2) mg/dL Glucose 204 H (65-100) mg/dL POC Glucose 205 H (70-105) mg/dL Lactic Acid (0.7-2.0) mmol/L Calcium 8.2 L (8.4-10.2) mg/dL AST 278 H (5-40) units/L ALT 144 H (7-56) units/L Alkaline Phosphatase 131 H (35-129) units/L Total Protein 6.1 L (6.3-8.2) g/dL Albumin 3.2 L (3.9-5) g/dL 02/23/22 02/23/22 02/23/22 Range/Units 03:40 05:17 10:58 WBC (4.5-11.0) K/mm3 RBC (3.65-5.03) M/mm3 Hgb (10.1-14.3) gm/dl Hct (30.3-42.9) % MCV (79-97) fl MCH (28-32) pg Sodium (137-145) mmol/L Chloride (98-107) mmol/L BUN (7-17) mg/dL Creatinine (0.6-1.2) mg/dL Glucose (65-100) mg/dL POC Glucose 239 H (70-105) mg/dL Lactic Acid 2.50 H* 2.20 H* (0.7-2.0) mmol/L Calcium (8.4-10.2) mg/dL AST (5-40) units/L ALT (7-56) units/L Alkaline Phosphatase (35-129) units/L Total Protein (6.3-8.2) g/dL Albumin (3.9-5) g/dL 02/23/22 Range/Units 16:22 WBC (4.5-11.0) K/mm3 RBC (3.65-5.03) M/mm3 Hgb (10.1-14.3) gm/dl Hct (30.3-42.9) % MCV (79-97) fl MCH (28-32) pg Sodium (137-145) mmol/L Chloride (98-107) mmol/L BUN (7-17) mg/dL Creatinine (0.6-1.2) mg/dL Glucose (65-100) mg/dL POC Glucose 295 H (70-105) mg/dL Lactic Acid (0.7-2.0) mmol/L Calcium (8.4-10.2) mg/dL AST (5-40) units/L ALT (7-56) units/L Alkaline Phosphatase (35-129) units/L Total Protein (6.3-8.2) g/dL Albumin (3.9-5) g/dL All other labs normal.
--- NOTE | 2022-02-23 20:11 | XRay Report ---
LEFT HAND 2 VIEW(S) INDICATION / CLINICAL INFORMATION: trauma COMPARISON: None available. FINDINGS: BONES / JOINT(S): No acute fracture or subluxation. No significant arthritis. SOFT TISSUES: No significant abnormality. ADDITIONAL FINDINGS: None. IMPRESSION: 1. No acute findings. Signer Name: Dinesh Restrepo MD Signed: 02/23/2022 8:06 PM Workstation Name: [email or web address]
--- NOTE | 2022-02-23 20:13 | XRay Report ---
LEFT WRIST 2 VIEW(S) INDICATION / CLINICAL INFORMATION: trauma COMPARISON: None available. FINDINGS: BONES / JOINT(S): No acute fracture or subluxation. No significant arthritis. SOFT TISSUES: No significant abnormality. ADDITIONAL FINDINGS: None. IMPRESSION: 1. No acute findings. Signer Name: Dinesh Restrepo MD Signed: 02/23/2022 8:08 PM Workstation Name: [email or web address]
--- NOTE | 2022-02-24 05:32 | Event Note ---
Date: 02/23/22 --patient reports having fall and landed on her left wrist --will order left hand and wrist xry -- denies any trauma to head or any other places -- neurologically intacy and moves all extremity on physical exam -- will cont to follow -- prolong care - 20 [place]ma
[2022-02-24 07:34] LABS: Calcium 7.5 mg/dL (8.4-10.2)
[2022-02-24] MEDS: INSULIN LISPRO 100 UNIT/ML SUB-Q SCH ×4 (08:04→22:29)
[2022-02-24 08:41] LABS: Hematocrit 20.2 % (30.3-42.9); Hemoglobin 6.9 gm/dl (10.1-14.3); Mean Corpuscular Volume 76 fl (79-97); Red Blood Count 2.65 M/mm3 (3.65-5.03)
[2022-02-24 08:42] LABS: Mean Corpuscular HGB Conc 34 % (30-34); Platelet Count 144 K/mm3 (140-440); Red Cell Distribution Width 15.1 % (13.2-15.2)
--- NOTE | 2022-02-24 09:29 | Electrocardiograph Report ---
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
--- NOTE | 2022-02-24 09:35 | Progress Note ---
Assessment and Plan # Acute Kidney Injury: suspect pre-renal injury, no baseline known, do suspect CKD at baseline. - creatinine higher today at 3.3->3.6 this AM, note worsening hemoglobin - urinalysis noted, check UP/C, check serologies-> pending - check CK- pending - PTH 304- consistent with secondary hyperparathyroidism; phos WNL, ca low- start calcitriol - renal ultrasound without acute obstruction - glucose control per primary - continue IVF as tolerated - avoid nephrotoxins - renally dose medications - I/Os- note good urine output - no immediate need for kidney biopsy or renal replacement therapy # Hyponatremia: suspect pseudohyponatremia in setting of hyperglycemia, 129 this AM, continue IVF # Hyperglycemia, DM: per primary # Elevated Liver Enzymes: GI input noted # Microcytic Anemia: check iron panel, GI input noted, plan for colonoscopy- recommend PRBCs given worsening hemoglobin # History of anxiety/depression Subjective Date of service: 02/24/22 Interval history: Resting in bed, awake and arousable, still appearing drowsy Noted to have fall last night on wrists Objective - Exam Narrative Exam: General appearance: well-developed, well-nourished, obese EENT: ATNC, PERRL Neck: Present: neck supple Respiratory: Clear to Ascultation Heart: regular, S1S2 Gastrointestinal: Present: normoactive bowel sounds Integumentary: no rash, warm and dry Neurologic: no focal deficit, no asterixis, alert and oriented x3 Psychiatric: other (withdrawn) - Vital Signs Vital signs: Vital Signs - 12hr 02/23/22 02/24/22 23:00 04:27 Temperature 97.8 F Pulse Rate 99 H Respiratory 16 Rate Blood Pressure 130/74 O2 Sat by Pulse 98 95 Oximetry - Lab 02/24/22 06:55 02/24/22 06:55 Most recent lab results Calcium 7.5 mg/dL (8.4-10.2) L 02/24/22 06:55 Phosphorus 3.30 mg/dL (2.5-4.5) 02/24/22 06:55 Magnesium 2.20 mg/dL (1.7-2.3) 02/23/22 03:40 Medications & Allergies - Medications Allergies/Adverse Reactions: Allergies No Known Allergies Allergy (Verified 12/21/18 13:12) Home Medications: Home Medications Medication Instructions Recorded Confirmed Last Taken Type Glimepiride [Amaryl] 2 mg PO BID 12/21/18 12/21/18 Unknown History Hydroxyzine HCl [hydrOXYzine] 50 mg PO HS PRN 12/21/18 12/21/18 Unknown History Insulin Lispro Protamin/Lispro 50 units SUB-Q QAM 12/21/18 12/21/18 12/21/18 History [HumaLOG Mix 75-25 Kwikpen] Insulin Lispro Protamin/Lispro 55 units SUB-Q QPM 12/21/18 12/21/18 Unknown History [HumaLOG Mix 75-25 Kwikpen] Losartan [Cozaar] 50 mg PO QDAY 12/21/18 12/21/18 Unknown History Simvastatin 20 mg PO QPM 12/21/18 12/21/18 Unknown History Venlafaxine HCl [Effexor Xr] 37.5 mg PO BID 12/21/18 12/21/18 Unknown History amLODIPine 10 mg PO DAILY 12/21/18 12/21/18 Unknown History buPROPion XL [Wellbutrin XL] 150 mg PO QAM 12/21/18 12/21/18 Unknown History hydroCHLOROthiazide [HCTZ] 25 mg PO QDAY 12/21/18 12/21/18 Unknown History metFORMIN [Glucophage] 500 mg PO BIDWM 12/21/18 12/21/18 Unknown History oxyCODONE /ACETAMINOPHEN [Percocet 1 tab PO Q6HR PRN #10 tablet 12/27/18 Un known Rx 5/325] cephALEXin [Keflex] 500 mg PO QID #30 capsule 01/29/19 Unknown Rx Active Medications: Generic Name Dose Route Start Last Admin Trade Name Freq PRN Reason Stop Dose Admin Acetaminophen 650 mg 02/23/22 05:21 Acetaminophen 325 Mg Tab PO Q4H PRN Pain MILD(1-3)/Fever >100.5/BASS Dextrose 0 ml 02/23/22 05:21 Dextrose 50% In Water (25gm) 50 Ml Syringe IV Q30MIN PRN Hypoglycemia Protocol Sodium Chloride 1,000 mls @ 125 mls/hr 02/23/22 05:30 02/23/22 23:11 Nacl 0.9% 1000 Ml IV 125 mls/hr DIRECT CANDY Administration Ceftriaxone Sodium 1 gm in 50 mls @ 100 mls/hr 02/25/22 09:00 Rocephin/Ns 1 Gm/50 Ml IV Q24H CANDY Protocol Insulin Human Lispro 0 unit 02/23/22 07:30 02/23/22 23:09 Insulin Lispro 100 Unit/Ml SUB-Q 3 unit ACHS CANDY Administration Protocol Magnesium Hydroxide 30 ml 02/23/22 05:21 Magnesium Hydroxide (Mom) Oral Liqd Udc PO Q4H PRN Constipation Morphine Sulfate 2 mg 02/23/22 05:21 Morphine 2 Mg/1 Ml Inj IV Q4H PRN Pain, Moderate (4-6) Morphine Sulfate 4 mg 02/23/22 05:21 Morphine 4 Mg/1 Ml Inj IV Q4H PRN Pain , Severe (7-10) Ondansetron HCl 4 mg 02/23/22 05:21 Ondansetron 4 Mg/2 Ml Inj IV Q8H PRN Nausea And Vomiting Pantoprazole Sodium 40 mg 02/23/22 12:00 02/23/22 21:57 Pantoprazole 40 Mg Inj IV 40 mg BID CANDY Administration Sodium Chloride 10 ml 02/23/22 10:00 02/23/22 21:57 Sodium Chloride 0.9% 10 Ml Flush Syringe IV 10 ml BID CANDY Administration Sodium Chloride 10 ml 02/23/22 05:21 Sodium Chloride 0.9% 10 Ml Flush Syringe IV PRN PRN LINE FLUSH
[2022-02-24] MEDS: PANTOPRAZOLE 40 MG INJ IV SCH ×3 (10:19→22:19)
[2022-02-24 10:43] LABS: Basophils % (Manual) 0 % (0.0-1.8); Eosinophils % (Manual) 0 % (0.0-4.3); Hypochromasia 2+; Total Cells Counted 100
[2022-02-24 10:44] LABS: Target Cells Few
[2022-02-24 10:45] LABS: Platelet Estimate Consistent w Auto; Tear Drop Cells Few
[2022-02-24] MEDS: CALCITRIOL 0.25 MCG CAP PO SCH (10:59)
[2022-02-24] MEDS ORDERED: SODIUM CHLORIDE 0.9% 500 ML 500 ML IV NR (13:00)
--- NOTE | 2022-02-24 13:06 | Anesthesia Consultation ---
Anesthesia Consult and Med Hx Date of service: 02/24/22 - Airway Anesthetic Teeth Evaluation: Good ROM Head & Neck: Adequate Mental/Hyoid Distance: Adequate Mallampati Class: Class III Intubation Access Assessment: Probably Good - Cardiac Exam Cardiac Exam: RRR - Pre-Operative Health Status ASA Pre-Surgery Classification: ASA2, Emergency Proposed Anesthetic Plan: MAC - Pulmonary Hx Smoking: No Hx Asthma: No SOB: Yes COPD: No Hx Pneumonia: No - Cardiovascular System Hx Hypertension: Yes Hx Pacemaker: No Hx Internal Defibrillator: No - Central Nervous System Hx Psychiatric Problems: Yes - Endocrine Hx Renal Disease: Yes (Acute kidney injury) Hx Liver Disease: No Hx Insulin Dependent Diabetes: Yes Hx Thyroid Disease: No - Hematic Hx Anemia: Yes - Other Systems Hx Alcohol Use: No Hx Obesity: Yes (BMI 35.6kg) - Additional Comments Anesthesia Medical History Comments: Denies previous anesthesia complication
--- NOTE | 2022-02-24 13:07 | Anesthesia Day of Surgery ---
Anesthesia Day of Surgery - Day of Surgery Patient Examined: Yes Patient H&P Reviewed: Yes Patient is NPO: Yes Beta Blockers: No Cardiac Clearance: No Pulmonary Clearance: No
[2022-02-24] MEDS ORDERED: LIDOCAINE MPF (2%) 20 MG/1 ML VIAL 5 ML ONE (13:08)
[2022-02-24] MEDS ORDERED: ONDANSETRON 4 MG/2 ML INJ ONE (13:08)
[2022-02-24] MEDS ORDERED: propofoL 200 MG/20 ML VIAL IV ONE (13:09)
[2022-02-24] MEDS ORDERED: fentaNYL 100 MCG/2 ML INJ ONE (13:09)
--- NOTE | 2022-02-24 13:54 | Post Operative Note ---
Pre-op diagnosis: GI bleed Post-op diagnosis: same Findings: EGD: hiatal hernia - mild gastritis (bx's) - nl sb Colon: poor prep, completed - internal hemorrhoids - negative other Procedure: egd/colonoscopy Anesthesia: MAC Surgeon: RUSSELL RODRÍGUEZ Estimated blood loss: none Pathology: list Specimen disposition: to lab Condition: stable Disposition: floor
[2022-02-24] MEDS: POTASSIUM CHLORIDE 10 MEQ 10 MEQ/100 ML BAG IV SCH ×3 (15:00→20:03)
--- NOTE | 2022-02-24 16:14 | Post Anesthesia Evaluation ---
- Post Anesthesia Evaluation Patient Participated: Yes Airway Patent: Yes Stable Respiratory Function: Yes Nausea/Vomiting: No Temp > 96.8F: Yes Pain Manageable: Yes Adequeate Hydration: Yes Anesthesia Complications: No Block Receding Appropriately: Not Applicable Patient on Ventilator: No
--- NOTE | 2022-02-24 16:41 | Progress Note ---
Assessment and Plan Assessment and plan: #Microcytic anemia Hemoglobin 7.7--> 6.9 (pending transfusion of 1 unit packed RBC) Gastroenterology consulted; appreciate recs EGD and colonoscopy (02/24/2022) revealing hiatal hernia, mild gastritis (biopsies taken), poor colonoscopy prep, and internal hemorrhoids. Patient will follow-up with gastroenterology in the outpatient setting to undergo a PillCam to evaluate possible cause for lower GI bleed. Continue IV pantoprazole 40 mg twice daily and trend H&H #BERRY secondary to vasomotor nephropathyworsening Creatinine 3.3--> 3.6 Renally dose meds and avoid nephrotoxic drugs. Nephrology consulted; appreciate recs Continue IV fluid resuscitation. #Hyponatremia Sodium 129 Nephrology consulted; appreciate recs. Continue IV fluid resuscitation and encourage p.o. intake. #Hypokalemia Potassium 2.5 Replete. Monitor with repeat BMP. #Insulin dependent type II diabetes mellitus - hemoglobin A1c: Unknown - home regimen: Metformin 500 mg twice daily, lispro 50 units every morning and 55 units every afternoon, glimepiride 2 mg twice daily - current regimen: - blood glucose goal 140-180 while inpatient - continue to monitor #Hypertension #Hyperlipidemia - home medications: Hydrochlorothiazide 25 mg daily, amlodipine 10 mg daily, losartan 50 mg daily, simvastatin 20 mg - current medications: Currently holding as the patient is normotensive - SBP goal <160 and DBP goal <90 while inpatient - continue to monitor #Advanced care planning -Disease education conducted, care plan discussed, diagnoses discussed, prognosis discussed, and patient acknowledges understanding with care plan -Time: +30 min Disposition Plan: Continue medical management Total Time Spent with Patient (Minutes): 45 minutes History Interval history: No acute events overnight. Hospitalist Physical - Constitutional Vitals: Temp Pulse Resp BP Pulse Ox 98.2 F 91 H 16 122/66 100 02/24/22 13:45 02/24/22 14:15 02/24/22 14:15 02/24/22 14:15 02/24/22 14:15 General appearance: Present: no acute distress, well-nourished, obese, other (Dry Oral Mucosa, Moderate Pallor) - EENT Eyes: Present: PERRL, EOM intact ENT: hearing intact, clear oral mucosa, dentition normal - Neck Neck: Present: supple, normal ROM - Respiratory Respiratory effort: normal Respiratory: bilateral: CTA - Cardiovascular Rhythm: regular Heart Sounds: Present: S1 & S2 - Extremities Extremities: no ischemia, pulses intact, pulses symmetrical, No edema, normal temperature, normal color, Full ROM Peripheral Pulses: within normal limits - Abdominal General gastrointestinal: soft, non-tender, non-distended, normal bowel sounds - Integumentary Integumentary: Present: clear, warm, dry - Psychiatric Psychiatric: appropriate mood/affect, intact judgment & insight, memory intact, cooperative - Neurologic Neurologic: CNII-XII intact, moves all extremities - Allied Health Allied health notes reviewed: nursing Results - Labs CBC & Chem 7: 02/24/22 06:55 02/24/22 06:55 Labs: Laboratory Last Values WBC 8.0 K/mm3 (4.5-11.0) 02/24/22 06:55 RBC 2.65 M/mm3 (3.65-5.03) L 02/24/22 06:55 Hgb 6.9 gm/dl (10.1-14.3) L 02/24/22 06:55 Hct 20.2 % (30.3-42.9) L 02/24/22 06:55 MCV 76 fl (79-97) L 02/24/22 06:55 MCH 26 pg (28-32) L 02/24/22 06:55 MCHC 34 % (30-34) 02/24/22 06:55 RDW 15.1 % (13.2-15.2) 02/24/22 06:55 Plt Count 144 K/mm3 (140-440) 02/24/22 06:55 Lymph % (Auto) Hot Press Operator 02/24/22 06:55 Mcminn % (Auto) Hot Press Operator 02/24/22 06:55 Eos % (Auto) Hot Press Operator 02/24/22 06:55 Baso % (Auto) Hot Press Operator 02/24/22 06:55 Lymph # (Auto) Hot Press Operator 02/24/22 06:55 Mcminn # (Auto) Hot Press Operator 02/24/22 06:55 Eos # (Auto) Hot Press Operator 02/24/22 06:55 Baso # (Auto) Hot Press Operator 02/24/22 06:55 Add Manual Diff Complete 02/24/22 06:55 Total Counted 100 02/24/22 06:55 Seg Neutrophils % Hot Press Operator 02/24/22 06:55 Seg Neuts % (Manual) 76.0 % (40.0-70.0) H 02/24/22 06:55 Band Neutrophils % 0 % 02/24/22 06:55 Lymphocytes % (Manual) 11.0 % (13.4-35.0) L 02/24/22 06:55 Reactive Lymphs % (Man) 1.0 % 02/24/22 06:55 Monocytes % (Manual) 12.0 % (0.0-7.3) H 02/24/22 06:55 Eosinophils % (Manual) 0 % (0.0-4.3) 02/24/22 06:55 Basophils % (Manual) 0 % (0.0-1.8) 02/24/22 06:55 Metamyelocytes % 0 % 02/24/22 06:55 Myelocytes % 0 % 02/24/22 06:55 Promyelocytes % 0 % 02/24/22 06:55 Blast Cells % 0 % 02/24/22 06:55 Nucleated RBC % Not Reportable 02/24/22 06:55 Seg Neutrophils # Hot Press Operator 02/24/22 06:55 Seg Neutrophils # Man 6.1 K/mm3 (1.8-7.7) 02/24/22 06:55 Band Neutrophils # 0.0 K/mm3 02/24/22 06:55 Lymphocytes # (Manual) 0.9 K/mm3 (1.2-5.4) L 02/24/22 06:55 Abs React Lymphs (Man) 0.1 K/mm3 02/24/22 06:55 Monocytes # (Manual) 1.0 K/mm3 (0.0-0.8) H 02/24/22 06:55 Eosinophils # (Manual) 0.0 K/mm3 (0.0-0.4) 02/24/22 06:55 Basophils # (Manual) 0.0 K/mm3 (0.0-0.1) 02/24/22 06:55 Metamyelocytes # 0.0 K/mm3 02/24/22 06:55 Myelocytes # 0.0 K/mm3 02/24/22 06:55 Promyelocytes # 0.0 K/mm3 02/24/22 06:55 Blast Cells # 0.0 K/mm3 02/24/22 06:55 WBC Morphology Not Reportable 02/24/22 06:55 Hypersegmented Neuts Not Reportable 02/24/22 06:55 Hyposegmented Neuts Not Reportable 02/24/22 06:55 Hypogranular Neuts Not Reportable 02/24/22 06:55 Smudge Cells Not Reportable 02/24/22 06:55 Toxic Granulation Not Reportable 02/24/22 06:55 Toxic Vacuolation Not Reportable 02/24/22 06:55 Dohle Bodies Not Reportable 02/24/22 06:55 Pelger-Huet Anomaly Not Reportable 02/24/22 06:55 Fiona Rods Not Reportable 02/24/22 06:55 Platelet Estimate Consistent w auto 02/24/22 06:55 Clumped Platelets Not Reportable 02/24/22 06:55 Plt Clumps, EDTA Not Reportable 02/24/22 06:55 Large Platelets Not Reportable 02/24/22 06:55 Giant Platelets Not Reportable 02/24/22 06:55 Platelet Satelliting Not Reportable 02/24/22 06:55 Plt Morphology Comment Not Reportable 02/24/22 06:55 RBC Morphology Not Reportable 02/24/22 06:55 Dimorphic RBCs Not Reportable 02/24/22 06:55 Polychromasia Not Reportable 02/24/22 06:55 Hypochromasia 2+ 02/24/22 06:55 Poikilocytosis Not Reportable 02/24/22 06:55 Anisocytosis Not Reportable 02/24/22 06:55 Microcytosis Not Reportable 02/24/22 06:55 Macrocytosis Not Reportable 02/24/22 06:55 Spherocytes Not Reportable 02/24/22 06:55 Pappenheimer Bodies Not Reportable 02/24/22 06:55 Sickle Cells Not Reportable 02/24/22 06:55 Target Cells Few 02/24/22 06:55 Tear Drop Cells Few 02/24/22 06:55 Ovalocytes Not Reportable 02/24/22 06:55 Helmet Cells Not Reportable 02/24/22 06:55 [place] Bodies Not Reportable 02/24/22 06:55 [place] Rings Not Reportable 02/24/22 06:55 Jose Antonio Cells Not Reportable 02/24/22 06:55 Bite Cells Not Reportable 02/24/22 06:55 Crenated Cell Not Reportable 02/24/22 06:55 Elliptocytes Few 02/24/22 06:55 Acanthocytes (Spur) Not Reportable 02/24/22 06:55 Rouleaux Not Reportable 02/24/22 06:55 Hemoglobin C Crystals Not Reportable 02/24/22 06:55 Schistocytes Not Reportable 02/24/22 06:55 Malaria parasites Not Reportable 02/24/22 06:55 Son Bodies Not Reportable 02/24/22 06:55 Hem Pathologist Commnt No 02/24/22 06:55 Sodium 129 mmol/L (137-145) L 02/24/22 06:55 Potassium 3.5 mmol/L (3.6-5.0) L 02/24/22 06:55 Chloride 92.3 mmol/L (98-107) L 02/24/22 06:55 Carbon Dioxide 16 mmol/L (22-30) L 02/24/22 06:55 Anion Gap 24 mmol/L 02/24/22 06:55 BUN 87 mg/dL (7-17) H 02/24/22 06:55 Creatinine 3.6 mg/dL (0.6-1.2) H 02/24/22 06:55 Estimated GFR 16 ml/min 02/24/22 06:55 BUN/Creatinine Ratio 24 % 02/24/22 06:55 Glucose 257 mg/dL (65-100) H 02/24/22 06:55 POC Glucose 287 mg/dL (70-105) H 02/24/22 16:22 Ketones Quantitative Negative (Negative) 02/23/22 03:40 Lactic Acid 1.80 mmol/L (0.7-2.0) 02/24/22 07:57 Calcium 7.5 mg/dL (8.4-10.2) L 02/24/22 06:55 Phosphorus 3.30 mg/dL (2.5-4.5) 02/24/22 06:55 Magnesium 2.20 mg/dL (1.7-2.3) 02/23/22 03:40 Total Bilirubin 1.10 mg/dL (0.1-1.2) 02/23/22 03:40 AST 278 units/L (5-40) H 02/23/22 03:40 ALT 144 units/L (7-56) H 02/23/22 03:40 Alkaline Phosphatase 131 units/L (35-129) H 02/23/22 03:40 Total Protein 6.1 g/dL (6.3-8.2) L 02/23/22 03:40 Albumin 3.2 g/dL (3.9-5) L 02/23/22 03:40 Albumin/Globulin Ratio 1.1 % 02/23/22 03:40 TSH 1.260 mlU/mL (0.270-4.200) 02/23/22 04:26 PTH Intact 304.1 pg/mL (15-65) H 02/24/22 06:55 Urine Color Yellow (Yellow) 02/23/22 04:24 Urine Turbidity Cloudy (Clear) 02/23/22 04:24 Specific [place] (Man) 1.020 (1.003-1.030) 02/23/22 04:24 Ur Protein (Man) 2+ mg/dL (Negative) 02/23/22 04:24 Urine Ketones Negative mg/dL (Negative) 02/23/22 04:24 Ur Ketones (Man) Negative (Negative) 02/23/22 04:24 Ur Nitrite (Man) Negative (Negative) 02/23/22 04:24 Ur Reducing Substances Not Reportable 02/23/22 04:24 Urine Bilirubin (Man) Negative (Negative) 02/23/22 04:24 Urine Ictotest Not Reportable 02/23/22 04:24 Leukocyte Esterase (Man) Trace (Negative) 02/23/22 04:24 Urine WBC (Auto) < 1.0 /HPF (0.0-6.0) 02/23/22 04:24 Urine RBC (Auto) < 1.0 /HPF (0.0-6.0) 02/23/22 04:24 Urine Bacteria (Auto) 2+ /HPF (Negative) 02/23/22 04:24 Urine RBC (Manual) 3+ (Negative) 02/23/22 04:24 Plasma/Serum Alcohol < 0.01 % (0-0.07) 02/23/22 05:01 Hepatitis A IgM Ab Non-reactive (NonReactive) 02/23/22 15:51 Hep Bs Antigen Non-reactive (Negative) 02/23/22 15:51 Hep B Core IgM Ab Non-reactive (NonReactive) 02/23/22 15:51 Hepatitis C Antibody Non-reactive (NonReactive) 02/23/22 15:51 Microbiology: Microbiology 02/23/22 03:40 Peripheral/Venous Blood Culture - Preliminary Gram Negative Robinson 02/23/22 04:30 Peripheral/Venous Blood Culture - Preliminary NO GROWTH AFTER 24 HOURS Loya/IV: Voiding Method External Female Catheter Active Medications - Current Medications Current Medications: Generic Name Dose Route Start Last Admin Trade Name Freq PRN Reason Stop Dose Admin Acetaminophen 650 mg 02/23/22 05:21 Acetaminophen 325 Mg Tab PO Q4H PRN Pain MILD(1-3)/Fever >100.5/BASS Calcitriol 0.25 mcg 02/24/22 10:00 Calcitriol 0.25 Mcg Cap PO QDAY CANDY Dextrose 0 ml 02/23/22 05:21 Dextrose 50% In Water (25gm) 50 Ml Syringe IV Q30MIN PRN Hypoglycemia Protocol Sodium Chloride 1,000 mls @ 125 mls/hr 02/23/22 05:30 02/23/22 23:11 Nacl 0.9% 1000 Ml IV 125 mls/hr DIRECT CANDY Administration Ceftriaxone Sodium 1 gm in 50 mls @ 100 mls/hr 02/25/22 09:00 Rocephin/Ns 1 Gm/50 Ml IV Q24H CANDY Protocol Sodium Chloride 500 mls @ 0 mls/hr 02/24/22 13:00 Nacl 0.9% 500 Ml IV 02/24/22 19:00 ONCE NR As Directed Potassium Chloride 10 meq in 100 mls @ 100 mls/hr 02/24/22 13:00 Kcl 10meq/100ml IV 02/24/22 16:59 Q1H CANDY Insulin Human Lispro 0 unit 02/23/22 07:30 02/24/22 14:20 Insulin Lispro 100 Unit/Ml SUB-Q 4 unit ACHS CANDY Administration Protocol Magnesium Hydroxide 30 ml 02/23/22 05:21 Magnesium Hydroxide (Mom) Oral Liqd Udc PO Q4H PRN Constipation Morphine Sulfate 2 mg 02/23/22 05:21 Morphine 2 Mg/1 Ml Inj IV Q4H PRN Pain, Moderate (4-6) Morphine Sulfate 4 mg 02/23/22 05:21 Morphine 4 Mg/1 Ml Inj IV Q4H PRN Pain , Severe (7-10) Ondansetron HCl 4 mg 02/23/22 05:21 Ondansetron 4 Mg/2 Ml Inj IV Q8H PRN Nausea And Vomiting Pantoprazole Sodium 40 mg 02/23/22 12:00 02/23/22 21:57 Pantoprazole 40 Mg Inj IV 40 mg BID CANDY Administration Sodium Chloride 10 ml 02/23/22 10:00 02/23/22 21:57 Sodium Chloride 0.9% 10 Ml Flush Syringe IV 10 ml BID CANDY Administration Sodium Chloride 10 ml 02/23/22 05:21 Sodium Chloride 0.9% 10 Ml Flush Syringe IV PRN PRN LINE FLUSH Nutrition/Malnutrition Assess - Dietary Evaluation Nutrition/Malnutrition Findings: Nutrition Notes Start: 02/23/22 16:03 Freq: Status: Active Protocol: Document 02/23/22 16:03 EJ (Rec: 02/23/22 16:37 EJ [id number]) Nutrition Notes Need for Assessment generated from: MD Order,data clerk,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 Current Diet Clear Liquids Diet (since L ), NPO (from 02/24 00:01). Labs/Tests 02/23: Na 127, Cl 90.0, BUN 73 / Crea 3.3, Glu 204, Ca 8.2. Pertinent Medications 02/23: Humalog 3U, others nutritionally unremarkable. 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 Weight Status Obese Subjective/Other Information RD consult for nutrition education, difficulty chewing, poor oral intake, and dietary supplementation assessments. Pt's PO intake of meals has been Fairly tolerated, according to ADL notes. Pt will be on NPO from midnight due to a procedure planned for 02/24: EGD/ Colonoscopy, according to Progress notes. Pt is on Room Air, O2 saturation @ 97%, according to Physical Assessment History notes. Pt complains of Hematochezia, Nausea, and Abdominal Pain for the last 30 days, according to History & Physical notes. There are no reports of any difficulty chewing documented on the chart at the time, will disregard this consult. I will not prescribe dietary supplementation at the time since Pt will be NPO and GI conditions are uncertain at the time, will assess at F/U. Pt still in critical condition , not a candidate for Nutrition Education at the time, will assess feasibility on F/U. Percent of energy/protein needs met: Prescribed Clear Liquids Diet provides for energy/protein needs (590 Kcal/16 g) during LOS. Pt will be on NPO after midnight. Burn Absent Trauma Absent GI Symptoms Nausea,Constipation,Other Food Allergy No Skin Integrity/Comment Assessment WNL. 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 As Evidenced by Signs and Symptoms BMI: 35.5 Kg/m2. Is patient on ventilator? No Is Patient Ambulatory and/or Out of Bed No REE-([facility]-confined to bed) 1755.708 Kcal/Kg value to use for calculation 14 Approximate Energy Requirements Using 1235 kcal/Kg Calculation Used for Recommendations Kcal/kg Additional Notes Protein: 0.8-1.2 g/Kg AdjBW; 55-83 g/day. Fluids: 1 ml/Kcal, or as per MD. Nutrition Intervention Change Diet Order: When pertinent resume Clear Liquids Diet as tolerated. Goal #1 Adjust the dietary intervention to better serve Pt's energy/protein needs and clinical conditions during LOS . Follow-Up By: 03/02/22 Additional Comments Nutrition education will be provided at F/U, if feasible. Continue monitoring food tolerance, %PO intake of meals , and BM.
--- NOTE | 2022-02-24 17:05 | Operative Report ---
DATE OF SURGERY: 02/24/2022 PROCEDURES: EGD with cold biopsies. INDICATIONS: 1. Anemia. 2. GI bleed. MEDICATIONS: Propofol per INSECTICIDE EXPERT. COMPLICATIONS: None. DESCRIPTION OF PROCEDURE: The patient brought to procedure suite. The patient had the procedure discussed with her at length. All risks, complications, and benefits discussed, after which the patient signed for the procedure to be performed. The patient was placed in left lateral decubitus position. Mouth block placed in patient's oral cavity. After adequate sedation with medication as above, endoscope placed in the mouth and brought to level of second portion of duodenum. Retroflexion view performed. The patient's vital signs remained stable throughout the procedure. FINDINGS: There was an irregular Z line, probably from acid reflux noted. Mild gastritis noted in the gastric body with biopsies taken and sent to pathology. Remaining stomach and esophagus otherwise appeared normal. Duodenum appeared to be normal. Retroflexion view performed in the stomach showed no other pathology other than noted above. The patient tolerated the procedure well. No complications noted during procedure. IMPRESSION: 1. Hiatal hernia. 2. Irregular Z line, but no biopsies performed. 3. Gastritis, biopsies performed. 4. Otherwise, normal EGD. RECOMMENDATIONS: 1. Follow up biopsy results. 2. If H. pylori positive, we will treat. 3. PPI daily. 4. Colonoscopy to follow. Further recommendation based on colonoscopy results. TID: [id number] RECEIPT: [id number] [facility]
--- NOTE | 2022-02-24 17:16 | Operative Report ---
DATE OF SURGERY: 02/24/2022 PROCEDURE: Colonoscopy. INDICATIONS: 1. Anemia. 2. Gastrointestinal bleed. 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 COMPLICATIONS: None. DESCRIPTION OF PROCEDURE: The patient was brought to the procedure suite. The patient had the procedure discussed with her at length. All risks, complications, and benefits discussed, after which the patient signed for the procedure to be performed. The patient was placed in left lateral decubitus position. Rectal exam performed prior to insertion of scope. After adequate sedation with medications as above, scope inserted into the rectum and brought to level of cecum. Ileocecal valve, appendiceal orifice, cecal strap were visualized. Colonoscope was then removed and mucosa visualized. Prep quality was poor, but procedure was completed. The patient's vital signs remained stable throughout the procedure. FINDINGS: This was a poor prep procedure, so cannot rule out small to medium lesions. This was completed. There were no obvious mass, lesions, polyps or diverticulosis noted during this procedure. Retroflexion view performed in the rectum showed medium internal hemorrhoids. The patient tolerated the procedure well. No complications noted during procedure. IMPRESSION: 1. Poor prep, but procedure completed. 2. Cannot rule out small to medium lesions. 3. Internal hemorrhoids. 4. Otherwise, normal colonoscopy. RECOMMENDATIONS: 1. High fiber diet. 2. Continue current medications. 3. Follow hematocrit and transfuse as needed. 4. PillCam as an outpatient. 5. Repeat colonoscopy in 3 years. 6. Okay to discharge from GI standpoint with followup as an outpatient. TID: [id number] RECEIPT: [id number] MIKE/DEANN
[2022-02-25] MEDS: POTASSIUM CHLORIDE 10 MEQ 10 MEQ/100 ML BAG IV SCH (01:10)
[2022-02-25] MEDS: SODIUM CHLORIDE 0.9% 1000 ML 1,000 ML IV SCH (01:14)
[2022-02-25 05:45] LABS: Calcium 7.8 mg/dL (8.4-10.2)
[2022-02-25 05:49] LABS: Red Blood Count 3.16 M/mm3 (3.65-5.03)
[2022-02-25 05:50] LABS: Hematocrit 24.7 % (30.3-42.9); Mean Corpuscular HGB Conc 32 % (30-34); Mean Corpuscular Volume 78 fl (79-97); Platelet Count 181 K/mm3 (140-440); Red Cell Distribution Width 15.1 % (13.2-15.2)
[2022-02-25 06:35] LABS: Band Neutrophils # (Manual) 0.2 K/mm3; Basophils % (Manual) 0 % (0.0-1.8); Hypochromasia 1+; Platelet Estimate Consistent w Auto; Total Cells Counted 100
[2022-02-25] MEDS ORDERED: DEXTROSE 50% IN WATER (25GM) 50 ML SYRINGE IV PRN (07:39)
[2022-02-25] MEDS: INSULIN REGULAR, HUMAN 100 UNITS/1 ML SUB-Q SCH ×4 (08:00→22:24)
[2022-02-25] MEDS: CALCITRIOL 0.25 MCG CAP PO SCH ×2 (08:31→14:27)
[2022-02-25] MEDS: PANTOPRAZOLE 40 MG INJ IV SCH (08:31)
[2022-02-25] MEDS: INSULIN NPH/REGULAR 70/30 INJ SUB-Q SCH ×2 (08:46→16:00)
[2022-02-25] MEDS ORDERED: cefTRIAXone/NS 1 GM/50 ML 1 GM/50 ML BAG IV SCH (09:00)
--- NOTE | 2022-02-25 09:07 | Progress Note ---
Assessment and Plan # Acute Kidney Injury: suspect pre-renal injury, no baseline known, do suspect CKD at baseline. - creatinine improving today at 3.3->3.6->2.9 this AM - urinalysis noted, check UP/C, check serologies-> pending - PTH 304- consistent with secondary hyperparathyroidism; phos WNL, ca low- started calcitriol - renal ultrasound without acute obstruction - glucose control per primary - continue IVF as tolerated, encourage po nutrition - avoid nephrotoxins - renally dose medications - I/Os- note good urine output - no immediate need for kidney biopsy or renal replacement therapy - recommend monitoring of renal function/clinical status for at least 24 hours more # Hyponatremia: suspect pseudohyponatremia in setting of hyperglycemia, now improved # Hyperglycemia, DM: per primary # Elevated Liver Enzymes: GI input noted # Microcytic Anemia: check iron panel, GI input noted, note colonoscopy findings. Hemoglobin improved to 8.0 this AM # History of anxiety/depression Subjective Date of service: 02/25/22 Interval history: Resting in bed, awake and more alert this AM Had colonoscopy yesterday Objective - Exam Narrative Exam: General appearance: well-developed, well-nourished, obese EENT: ATNC, PERRL Neck: Present: neck supple Respiratory: Clear to Ascultation Heart: regular, S1S2 Gastrointestinal: Present: normoactive bowel sounds Integumentary: no rash, warm and dry Neurologic: no focal deficit, no asterixis, alert and oriented x3 Psychiatric: other (withdrawn) - Vital Signs Vital signs: Vital Signs - 12hr 02/24/22 02/24/22 02/24/22 22:22 22:23 23:00 Pulse Rate 108 H 82 Respiratory 18 Rate O2 Sat by Pulse 91 95 97 Oximetry - Lab 02/25/22 04:58 02/25/22 04:58 Most recent lab results Calcium 7.8 mg/dL (8.4-10.2) L 02/25/22 04:58 Phosphorus 3.30 mg/dL (2.5-4.5) 02/24/22 06:55 Magnesium 2.20 mg/dL (1.7-2.3) 02/23/22 03:40 Medications & Allergies - Medications Allergies/Adverse Reactions: Allergies No Known Allergies Allergy (Verified 12/21/18 13:12) Home Medications: Home Medications Medication Instructions Recorded Confirmed Last Taken Type Glimepiride [Amaryl] 2 mg PO BID 12/21/18 12/21/18 Unknown History Hydroxyzine HCl [hydrOXYzine] 50 mg PO HS PRN 12/21/18 12/21/18 Unknown History Insulin Lispro Protamin/Lispro 50 units SUB-Q QAM 12/21/18 12/21/18 12/21/18 History [HumaLOG Mix 75-25 Kwikpen] Insulin Lispro Protamin/Lispro 55 units SUB-Q QPM 12/21/18 12/21/18 Unknown History [HumaLOG Mix 75-25 Kwikpen] Losartan [Cozaar] 50 mg PO QDAY 12/21/18 12/21/18 Unknown History Simvastatin 20 mg PO QPM 12/21/18 12/21/18 Unknown History Venlafaxine HCl [Effexor Xr] 37.5 mg PO BID 12/21/18 12/21/18 Unknown History amLODIPine 10 mg PO DAILY 12/21/18 12/21/18 Unknown History buPROPion XL [Wellbutrin XL] 150 mg PO QAM 12/21/18 12/21/18 Unknown History hydroCHLOROthiazide [HCTZ] 25 mg PO QDAY 12/21/18 12/21/18 Unknown History metFORMIN [Glucophage] 500 mg PO BIDWM 12/21/18 12/21/18 Unknown History oxyCODONE /ACETAMINOPHEN [Percocet 1 tab PO Q6HR PRN #10 tablet 12/27/18 Unknown Rx 5/325] cephALEXin [Keflex] 500 mg PO QID #30 capsule 01/29/19 Unknown Rx Active Medications: Generic Name Dose Route Start Last Admin Trade Name Freq PRN Reason Stop Dose Admin Acetaminophen 650 mg 02/23/22 05:21 Acetaminophen 325 Mg Tab PO Q4H PRN Pain MILD(1-3)/Fever >100.5/BASS Calcitriol 0.25 mcg 02/24/22 10:00 02/25/22 08:31 Calcitriol 0.25 Mcg Cap PO 0.25 mcg QDAY CANDY Administration Dextrose 50 ml 02/25/22 07:39 Dextrose 50% In Water (25gm) 50 Ml Syringe IV Q30MIN PRN Hypoglycemia Protocol Ceftriaxone Sodium 1 gm in 50 mls @ 100 mls/hr 02/25/22 09:00 02/25/22 08:31 Rocephin/Ns 1 Gm/50 Ml IV 100 mls/hr Q24H CANDY Administration Protocol Insulin Human Isoph/Insulin Regular 15 unit 02/25/22 08:30 02/25/22 08:46 Insulin Nph/Regular 70/30 Inj SUB-Q 15 unit BIDDIAB CANDY Administration Insulin Human Regular 0 units 02/25/22 08:00 02/25/22 08:00 Insulin Regular, Human 100 Units/1 Ml SUB-Q 4 units ACHS CANDY Administration Protocol Magnesium Hydroxide 30 ml 02/23/22 05:21 Magnesium Hydroxide (Mom) Oral Liqd Udc PO Q4H PRN Constipation Morphine Sulfate 2 mg 02/23/22 05:21 Morphine 2 Mg/1 Ml Inj IV Q4H PRN Pain, Moderate (4-6) Morphine Sulfate 4 mg 02/23/22 05:21 Morphine 4 Mg/1 Ml Inj IV Q4H PRN Pain , Severe (7-10) Ondansetron HCl 4 mg 02/23/22 05:21 Ondansetron 4 Mg/2 Ml Inj IV Q8H PRN Nausea And Vomiting Pantoprazole Sodium 40 mg 02/23/22 12:00 02/25/22 08:31 Pantoprazole 40 Mg Inj IV 40 mg BID CANDY Administration Sodium Chloride 10 ml 02/23/22 10:00 02/24/22 22:19 Sodium Chloride 0.9% 10 Ml Flush Syringe IV 10 ml BID CANDY Administration Sodium Chloride 10 ml 02/23/22 05:21 Sodium Chloride 0.9% 10 Ml Flush Syringe IV PRN PRN LINE FLUSH
[2022-02-25 09:38] LABS: Hematocrit 25.9 % (30.3-42.9); Hemoglobin 8.5 gm/dl (10.1-14.3); Mean Corpuscular HGB Conc 33 % (30-34); Mean Corpuscular Volume 78 fl (79-97); Platelet Count 199 K/mm3 (140-440); Red Blood Count 3.32 M/mm3 (3.65-5.03); Red Cell Distribution Width 15.6 % (13.2-15.2)
--- NOTE | 2022-02-25 12:16 | Progress Note ---
Assessment and Plan Assessment and plan: #Concern for possible acute ischemic CVA #Bilateral lower extremity weakness CT head noncontrast unremarkable. Pending MRI brain without contrast and TTE. Ordering lipid profile and hemoglobin A1c. Consulted PT/OT; pending recs. Neurology consulted; pending recs. #Microcytic anemiaimproving Hemoglobin 7.7--> 6.9--.8.0--> 8.5 (rechecked and without transfusion) Gastroenterology consulted; appreciate recs EGD and colonoscopy (02/24/2022) revealing hiatal hernia, mild gastritis (biopsies taken), poor colonoscopy prep, and internal hemorrhoids. Patient will follow-up with gastroenterology in the outpatient setting to undergo a PillCam to evaluate possible cause for lower GI bleed. Transitioning IV pantoprazole 40 mg twice daily to p.o. 40 mg daily #BERRY secondary to vasomotor nephropathyimproving Creatinine 3.3--> 3.6--> 2.9 Renally dose meds and avoid nephrotoxic drugs. Nephrology consulted; appreciate recs Continue IV fluid resuscitation. #Hyponatremiaresolved Sodium 129--> 137 Nephrology consulted; appreciate recs. Continue IV fluid resuscitation and encourage p.o. intake. #Hypokalemiaresolved Potassium 2.5--> 3.5 Replete. Monitor with repeat BMP. #Insulin dependent type II diabetes mellitus - hemoglobin A1c: Unknown - home regimen: Metformin 500 mg twice daily, lispro 50 units every morning and 55 units every afternoon, glimepiride 2 mg twice daily - current regimen: NPH 70/30 15 units twice daily + moderate SSI - blood glucose goal 140-180 while inpatient - continue to monitor #Hypertension #Hyperlipidemia - home medications: Hydrochlorothiazide 25 mg daily, amlodipine 10 mg daily, losartan 50 mg daily, simvastatin 20 mg - current medications: Currently holding as the patient is normotensive - SBP goal <160 and DBP goal <90 while inpatient - continue to monitor #Advanced care planning -Disease education conducted, care plan discussed, diagnoses discussed, prognosis discussed, and patient acknowledges understanding with care plan -Time: +30 min Disposition Plan: Continue medical management Total Time Spent with Patient (Minutes): 45 minutes History Interval history: Patient underwent EGD and colonoscopy yesterday with gastroenterology that was relatively unremarkable. Patient tolerated the procedure well. Hospitalist Physical - Constitutional Vitals: Temp Pulse Resp BP Pulse Ox 98.5 F 82 18 129/75 97 02/24/22 16:25 02/24/22 22:23 02/24/22 22:22 02/24/22 16:25 02/24/22 23:00 General appearance: Present: no acute distress, well-nourished, obese, other (Dry Oral Mucosa, Moderate Pallor) - EENT Eyes: Present: PERRL, EOM intact ENT: hearing intact, clear oral mucosa, dentition normal - Neck Neck: Present: supple, normal ROM - Respiratory Respiratory effort: normal Respiratory: bilateral: CTA - Cardiovascular Rhythm: regular Heart Sounds: Present: S1 & S2 - Extremities Extremities: no ischemia, pulses intact, pulses symmetrical, No edema, normal temperature, normal color Peripheral Pulses: within normal limits - Abdominal General gastrointestinal: soft, non-tender, non-distended, normal bowel sounds - Integumentary Integumentary: Present: clear, warm, dry - Psychiatric Psychiatric: appropriate mood/affect, intact judgment & insight, memory intact, cooperative - Neurologic Neurologic: CNII-XII intact, focal deficits (Weakness of bilateral lower extremities) - Allied Health Allied health notes reviewed: nursing Results - Labs CBC & Chem 7: 02/25/22 08:39 02/25/22 04:58 Labs: Laboratory Last Values WBC 9.9 K/mm3 (4.5-11.0) 02/25/22 08:39 RBC 3.32 M/mm3 (3.65-5.03) L 02/25/22 08:39 Hgb 8.5 gm/dl (10.1-14.3) L 02/25/22 08:39 Hct 25.9 % (30.3-42.9) L 02/25/22 08:39 MCV 78 fl (79-97) L 02/25/22 08:39 MCH 26 pg (28-32) L 02/25/22 08:39 MCHC 33 % (30-34) 02/25/22 08:39 RDW 15.6 % (13.2-15.2) H 02/25/22 08:39 Plt Count 199 K/mm3 (140-440) 02/25/22 08:39 Lymph % (Auto) [employer] Pay Clerk 02/24/22 06:55 [place] % (Auto) Military Pay Clerk 02/24/22 06:55 Eos % (Auto) [employer] Pay Clerk 02/24/22 06:55 Baso % (Auto) [employer] Pay Clerk 02/24/22 06:55 Lymph # (Auto) Military Pay Clerk 02/24/22 06:55 [place] # (Auto) Military Pay Clerk 02/24/22 06:55 Eos # (Auto) Military Pay Clerk 02/24/22 06:55 Baso # (Auto) Military Pay Clerk 02/24/22 06:55 Add Manual Diff Complete 02/25/22 04:58 Total Counted 100 02/25/22 04:58 Seg Neutrophils % [employer] Clerk 02/24/22 06:55 Seg Neuts % (Manual) 75.0 % (40.0-70.0) H 02/25/22 04:58 Band Neutrophils % 1.0 % 02/25/22 04:58 Lymphocytes % (Manual) 9.0 % (13.4-35.0) L 02/25/22 04:58 Reactive Lymphs % (Man) 0 % 02/25/22 04:58 Monocytes % (Manual) 12.0 % (0.0-7.3) H 02/25/22 04:58 Eosinophils % (Manual) 3.0 % (0.0-4.3) 02/25/22 04:58 Basophils % (Manual) 0 % (0.0-1.8) 02/25/22 04:58 Metamyelocytes % 0 % 02/25/22 04:58 Myelocytes % 0 % 02/25/22 04:58 Promyelocytes % 0 % 02/25/22 04:58 Blast Cells % 0 % 02/25/22 04:58 Nucleated RBC % 1.0 % (0.0-0.9) H 02/25/22 04:58 Seg Neutrophils # Military Pay Clerk 02/24/22 06:55 Seg Neutrophils # Man 12.5 K/mm3 (1.8-7.7) H 02/25/22 04:58 Band Neutrophils # 0.2 K/mm3 02/25/22 04:58 Lymphocytes # (Manual) 1.5 K/mm3 (1.2-5.4) 02/25/22 04:58 Abs React Lymphs (Man) 0.0 K/mm3 02/25/22 04:58 Monocytes # (Manual) 2.0 K/mm3 (0.0-0.8) H 02/25/22 04:58 Eosinophils # (Manual) 0.5 K/mm3 (0.0-0.4) H 02/25/22 04:58 Basophils # (Manual) 0.0 K/mm3 (0.0-0.1) 02/25/22 04:58 Metamyelocytes # 0.0 K/mm3 02/25/22 04:58 Myelocytes # 0.0 K/mm3 02/25/22 04:58 Promyelocytes # 0.0 K/mm3 02/25/22 04:58 Blast Cells # 0.0 K/mm3 02/25/22 04:58 WBC Morphology Not Reportable 02/25/22 04:58 Hypersegmented Neuts Not Reportable 02/25/22 04:58 Hyposegmented Neuts Not Reportable 02/25/22 04:58 Hypogranular Neuts Not Reportable 02/25/22 04:58 Smudge Cells Not Reportable 02/25/22 04:58 Toxic Granulation Not Reportable 02/25/22 04:58 Toxic Vacuolation Not Reportable 02/25/22 04:58 Dohle Bodies Not Reportable 02/25/22 04:58 Pelger-Huet Anomaly Not Reportable 02/25/22 04:58 Fiona Rods Not Reportable 02/25/22 04:58 Platelet Estimate Consistent w auto 02/25/22 04:58 Clumped Platelets Not Reportable 02/25/22 04:58 Plt Clumps, EDTA Not Reportable 02/25/22 04:58 Large Platelets Not Reportable 02/25/22 04:58 Giant Platelets Not Reportable 02/25/22 04:58 Platelet Satelliting Not Reportable 02/25/22 04:58 Plt Morphology Comment Not Reportable 02/25/22 04:58 RBC Morphology Not Reportable 02/25/22 04:58 Dimorphic RBCs Not Reportable 02/25/22 04:58 Polychromasia Not Reportable 02/25/22 04:58 Hypochromasia 1+ 02/25/22 04:58 Poikilocytosis Not Reportable 02/25/22 04:58 Anisocytosis Not Reportable 02/25/22 04:58 Microcytosis Not Reportable 02/25/22 04:58 Macrocytosis Not Reportable 02/25/22 04:58 Spherocytes Not Reportable 02/25/22 04:58 Pappenheimer Bodies Not Reportable 02/25/22 04:58 Sickle Cells Not Reportable 02/25/22 04:58 Target Cells Not Reportable 02/25/22 04:58 Tear Drop Cells Not Reportable 02/25/22 04:58 Ovalocytes Not Reportable 02/25/22 04:58 Helmet Cells Not Reportable 02/25/22 04:58 [place] Bodies Not Reportable 02/25/22 04:58 [place] Rings Not Reportable 02/25/22 04:58 [place] Cells Not Reportable 02/25/22 04:58 Bite Cells Not Reportable 02/25/22 04:58 Crenated Cell Not Reportable 02/25/22 04:58 Elliptocytes Not Reportable 02/25/22 04:58 Acanthocytes (Spur) Not Reportable 02/25/22 04:58 Rouleaux Not Reportable 02/25/22 04:58 Hemoglobin C Crystals Not Reportable 02/25/22 04:58 Schistocytes Not Reportable 02/25/22 04:58 Malaria parasites Not Reportable 02/25/22 04:58 Son Bodies Not Reportable 02/25/22 04:58 Hem Pathologist Commnt No 02/25/22 04:58 Sodium 137 mmol/L (137-145) D 02/25/22 04:58 Potassium 3.7 mmol/L (3.6-5.0) 02/25/22 04:58 Chloride 100.2 mmol/L (98-107) 02/25/22 04:58 Carbon Dioxide 17 mmol/L (22-30) L 02/25/22 04:58 Anion Gap 24 mmol/L 02/25/22 04:58 BUN 87 mg/dL (7-17) H 02/25/22 04:58 Creatinine 2.9 mg/dL (0.6-1.2) H 02/25/22 04:58 Estimated GFR 21 ml/min 02/25/22 04:58 BUN/Creatinine Ratio 30 % 02/25/22 04:58 Glucose 294 mg/dL (65-100) H 02/25/22 04:58 POC Glucose 297 mg/dL (70-105) H 02/25/22 07:17 Hemoglobin A1c 14.3 % (4-6) H 02/25/22 08:39 Ketones Quantitative Negative (Negative) 02/23/22 03:40 Lactic Acid 1.80 mmol/L (0.7-2.0) 02/24/22 07:57 Calcium 7.8 mg/dL (8.4-10.2) L 02/25/22 04:58 Phosphorus 3.30 mg/dL (2.5-4.5) 02/24/22 06:55 Magnesium 2.20 mg/dL (1.7-2.3) 02/23/22 03:40 Total Bilirubin 1.10 mg/dL (0.1-1.2) 02/23/22 03:40 AST 278 units/L (5-40) H 02/23/22 03:40 ALT 144 units/L (7-56) H 02/23/22 03:40 Alkaline Phosphatase 131 units/L (35-129) H 02/23/22 03:40 Total Protein 6.1 g/dL (6.3-8.2) L 02/23/22 03:40 Albumin 3.2 g/dL (3.9-5) L 02/23/22 03:40 Albumin/Globulin Ratio 1.1 % 02/23/22 03:40 TSH 1.260 mlU/mL (0.270-4.200) 02/23/22 04:26 PTH Intact 304.1 pg/mL (15-65) H 02/24/22 06:55 Urine Color Yellow (Yellow) 02/23/22 04:24 Urine Turbidity Cloudy (Clear) 02/23/22 04:24 Specific [place] (Man) 1.020 (1.003-1.030) 02/23/22 04:24 Ur Protein (Man) 2+ mg/dL (Negative) 02/23/22 04:24 Urine Ketones Negative mg/dL (Negative) 02/23/22 04:24 Ur Ketones (Man) Negative (Negative) 02/23/22 04:24 Ur Nitrite (Man) Negative (Negative) 02/23/22 04:24 Ur Reducing Substances Not Reportable 02/23/22 04:24 Urine Bilirubin (Man) Negative (Negative) 02/23/22 04:24 Urine Ictotest Not Reportable 02/23/22 04:24 Leukocyte Esterase (Man) Trace (Negative) 02/23/22 04:24 Urine WBC (Auto) < 1.0 /HPF (0.0-6.0) 02/23/22 04:24 Urine RBC (Auto) < 1.0 /HPF (0.0-6.0) 02/23/22 04:24 Urine Bacteria (Auto) 2+ /HPF (Negative) 02/23/22 04:24 Urine RBC (Manual) 3+ (Negative) 02/23/22 04:24 Plasma/Serum Alcohol < 0.01 % (0-0.07) 02/23/22 05:01 Hepatitis A IgM Ab Non-reactive (NonReactive) 02/23/22 15:51 Hep Bs Antigen Non-reactive (Negative) 02/23/22 15:51 Hep B Core IgM Ab Non-reactive (NonReactive) 02/23/22 15:51 Hepatitis C Antibody Non-reactive (NonReactive) 02/23/22 15:51 Blood Type B POSITIVE 02/25/22 04:58 Antibody Screen Negative 02/25/22 04:58 Crossmatch See Detail 02/25/22 04:58 Microbiology: Microbiology 02/23/22 04:30 Peripheral/Venous Blood Culture - Preliminary NO GROWTH AFTER 48 HOURS 02/23/22 03:40 Peripheral/Venous Blood Culture - Preliminary Gram Negative Robinson Loya/IV: Voiding Method Incontinent Active Medications - Current Medications Current Medications: Generic Name Dose Route Start Last Admin Trade Name Freq PRN Reason Stop Dose Admin Acetaminophen 650 mg 02/23/22 05:21 Acetaminophen 325 Mg Tab PO Q4H PRN Pain MILD(1-3)/Fever >100.5/BASS Calcitriol 0.25 mcg 02/24/22 10:00 02/25/22 08:31 Calcitriol 0.25 Mcg Cap PO 0.25 mcg QDAY CANDY Administration Dextrose 50 ml 02/25/22 07:39 Dextrose 50% In Water (25gm) 50 Ml Syringe IV Q30MIN PRN Hypoglycemia Protocol Insulin Human Isoph/Insulin Regular 15 unit 02/25/22 08:30 02/25/22 08:46 Insulin Nph/Regular 70/30 Inj SUB-Q 15 unit BIDDIAB CANDY Administration Insulin Human Regular 0 units 02/25/22 08:00 02/25/22 08:00 Insulin Regular, Human 100 Units/1 Ml SUB-Q 4 units ACHS CANDY Administration Protocol Magnesium Hydroxide 30 ml 02/23/22 05:21 Magnesium Hydroxide (Mom) Oral Liqd Udc PO Q4H PRN Constipation Morphine Sulfate 2 mg 02/23/22 05:21 Morphine 2 Mg/1 Ml Inj IV Q4H PRN Pain, Moderate (4-6) Morphine Sulfate 4 mg 02/23/22 05:21 Morphine 4 Mg/1 Ml Inj IV Q4H PRN Pain , Severe (7-10) Ondansetron HCl 4 mg 02/23/22 05:21 Ondansetron 4 Mg/2 Ml Inj IV Q8H PRN Nausea And Vomiting Pantoprazole Sodium 40 mg 02/25/22 16:30 Pantoprazole 40 Mg Tab PO BIDAC CANDY Sodium Chloride 10 ml 02/23/22 10:00 02/24/22 22:19 Sodium Chloride 0.9% 10 Ml Flush Syringe IV 10 ml BID CANDY Administration Sodium Chloride 10 ml 02/23/22 05:21 Sodium Chloride 0.9% 10 Ml Flush Syringe IV PRN PRN LINE FLUSH Nutrition/Malnutrition Assess - Dietary Evaluation Nutrition/Malnutrition Findings: Nutrition Notes Start: 02/23/22 16:03 Freq: Status: Active Protocol: Document 02/23/22 16:03 EJ (Rec: 02/23/22 16:37 EJ [id number]) Nutrition Notes Need for Assessment generated from: MD Order,belting and webbing inspector,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 Current Diet Clear Liquids Diet (since L ), NPO (from 02/24 00:01). Labs/Tests 02/23: Na 127, Cl 90.0, BUN 73 / Crea 3.3, Glu 204, Ca 8.2. Pertinent Medications 02/23: Humalog 3U, others nutritionally unremarkable. Height 5 ft 2 in Weight 88.18 kg [place] Body Weight (kg) 50.00 BMI 35.5 Intake Prior to Admission Good Weight change and time frame Pt denies having loss body weight OFFICE RN. Weight Status Obese Subjective/Other Information RD consult for nutrition education, difficulty chewing, poor oral intake, and dietary supplementation assessments. Pt's PO intake of meals has been Fairly tolerated, according to ADL notes. Pt will be on NPO from midnight due to a procedure planned for 02/24: EGD/ Colonoscopy, according to Progress notes. Pt is on Room Air, O2 saturation @ 97%, according to Physical Assessment History notes. Pt complains of Hematochezia, Nausea, and Abdominal Pain for the last 30 days, according to History & Physical notes. There are no reports of any difficulty chewing documented on the chart at the time, will disregard this consult. I will not prescribe dietary supplementation at the time since Pt will be NPO and GI conditions are uncertain at the time, will assess at F/U. Pt still in critical condition , not a candidate for Nutrition Education at the time, will assess feasibility on F/U. Percent of energy/protein needs met: Prescribed Clear Liquids Diet provides for energy/protein needs (590 Kcal/16 g) during LOS. Pt will be on NPO after midnight. Burn Absent Trauma Absent GI Symptoms Nausea,Constipation,Other Food Allergy No Skin Integrity/Comment Assessment WNL. Current % PO Good (75-100%) Minimum of two criteria No Fluid Accumulation N/A Reduced Water Maintenance Supervisor Strength N/A (non-severe) Protein-Calorie Malnutrition N\A #1 Nutrition Diagnosis Overweight/obesity Etiology Possibly secondary to Lifestyle. As Evidenced by Signs and Symptoms BMI: 35.5 Kg/m2. Is patient on ventilator? No Is Patient Ambulatory and/or Out of Bed No REE-([facility]-confined to bed) [phone] Kcal/Kg value to use for calculation 14 Approximate Energy Requirements Using 1235 kcal/Kg Calculation Used for Recommendations Kcal/kg Additional Notes Protein: 0.8-1.2 g/Kg AdjBW; 55-83 g/day. Fluids: 1 ml/Kcal, or as per MD. Nutrition Intervention Change Diet Order: When pertinent resume Clear Liquids Diet as tolerated. Goal #1 Adjust the dietary intervention to better serve Pt's energy/protein needs and clinical conditions during LOS . Follow-Up By: 03/02/22 Additional Comments Nutrition education will be provided at F/U, if feasible. Continue monitoring food tolerance, %PO intake of meals , and BM.
[2022-02-25 14:28] LABS: Chol/HDL Ratio 11.33 %
--- NOTE | 2022-02-25 14:45 | Gastroenterology Progress Note ---
Subjective Date of service: 02/25/22 Interval history: 1. GI: pt denies GI complaints overnight - h/h stable - diet as tolerated - ok to dc from GI standpoint - will sign off, call if needed Objective - Constitutional Vitals: Temp Pulse Resp BP Pulse Ox 98.5 F 82 18 129/75 97 02/24/22 16:25 02/24/22 22:23 02/24/22 22:22 02/24/22 16:25 02/24/22 23:00 - Labs CBC & Chem 7: 02/25/22 08:39 02/25/22 04:58 Labs: Laboratory Results - last 24 hr 02/24/22 02/24/22 02/24/22 12:00 14:07 16:22 WBC RBC Hgb Hct MCV MCH MCHC RDW Plt Count Add Manual Diff Total Counted Seg Neuts % (Manual) Band Neutrophils % Lymphocytes % (Manual) Reactive Lymphs % (Man) Monocytes % (Manual) Eosinophils % (Manual) Basophils % (Manual) Metamyelocytes % Myelocytes % Promyelocytes % Blast Cells % Nucleated RBC % Seg Neutrophils # Man Band Neutrophils # Lymphocytes # (Manual) Abs React Lymphs (Man) Monocytes # (Manual) Eosinophils # (Manual) Basophils # (Manual) Metamyelocytes # Myelocytes # Promyelocytes # Blast Cells # WBC Morphology Hypersegmented Neuts Hyposegmented Neuts Hypogranular Neuts Smudge Cells Toxic Granulation Toxic Vacuolation Dohle Bodies Pelger-Huet Anomaly Fiona Rods Platelet Estimate Clumped Platelets Plt Clumps, EDTA Large Platelets Giant Platelets Platelet Satelliting Plt Morphology Comment RBC Morphology Dimorphic RBCs Polychromasia Hypochromasia Poikilocytosis Anisocytosis Microcytosis Macrocytosis Spherocytes Pappenheimer Bodies Sickle Cells Target Cells Tear Drop Cells Ovalocytes Helmet Cells [place] Bodies [place] Rings [place] Cells Bite Cells Crenated Cell Elliptocytes Acanthocytes (Spur) Rouleaux Hemoglobin C Crystals Schistocytes Malaria parasites Son Bodies Hem Pathologist Commnt Sodium Potassium Chloride Carbon Dioxide Anion Gap BUN Creatinine Estimated GFR BUN/Creatinine Ratio Glucose POC Glucose 300 H 282 H 287 H Hemoglobin A1c Calcium Triglycerides Cholesterol LDL Cholesterol Direct HDL Cholesterol Cholesterol/HDL Ratio Blood Type Antibody Screen Crossmatch 02/24/22 02/25/22 02/25/22 22:24 04:58 04:58 WBC 16.7 H RBC 3.16 L Hgb 8.0 L Hct 24.7 L MCV 78 L MCH 25 L MCHC 32 RDW 15.1 Plt Count 181 Add Manual Diff Complete Total Counted 100 Seg Neuts % (Manual) 75.0 H Band Neutrophils % 1.0 Lymphocytes % (Manual) 9.0 L Reactive Lymphs % (Man) 0 Monocytes % (Manual) 12.0 H Eosinophils % (Manual) 3.0 Basophils % (Manual) 0 Metamyelocytes % 0 Myelocytes % 0 Promyelocytes % 0 Blast Cells % 0 Nucleated RBC % 1.0 H Seg Neutrophils # Man 12.5 H Band Neutrophils # 0.2 Lymphocytes # (Manual) 1.5 Abs React Lymphs (Man) 0.0 Monocytes # (Manual) 2.0 H Eosinophils # (Manual) 0.5 H Basophils # (Manual) 0.0 Metamyelocytes # 0.0 Myelocytes # 0.0 Promyelocytes # 0.0 Blast Cells # 0.0 WBC Morphology Not Reportable Hypersegmented Neuts Not Reportable Hyposegmented Neuts Not Reportable Hypogranular Neuts Not Reportable Smudge Cells Not Reportable Toxic Granulation Not Reportable Toxic Vacuolation Not Reportable Dohle Bodies Not Reportable Pelger-Huet Anomaly Not Reportable Fiona Rods Not Reportable Platelet Estimate Consistent w auto Clumped Platelets Not Reportable Plt Clumps, EDTA Not Reportable Large Platelets Not Reportable Giant Platelets Not Reportable Platelet Satelliting Not Reportable Plt Morphology Comment Not Reportable RBC Morphology Not Reportable Dimorphic RBCs Not Reportable Polychromasia Not Reportable Hypochromasia 1+ Poikilocytosis Not Reportable Anisocytosis Not Reportable Microcytosis Not Reportable Macrocytosis Not Reportable Spherocytes Not Reportable Pappenheimer Bodies Not Reportable Sickle Cells Not Reportable Target Cells Not Reportable Tear Drop Cells Not Reportable Ovalocytes Not Reportable Helmet Cells Not Reportable [place] Bodies Not Reportable [place] Rings Not Reportable [place] Cells Not Reportable Bite Cells Not Reportable Crenated Cell Not Reportable Elliptocytes Not Reportable Acanthocytes (Spur) Not Reportable Rouleaux Not Reportable Hemoglobin C Crystals Not Reportable Schistocytes Not Reportable Malaria parasites Not Reportable Son Bodies Not Reportable Hem Pathologist Commnt No Sodium Potassium Chloride Carbon Dioxide Anion Gap BUN Creatinine Estimated GFR BUN/Creatinine Ratio Glucose POC Glucose 315 H Hemoglobin A1c Calcium Triglycerides Cholesterol LDL Cholesterol Direct HDL Cholesterol Cholesterol/HDL Ratio Blood Type B POSITIVE Antibody Screen Negative Crossmatch See Detail 02/25/22 02/25/22 02/25/22 04:58 04:58 07:17 WBC RBC Hgb Hct MCV MCH MCHC RDW Plt Count Add Manual Diff Total Counted Seg Neuts % (Manual) Band Neutrophils % Lymphocytes % (Manual) Reactive Lymphs % (Man) Monocytes % (Manual) Eosinophils % (Manual) Basophils % (Manual) Metamyelocytes % Myelocytes % Promyelocytes % Blast Cells % Nucleated RBC % Seg Neutrophils # Man Band Neutrophils # Lymphocytes # (Manual) Abs React Lymphs (Man) Monocytes # (Manual) Eosinophils # (Manual) Basophils # (Manual) Metamyelocytes # Myelocytes # Promyelocytes # Blast Cells # WBC Morphology Hypersegmented Neuts Hyposegmented Neuts Hypogranular Neuts Smudge Cells Toxic Granulation Toxic Vacuolation Dohle Bodies Pelger-Huet Anomaly Fiona Rods Platelet Estimate Clumped Platelets Plt Clumps, EDTA Large Platelets Giant Platelets Platelet Satelliting Plt Morphology Comment RBC Morphology Dimorphic RBCs Polychromasia Hypochromasia Poikilocytosis Anisocytosis Microcytosis Macrocytosis Spherocytes Pappenheimer Bodies Sickle Cells Target Cells Tear Drop Cells Ovalocytes Helmet Cells [place] Bodies [place] Rings [place] Cells Bite Cells Crenated Cell Elliptocytes Acanthocytes (Spur) Rouleaux Hemoglobin C Crystals Schistocytes Malaria parasites Son Bodies Hem Pathologist Commnt Sodium 137 D Potassium 3.7 Chloride 100.2 Carbon Dioxide 17 L Anion Gap 24 BUN 87 H Creatinine 2.9 H Estimated GFR 21 BUN/Creatinine Ratio 30 Glucose 294 H POC Glucose 297 H Hemoglobin A1c Calcium 7.8 L Triglycerides 270 H Cholesterol 170 LDL Cholesterol Direct 27 L HDL Cholesterol 15 L Cholesterol/HDL Ratio 11.33 Blood Type Antibody Screen Crossmatch 02/25/22 02/25/22 08:39 08:39 WBC 9.9 RBC 3.32 L Hgb 8.5 L Hct 25.9 L MCV 78 L MCH 26 L MCHC 33 RDW 15.6 H Plt Count 199 Add Manual Diff Total Counted Seg Neuts % (Manual) Band Neutrophils % Lymphocytes % (Manual) Reactive Lymphs % (Man) Monocytes % (Manual) Eosinophils % (Manual) Basophils % (Manual) Metamyelocytes % Myelocytes % Promyelocytes % Blast Cells % Nucleated RBC % Seg Neutrophils # Man Band Neutrophils # Lymphocytes # (Manual) Abs React Lymphs (Man) Monocytes # (Manual) Eosinophils # (Manual) Basophils # (Manual) Metamyelocytes # Myelocytes # Promyelocytes # Blast Cells # WBC Morphology Hypersegmented Neuts Hyposegmented Neuts Hypogranular Neuts Smudge Cells Toxic Granulation Toxic Vacuolation Dohle Bodies Pelger-Huet Anomaly Fiona Rods Platelet Estimate Clumped Platelets Plt Clumps, EDTA Large Platelets Giant Platelets Platelet Satelliting Plt Morphology Comment RBC Morphology Dimorphic RBCs Polychromasia Hypochromasia Poikilocytosis Anisocytosis Microcytosis Macrocytosis Spherocytes Pappenheimer Bodies Sickle Cells Target Cells Tear Drop Cells Ovalocytes Helmet Cells [place] Bodies [place] Rings [place] Cells Bite Cells Crenated Cell Elliptocytes Acanthocytes (Spur) Rouleaux Hemoglobin C Crystals Schistocytes Malaria parasites Son Bodies Hem Pathologist Commnt Sodium Potassium Chloride Carbon Dioxide Anion Gap BUN Creatinine Estimated GFR BUN/Creatinine Ratio Glucose POC Glucose Hemoglobin A1c 14.3 H Calcium Triglycerides Cholesterol LDL Cholesterol Direct HDL Cholesterol Cholesterol/HDL Ratio Blood Type Antibody Screen Crossmatch
--- NOTE | 2022-02-25 15:55 | Magnetic Resonance Report ---
MRI BRAIN WITHOUT CONTRAST INDICATION / CLINICAL INFORMATION: Possible CVA, SLURRED SPEECH, WEAKNESS . TECHNIQUE: Multiplanar, multisequence MR images of the brain were obtained. COMPARISON: Head CT 02/23/2022 FINDINGS: BRAIN / INTRACRANIAL CONTENTS: Restricted diffusion is demonstrated in the body of the corpus callosum in the midline. Multiple smal ler foci of restricted diffusion are demonstrated in the white matter of both frontal lobes and in th e posterior aspect of the medial portion of the right cingulate gyrus. Foci of acute infarction in mu ltiple vascular distributions suggests the possibility of an embolic etiology. Vasculitis could also be considered. Ventricles and cortical sulci are normal in size and configuration. There is no mass effect. No evide nce of intracranial hemorrhage or extra-axial fluid collection is seen. No significant areas of abnor mal brain parenchymal signal intensity are identified. There is no indication of remote cortical infa rction. The brainstem and cerebellum have an unremarkable appearance. MIDLINE STRUCTURES:No abnormalities are seen to involve the pituitary gland. Pineal region has an unr emarkable appearance. CRANIOCERVICAL JUNCTION: No abnormalities are identified at the craniocervical junction. VASCULAR FLOW-VOIDS: Normal flow-voids are present within the major intracranial vessels. ORBITS: The orbits have an unremarkable appearance. SINUSES / MASTOIDS: There is no indication of inflammatory disease in the paranasal sinuses or mastoi d air cells. IMPRESSION: 1. Multiple small foci of acute infarction as described above. The largest lesion is in the body of t he corpus callosum. Signer Name: Tyler Chaudhry MD Signed: 02/25/2022 3:51 PM Workstation Name: [facility]
[2022-02-25] MEDS: PANTOPRAZOLE 40 MG TAB PO SCH (17:27)
--- NOTE | 2022-02-25 19:31 | Progress Note ---
Subjective - Reason for Consult Consult date: 02/25/22 Reason for consult: depression, mental status change - Chief Complaint Chief complaint: 02/24: Patient was seen today. Patient was alert and oriented x3. Patient reports feeling "exhausted," and "down." Patient reports her health is getting worse. Patient reports poor sleep and poor appetite. Patient denies SI HI AVH at this time. Patient listed stressors of her , her mom, and her health issues. Patient reports journaling has been helpful for mitigating emotions brought on by stressors. 02/23: Patient is a 51 year old female with past psychiatric history of depression and anxiety treated with wellbutrin 150 mg qAM and recently amitriptyline 50 mg qhs. Patient was seen today with at bedside. Patient was alert, oriented to person, and cooperative throughout interview. Patient r eports passive suicidal ideation of the last year "If I was gone, it would be better." Patient does not have history of suicide attempts. Patient reports chronic stressor of taking care of her mother who lives with her. Patient denies drug use. Patient attributes recent hospitalization to the amitriptyline 50 mg patient was prescribed by PCP. Patient open to making medication adjustments but asked for resources to establish psychiatric care with a new provider. MENTAL STATUS EXAMINATION General Appearance and Behavior: Age appropriate, wearing appropriate clothes, cooperative, polite with questioning, good eye contact Cooperation: cooperative Psychomotor Behavior: Psychomotor normal Mood: depressed Affect and affective range: congruent with stated mood Thought Process: goal-oriented Thought Content: reality-based Speech: Low volume, slow rate; apparent difficulty moving jaw Suicidal Ideation: Denies Homicidal Ideation: Denies Hallucination: Denies Delusions: Denies Impulse Control: Fair Insight and Judgment: Fair Memory: Intact Attention: Attentive Orientation: Alert and oriented to person only TREATMENT - advised patient to re-establish outpatient psychiatric care for counseling, medication management PSYCHOTHERAPY: Supportive psychotherapy provided MEDICAL: Per primary team DELIRIUM PRECAUTIONS: Please re-orient patient frequently, keep lights on during the day, and minimize benzodiazepines and opiates as these medications could worsen patient's confusion. NOTE SPECIALIST: Defer to primary DISPOSITION: Do not recommend acute inpatient psychiatric hospitalization at this time. FOLLOW-UP: Will follow. Thank you for the consult. Please contact with any questions and/or concerns. Case staffed with Dr. Belén Varghese. Mental Status Exam - Vital signs Last Vital Signs Temp 98 F 02/25/22 18:35 Pulse 110 H 02/25/22 18:35 Resp 20 02/25/22 18:35 BP 150/80 02/25/22 18:35 Pulse Ox 97 02/25/22 18:35
[2022-02-26 07:16] LABS: Calcium 8.2 mg/dL (8.4-10.2)
[2022-02-26 07:28] LABS: Red Blood Count 3.11 M/mm3 (3.65-5.03)
[2022-02-26 07:29] LABS: Hematocrit 23.8 % (30.3-42.9); Hemoglobin 7.7 gm/dl (10.1-14.3); Mean Corpuscular HGB Conc 32 % (30-34); Mean Corpuscular Volume 77 fl (79-97); Platelet Count 269 K/mm3 (140-440); Red Cell Distribution Width 15.2 % (13.2-15.2)
[2022-02-26] MEDS ORDERED: cefTRIAXone/NS 2 GM/100 ML 2 GM/100 ML BAG IV SCH ×2 (08:00→18:00)
[2022-02-26] MEDS: INSULIN NPH/REGULAR 70/30 INJ SUB-Q SCH ×2 (08:30→19:54)
[2022-02-26] MEDS: PANTOPRAZOLE 40 MG TAB PO SCH ×2 (08:32→19:54)
[2022-02-26] MEDS: INSULIN REGULAR, HUMAN 100 UNITS/1 ML SUB-Q SCH ×4 (08:33→22:40)
[2022-02-26] MEDS ORDERED: CEFEPIME/NS 1 GM/100 ML 1 GM/100 ML BAG IV SCH (09:00)
[2022-02-26 09:09] LABS: Band Neutrophils # (Manual) 0.2 K/mm3; Basophils % (Manual) 0 % (0.0-1.8); Hypochromasia 1+; Myelocytes # (Manual) 0.1 K/mm3; Total Cells Counted 100
[2022-02-26 09:10] LABS: Platelet Estimate Consistent w Auto; Target Cells Few
[2022-02-26] MEDS: CALCITRIOL 0.25 MCG CAP PO SCH (12:52)
[2022-02-26] MEDS: INSULIN LISPRO 100 UNIT/ML SUB-Q SCH (12:53)
--- NOTE | 2022-02-26 14:21 | Progress Note ---
Assessment and Plan # Acute Kidney Injury: suspect pre-renal injury, no baseline known, do suspect CKD at baseline. - creatinine improving today at 3.3->3.6->2.9->2.0 this AM - urinalysis noted, check UP/C, check serologies-> pending; hep panel WNL - PTH 304- consistent with secondary hyperparathyroidism; phos WNL, ca low- started calcitriol - renal ultrasound without acute obstruction - glucose control per primary - continue IVF as tolerated, encourage po nutrition - avoid nephrotoxins - renally dose medications - I/Os- note good urine output - no immediate need for kidney biopsy or renal replacement therapy - outpatient CKD/BERRY follow up on discharge, will arrange # Hyponatremia: suspect pseudohyponatremia in setting of hyperglycemia, now improved # Hyperglycemia, DM: per primary # Elevated Liver Enzymes: GI input noted # Microcytic Anemia: check iron panel, GI input noted, note colonoscopy findings. Hemoglobin 7.7 this AM # History of anxiety/depression Subjective Date of service: 02/26/22 Interval history: Resting in bed, awake and alert, denies any renal related concerns Objective - Exam Narrative Exam: General appearance: well-developed, well-nourished, obese EENT: ATNC, PERRL Neck: Present: neck supple Respiratory: Clear to Ascultation Heart: regular, S1S2 Gastrointestinal: Present: normoactive bowel sounds Integumentary: no rash, warm and dry Neurologic: no focal deficit, no asterixis, alert and oriented x3 Psychiatric: other (withdrawn) - Vital Signs Vital signs: Vital Signs - 12hr 02/26/22 02/26/22 04:36 11:26 Temperature 97.5 F L 98.0 F Pulse Rate 101 H 103 H Respiratory 16 18 Rate Blood Pressure 188/94 133/72 O2 Sat by Pulse 98 97 Oximetry - Lab 02/26/22 05:54 02/26/22 05:54 Most recent lab results Calcium 8.2 mg/dL (8.4-10.2) L 02/26/22 05:54 Phosphorus 3.30 mg/dL (2.5-4.5) 02/24/22 06:55 Magnesium 2.20 mg/dL (1.7-2.3) 02/23/22 03:40 Medications & Allergies - Medications Allergies/Adverse Reactions: Allergies No Known Allergies Allergy (Verified 12/21/18 13:12) Home Medications: Home Medications Medication Instructions Recorded Confirmed Last Taken Type Glimepiride [Amaryl] 2 mg PO BID 12/21/18 12/21/18 Unknown History Hydroxyzine HCl [hydrOXYzine] 50 mg PO HS PRN 12/21/18 12/21/18 Unknown History Insulin Lispro Protamin/Lispro 50 units SUB-Q QAM 12/21/18 12/21/18 12/21/18 History [HumaLOG Mix 75-25 Kwikpen] Insulin Lispro Protamin/Lispro 55 units SUB-Q QPM 12/21/18 12/21/18 Unknown History [HumaLOG Mix 75-25 Kwikpen] Losartan [Cozaar] 50 mg PO QDAY 12/21/18 12/21/18 Unknown History Simvastatin 20 mg PO QPM 12/21/18 12/21/18 Unknown History Venlafaxine HCl [Effexor Xr] 37.5 mg PO BID 12/21/18 12/21/18 Unknown History amLODIPine 10 mg PO DAILY 12/21/18 12/21/18 Unknown History buPROPion XL [Wellbutrin XL] 150 mg PO QAM 12/21/18 12/21/18 Unknown History hydroCHLOROthiazide [HCTZ] 25 mg PO QDAY 12/21/18 12/21/18 Unknown History metFORMIN [Glucophage] 500 mg PO BIDWM 12/21/18 12/21/18 Unknown History oxyCODONE /ACETAMINOPHEN [Percocet 1 tab PO Q6HR PRN #10 tablet 12/27/18 Unknown Rx 5/325] cephALEXin [Keflex] 500 mg PO QID #30 capsule 01/29/19 Unknown Rx Active Medications: Generic Name Dose Route Start Last Admin Trade Name Freq PRN Reason Stop Dose Admin Acetaminophen 650 mg 02/23/22 05:21 Acetaminophen 325 Mg Tab PO Q4H PRN Pain MILD(1-3)/Fever >100.5/BASS Atorvastatin Calcium 40 mg 02/25/22 22:00 02/25/22 22:24 Atorvastatin 40 Mg Tab PO 40 mg QHS CANDY Administration Calcitriol 0.25 mcg 02/24/22 10:00 02/26/22 12:52 Calcitriol 0.25 Mcg Cap PO 0.25 mcg QDAY CANDY Administration Dextrose 50 ml 02/25/22 07:39 Dextrose 50% In Water (25gm) 50 Ml Syringe IV Q30MIN PRN Hypoglycemia Protocol Insulin Human Isoph/Insulin Regular 25 unit 02/26/22 08:00 02/26/22 08:30 Insulin Nph/Regular 70/30 Inj SUB-Q 25 unit BIDDIAB CANDY Administration Insulin Human Regular 0 units 02/25/22 08:00 02/26/22 08:33 Insulin Regular, Human 100 Units/1 Ml SUB-Q 3 units ACHS CNADY Administration Protocol Magnesium Hydroxide 30 ml 02/23/22 05:21 Magnesium Hydroxide (Mom) Oral Liqd Udc PO Q4H PRN Constipation Morphine Sulfate 2 mg 02/23/22 05:21 Morphine 2 Mg/1 Ml Inj IV Q4H PRN Pain, Moderate (4-6) Morphine Sulfate 4 mg 02/23/22 05:21 Morphine 4 Mg/1 Ml Inj IV Q4H PRN Pain , Severe (7-10) Ondansetron HCl 4 mg 02/23/22 05:21 Ondansetron 4 Mg/2 Ml Inj IV Q8H PRN Nausea And Vomiting Pantoprazole Sodium 40 mg 02/25/22 16:30 02/26/22 08:32 Pantoprazole 40 Mg Tab PO 40 mg BIDAC CANDY Administration Sodium Chloride 10 ml 02/23/22 10:00 02/26/22 12:52 Sodium Chloride 0.9% 10 Ml Flush Syringe IV 10 ml BID CANDY Administration Sodium Chloride 10 ml 02/23/22 05:21 Sodium Chloride 0.9% 10 Ml Flush Syringe IV PRN PRN LINE FLUSH
--- NOTE | 2022-02-26 15:37 | Consultation ---
History of Present Illness Consult date: 02/26/22 Reason for Consult: cva Chief complaint: "Difficulty speaking" History of present illness: 51 yo right-handed female with htn, dm, hld, migraine d/o, anxiety, depression, insomnia, who notes difficulty with the flow of her words while here in the hospital; notes a chronic hx of difficulty walking (due to weakness of the legs) for a few months, along with a hx of diabetic neuropathy (4 years). She notes a significant family hx of strokes. MRI Brain revealed scattered embolic (shower) of acute infarctions. Past History Past Medical History: diabetes, hypertension, hyperlipidemia, migraines, other (Anxiety/Depression, insomnia) Past Surgical History: No surgical history Social history: no significant social history Family history: no significant family history Medications and Allergies Allergies Allergy/AdvReac Type Severity Reaction Status Date / Time No Known Allergies Allergy Verified 12/21/18 13:12 Home Medications Medication Instructions Recorded Confirmed Last Taken Type Glimepiride [Amaryl] 2 mg PO BID 12/21/18 12/21/18 Unknown History Hydroxyzine HCl [hydrOXYzine] 50 mg PO HS PRN 12/21/18 12/21/18 Unknown History Insulin Lispro Protamin/Lispro 50 units SUB-Q QAM 12/21/18 12/21/18 12/21/18 History [HumaLOG Mix 75-25 Kwikpen] Insulin Lispro Protamin/Lispro 55 units SUB-Q QPM 12/21/18 12/21/18 Unknown History [HumaLOG Mix 75-25 Kwikpen] Losartan [Cozaar] 50 mg PO QDAY 12/21/18 12/21/18 Unknown History Simvastatin 20 mg PO QPM 12/21/18 12/21/18 Unknown History Venlafaxine HCl [Effexor Xr] 37.5 mg PO BID 12/21/18 12/21/18 Unknown History amLODIPine 10 mg PO DAILY 12/21/18 12/21/18 Unknown History buPROPion XL [Wellbutrin XL] 150 mg PO QAM 12/21/18 12/21/18 Unknown History hydroCHLOROthiazide [HCTZ] 25 mg PO QDAY 12/21/18 12/21/18 Unknown History metFORMIN [Glucophage] 500 mg PO BIDWM 12/21/18 12/21/18 Unknown History oxyCODONE /ACETAMINOPHEN [Percocet 1 tab PO Q6HR PRN #10 tablet 12/27/18 Unknown Rx 5/325] cephALEXin [Keflex] 500 mg PO QID #30 capsule 01/29/19 Unknown Rx Active Meds: Active Medications Acetaminophen (Acetaminophen 325 Mg Tab) 650 mg PO Q4H PRN PRN Reason: Pain MILD(1-3)/Fever >100.5/BASS Atorvastatin Calcium (Atorvastatin 40 Mg Tab) 40 mg PO QHS [facility] Last Admin: 02/25/22 22:24 Dose: 40 mg Calcitriol (Calcitriol 0.25 Mcg Cap) 0.25 mcg PO QDAY [facility] Last Admin: 02/26/22 12:52 Dose: 0.25 mcg Dextrose (Dextrose 50% In Water (25gm) 50 Ml Syringe) 50 ml IV Q30MIN PRN; Protocol PRN Reason: Hypoglycemia Insulin Human Isoph/Insulin Regular (Insulin Nph/Regular 70/30 Inj) 25 unit SUB-Q BIDDIAB [facility] Last Admin: 02/26/22 08:30 Dose: 25 unit Insulin Human Regular (Insulin Regular, Human 100 Units/1 Ml) 0 units SUB-Q ACHS [facility]; Protocol Last Admin: 02/26/22 08:33 Dose: 3 units Magnesium Hydroxide (Magnesium Hydroxide (Mom) Oral Liqd Udc) 30 ml PO Q4H PRN PRN Reason: Constipation Morphine Sulfate (Morphine 2 Mg/1 Ml Inj) 2 mg IV Q4H PRN PRN Reason: Pain, Moderate (4-6) Morphine Sulfate (Morphine 4 Mg/1 Ml Inj) 4 mg IV Q4H PRN PRN Reason: Pain , Severe (7-10) Ondansetron HCl (Ondansetron 4 Mg/2 Ml Inj) 4 mg IV Q8H PRN PRN Reason: Nausea And Vomiting Pantoprazole Sodium (Pantoprazole 40 Mg Tab) 40 mg PO BIDAC [facility] Last Admin: 02/26/22 08:32 Dose: 40 mg Sodium Chloride (Sodium Chloride 0.9% 10 Ml Flush Syringe) 10 ml IV BID [facility] Last Admin: 02/26/22 12:52 Dose: 10 ml Sodium Chloride (Sodium Chloride 0.9% 10 Ml Flush Syringe) 10 ml IV PRN PRN PRN Reason: LINE FLUSH Review of Systems All systems: negative (as per hpi;) Physical Examination - Vital Signs Vital Signs: Vital Signs Temp Pulse Resp BP Pulse Ox 98.6 F 110 H 18 165/88 96 02/22/22 19:41 02/22/22 19:41 02/22/22 19:41 02/22/22 19:41 02/22/22 19:41 - Physical Exam Narrative exam: Gen: nad, well-nourished; Head: normocephalic; Eyes: no gaze deviation; no ptosis; ENT: normal vocalization; CVS: warm and well-perfused; Pulm: normal work of breathing; GI: appears non-distended; Ext: no cyanosis appreciated at distal extremities; Skin: no acute rash at distal extremities; Heme: no pathologic ecchymosis appreciated at distal extremities; Neuro: alert, oriented to name, age, month, year, surroundings, no dysarthria, slight expressive aphasia, mild psychomotor slowing, CN 2 - PERRL, visual valdez grossly intact, CN 3, 4, 6 - EOMI, CN 5 - facial sensation symmetric to light touch, CN 7 - facial movement symmetric, CN 8 - hearing grossly intact, CN 9, 10 - uvula midline, CN 11 symmetric shoulder movement, CN 12 - tongue midline; Motor - left pronator drift; at 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; at least 4+/5 at all other exts except right ankle dorsiflexion of 4-/5 and plantar flexion of 4/5; Sensory - light touch symmetric, Cerebellar - fnf /hts intact, Gait - deferred secondary to fall risk; NIHSS (1a.) Level of Consciousness:0 (1b.) LOC Questions:0 (1c.) LOC Commands:0 (2.) Best Gaze:0 (3.) Visual:0 (4.) Facial Palsy:0 (5a.) Motor Arm, Left:1 (5b.) Motor Arm, Right:0 (6a.) Motor Leg, Left:1 (6b.) Motor Leg, Right:1 (7.) Limb Ataxia:0 (8.) Sensory:1 (9.) Best Language:1 (10.) Dysarthria:0 (11.) Extinction and Inattention:0 NIHSS Total Score: 5 Results - Laboratory Findings CBC and BMP: 02/27/22 09:54 02/27/22 09:54 Abnormal Lab Findings: Abnormal Labs 02/23/22 02/23/22 02/23/22 02:26 03:40 03:40 WBC 12.1 H RBC 2.98 L Hgb 7.7 L Hct 23.0 L MCV 77 L MCH 26 L RDW Seg Neuts % (Manual) Lymphocytes % (Manual) Monocytes % (Manual) Nucleated RBC % Seg Neutrophils # Man Lymphocytes # (Manual) Monocytes # (Manual) Eosinophils # (Manual) Sodium 127 L Potassium Chloride 90.0 L Carbon Dioxide BUN 73 H Creatinine 3.3 H Glucose 204 H POC Glucose 205 H Hemoglobin A1c Lactic Acid Calcium 8.2 L AST 278 H ALT 144 H Alkaline Phosphatase 131 H Total Protein 6.1 L Albumin 3.2 L Triglycerides LDL Cholesterol Direct HDL Cholesterol PTH Intact Crossmatch 02/23/22 02/23/22 02/23/22 03:40 05:17 10:58 WBC RBC Hgb Hct MCV MCH RDW Seg Neuts % (Manual) Lymphocytes % (Manual) Monocytes % (Manual) Nucleated RBC % Seg Neutrophils # Man Lymphocytes # (Manual) Monocytes # (Manual) Eosinophils # (Manual) Sodium Potassium Chloride Carbon Dioxide BUN Creatinine Glucose POC Glucose 239 H Hemoglobin A1c Lactic Acid 2.50 H* 2.20 H* Calcium AST ALT Alkaline Phosphatase Total Protein Albumin Triglycerides LDL Cholesterol Direct HDL Cholesterol PTH Intact Crossmatch 02/23/22 02/23/22 02/24/22 16:22 22:31 06:55 WBC RBC 2.65 L Hgb 6.9 L Hct 20.2 L MCV 76 L MCH 26 L RDW Seg Neuts % (Manual) 76.0 H Lymphocytes % (Manual) 11.0 L Monocytes % (Manual) 12.0 H Nucleated RBC % Seg Neutrophils # Man Lymphocytes # (Manual) 0.9 L Monocytes # (Manual) 1.0 H Eosinophils # (Manual) Sodium Potassium Chloride Carbon Dioxide BUN Creatinine Glucose POC Glucose 295 H 232 H Hemoglobin A1c Lactic Acid Calcium AST ALT Alkaline Phosphatase Total Protein Albumin Triglycerides LDL Cholesterol Direct HDL Cholesterol PTH Intact Crossmatch 02/24/22 02/24/22 02/24/22 06:55 06:55 07:24 WBC RBC Hgb Hct MCV MCH RDW Seg Neuts % (Manual) Lymphocytes % (Manual) Monocytes % (Manual) Nucleated RBC % Seg Neutrophils # Man Lymphocytes # (Manual) Monocytes # (Manual) Eosinophils # (Manual) Sodium 129 L Potassium 3.5 L Chloride 92.3 L Carbon Dioxide 16 L BUN 87 H Creatinine 3.6 H Glucose 257 H POC Glucose 260 H Hemoglobin A1c Lactic Acid Calcium 7.5 L AST ALT Alkaline Phosphatase Total Protein Albumin Triglycerides LDL Cholesterol Direct HDL Cholesterol PTH Intact 304.1 H Crossmatch 02/24/22 02/24/22 02/24/22 12:00 14:07 16:22 WBC RBC Hgb Hct MCV MCH RDW Seg Neuts % (Manual) Lymphocytes % (Manual) Monocytes % (Manual) Nucleated RBC % Seg Neutrophils # Man Lymphocytes # (Manual) Monocytes # (Manual) Eosinophils # (Manual) Sodium Potassium Chloride Carbon Dioxide BUN Creatinine Glucose POC Glucose 300 H 282 H 287 H Hemoglobin A1c Lactic Acid Calcium AST ALT Alkaline Phosphatase Total Protein Albumin Triglycerides LDL Cholesterol Direct HDL Cholesterol PTH Intact Crossmatch 02/24/22 02/25/22 02/25/22 22:24 04:58 04:58 WBC 16.7 H RBC 3.16 L Hgb 8.0 L Hct 24.7 L MCV 78 L MCH 25 L RDW Seg Neuts % (Manual) 75.0 H Lymphocytes % (Manual) 9.0 L Monocytes % (Manual) 12.0 H Nucleated RBC % 1.0 H Seg Neutrophils # Man 12.5 H Lymphocytes # (Manual) Monocytes # (Manual) 2.0 H Eosinophils # (Manual) 0.5 H Sodium Potassium Chloride Carbon Dioxide BUN Creatinine Glucose POC Glucose 315 H Hemoglobin A1c Lactic Acid Calcium AST ALT Alkaline Phosphatase Total Protein Albumin Triglycerides LDL Cholesterol Direct HDL Cholesterol PTH Intact Crossmatch See Detail 02/25/22 02/25/22 02/25/22 04:58 04:58 07:17 WBC RBC Hgb Hct MCV MCH RDW Seg Neuts % (Manual) Lymphocytes % (Manual) Monocytes % (Manual) Nucleated RBC % Seg Neutrophils # Man Lymphocytes # (Manual) Monocytes # (Manual) Eosinophils # (Manual) Sodium Potassium Chloride Carbon Dioxide 17 L BUN 87 H Creatinine 2.9 H Glucose 294 H POC Glucose 297 H Hemoglobin A1c Lactic Acid Calcium 7.8 L AST ALT Alkaline Phosphatase Total Protein Albumin Triglycerides 270 H LDL Cholesterol Direct 27 L HDL Cholesterol 15 L PTH Intact Crossmatch 02/25/22 02/25/22 02/25/22 08:39 08:39 17:16 WBC RBC 3.32 L Hgb 8.5 L Hct 25.9 L MCV 78 L MCH 26 L RDW 15.6 H Seg Neuts % (Manual) Lymphocytes % (Manual) Monocytes % (Manual) Nucleated RBC % Seg Neutrophils # Man Lymphocytes # (Manual) Monocytes # (Manual) Eosinophils # (Manual) Sodium Potassium Chloride Carbon Dioxide BUN Creatinine Glucose POC Glucose 422 H Hemoglobin A1c 14.3 H Lactic Acid Calcium AST ALT Alkaline Phosphatase Total Protein Albumin Triglycerides LDL Cholesterol Direct HDL Cholesterol PTH Intact Crossmatch 02/25/22 02/26/22 02/26/22 22:15 05:54 05:54 WBC 12.0 H RBC 3.11 L Hgb 7.7 L Hct 23.8 L MCV 77 L MCH 25 L RDW Seg Neuts % (Manual) 81.0 H Lymphocytes % (Manual) 6.0 L Monocytes % (Manual) Nucleated RBC % 2.0 H Seg Neutrophils # Man 9.7 H Lymphocytes # (Manual) 0.7 L Monocytes # (Manual) Eosinophils # (Manual) Sodium Potassium 3.4 L Chloride Carbon Dioxide BUN 65 H Creatinine 2.0 H Glucose 173 H POC Glucose 289 H Hemoglobin A1c Lactic Acid Calcium 8.2 L AST ALT Alkaline Phosphatase Total Protein Albumin Triglycerides LDL Cholesterol Direct HDL Cholesterol PTH Intact Crossmatch 02/26/22 02/26/22 07:39 11:27 WBC RBC Hgb Hct MCV MCH RDW Seg Neuts % (Manual) Lymphocytes % (Manual) Monocytes % (Manual) Nucleated RBC % Seg Neutrophils # Man Lymphocytes # (Manual) Monocytes # (Manual) Eosinophils # (Manual) Sodium Potassium Chloride Carbon Dioxide BUN Creatinine Glucose POC Glucose 209 H 238 H Hemoglobin A1c Lactic Acid Calcium AST ALT Alkaline Phosphatase Total Protein Albumin Triglycerides LDL Cholesterol Direct HDL Cholesterol PTH Intact Crossmatch Assessment and Plan 51 yo right-handed female with htn, dm, hld, migraine d/o, anxiety, depression, insomnia, who notes difficulty with the flow of her words while here in the hospital; notes a chronic hx of difficulty walking (due to weakness of the legs) for a few months, along with a hx of diabetic neuropathy (4 years). 1. Acute Ischemic Stroke ([facility]: cardioembolic): ASA 325 mg PO qday, MRI Brain w/o contrast, CTA Head/Neck w/ & w/o contrast, TTEcho, if normal, then VINICIO and long-term cardiac monitoring; confirm LDL/HgbA1C/TSH/Covid-19, telemetry, NIHSS q4 hours; SBP goal 160-200 mmHg and DBP 80-100 mmHg for 24 hours more. Statin therapy for a goal LDL of 70, when patient passes swallow evaluation. PT/OT/ST/Swallow evaluation. Long-term risk-factor modification, including a strict diet/exercise regimen for secondary stroke prophylaxis. Stroke education prior to discharge. Followup with Stroke Neurology in 4 weeks. 2. Hypertension - goal SBP 160-200 mmHg and DBP 80-100 mmHg for 24 hours more. 3. Diabetes Mellitus - maintain euglycemia. 4. Hyperlipidemia - goal LDL of 70 w/ statin therapy if no contraindications. 5. Dysphasia (Expressive) / Dysphagia - st / swallow evaluation/monitoring. 6. Acute Left Arm/Hand Weakness - pt/ot evaluation/monitoring. 7. Bilateral Leg Weakness / Unsteady Gait - mri c/t/l spine w/ wo contrast; pt/ot evaluation/monitoring. Leroy Bobby MD Neurology [id number]
--- NOTE | 2022-02-26 17:12 | Progress Note ---
Assessment and Plan Assessment and plan: #E. coli bacteremia 1 out of 2 bottles positive for E. coli bacteremia. Rocephin 2 g daily (antibiotic course of 7 days) #acute ischemic CVA #Bilateral lower extremity weakness CT head noncontrast unremarkable. Pending MRI brain without contrast and TTE. Hemoglobin A1c 14.3. Lipid profile: Triglycerides 270, cholesterol 170, LDL 27, HDL 15. Consulted PT/OT; recommending acute rehab. Pending authorization. Neurology consulted; pending recs. #Microcytic anemiaimproving Hemoglobin 7.7--> 6.9--.8.0--> 8.5 (rechecked and without transfusion) Gastroenterology consulted; appreciate recs EGD and colonoscopy (02/24/2022) revealing hiatal hernia, mild gastritis (biopsies taken), poor colonoscopy prep, and internal hemorrhoids. Patient will follow-up with gastroenterology in the outpatient setting to undergo a PillCam to evaluate possible cause for lower GI bleed. Transitioning IV pantoprazole 40 mg twice daily to p.o. 40 mg daily #BERRY secondary to vasomotor nephropathyimproving Creatinine 3.3--> 3.6--> 2.9--> 2.0 Renally dose meds and avoid nephrotoxic drugs. Nephrology consulted; appreciate recs Continue IV fluid resuscitation. #Hyponatremiaresolved Sodium 129--> 137 Nephrology consulted; appreciate recs. Continue IV fluid resuscitation and encourage p.o. intake. #Hypokalemiaresolved Potassium 2.5--> 3.5 Replete. Monitor with repeat BMP. #Insulin dependent type II diabetes mellitus - hemoglobin A1c: Unknown - home regimen: Metformin 500 mg twice daily, lispro 50 units every morning and 55 units every afternoon, glimepiride 2 mg twice daily - current regimen: NPH 70/30 15 units twice daily + moderate SSI - blood glucose goal 140-180 while inpatient - continue to monitor #Hypertension #Hyperlipidemia - home medications: Hydrochlorothiazide 25 mg daily, amlodipine 10 mg daily, losartan 50 mg daily, simvastatin 20 mg - current medications: Currently holding as the patient is normotensive - SBP goal <160 and DBP goal <90 while inpatient - continue to monitor #Advanced care planning -Disease education conducted, care plan discussed, diagnoses discussed, prognosis discussed, and patient acknowledges understanding with care plan -Time: +30 min Disposition Plan: Pending acute rehab authorization Total Time Spent with Patient (Minutes): 45 minutes History Interval history: No acute events overnight. Hospitalist Physical - Constitutional Vitals: Temp Pulse Resp BP Pulse Ox 98.0 F 103 H 18 133/72 97 02/26/22 11:26 02/26/22 11:26 02/26/22 11:26 02/26/22 11:02/26/22 11:26 General appearance: Present: no acute distress, well-nourished, obese, other (Dry Oral Mucosa, Moderate Pallor) - EENT Eyes: Present: PERRL, EOM intact ENT: hearing intact, clear oral mucosa, dentition normal - Neck Neck: Present: supple, normal ROM - Respiratory Respiratory effort: normal Respiratory: bilateral: CTA - Cardiovascular Rhythm: regular Heart Sounds: Present: S1 & S2 - Extremities Extremities: no ischemia, pulses intact, pulses symmetrical, No edema, normal temperature, normal color Peripheral Pulses: within normal limits - Abdominal General gastrointestinal: soft, non-tender, non-distended, normal bowel sounds - Integumentary Integumentary: Present: clear, warm, dry - Psychiatric Psychiatric: appropriate mood/affect, cooperative - Neurologic Neurologic: CNII-XII intact, moves all extremities - Allied Health Allied health notes reviewed: nursing Results - Labs CBC & Chem 7: 02/26/22 05:54 02/26/22 05:54 Labs: Laboratory Last Values WBC 12.0 K/mm3 (4.5-11.0) H 02/26/22 05:54 RBC 3.11 M/mm3 (3.65-5.03) L 02/26/22 05:54 Hgb 7.7 gm/dl (10.1-14.3) L 02/26/22 05:54 Hct 23.8 % (30.3-42.9) L 02/26/22 05:54 MCV 77 fl (79-97) L 02/26/22 05:54 MCH 25 pg (28-32) L 02/26/22 05:54 MCHC 32 % (30-34) 02/26/22 05:54 RDW 15.2 % (13.2-15.2) 02/26/22 05:54 Plt Count 269 K/mm3 (140-440) 02/26/22 05:54 Lymph % (Auto) Irrigator Valve Pipe 02/26/22 05:54 [place] % (Auto) Irrigator Valve Pipe 02/26/22 05:54 Eos % (Auto) Irrigator Valve Pipe 02/26/22 05:54 Baso % (Auto) Irrigator Valve Pipe 02/26/22 05:54 Lymph # (Auto) Irrigator Valve Pipe 02/26/22 05:54 [place] # (Auto) Irrigator Valve Pipe 02/26/22 05:54 Eos # (Auto) Irrigator Valve Pipe 02/26/22 05:54 Baso # (Auto) Irrigator Valve Pipe 02/26/22 05:54 Add Manual Diff Complete 02/26/22 05:54 Total Counted 100 02/26/22 05:54 Seg Neutrophils % Irrigator Valve Pipe 02/26/22 05:54 Seg Neuts % (Manual) 81.0 % (40.0-70.0) H 02/26/22 05:54 Band Neutrophils % 2.0 % 02/26/22 05:54 Lymphocytes % (Manual) 6.0 % (13.4-35.0) L 02/26/22 05:54 Reactive Lymphs % (Man) 3.0 % 02/26/22 05:54 Monocytes % (Manual) 3.0 % (0.0-7.3) 02/26/22 05:54 Eosinophils % (Manual) 3.0 % (0.0-4.3) 02/26/22 05:54 Basophils % (Manual) 0 % (0.0-1.8) 02/26/22 05:54 Metamyelocytes % 1.0 % 02/26/22 05:54 Myelocytes % 1.0 % 02/26/22 05:54 Promyelocytes % 0 % 02/26/22 05:54 Blast Cells % 0 % 02/26/22 05:54 Nucleated RBC % 2.0 % (0.0-0.9) H 02/26/22 05:54 Seg Neutrophils # Irrigator Valve Pipe 02/26/22 05:54 Seg Neutrophils # Man 9.7 K/mm3 (1.8-7.7) H 02/26/22 05:54 Band Neutrophils # 0.2 K/mm3 02/26/22 05:54 Lymphocytes # (Manual) 0.7 K/mm3 (1.2-5.4) L 02/26/22 05:54 Abs React Lymphs (Man) 0.4 K/mm3 02/26/22 05:54 Monocytes # (Manual) 0.4 K/mm3 (0.0-0.8) 02/26/22 05:54 Eosinophils # (Manual) 0.4 K/mm3 (0.0-0.4) 02/26/22 05:54 Basophils # (Manual) 0.0 K/mm3 (0.0-0.1) 02/26/22 05:54 Metamyelocytes # 0.1 K/mm3 02/26/22 05:54 Myelocytes # 0.1 K/mm3 02/26/22 05:54 Promyelocytes # 0.0 K/mm3 02/26/22 05:54 Blast Cells # 0.0 K/mm3 02/26/22 05:54 WBC Morphology Not Reportable 02/26/22 05:54 Hypersegmented Neuts Not Reportable 02/26/22 05:54 Hyposegmented Neuts Not Reportable 02/26/22 05:54 Hypogranular Neuts Not Reportable 02/26/22 05:54 Smudge Cells Not Reportable 02/26/22 05:54 Toxic Granulation Not Reportable 02/26/22 05:54 Toxic Vacuolation Not Reportable 02/26/22 05:54 Dohle Bodies Not Reportable 02/26/22 05:54 Pelger-Huet Anomaly Not Reportable 02/26/22 05:54 Fiona Rods Not Reportable 02/26/22 05:54 Platelet Estimate Consistent w auto 02/26/22 05:54 Clumped Platelets Not Reportable 02/26/22 05:54 Plt Clumps, EDTA Not Reportable 02/26/22 05:54 Large Platelets Not Reportable 02/26/22 05:54 Giant Platelets Not Reportable 02/26/22 05:54 Platelet Satelliting Not Reportable 02/26/22 05:54 Plt Morphology Comment Not Reportable 02/26/22 05:54 RBC Morphology Not Reportable 02/26/22 05:54 Dimorphic RBCs Not Reportable 02/26/22 05:54 Polychromasia Not Reportable 02/26/22 05:54 Hypochromasia 1+ 02/26/22 05:54 Poikilocytosis Not Reportable 02/26/22 05:54 Anisocytosis Not Reportable 02/26/22 05:54 Microcytosis Not Reportable 02/26/22 05:54 Macrocytosis Not Reportable 02/26/22 05:54 Spherocytes Not Reportable 02/26/22 05:54 Pappenheimer Bodies Not Reportable 02/26/22 05:54 Sickle Cells Not Reportable 02/26/22 05:54 Target Cells Few 02/26/22 05:54 Tear Drop Cells Not Reportable 02/26/22 05:54 Ovalocytes Not Reportable 02/26/22 05:54 Helmet Cells Not Reportable 02/26/22 05:54 Hodge-Winston Bodies Not Reportable 02/26/22 05:54 Stryker Rings Not Reportable 02/26/22 05:54 Jose Antonio Cells Not Reportable 02/26/22 05:54 Bite Cells Not Reportable 02/26/22 05:54 Crenated Cell Not Reportable 02/26/22 05:54 Elliptocytes Not Reportable 02/26/22 05:54 Acanthocytes (Spur) Not Reportable 02/26/22 05:54 Rouleaux Not Reportable 02/26/22 05:54 Hemoglobin C Crystals Not Reportable 02/26/22 05:54 Schistocytes Not Reportable 02/26/22 05:54 Malaria parasites Not Reportable 02/26/22 05:54 Son Bodies Not Reportable 02/26/22 05:54 Hem Pathologist Commnt No 02/26/22 05:54 Sodium 137 mmol/L (137-145) 02/26/22 05:54 Potassium 3.4 mmol/L (3.6-5.0) L 02/26/22 05:54 Chloride 101.2 mmol/L (98-107) 02/26/22 05:54 Carbon Dioxide 22 mmol/L (22-30) 02/26/22 05:54 Anion Gap 17 mmol/L 02/26/22 05:54 BUN 65 mg/dL (7-17) H 02/26/22 05:54 Creatinine 2.0 mg/dL (0.6-1.2) H 02/26/22 05:54 Estimated GFR 32 ml/min 02/26/22 05:54 BUN/Creatinine Ratio 33 % 02/26/22 05:54 Glucose 173 mg/dL (65-100) H 02/26/22 05:54 POC Glucose 157 mg/dL (70-105) H 02/26/22 16:06 Hemoglobin A1c 14.3 % (4-6) H 02/25/22 08:39 Ketones Quantitative Negative (Negative) 02/23/22 03:40 Lactic Acid 1.80 mmol/L (0.7-2.0) 02/24/22 07:57 Calcium 8.2 mg/dL (8.4-10.2) L 02/26/22 05:54 Phosphorus 3.30 mg/dL (2.5-4.5) 02/24/22 06:55 Magnesium 2.20 mg/dL (1.7-2.3) 02/23/22 03:40 Total Bilirubin 1.10 mg/dL (0.1-1.2) 02/23/22 03:40 AST 278 units/L (5-40) H 02/23/22 03:40 ALT 144 units/L (7-56) H 02/23/22 03:40 Alkaline Phosphatase 131 units/L (35-129) H 02/23/22 03:40 Total Protein 6.1 g/dL (6.3-8.2) L 02/23/22 03:40 Albumin 3.2 g/dL (3.9-5) L 02/23/22 03:40 Albumin/Globulin Ratio 1.1 % 02/23/22 03:40 Triglycerides 270 mg/dL (2-149) H 02/25/22 04:58 Cholesterol 170 mg/dL (50-199) 02/25/22 04:58 LDL Cholesterol Direct 27 mg/dL (50-130) L 02/25/22 04:58 HDL Cholesterol 15 mg/dL (40-59) L 02/25/22 04:58 Cholesterol/HDL Ratio 11.33 % 02/25/22 04:58 TSH 1.260 mlU/mL (0.270-4.200) 02/23/22 04:26 PTH Intact 304.1 pg/mL (15-65) H 02/24/22 06:55 Urine Color Yellow (Yellow) 02/23/22 04:24 Urine Turbidity Cloudy (Clear) 02/23/22 04:24 Specific [place] (Man) 1.020 (1.003-1.030) 02/23/22 04:24 Ur Protein (Man) 2+ mg/dL (Negative) 02/23/22 04:24 Urine Ketones Negative mg/dL (Negative) 02/23/22 04:24 Ur Ketones (Man) Negative (Negative) 02/23/22 04:24 Ur Nitrite (Man) Negative (Negative) 02/23/22 04:24 Ur Reducing Substances Not Reportable 02/23/22 04:24 Urine Bilirubin (Man) Negative (Negative) 02/23/22 04:24 Urine Ictotest Not Reportable 02/23/22 04:24 Leukocyte Esterase (Man) Trace (Negative) 02/23/22 04:24 Urine WBC (Auto) < 1.0 /HPF (0.0-6.0) 02/23/22 04:24 Urine RBC (Auto) < 1.0 /HPF (0.0-6.0) 02/23/22 04:24 Urine Bacteria (Auto) 2+ /HPF (Negative) 02/23/22 04:24 Urine RBC (Manual) 3+ (Negative) 02/23/22 04:24 Nasal Screen MRSA (PCR) Negative (Negative) 02/25/22 Unknown Plasma/Serum Alcohol < 0.01 % (0-0.07) 02/23/22 05:01 Hepatitis A IgM Ab Non-reactive (NonReactive) 02/23/22 15:51 Hep Bs Antigen Non-reactive (Negative) 02/23/22 15:51 Hep B Core IgM Ab Non-reactive (NonReactive) 02/23/22 15:51 Hepatitis C Antibody Non-reactive (NonReactive) 02/23/22 15:51 Blood Type B POSITIVE 02/25/22 04:58 Antibody Screen Negative 02/25/22 04:58 Crossmatch See Detail 02/25/22 04:58 Microbiology: Microbiology 02/23/22 03:40 Peripheral/Venous Blood Culture - Preliminary Escherichia Coli 02/23/22 04:30 Peripheral/Venous Blood Culture - Preliminary NO GROWTH AFTER 72 HOURS Loya/IV: Voiding Method Incontinent Active Medications - Current Medications Current Medications: Generic Name Dose Route Start Last Admin Trade Name Freq PRN Reason Stop Dose Admin Acetaminophen 650 mg 02/23/22 05:21 Acetaminophen 325 Mg Tab PO Q4H PRN Pain MILD(1-3)/Fever >100.5/BASS Atorvastatin Calcium 40 mg 02/25/22 22:00 02/25/22 22:24 Atorvastatin 40 Mg Tab PO 40 mg QHS CANDY Administration Calcitriol 0.25 mcg 02/24/22 10:00 02/26/22 12:52 Calcitriol 0.25 Mcg Cap PO 0.25 mcg QDAY CANDY Administration Dextrose 50 ml 02/25/22 07:39 Dextrose 50% In Water (25gm) 50 Ml Syringe IV Q30MIN PRN Hypoglycemia Protocol Insulin Human Isoph/Insulin Regular 25 unit 02/26/22 08:00 02/26/22 08:30 Insulin Nph/Regular 70/30 Inj SUB-Q 25 unit BIDDIAB CANDY Administration Insulin Human Regular 0 units 02/25/22 08:00 02/26/22 12:11 Insulin Regular, Human 100 Units/1 Ml SUB-Q 3 units ACHS CANDY Administration Protocol Magnesium Hydroxide 30 ml 02/23/22 05:21 Magnesium Hydroxide (Mom) Oral Liqd Udc PO Q4H PRN Constipation Morphine Sulfate 2 mg 02/23/22 05:21 Morphine 2 Mg/1 Ml Inj IV Q4H PRN Pain, Moderate (4-6) Morphine Sulfate 4 mg 02/23/22 05:21 Morphine 4 Mg/1 Ml Inj IV Q4H PRN Pain , Severe (7-10) Ondansetron HCl 4 mg 02/23/22 05:21 Ondansetron 4 Mg/2 Ml Inj IV Q8H PRN Nausea And Vomiting Pantoprazole Sodium 40 mg 02/25/22 16:30 02/26/22 08:32 Pantoprazole 40 Mg Tab PO 40 mg BIDAC CANDY Administration Sodium Chloride 10 ml 02/23/22 10:00 02/26/22 12:52 Sodium Chloride 0.9% 10 Ml Flush Syringe IV 10 ml BID CANDY Administration Sodium Chloride 10 ml 02/23/22 05:21 Sodium Chloride 0.9% 10 Ml Flush Syringe IV PRN PRN LINE FLUSH Nutrition/Malnutrition Assess - Dietary Evaluation Nutrition/Malnutrition Findings: Nutrition Notes Start: 02/23/22 16:03 Freq: Status: Active Protocol: Document 02/23/22 16:03 EJ (Rec: 02/23/22 16:37 EJ [id number]) Nutrition Notes Need for Assessment generated from: MD Order,radiology interventional physician,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 Current Diet Clear Liquids Diet (since L ), NPO (from 02/24 00:01). Labs/Tests 02/23: Na 127, Cl 90.0, BUN 73 / Crea 3.3, Glu 204, Ca 8.2. Pertinent Medications 02/23: Humalog 3U, others nutritionally unremarkable. Height 5 ft 2 in Weight 88.18 kg [place] Body Weight (kg) 50.00 BMI 35.5 Intake Prior to Admission Good Weight change and time frame Pt denies having loss body weight [facility]. Weight Status Obese Subjective/Other Information RD consult for nutrition education, difficulty chewing, poor oral intake, and dietary supplementation assessments. Pt's PO intake of meals has been Fairly tolerated, according to ADL notes. Pt will be on NPO from midnight due to a procedure planned for 02/24: EGD/ Colonoscopy, according to Progress notes. Pt is on Room Air, O2 saturation @ 97%, according to Physical Assessment History notes. Pt complains of Hematochezia, Nausea, and Abdominal Pain for the last 30 days, according to History & Physical notes. There are no reports of any difficulty chewing documented on the chart at the time, will disregard this consult. I will not prescribe dietary supplementation at the time since Pt will be NPO and GI conditions are uncertain at the time, will assess at F/U. Pt still in critical condition , not a candidate for Nutrition Education at the time, will assess feasibility on F/U. Percent of energy/protein needs met: Prescribed Clear Liquids Diet provides for energy/protein needs (590 Kcal/16 g) during LOS. Pt will be on NPO after midnight. Burn Absent Trauma Absent GI Symptoms Nausea,Constipation,Other Food Allergy No Skin Integrity/Comment Assessment WNL. Current % PO Good (75-100%) Minimum of two criteria No Fluid Accumulation N/A Reduced Centrifuge Separator Tender Strength N/A (non-severe) Protein-Calorie Malnutrition N\A #1 Nutrition Diagnosis Overweight/obesity Etiology Possibly secondary to Lifestyle. As Evidenced by Signs and Symptoms BMI: 35.5 Kg/m2. Is patient on ventilator? No Is Patient Ambulatory and/or Out of Bed No REE-([facility]-confined to bed) 1755.708 Kcal/Kg value to use for calculation 14 Approximate Energy Requirements Using 1235 kcal/Kg Calculation Used for Recommendations Kcal/kg Additional Notes Protein: 0.8-1.2 g/Kg AdjBW; 55-83 g/day. Fluids: 1 ml/Kcal, or as per MD. Nutrition Intervention Change Diet Order: When pertinent resume Clear Liquids Diet as tolerated. Goal #1 Adjust the dietary intervention to better serve Pt's energy/protein needs and clinical conditions during LOS . Follow-Up By: 03/02/22 Additional Comments Nutrition education will be provided at F/U, if feasible. Continue monitoring food tolerance, %PO intake of meals , and BM.
--- NOTE | 2022-02-26 17:38 | Progress Note ---
Subjective - Reason for Consult Consult date: 02/26/22 Reason for consult: depression, mental status change - Chief Complaint Chief complaint: 02/25: Patient was seen today. Patient was alert and oriented x3. Patient reports she feels like her mental and physical health is worsening. Patient reports depressed mood and endorses passive suicidal ideation without plan. Patient reports poor sleep and okay appetite. Patient reports she would prefer not to st art medications to address SI at this time. Patient reports hesitation to start medications at this time due to current health issues, but is open to medications in the future. 02/24: Patient was seen today. Patient was alert and oriented x3. Patient reports feeling "exhausted," and "down." Patient reports her health is getting worse. Patient reports poor sleep and poor appetite. Patient denies SI HI AVH at this time. Patient listed stressors of her , her mom, and her health issues. Patient reports journaling has been helpful for mitigating emotions brought on b y stressors. 02/23: Patient is a 51 year old female with past psychiatric history of depression and anxiety treated with wellbutrin 150 mg qAM and recently amitriptyline 50 mg qhs. Patient was seen today with at bedside. Patient was alert, oriented to person, and cooperative throughout interview. Patient reports passive suicidal ideation of the last year "If I was gone, it would be better." Patient does not have history of suicide attempts. Patient reports chronic stressor of taking care of her mother who lives with her. Patient denies drug use. Patient attributes recent hospitalization to the amitriptyline 50 mg patient was prescribed by PCP. Patient open to making medication adjustments but asked for resources to establish psychiatric care with a new provider. MENTAL STATUS EXAMINATION General Appearance and Behavior: Age appropriate, wearing appropriate clothes, polite with questioning, good eye contact Cooperation: cooperative Psychomotor Behavior: Psychomotor normal Mood: depressed Affect and affective range: congruent with stated mood Thought Process: goal-oriented Thought Content: reality-based Speech: Low volume, slow rate; apparent difficulty moving jaw Suicidal Ideation: Yes passive Homicidal Ideation: Denies Hallucination: Denies Delusions: Denies Impulse Control: Fair Insight and Judgment: Fair Memory: Intact Attention: Attentive Orientation: Alert and oriented x3 TREATMENT PSYCHOTHERAPY: Supportive psychotherapy provided MEDICAL: Per primary team DELIRIUM PRECAUTIONS: Please re-orient patient frequently, keep lights on during the day, and minimize benzodiazepines and opiates as these medications could worsen patient's confusion. COAT CHECKER: Defer to primary DISPOSITION: Do not recommend acute inpatient psychiatric hospitalization at this time. FOLLOW-UP: Will follow. Thank you for the consult. Please contact with any questions and/or concerns. Case staffed with Dr. Belén Varghese. Mental Status Exam - Vital signs Last Vital Signs Temp 98.0 F 02/26/22 11:26 Pulse 103 H 02/26/22 11:26 Resp 18 02/26/22 11:26 BP 133/72 02/26/22 11:26 Pulse Ox 97 02/26/22 11:26
[2022-02-26] MEDS ORDERED: MIRTAZAPINE 15 MG TAB PO SCH (22:00)
[2022-02-27] MEDS: INSULIN REGULAR, HUMAN 100 UNITS/1 ML SUB-Q SCH ×4 (07:50→23:06)
[2022-02-27] MEDS ORDERED: levoFLOXacin 750 MG TAB PO SCH (10:00)
[2022-02-27] MEDS: PANTOPRAZOLE 40 MG TAB PO SCH ×2 (10:16→17:43)
[2022-02-27] MEDS: INSULIN NPH/REGULAR 70/30 INJ SUB-Q SCH ×2 (10:16→17:42)
[2022-02-27] MEDS: CALCITRIOL 0.25 MCG CAP PO SCH (10:17)
[2022-02-27 10:19] LABS: Hematocrit 21.4 % (30.3-42.9); Hemoglobin 7.2 gm/dl (10.1-14.3); Mean Corpuscular HGB Conc 34 % (30-34); Mean Corpuscular Volume 76 fl (79-97); Platelet Count 264 K/mm3 (140-440); Red Blood Count 2.84 M/mm3 (3.65-5.03); Red Cell Distribution Width 15.7 % (13.2-15.2)
[2022-02-27 10:44] LABS: Calcium 7.9 mg/dL (8.4-10.2)
--- NOTE | 2022-02-27 11:04 | Magnetic Resonance Report ---
MR MRA/MRV head wo con INDICATION / CLINICAL INFORMATION: acute ischemic stroke. TECHNIQUE: MRA of the head. 3-D/MIP reformats postprocessed. Percentage stenosis is determined by direct quantit ative measurements of distal internal carotid artery diameter compared with normal reference segments or by criteria similar to NASCET where applicable. COMPARISON: 02/23/22 FINDINGS: MRA HEAD: Intracranial vertebral arteries: No occlusion or significant stenosis. Basilar artery: No occlusion or significant stenosis. Posterior cerebral arteries: No occlusion or significant stenosis. Intracranial internal carotid arteries: No occlusion or significant stenosis. Anterior cerebral arteries: No occlusion or significant stenosis. Middle cerebral arteries: No occlusion or significant stenosis. No aneurysm. Additional findings: None. IMPRESSION: 1. No occlusion or significant stenosis of the major intracranial vasculature. Signer Name: Rolan Garcia MD Signed: 02/27/2022 10:59 AM Workstation Name: [id number]
--- NOTE | 2022-02-27 13:16 | Progress Note ---
Subjective - Reason for Consult Consult date: 02/27/22 Reason for consult: depression - Chief Complaint Chief complaint: The patient was seen today. She is awake, but takes a few minutes to acknowledge me. She has a lot of difficulty articulating her thoughts. She is unable to answer or take several minutes to answer simple questions. She says "I'm trying to get it together." She was able to tell me she felt depressed. She denies SI/HI or hallucinations. MRI Brain revealed scattered embolic (shower) of acute infarctions. REVIEW OF SYSTEMS Constitutional: Negative for weight loss ENT: Negative for stridor Respiratory: Negative for cough or hemoptysis All other systems reviewed and are negative MENTAL STATUS EXAMINATION General Appearance and Behavior: Age appropriate, wearing appropriate clothes, polite with questioning, good eye contact Cooperation: cooperative Psychomotor Behavior: Psychomotor normal Mood: depressed Affect and affective range: congruent with stated mood Thought Process: goal-oriented Thought Content: reality-based Speech: Low volume, slow rate; apparent difficulty moving jaw Suicidal Ideation: Denies Homicidal Ideation: Denies Hallucination: Denies Delusions: Denies Impulse Control: Fair Insight and Judgment: Fair Memory: Intact Attention: Attentive Orientation: Alert and oriented x3 Assessment: Altered Mental Status Assessment PSYCHOTHERAPY: Supportive psychotherapy provided MEDICAL: Per primary team DELIRIUM PRECAUTIONS: Please re-orient patient frequently, keep lights on during the day, and minimize benzodiazepines and opiates as these medications could worsen patient's confusion. RESIDENTIAL LAWN SPECIALIST: Defer to primary DISPOSITION: Do not recommend acute inpatient psychiatric hospitalization at this time. FOLLOW-UP: Will follow. Thank you for the consult. Please contact with any questions and/or concerns. Case staffed with Dr. Meyer Mental Status Exam - Vital signs Last Vital Signs Temp 98.1 F 02/27/22 11:26 Pulse 100 H 02/27/22 11:26 Resp 18 02/27/22 11:26 BP 151/79 02/27/22 11:26 Pulse Ox 94 02/27/22 11:26
--- NOTE | 2022-02-27 14:18 | Progress Note ---
Assessment and Plan # Acute Kidney Injury: suspect pre-renal injury, no baseline known, do suspect CKD at baseline. - creatinine improving today at 3.3->3.6->2.9->2.0->1.5 this AM - urinalysis noted, check UP/C, check serologies-> pending; hep panel/compleme nts WNL - PTH 304- consistent with secondary hyperparathyroidism; phos WNL, ca low- started calcitriol - renal ultrasound without acute obstruction - glucose control per primary - IVF prn, encourage po nutrition - avoid nephrotoxins - renally dose medications - I/Os- note good urine output - no immediate need for kidney biopsy or renal replacement therapy - outpatient CKD/BERRY follow up on discharge, will arrange # Hyponatremia: suspect pseudohyponatremia in setting of hyperglycemia, now improved/stable # Hyperglycemia, DM: per primary # Elevated Liver Enzymes: GI input noted # Microcytic Anemia: check iron panel, GI input noted, note colonoscopy findings. Hemoglobin 7.7->7.2 this AM # History of anxiety/depression Subjective Date of service: 02/27/22 Interval history: Resting in bed, awake and alert, denies any renal related concerns Objective - Exam Narrative Exam: General appearance: well-developed, well-nourished, obese EENT: ATNC, PERRL Neck: Present: neck supple Respiratory: Clear to Ascultation Heart: regular, S1S2 Gastrointestinal: Present: normoactive bowel sounds Integumentary: no rash, warm and dry Neurologic: no focal deficit, no asterixis, alert and oriented x3 Psychiatric: other (withdrawn) - Vital Signs Vital signs: Vital Signs - 12hr 02/27/22 02/27/22 04:03 11:26 Temperature 98.4 F 98.1 F Pulse Rate 92 H 100 H Respiratory 18 18 Rate Blood Pressure 145/57 151/79 O2 Sat by Pulse 94 94 Oximetry - Lab 02/27/22 09:54 02/27/22 09:54 Most recent lab results Calcium 7.9 mg/dL (8.4-10.2) L 02/27/22 09:54 Phosphorus 3.30 mg/dL (2.5-4.5) 02/24/22 06:55 Magnesium 2.20 mg/dL (1.7-2.3) 02/23/22 03:40 Medications & Allergies - Medications Allergies/Adverse Reactions: Allergies No Known Allergies Allergy (Verified 12/21/18 13:12) Home Medications: Home Medications Medication Instructions Recorded Confirmed Last Taken Type Glimepiride [Amaryl] 2 mg PO BID 12/21/18 12/21/18 Unknown History Hydroxyzine HCl [hydrOXYzine] 50 mg PO HS PRN 12/21/18 12/21/18 Unknown History Insulin Lispro Protamin/Lispro 50 units SUB-Q QAM 12/21/18 12/21/18 12/21/18 History [HumaLOG Mix 75-25 Kwikpen] Insulin Lispro Protamin/Lispro 55 units SUB-Q QPM 12/21/18 12/21/18 Unknown History [HumaLOG Mix 75-25 Kwikpen] Losartan [Cozaar] 50 mg PO QDAY 12/21/18 12/21/18 Unknown History Simvastatin 20 mg PO QPM 12/21/18 12/21/18 Unknown History Venlafaxine HCl [Effexor Xr] 37.5 mg PO BID 12/21/18 12/21/18 Unknown History amLODIPine 10 mg PO DAILY 12/21/18 12/21/18 Unknown History buPROPion XL [Wellbutrin XL] 150 mg PO QAM 12/21/18 12/21/18 Unknown History hydroCHLOROthiazide [HCTZ] 25 mg PO QDAY 12/21/18 12/21/18 Unknown History metFORMIN [Glucophage] 500 mg PO BIDWM 12/21/18 12/21/18 Unknown History oxyCODONE /ACETAMINOPHEN [Percocet 1 tab PO Q6HR PRN #10 tablet 12/27/18 Unknown Rx 5/325] cephALEXin [Keflex] 500 mg PO QID #30 capsule 01/29/19 Unknown Rx Active Medications: Generic Name Dose Route Start Last Admin Trade Name Freq PRN Reason Stop Dose Admin Acetaminophen 650 mg 02/23/22 05:21 Acetaminophen 325 Mg Tab PO Q4H PRN Pain MILD(1-3)/Fever >100.5/BASS Atorvastatin Calcium 40 mg 02/25/22 22:00 02/26/22 21:16 Atorvastatin 40 Mg Tab PO 40 mg QHS CANDY Administration Calcitriol 0.25 mcg 02/24/22 10:00 02/27/22 10:17 Calcitriol 0.25 Mcg Cap PO 0.25 mcg QDAY CANDY Administration Dextrose 50 ml 02/25/22 07:39 Dextrose 50% In Water (25gm) 50 Ml Syringe IV Q30MIN PRN Hypoglycemia Protocol Insulin Human Isoph/Insulin Regular 25 unit 02/26/22 08:00 02/27/22 10:16 Insulin Nph/Regular 70/30 Inj SUB-Q 25 unit BIDDIAB CANDY Administration Insulin Human Regular 0 units 02/25/22 08:00 02/27/22 12:18 Insulin Regular, Human 100 Units/1 Ml SUB-Q 3 units ACHS CANDY Administration Protocol Levofloxacin 750 mg 02/27/22 10:00 02/27/22 10:16 Levofloxacin 750 Mg Tab PO 03/04/22 10:01 750 mg Q48HR CANDY Administration Protocol Magnesium Hydroxide 30 ml 02/23/22 05:21 Magnesium Hydroxide (Mom) Oral Liqd Udc PO Q4H PRN Constipation Morphine Sulfate 2 mg 02/23/22 05:21 Morphine 2 Mg/1 Ml Inj IV Q4H PRN Pain, Moderate (4-6) Morphine Sulfate 4 mg 02/23/22 05:21 02/27/22 10:18 Morphine 4 Mg/1 Ml Inj IV 4 mg Q4H PRN Administration Pain , Severe (7-10) Ondansetron HCl 4 mg 02/23/22 05:21 Ondansetron 4 Mg/2 Ml Inj IV Q8H PRN Nausea And Vomiting Pantoprazole Sodium 40 mg 02/25/22 16:30 02/27/22 10:16 Pantoprazole 40 Mg Tab PO 40 mg BIDAC CANDY Administration Sodium Chloride 10 ml 02/23/22 10:00 02/27/22 10:17 Sodium Chloride 0.9% 10 Ml Flush Syringe IV 10 ml BID CANDY Administration Sodium Chloride 10 ml 02/23/22 05:21 Sodium Chloride 0.9% 10 Ml Flush Syringe IV PRN PRN LINE FLUSH
[2022-02-27 15:38] LABS: Albumin 2.5 g/dL (3.8-4.8); Gamma Globulin 0.7 g/dL (0.8-1.7)
--- NOTE | 2022-02-27 19:18 | Progress Note ---
Assessment and Plan Assessment and plan: #E. coli bacteremia 1 out of 2 bottles positive for E. coli bacteremia. Rocephin 2 g daily (antibiotic course of 7 days) #Acute ischemic CVA #Bilateral lower extremity weakness CT head noncontrast unremarkable. MRI brain without contrast (02/25/2022) revealing "multiple small foci of acute infarction with the largest lesion in the body of the corpus callosum". TTE (02/25/2022) revealing EF 60-65% with normal-sized LV, normal LV systolic function, moderate concentric LVH, unremarkable for PFO, borderline pulmonary hypertension, and RVSP is 25-30 mmHg. Hemoglobin A1c 14.3. Lipid profile: Triglycerides 270, cholesterol 170, LDL 27, HDL 15. Consulted PT/OT; recommending acute rehab. Pending authorization. Neurology consulted; appreciate recs. Patient refusing further MRI studies to further evaluate bilateral lower extremity weakness. #Microcytic anemia Hemoglobin 7.7--> 6.9--.8.0--> 8.5-->7.2 (rechecked and without transfusion) Gastroenterology consulted; appreciate recs EGD and colonoscopy (02/24/2022) revealing hiatal hernia, mild gastritis (biopsies taken), poor colonoscopy prep, and internal hemorrhoids. Patient will follow-up with gastroenterology in the outpatient setting to undergo a PillCam to evaluate possible cause for lower GI bleed. Continue p.o. pantoprazole 40 mg daily #BERRY secondary to vasomotor nephropathyimproving Creatinine 3.3--> 3.6--> 2.9--> 2.0-->1.5 Renally dose meds and avoid nephrotoxic drugs. Nephrology consulted; appreciate recs Continue IV fluid resuscitation. #Hyponatremiaresolved Sodium 129--> 137 Nephrology consulted; appreciate recs. Continue IV fluid resuscitation and encourage p.o. intake. #Hypokalemiaresolved Potassium 2.5--> 3.5 Replete. Monitor with repeat BMP. #Insulin dependent type II diabetes mellitus - hemoglobin A1c: 14.3 - home regimen: Metformin 500 mg twice daily, lispro 50 units every morning and 55 units every afternoon, glimepiride 2 mg twice daily - current regimen: NPH 70/30 25 units twice daily + moderate SSI - blood glucose goal 140-180 while inpatient - continue to monitor #Hypertension #Hyperlipidemia - home medications: Hydrochlorothiazide 25 mg daily, amlodipine 10 mg daily, losartan 50 mg daily, simvastatin 20 mg - current medications: Currently holding as the patient is normotensive - SBP goal <160 and DBP goal <90 while inpatient - continue to monitor #Advanced care planning -Disease education conducted, care plan discussed, diagnoses discussed, prognosis discussed, and patient acknowledges understanding with care plan -Time: +30 min #Discharge planning - Patient is pending acute rehab authorization and placement - Case management has been made aware. Disposition Plan: Pending rehab authorization Total Time Spent with Patient (Minutes): 45 minutes History Interval history: No acute events overnight. Hospitalist Physical - Constitutional Vitals: Temp Pulse Resp BP Pulse Ox 97.3 F L 101 H 18 170/85 99 02/27/22 16:18 02/27/22 16:18 02/27/22 16:18 02/27/22 16:18 02/27/22 16:18 General appearance: Present: no acute distress, well-nourished, obese, other (Dry Oral Mucosa, Moderate Pallor) - EENT Eyes: Present: PERRL, EOM intact ENT: hearing intact, clear oral mucosa, dentition normal - Neck Neck: Present: supple, normal ROM - Respiratory Respiratory effort: normal Respiratory: bilateral: CTA - Cardiovascular Rhythm: regular Heart Sounds: Present: S1 & S2 - Extremities Extremities: no ischemia, pulses intact, pulses symmetrical, No edema, normal temperature, normal color Peripheral Pulses: within normal limits - Abdominal General gastrointestinal: soft, non-tender, non-distended, normal bowel sounds - Integumentary Integumentary: Present: clear, warm, dry - Psychiatric Psychiatric: agitated, other (Incongruent memory and frequent changing of medical history to various providers) - Neurologic Neurologic: CNII-XII intact - Allied Health Allied health notes reviewed: nursing Results - Labs CBC & Chem 7: 02/27/22 09:54 02/27/22 09:54 Labs: Laboratory Last Values WBC 13.9 K/mm3 (4.5-11.0) H 02/27/22 09:54 RBC 2.84 M/mm3 (3.65-5.03) L 02/27/22 09:54 Hgb 7.2 gm/dl (10.1-14.3) L 02/27/22 09:54 Hct 21.4 % (30.3-42.9) L 02/27/22 09:54 MCV 76 fl (79-97) L 02/27/22 09:54 MCH 25 pg (28-32) L 02/27/22 09:54 MCHC 34 % (30-34) 02/27/22 09:54 RDW 15.7 % (13.2-15.2) H 02/27/22 09:54 Plt Count 264 K/mm3 (140-440) 02/27/22 09:54 Lymph % (Auto) Room Service Food Server 02/26/22 05:54 [place] % (Auto) Room Service Food Server 02/26/22 05:54 Eos % (Auto) Room Service Food Server 02/26/22 05:54 Baso % (Auto) Room Service Food Server 02/26/22 05:54 Lymph # (Auto) Room Service Food Server 02/26/22 05:54 [place] # (Auto) Room Service Food Server 02/26/22 05:54 Eos # (Auto) Room Service Food Server 02/26/22 05:54 Baso # (Auto) Room Service Food Server 02/26/22 05:54 Add Manual Diff Complete 02/26/22 05:54 Total Counted 100 02/26/22 05:54 Seg Neutrophils % Room Service [employer] Server 02/26/22 05:54 Seg Neuts % (Manual) 81.0 % (40.0-70.0) H 02/26/22 05:54 Band Neutrophils % 2.0 % 02/26/22 05:54 Lymphocytes % (Manual) 6.0 % (13.4-35.0) L 02/26/22 05:54 Reactive Lymphs % (Man) 3.0 % 02/26/22 05:54 Monocytes % (Manual) 3.0 % (0.0-7.3) 02/26/22 05:54 Eosinophils % (Manual) 3.0 % (0.0-4.3) 02/26/22 05:54 Basophils % (Manual) 0 % (0.0-1.8) 02/26/22 05:54 Metamyelocytes % 1.0 % 02/26/22 05:54 Myelocytes % 1.0 % 02/26/22 05:54 Promyelocytes % 0 % 02/26/22 05:54 Blast Cells % 0 % 02/26/22 05:54 Nucleated RBC % 2.0 % (0.0-0.9) H 02/26/22 05:54 Seg Neutrophils # Room Service Food Server 02/26/22 05:54 Seg Neutrophils # Man 9.7 K/mm3 (1.8-7.7) H 02/26/22 05:54 Band Neutrophils # 0.2 K/mm3 02/26/22 05:54 Lymphocytes # (Manual) 0.7 K/mm3 (1.2-5.4) L 02/26/22 05:54 Abs React Lymphs (Man) 0.4 K/mm3 02/26/22 05:54 Monocytes # (Manual) 0.4 K/mm3 (0.0-0.8) 02/26/22 05:54 Eosinophils # (Manual) 0.4 K/mm3 (0.0-0.4) 02/26/22 05:54 Basophils # (Manual) 0.0 K/mm3 (0.0-0.1) 02/26/22 05:54 Metamyelocytes # 0.1 K/mm3 02/26/22 05:54 Myelocytes # 0.1 K/mm3 02/26/22 05:54 Promyelocytes # 0.0 K/mm3 02/26/22 05:54 Blast Cells # 0.0 K/mm3 02/26/22 05:54 WBC Morphology Not Reportable 02/26/22 05:54 Hypersegmented Neuts Not Reportable 02/26/22 05:54 Hyposegmented Neuts Not Reportable 02/26/22 05:54 Hypogranular Neuts Not Reportable 02/26/22 05:54 Smudge Cells Not Reportable 02/26/22 05:54 Toxic Granulation Not Reportable 02/26/22 05:54 Toxic Vacuolation Not Reportable 02/26/22 05:54 Dohle Bodies Not Reportable 02/26/22 05:54 Pelger-Huet Anomaly Not Reportable 02/26/22 05:54 Fiona Rods Not Reportable 02/26/22 05:54 Platelet Estimate Consistent w auto 02/26/22 05:54 Clumped Platelets Not Reportable 02/26/22 05:54 Plt Clumps, EDTA Not Reportable 02/26/22 05:54 Large Platelets Not Reportable 02/26/22 05:54 Giant Platelets Not Reportable 02/26/22 05:54 Platelet Satelliting Not Reportable 02/26/22 05:54 Plt Morphology Comment Not Reportable 02/26/22 05:54 RBC Morphology Not Reportable 02/26/22 05:54 Dimorphic RBCs Not Reportable 02/26/22 05:54 Polychromasia Not Reportable 02/26/22 05:54 Hypochromasia 1+ 02/26/22 05:54 Poikilocytosis Not Reportable 02/26/22 05:54 Anisocytosis Not Reportable 02/26/22 05:54 Microcytosis Not Reportable 02/26/22 05:54 Macrocytosis Not Reportable 02/26/22 05:54 Spherocytes Not Reportable 02/26/22 05:54 Pappenheimer Bodies Not Reportable 02/26/22 05:54 Sickle Cells Not Reportable 02/26/22 05:54 Target Cells Few 02/26/22 05:54 Tear Drop Cells Not Reportable 02/26/22 05:54 Ovalocytes Not Reportable 02/26/22 05:54 Helmet Cells Not Reportable 02/26/22 05:54 [place] Bodies Not Reportable 02/26/22 05:54 [place] Rings Not Reportable 02/26/22 05:54 [place] Cells Not Reportable 02/26/22 05:54 Bite Cells Not Reportable 02/26/22 05:54 Crenated Cell Not Reportable 02/26/22 05:54 Elliptocytes Not Reportable 02/26/22 05:54 Acanthocytes (Spur) Not Reportable 02/26/22 05:54 Rouleaux Not Reportable 02/26/22 05:54 Hemoglobin C Crystals Not Reportable 02/26/22 05:54 Schistocytes Not Reportable 02/26/22 05:54 Malaria parasites Not Reportable 02/26/22 05:54 Son Bodies Not Reportable 02/26/22 05:54 Hem Pathologist Commnt No 02/26/22 05:54 Sodium 133 mmol/L (137-145) L 02/27/22 09:54 Potassium 3.7 mmol/L (3.6-5.0) 02/27/22 09:54 Chloride 98.2 mmol/L (98-107) 02/27/22 09:54 Carbon Dioxide 20 mmol/L (22-30) L 02/27/22 09:54 Anion Gap 19 mmol/L 02/27/22 09:54 BUN 43 mg/dL (7-17) H 02/27/22 09:54 Creatinine 1.5 mg/dL (0.6-1.2) H 02/27/22 09:54 Estimated GFR 45 ml/min 02/27/22 09:54 BUN/Creatinine Ratio 29 % 02/27/22 09:54 Glucose 180 mg/dL (65-100) H 02/27/22 09:54 POC Glucose 217 mg/dL (70-105) H 02/27/22 11:26 Hemoglobin A1c 14.3 % (4-6) H 02/25/22 08:39 Ketones Quantitative Negative (Negative) 02/23/22 03:40 Lactic Acid 1.80 mmol/L (0.7-2.0) 02/24/22 07:57 Calcium 7.9 mg/dL (8.4-10.2) L 02/27/22 09:54 Phosphorus 3.30 mg/dL (2.5-4.5) 02/24/22 06:55 Magnesium 2.20 mg/dL (1.7-2.3) 02/23/22 03:40 Total Bilirubin 1.10 mg/dL (0.1-1.2) 02/23/22 03:40 AST 278 units/L (5-40) H 02/23/22 03:40 ALT 144 units/L (7-56) H 02/23/22 03:40 Alkaline Phosphatase 131 units/L (35-129) H 02/23/22 03:40 Serum Total Protein 5.7 g/dL (6.1-8.1) L 02/24/22 06:55 Total Protein 6.1 g/dL (6.3-8.2) L 02/23/22 03:40 Albumin 2.5 g/dL (3.8-4.8) L 02/24/22 06:55 Albumin/Globulin Ratio 1.1 % 02/23/22 03:40 Vfrud-9-Oljyvvrjq 0.8 g/dL (0.2-0.3) H 02/24/22 06:55 Nqulv-1-Egxnillge 1.0 g/dL (0.5-0.9) H 02/24/22 06:55 Beta Globulins 0.3 g/dL (0.2-0.5) 02/24/22 06:55 Gamma Globulins 0.7 g/dL (0.8-1.7) L 02/24/22 06:55 Abnorm Protein Band 1 see below 02/24/22 06:55 PEP Interpretation see below H 02/24/22 06:55 Triglycerides 270 mg/dL (2-149) H 02/25/22 04:58 Cholesterol 170 mg/dL (50-199) 02/25/22 04:58 LDL Cholesterol Direct 27 mg/dL (50-130) L 02/25/22 04:58 HDL Cholesterol 15 mg/dL (40-59) L 02/25/22 04:58 Cholesterol/HDL Ratio 11.33 % 02/25/22 04:58 Vitamin B12 1636 pg/mL (211-911) H 02/27/22 09:54 TSH 1.440 mlU/mL (0.270-4.200) 02/27/22 09:54 PTH Intact 304.1 pg/mL (15-65) H 02/24/22 06:55 Urine Color Yellow (Yellow) 02/23/22 04:24 Urine Turbidity Cloudy (Clear) 02/23/22 04:24 Specific [place] (Man) 1.020 (1.003-1.030) 02/23/22 04:24 Ur Protein (Man) 2+ mg/dL (Negative) 02/23/22 04:24 Urine Ketones Negative mg/dL (Negative) 02/23/22 04:24 Ur Ketones (Man) Negative (Negative) 02/23/22 04:24 Ur Nitrite (Man) Negative (Negative) 02/23/22 04:24 Ur Reducing Substances Not Reportable 02/23/22 04:24 Urine Bilirubin (Man) Negative (Negative) 02/23/22 04:24 Urine Ictotest Not Reportable 02/23/22 04:24 Leukocyte Esterase (Man) Trace (Negative) 02/23/22 04:24 Urine WBC (Auto) < 1.0 /HPF (0.0-6.0) 02/23/22 04:24 Urine RBC (Auto) < 1.0 /HPF (0.0-6.0) 02/23/22 04:24 Urine Bacteria (Auto) 2+ /HPF (Negative) 02/23/22 04:24 Urine RBC (Manual) 3+ (Negative) 02/23/22 04:24 Nasal Screen MRSA (PCR) Negative (Negative) 02/25/22 Unknown Plasma/Serum Alcohol < 0.01 % (0-0.07) 02/23/22 05:01 Complement C3 116 mg/dL (83-193) 02/24/22 06:55 Complement C4 17 mg/dL (15-57) 02/24/22 06:55 Syphilis IgG/IgM Ab Nonreactive (NonReactive) 02/27/22 09:54 Coronavirus (PCR) Negative (Negative) 02/27/22 Unknown Hepatitis A IgM Ab Non-reactive (NonReactive) 02/23/22 15:51 Hep Bs Antigen Non-reactive (Negative) 02/23/22 15:51 Hep B Core IgM Ab Non-reactive (NonReactive) 02/23/22 15:51 Hepatitis C Antibody Non-reactive (NonReactive) 02/23/22 15:51 Blood Type B POSITIVE 02/25/22 04:58 Antibody Screen Negative 02/25/22 04:58 Crossmatch See Detail 02/25/22 04:58 Microbiology: Microbiology 02/23/22 04:30 Peripheral/Venous Blood Culture - Preliminary NO GROWTH AFTER 4 DAYS Loya/IV: Voiding Method Incontinent Active Medications - Current Medications Current Medications: Generic Name Dose Route Start Last Admin Trade Name Freq PRN Reason Stop Dose Admin Acetaminophen 650 mg 02/23/22 05:21 Acetaminophen 325 Mg Tab PO Q4H PRN Pain MILD(1-3)/Fever >100.5/BASS Atorvastatin Calcium 40 mg 02/25/22 22:00 02/26/22 21:16 Atorvastatin 40 Mg Tab PO 40 mg QHS CANDY Administration Calcitriol 0.25 mcg 02/24/22 10:00 02/27/22 10:17 Calcitriol 0.25 Mcg Cap PO 0.25 mcg QDAY CANDY Administration Dextrose 50 ml 02/25/22 07:39 Dextrose 50% In Water (25gm) 50 Ml Syringe IV Q30MIN PRN Hypoglycemia Protocol Insulin Human Isoph/Insulin Regular 25 unit 02/26/22 08:00 02/27/22 17:42 Insulin Nph/Regular 70/30 Inj SUB-Q 25 unit BIDDIAB CANDY Administration Insulin Human Regular 0 units 02/25/22 08:00 02/27/22 16:50 Insulin Regular, Human 100 Units/1 Ml SUB-Q Not Given ACHS CANDY Protocol Levofloxacin 750 mg 02/27/22 10:00 02/27/22 10:16 Levofloxacin 750 Mg Tab PO 03/04/22 10:01 750 mg Q48HR CANDY Administration Protocol Magnesium Hydroxide 30 ml 02/23/22 05:21 Magnesium Hydroxide (Mom) Oral Liqd Udc PO Q4H PRN Constipation Morphine Sulfate 2 mg 02/23/22 05:21 Morphine 2 Mg/1 Ml Inj IV Q4H PRN Pain, Moderate (4-6) Morphine Sulfate 4 mg 02/23/22 05:21 02/27/22 10:18 Morphine 4 Mg/1 Ml Inj IV 4 mg Q4H PRN Administration Pain , Severe (7-10) Ondansetron HCl 4 mg 02/23/22 05:21 Ondansetron 4 Mg/2 Ml Inj IV Q8H PRN Nausea And Vomiting Pantoprazole Sodium 40 mg 02/25/22 16:30 02/27/22 17:43 Pantoprazole 40 Mg Tab PO 40 mg BIDAC CANDY Administration Sodium Chloride 10 ml 02/23/22 10:00 02/27/22 10:17 Sodium Chloride 0.9% 10 Ml Flush Syringe IV 10 ml BID CANDY Administration Sodium Chloride 10 ml 02/23/22 05:21 Sodium Chloride 0.9% 10 Ml Flush Syringe IV PRN PRN LINE FLUSH Nutrition/Malnutrition Assess - Dietary Evaluation Nutrition/Malnutrition Findings: Nutrition Notes Start: 02/23/22 16:03 Freq: Status: Active Protocol: Document 02/23/22 16:03 EJ (Rec: 02/23/22 16:37 EJ [id number]) Nutrition Notes Need for Assessment generated from: MD Order,parking lot manager,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 Current Diet Clear Liquids Diet (since L ), NPO (from 02/24 00:01). Labs/Tests 02/23: Na 127, Cl 90.0, BUN 73 / Crea 3.3, Glu 204, Ca 8.2. Pertinent Medications 02/23: Humalog 3U, others nutritionally unremarkable. Height 5 ft 2 in Weight 88.18 kg [place] Body Weight (kg) 50.00 BMI 35.5 Intake Prior to Admission Good Weight change and time frame Pt denies having loss body weight MANAGEMENT INTERN. Weight Status Obese Subjective/Other Information RD consult for nutrition education, difficulty chewing, poor oral intake, and dietary supplementation assessments. Pt's PO intake of meals has been Fairly tolerated, according to ADL notes. Pt will be on NPO from midnight due to a procedure planned for 02/24: EGD/ Colonoscopy, according to Progress notes. Pt is on Room Air, O2 saturation @ 97%, according to Physical Assessment History notes. Pt complains of Hematochezia, Nausea, and Abdominal Pain for the last 30 days, according to History & Physical notes. There are no reports of any difficulty chewing documented on the chart at the time, will disregard this consult. I will not prescribe dietary supplementation at the time since Pt will be NPO and GI conditions are uncertain at the time, will assess at F/U. Pt still in critical condition , not a candidate for Nutrition Education at the time, will assess feasibility on F/U. Percent of energy/protein needs met: Prescribed Clear Liquids Diet provides for energy/protein needs (590 Kcal/16 g) during LOS. Pt will be on NPO after midnight. Burn Absent Trauma Absent GI Symptoms Nausea,Constipation,Other Food Allergy No Skin Integrity/Comment Assessment WNL. Current % PO Good (75-100%) Minimum of two criteria No Fluid Accumulation N/A Reduced Chronic Disease Manager Strength N/A (non-severe) Protein-Calorie Malnutrition N\\A #1 Nutrition Diagnosis Overweight/obesity Etiology Possibly secondary to Lifestyle. As Evidenced by Signs and Symptoms BMI: 35.5 Kg/m2. Is patient on ventilator? No Is Patient Ambulatory and/or Out of Bed No REE-([facility]-confined to bed) [phone] Kcal/Kg value to use for calculation 14 Approximate Energy Requirements Using 1235 kcal/Kg Calculation Used for Recommendations Kcal/kg Additional Notes Protein: 0.8-1.2 g/Kg AdjBW; 55-83 g/day. Fluids: 1 ml/Kcal, or as per MD. Nutrition Intervention Change Diet Order: When pertinent resume Clear Liquids Diet as tolerated. Goal #1 Adjust the dietary intervention to better serve Pt's energy/protein needs and clinical conditions during LOS . Follow-Up By: 03/02/22 Additional Comments Nutrition education will be provided at F/U, if feasible. Continue monitoring food tolerance, %PO intake of meals , and BM.
[2022-02-27 20:49] LABS: Basophils % (Manual) 0 % (0.0-1.8); Eosinophils % (Manual) 0 % (0.0-4.3); Hypochromasia 1+; Platelet Estimate Consistent w Auto; Total Cells Counted 100
[2022-02-28] MEDS: INSULIN REGULAR, HUMAN 100 UNITS/1 ML SUB-Q SCH ×4 (10:21→23:10)
[2022-02-28] MEDS: PANTOPRAZOLE 40 MG TAB PO SCH ×2 (10:23→17:36)
[2022-02-28] MEDS: CALCITRIOL 0.25 MCG CAP PO SCH (10:24)
[2022-02-28] MEDS: INSULIN NPH/REGULAR 70/30 INJ SUB-Q SCH ×2 (10:24→17:31)
--- NOTE | 2022-02-28 10:44 | Progress Note ---
Subjective - Reason for Consult Consult date: 02/28/22 Reason for consult: depression - Chief Complaint Chief complaint: The patient was seen today. The patient MRI showed infacts. She is able to articulate her thoughts a little better today. She says she feels depressed. She says "all the time. I always feel this way." She denies SI/HI. The patient says she doesn't sleep well at night. She denies hallucinations of any kind. REVIEW OF SYSTEMS Constitutional: Negative for weight loss ENT: Negative for stridor Respiratory: Negative for cough or hemoptysis All other systems reviewed and are negative MENTAL STATUS EXAMINATION General Appearance and Behavior: Age appropriate, wearing appropriate clothes, polite with questioning, good eye contact Cooperation: cooperative Psychomotor Behavior: Psychomotor normal Mood: depressed Affect and affective range: congruent with stated mood Thought Process: goal-oriented Thought Content: reality-based Speech: difficulty articulating thoughts Suicidal Ideation: Denies Homicidal Ideation: Denies Hallucination: Denies Delusions: Denies Impulse Control: Fair Insight and Judgment: Fair Memory: Intact Attention: Attentive Orientation: Alert and oriented x 3 Assessment: Major Depressive Disorder Assessment Lexapro 5mg po daily Trazodone 50mg po qhs MEDICAL: Per primary team DELIRIUM PRECAUTIONS: Please re-orient patient frequently, keep lights on during the day, and minimize benzodiazepines and opiates as these medications could worsen patient's confusion. ADMINISTRATIVE ASSISTANT DATA ENTRY: Defer to primary DISPOSITION: Do not recommend acute inpatient psychiatric hospitalization at this time. FOLLOW-UP: Will follow. Thank you for the consult. Please contact with any questions and/or concerns. Case staffed with Dr. Meyer Mental Status Exam - Vital signs Last Vital Signs Temp 98.3 F 02/28/22 05:34 Pulse 100 H 02/28/22 05:34 Resp 18 02/28/22 05:34 BP 151/67 02/28/22 05:34 Pulse Ox 97 02/28/22 05:34
[2022-02-28] MEDS: ESCITALOPRAM 10 MG TAB PO SCH (12:46)
--- NOTE | 2022-02-28 13:11 | Progress Note ---
Assessment and Plan Assessment and plan: #E. coli bacteremia 1 out of 2 bottles positive for E. coli bacteremia. Rocephin 2 g daily (antibiotic course of 7 days; completes on 03/02/2022) #Acute ischemic CVA #Bilateral lower extremity weakness CT head noncontrast unremarkable. MRI brain without contrast (02/25/2022) revealing "multiple small foci of acute infarction with the largest lesion in the body of the corpus callosum". TTE (02/25/2022) revealing EF 60-65% with normal-sized LV, normal LV systolic function, moderate concentric LVH, unremarkable for PFO, borderline pulmonary hypertension, and RVSP is 25-30 mmHg. Hemoglobin A1c 14.3. Lipid profile: Triglycerides 270, cholesterol 170, LDL 27, HDL 15. Consulted PT/OT; recommending acute rehab. Pending authorization. Neurology consulted; appreciate recs. Patient refusing further MRI studies to further evaluate bilateral lower extremity weakness. #Microcytic anemia Hemoglobin 7.7--> 6.9--.8.0--> 8.5-->7.2 (rechecked and without transfusion) Gastroenterology consulted; appreciate recs EGD and colonoscopy (02/24/2022) revealing hiatal hernia, mild gastritis (biopsies taken), poor colonoscopy prep, and internal hemorrhoids. Patient will follow-up with gastroenterology in the outpatient setting to undergo a PillCam to evaluate possible cause for lower GI bleed. Continue p.o. pantoprazole 40 mg daily #BERRY secondary to vasomotor nephropathyimproving Creatinine 3.3--> 3.6--> 2.9--> 2.0-->1.5 Renally dose meds and avoid nephrotoxic drugs. Nephrology consulted; appreciate recs Continue IV fluid resuscitation. #Hyponatremiaresolved Sodium 129--> 137 Nephrology consulted; appreciate recs. Continue IV fluid resuscitation and encourage p.o. intake. #Hypokalemiaresolved Potassium 2.5--> 3.5 Replete. Monitor with repeat BMP. #Insulin dependent type II diabetes mellitus - hemoglobin A1c: 14.3 - home regimen: Metformin 500 mg twice daily, lispro 50 units every morning and 55 units every afternoon, glimepiride 2 mg twice daily - current regimen: NPH 70/30 25 units twice daily + moderate SSI - blood glucose goal 140-180 while inpatient - continue to monitor #Hypertension #Hyperlipidemia - home medications: Hydrochlorothiazide 25 mg daily, amlodipine 10 mg daily, losartan 50 mg daily, simvastatin 20 mg - current medications: Currently holding as the patient is normotensive - SBP goal <160 and DBP goal <90 while inpatient - continue to monitor #Depression Dietary consulted; appreciate recs Starting Lexapro 5 mg daily and trazodone 50 mg nightly #Advanced care planning -Disease education conducted, care plan discussed, diagnoses discussed, prognosis discussed, and patient acknowledges understanding with care plan -Time: +30 min #Discharge planning - Patient is pending acute rehab authorization and placement - Case management has been made aware. Disposition Plan: Pending rehab authorization Total Time Spent with Patient (Minutes): 30 minutes History Interval history: No acute events overnight. Hospitalist Physical - Constitutional Vitals: Temp Pulse Resp BP Pulse Ox 97.9 F 100 H 18 133/41 98 02/28/22 10:12 02/28/22 10:12 02/28/22 10:12 02/28/22 10:12 02/28/22 10:12 General appearance: Present: no acute distress, well-nourished, obese, other (Dry Oral Mucosa, Moderate Pallor) - EENT Eyes: Present: PERRL, EOM intact ENT: hearing intact, clear oral mucosa, dentition normal - Neck Neck: Present: supple, normal ROM - Respiratory Respiratory effort: normal Respiratory: bilateral: CTA - Cardiovascular Rhythm: regular Heart Sounds: Present: S1 & S2 - Extremities Extremities: no ischemia, pulses intact, pulses symmetrical, No edema, normal temperature, normal color Peripheral Pulses: within normal limits - Abdominal General gastrointestinal: soft, non-tender, non-distended, normal bowel sounds - Integumentary Integumentary: Present: clear, warm, dry - Psychiatric Psychiatric: appropriate mood/affect, depressed - Neurologic Neurologic: CNII-XII intact - Allied Health Allied health notes reviewed: nursing Results - Labs CBC & Chem 7: 02/27/22 09:54 02/27/22 09:54 Labs: Laboratory Last Values WBC 13.9 K/mm3 (4.5-11.0) H 02/27/22 09:54 RBC 2.84 M/mm3 (3.65-5.03) L 02/27/22 09:54 Hgb 7.2 gm/dl (10.1-14.3) L 02/27/22 09:54 Hct 21.4 % (30.3-42.9) L 02/27/22 09:54 MCV 76 fl (79-97) L 02/27/22 09:54 MCH 25 pg (28-32) L 02/27/22 09:54 MCHC 34 % (30-34) 02/27/22 09:54 RDW 15.7 % (13.2-15.2) H 02/27/22 09:54 Plt Count 264 K/mm3 (140-440) 02/27/22 09:54 Lymph % (Auto) Warehouse Administrator 02/26/22 05:54 [place] % (Auto) Warehouse Administrator 02/26/22 05:54 Eos % (Auto) Warehouse Administrator 02/26/22 05:54 Baso % (Auto) Warehouse Administrator 02/26/22 05:54 Lymph # (Auto) Warehouse Administrator 02/26/22 05:54 [place] # (Auto) Warehouse Administrator 02/26/22 05:54 Eos # (Auto) Warehouse Administrator 02/26/22 05:54 Baso # (Auto) Warehouse Administrator 02/26/22 05:54 Add Manual Diff Complete 02/27/22 09:54 Total Counted 100 02/27/22 09:54 Seg Neutrophils % Warehouse Administrator 02/26/22 05:54 Seg Neuts % (Manual) 86.0 % (40.0-70.0) H 02/27/22 09:54 Band Neutrophils % 0 % 02/27/22 09:54 Lymphocytes % (Manual) 8.0 % (13.4-35.0) L 02/27/22 09:54 Reactive Lymphs % (Man) 0 % 02/27/22 09:54 Monocytes % (Manual) 6.0 % (0.0-7.3) 02/27/22 09:54 Eosinophils % (Manual) 0 % (0.0-4.3) 02/27/22 09:54 Basophils % (Manual) 0 % (0.0-1.8) 02/27/22 09:54 Metamyelocytes % 0 % 02/27/22 09:54 Myelocytes % 0 % 02/27/22 09:54 Promyelocytes % 0 % 02/27/22 09:54 Blast Cells % 0 % 02/27/22 09:54 Nucleated RBC % Not Reportable 02/27/22 09:54 Seg Neutrophils # Warehouse Administrator 02/26/22 05:54 Seg Neutrophils # Man 12.0 K/mm3 (1.8-7.7) H 02/27/22 09:54 Band Neutrophils # 0.0 K/mm3 02/27/22 09:54 Lymphocytes # (Manual) 1.1 K/mm3 (1.2-5.4) L 02/27/22 09:54 Abs React Lymphs (Man) 0.0 K/mm3 02/27/22 09:54 Monocytes # (Manual) 0.8 K/mm3 (0.0-0.8) 02/27/22 09:54 Eosinophils # (Manual) 0.0 K/mm3 (0.0-0.4) 02/27/22 09:54 Basophils # (Manual) 0.0 K/mm3 (0.0-0.1) 02/27/22 09:54 Metamyelocytes # 0.0 K/mm3 02/27/22 09:54 Myelocytes # 0.0 K/mm3 02/27/22 09:54 Promyelocytes # 0.0 K/mm3 02/27/22 09:54 Blast Cells # 0.0 K/mm3 02/27/22 09:54 WBC Morphology Not Reportable 02/27/22 09:54 Hypersegmented Neuts Not Reportable 02/27/22 09:54 Hyposegmented Neuts Not Reportable 02/27/22 09:54 Hypogranular Neuts Not Reportable 02/27/22 09:54 Smudge Cells Not Reportable 02/27/22 09:54 Toxic Granulation Not Reportable 02/27/22 09:54 Toxic Vacuolation Not Reportable 02/27/22 09:54 Dohle Bodies Not Reportable 02/27/22 09:54 Pelger-Huet Anomaly Not Reportable 02/27/22 09:54 Fiona Rods Not Reportable 02/27/22 09:54 Platelet Estimate Consistent w auto 02/27/22 09:54 Clumped Platelets Not Reportable 02/27/22 09:54 Plt Clumps, EDTA Not Reportable 02/27/22 09:54 Large Platelets Not Reportable 02/27/22 09:54 Giant Platelets Not Reportable 02/27/22 09:54 Platelet Satelliting Not Reportable 02/27/22 09:54 Plt Morphology Comment Not Reportable 02/27/22 09:54 RBC Morphology Not Reportable 02/27/22 09:54 Dimorphic RBCs Not Reportable 02/27/22 09:54 Polychromasia Not Reportable 02/27/22 09:54 Hypochromasia 1+ 02/27/22 09:54 Poikilocytosis Not Reportable 02/27/22 09:54 Anisocytosis Not Reportable 02/27/22 09:54 Microcytosis Not Reportable 02/27/22 09:54 Macrocytosis Not Reportable 02/27/22 09:54 Spherocytes Not Reportable 02/27/22 09:54 Pappenheimer Bodies Not Reportable 02/27/22 09:54 Sickle Cells Not Reportable 02/27/22 09:54 Target Cells Not Reportable 02/27/22 09:54 Tear Drop Cells Not Reportable 02/27/22 09:54 Ovalocytes Not Reportable 02/27/22 09:54 Helmet Cells Not Reportable 02/27/22 09:54 [place] Bodies Not Reportable 02/27/22 09:54 Cooper Rings Not Reportable 02/27/22 09:54 Devol Cells Not Reportable 02/27/22 09:54 Bite Cells Not Reportable 02/27/22 09:54 Crenated Cell Not Reportable 02/27/22 09:54 Elliptocytes Not Reportable 02/27/22 09:54 Acanthocytes (Spur) Not Reportable 02/27/22 09:54 Rouleaux Not Reportable 02/27/22 09:54 Hemoglobin C Crystals Not Reportable 02/27/22 09:54 Schistocytes Not Reportable 02/27/22 09:54 Malaria parasites Not Reportable 02/27/22 09:54 Son Bodies Not Reportable 02/27/22 09:54 Hem Pathologist Commnt No 02/27/22 09:54 Sodium 133 mmol/L (137-145) L 02/27/22 09:54 Potassium 3.7 mmol/L (3.6-5.0) 02/27/22 09:54 Chloride 98.2 mmol/L (98-107) 02/27/22 09:54 Carbon Dioxide 20 mmol/L (22-30) L 02/27/22 09:54 Anion Gap 19 mmol/L 02/27/22 09:54 BUN 43 mg/dL (7-17) H 02/27/22 09:54 Creatinine 1.5 mg/dL (0.6-1.2) H 02/27/22 09:54 Estimated GFR 45 ml/min 02/27/22 09:54 BUN/Creatinine Ratio 29 % 02/27/22 09:54 Glucose 180 mg/dL (65-100) H 02/27/22 09:54 POC Glucose 155 mg/dL (70-105) H 02/28/22 08:07 Hemoglobin A1c 14.3 % (4-6) H 02/25/22 08:39 Ketones Quantitative Negative (Negative) 02/23/22 03:40 Lactic Acid 1.80 mmol/L (0.7-2.0) 02/24/22 07:57 Calcium 7.9 mg/dL (8.4-10.2) L 02/27/22 09:54 Phosphorus 3.30 mg/dL (2.5-4.5) 02/24/22 06:55 Magnesium 2.20 mg/dL (1.7-2.3) 02/23/22 03:40 Total Bilirubin 1.10 mg/dL (0.1-1.2) 02/23/22 03:40 AST 278 units/L (5-40) H 02/23/22 03:40 ALT 144 units/L (7-56) H 02/23/22 03:40 Alkaline Phosphatase 131 units/L (35-129) H 02/23/22 03:40 Serum Total Protein 5.7 g/dL (6.1-8.1) L 02/24/22 06:55 Total Protein 6.1 g/dL (6.3-8.2) L 02/23/22 03:40 Albumin 2.5 g/dL (3.8-4.8) L 02/24/22 06:55 Albumin/Globulin Ratio 1.1 % 02/23/22 03:40 Bvjvn-0-Noiokyonl 0.8 g/dL (0.2-0.3) H 02/24/22 06:55 Gheqp-1-Roobtqfcp 1.0 g/dL (0.5-0.9) H 02/24/22 06:55 Beta Globulins 0.3 g/dL (0.2-0.5) 02/24/22 06:55 Gamma Globulins 0.7 g/dL (0.8-1.7) L 02/24/22 06:55 Abnorm Protein Band 1 see below 02/24/22 06:55 PEP Interpretation see below H 02/24/22 06:55 Triglycerides 270 mg/dL (2-149) H 02/25/22 04:58 Cholesterol 170 mg/dL (50-199) 02/25/22 04:58 LDL Cholesterol Direct 27 mg/dL (50-130) L 02/25/22 04:58 HDL Cholesterol 15 mg/dL (40-59) L 02/25/22 04:58 Cholesterol/HDL Ratio 11.33 % 02/25/22 04:58 Vitamin B12 1636 pg/mL (211-911) H 02/27/22 09:54 TSH 1.440 mlU/mL (0.270-4.200) 02/27/22 09:54 PTH Intact 304.1 pg/mL (15-65) H 02/24/22 06:55 Urine Color Yellow (Yellow) 02/23/22 04:24 Urine Turbidity Cloudy (Clear) 02/23/22 04:24 Specific [place] (Man) 1.020 (1.003-1.030) 02/23/22 04:24 Ur Protein (Man) 2+ mg/dL (Negative) 02/23/22 04:24 Urine Ketones Negative mg/dL (Negative) 02/23/22 04:24 Ur Ketones (Man) Negative (Negative) 02/23/22 04:24 Ur Nitrite (Man) Negative (Negative) 02/23/22 04:24 Ur Reducing Substances Not Reportable 02/23/22 04:24 Urine Bilirubin (Man) Negative (Negative) 02/23/22 04:24 Urine Ictotest Not Reportable 02/23/22 04:24 Leukocyte Esterase (Man) Trace (Negative) 02/23/22 04:24 Urine WBC (Auto) < 1.0 /HPF (0.0-6.0) 02/23/22 04:24 Urine RBC (Auto) < 1.0 /HPF (0.0-6.0) 02/23/22 04:24 Urine Bacteria (Auto) 2+ /HPF (Negative) 02/23/22 04:24 Urine RBC (Manual) 3+ (Negative) 02/23/22 04:24 Nasal Screen MRSA (PCR) Negative (Negative) 02/25/22 Unknown Plasma/Serum Alcohol < 0.01 % (0-0.07) 02/23/22 05:01 Complement C3 116 mg/dL (83-193) 02/24/22 06:55 Complement C4 17 mg/dL (15-57) 02/24/22 06:55 Syphilis IgG/IgM Ab Nonreactive (NonReactive) 02/27/22 09:54 Coronavirus (PCR) Negative (Negative) 02/27/22 Unknown Hepatitis A IgM Ab Non-reactive (NonReactive) 02/23/22 15:51 Hep Bs Antigen Non-reactive (Negative) 02/23/22 15:51 Hep B Core IgM Ab Non-reactive (NonReactive) 02/23/22 15:51 Hepatitis C Antibody Non-reactive (NonReactive) 02/23/22 15:51 Blood Type B POSITIVE 02/25/22 04:58 Antibody Screen Negative 02/25/22 04:58 Crossmatch See Detail 02/25/22 04:58 Microbiology: Microbiology 02/23/22 04:30 Peripheral/Venous Blood Culture - Final NO GROWTH AFTER 5 DAYS Loya/IV: Voiding Method Incontinent Active Medications - Current Medications Current Medications: Generic Name Dose Route Start Last Admin Trade Name Freq PRN Reason Stop Dose Admin Acetaminophen 650 mg 02/23/22 05:21 Acetaminophen 325 Mg Tab PO Q4H PRN Pain MILD(1-3)/Fever >100.5/BASS Atorvastatin Calcium 40 mg 02/25/22 22:00 02/27/22 23:22 Atorvastatin 40 Mg Tab PO 40 mg QHS CANDY Administration Calcitriol 0.25 mcg 02/24/22 10:00 02/28/22 10:24 Calcitriol 0.25 Mcg Cap PO 0.25 mcg QDAY CANDY Administration Dextrose 50 ml 02/25/22 07:39 Dextrose 50% In Water (25gm) 50 Ml Syringe IV Q30MIN PRN Hypoglycemia Protocol Escitalopram Oxalate 5 mg 02/28/22 11:00 02/28/22 12:46 Escitalopram 10 Mg Tab PO 5 mg QDAY CANDY Administration Insulin Human Isoph/Insulin Regular 25 unit 02/26/22 08:00 02/28/22 10:24 Insulin Nph/Regular 70/30 Inj SUB-Q 25 unit BIDDIAB CANDY Administration Insulin Human Regular 0 units 02/25/22 08:00 02/28/22 12:40 Insulin Regular, Human 100 Units/1 Ml SUB-Q Not Given ACHS [facility] Protocol Levofloxacin 750 mg 02/27/22 10:00 02/27/22 10:16 Levofloxacin 750 Mg Tab PO 03/04/22 10:01 750 mg Q48HR CANDY Administration Protocol Magnesium Hydroxide 30 ml 02/23/22 05:21 Magnesium Hydroxide (Mom) Oral Liqd Udc PO Q4H PRN Constipation Morphine Sulfate 2 mg 02/23/22 05:21 Morphine 2 Mg/1 Ml Inj IV Q4H PRN Pain, Moderate (4-6) Morphine Sulfate 4 mg 02/23/22 05:21 02/27/22 10:18 Morphine 4 Mg/1 Ml Inj IV 4 mg Q4H PRN Administration Pain , Severe (7-10) Ondansetron HCl 4 mg 02/23/22 05:21 Ondansetron 4 Mg/2 Ml Inj IV Q8H PRN Nausea And Vomiting Pantoprazole Sodium 40 mg 02/25/22 16:30 02/28/22 10:23 Pantoprazole 40 Mg Tab PO 40 mg BIDAC CANDY Administration Sodium Chloride 10 ml 02/23/22 10:00 02/28/22 10:25 Sodium Chloride 0.9% 10 Ml Flush Syringe IV 10 ml BID CANDY Administration Sodium Chloride 10 ml 02/23/22 05:21 Sodium Chloride 0.9% 10 Ml Flush Syringe IV PRN PRN LINE FLUSH Trazodone HCl 50 mg 02/28/22 22:00 Trazodone 50 Mg Tab PO QHS [facility] Nutrition/Malnutrition Assess - Dietary Evaluation Nutrition/Malnutrition Findings: Nutrition Notes Start: 02/23/22 16:03 Freq: Status: Active Protocol: Document 02/23/22 16:03 EJ (Rec: 02/23/22 16:37 EJ [id number]) Nutrition Notes Need for Assessment 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 Current Diet Clear Liquids Diet (since L ), NPO (from 02/24 00:01). Labs/Tests 02/23: Na 127, Cl 90.0, BUN 73 / Crea 3.3, Glu 204, Ca 8.2. Pertinent Medications 02/23: Humalog 3U, others nutritionally unremarkable. Height 5 ft 2 in Weight 88.18 kg [place] Body Weight (kg) 50.00 BMI 35.5 Intake Prior to Admission Good Weight change and time frame Pt denies having loss body weight [employer]. Weight Status Obese Subjective/Other Information RD consult for nutrition education, difficulty chewing, poor oral intake, and dietary supplementation assessments. Pt's PO intake of meals has been Fairly tolerated, according to ADL notes. Pt will be on NPO from midnight due to a procedure planned for 02/24: EGD/ Colonoscopy, according to Progress notes. Pt is on Room Air, O2 saturation @ 97%, according to Physical Assessment History notes. Pt complains of Hematochezia, Nausea, and Abdominal Pain for the last 30 days, according to History & Physical notes. There are no reports of any difficulty chewing documented on the chart at the time, will disregard this consult. I will not prescribe dietary supplementation at the time since Pt will be NPO and GI conditions are uncertain at the time, will assess at F/U. Pt still in critical condition , not a candidate for Nutrition Education at the time, will assess feasibility on F/U. Percent of energy/protein needs met: Prescribed Clear Liquids Diet provides for energy/protein needs (590 Kcal/16 g) during LOS. Pt will be on NPO after midnight. Burn Absent Trauma Absent GI Symptoms Nausea,Constipation,Other Food Allergy No Skin Integrity/Comment Assessment WNL. 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 As Evidenced by Signs and Symptoms BMI: 35.5 Kg/m2. Is patient on ventilator? No Is Patient Ambulatory and/or Out of Bed No REE-([facility]-confined to bed) [phone] Kcal/Kg value to use for calculation 14 Approximate Energy Requirements Using 1235 kcal/Kg Calculation Used for Recommendations Kcal/kg Additional Notes Protein: 0.8-1.2 g/Kg AdjBW; 55-83 g/day. Fluids: 1 ml/Kcal, or as per MD. Nutrition Intervention Change Diet Order: When pertinent resume Clear Liquids Diet as tolerated. Goal #1 Adjust the dietary intervention to better serve Pt's energy/protein needs and clinical conditions during LOS . Follow-Up By: 03/02/22 Additional Comments Nutrition education will be provided at F/U, if feasible. Continue monitoring food tolerance, %PO intake of meals , and BM.
--- NOTE | 2022-02-28 15:40 | Progress Note ---
Assessment and Plan # Acute Kidney Injury: suspect pre-renal injury, no baseline known, do suspect CKD at baseline. - creatinine improving 3.3->3.6->2.9->2.0->1.5 yesterday AM, no labs for review today - urinalysis noted, check UP/C, check serologies-> pending; hep panel/complements WNL - PTH 304- consistent with secondary hyperparathyroidism; phos WNL, ca low- started calcitriol - renal ultrasound without acute obstruction - glucose control per primary - IVF prn, encourage po nutrition - avoid nephrotoxins - renally dose medications - I/Os- note good urine output - no immediate need for kidney biopsy or renal replacement therapy - outpatient CKD/BERRY follow up on discharge, will arrange # Hyponatremia: suspect pseudohyponatremia in setting of hyperglycemia, now improved/stable # Hyperglycemia, DM: per primary # Elevated Liver Enzymes: GI input noted # Microcytic Anemia: check iron panel, GI input noted, note colonoscopy findings. Hemoglobin last 7.7->7.2 # History of anxiety/depression Subjective Date of service: 02/28/22 Interval history: Resting in bed, no acute concerns Objective - Exam Narrative Exam: General appearance: well-developed, well-nourished, obese EENT: ATNC, PERRL Neck: Present: neck supple Respiratory: Clear to Ascultation Heart: regular, S1S2 Gastrointestinal: Present: normoactive bowel sounds Integumentary: no rash, warm and dry Neurologic: no focal deficit, no asterixis, alert and oriented x3 Psychiatric: other (withdrawn) - Vital Signs Vital signs: Vital Signs - 12hr 02/28/22 02/28/22 05:34 10:12 Temperature 98.3 F 97.9 F Pulse Rate 100 H 100 H Respiratory 18 18 Rate Blood Pressure 151/67 133/41 O2 Sat by Pulse 97 98 Oximetry - Lab 02/27/22 09:54 02/27/22 09:54 Most recent lab results Calcium 7.9 mg/dL (8.4-10.2) L 02/27/22 09:54 Phosphorus 3.30 mg/dL (2.5-4.5) 02/24/22 06:55 Magnesium 2.20 mg/dL (1.7-2.3) 02/23/22 03:40 Medications & Allergies - Medications Allergies/Adverse Reactions: Allergies No Known Allergies Allergy (Verified 12/21/18 13:12) Home Medications: Home Medications Medication Instructions Recorded Confirmed Last Taken Type Glimepiride [Amaryl] 2 mg PO BID 12/21/18 12/21/18 Unknown History Hydroxyzine HCl [hydrOXYzine] 50 mg PO HS PRN 12/21/18 12/21/18 Unknown History Insulin Lispro Protamin/Lispro 50 units SUB-Q QAM 12/21/18 12/21/18 12/21/18 History [HumaLOG Mix 75-25 Kwikpen] Insulin Lispro Protamin/Lispro 55 units SUB-Q QPM 12/21/18 12/21/18 Unknown History [HumaLOG Mix 75-25 Kwikpen] Losartan [Cozaar] 50 mg PO QDAY 12/21/18 12/21/18 Unknown History Simvastatin 20 mg PO QPM 12/21/18 12/21/18 Unknown History Venlafaxine HCl [Effexor Xr] 37.5 mg PO BID 12/21/18 12/21/18 Unknown History amLODIPine 10 mg PO DAILY 12/21/18 12/21/18 Unknown History buPROPion XL [Wellbutrin XL] 150 mg PO QAM 12/21/18 12/21/18 Unknown History hydroCHLOROthiazide [HCTZ] 25 mg PO QDAY 12/21/18 12/21/18 Unknown History metFORMIN [Glucophage] 500 mg PO BIDWM 12/21/18 12/21/18 Unknown History oxyCODONE /ACETAMINOPHEN [Percocet 1 tab PO Q6HR PRN #10 tablet 12/27/18 Unknown Rx 5/325] cephALEXin [Keflex] 500 mg PO QID #30 capsule 01/29/19 Unknown Rx Active Medications: Generic Name Dose Route Start Last Admin Trade Name Freq PRN Reason Stop Dose Admin Acetaminophen 650 mg 02/23/22 05:21 Acetaminophen 325 Mg Tab PO Q4H PRN Pain MILD(1-3)/Fever >100.5/BASS Atorvastatin Calcium 40 mg 02/25/22 22:00 02/27/22 23:22 Atorvastatin 40 Mg Tab PO 40 mg QHS CANDY Administration Calcitriol 0.25 mcg 02/24/22 10:00 02/28/22 10:24 Calcitriol 0.25 Mcg Cap PO 0.25 mcg QDAY CANDY Administration Dextrose 50 ml 02/25/22 07:39 Dextrose 50% In Water (25gm) 50 Ml Syringe IV Q30MIN PRN Hypoglycemia Protocol Escitalopram Oxalate 5 mg 02/28/22 11:00 02/28/22 12:46 Escitalopram 10 Mg Tab PO 5 mg QDAY CANDY Administration Insulin Human Isoph/Insulin Regular 25 unit 02/26/22 08:00 02/28/22 10:24 Insulin Nph/Regular 70/30 Inj SUB-Q 25 unit BIDDIAB CANDY Administration Insulin Human Regular 0 units 02/25/22 08:00 02/28/22 12:40 Insulin Regular, Human 100 Units/1 Ml SUB-Q Not Given ACHS CANDY Protocol Levofloxacin 750 mg 02/27/22 10:00 02/27/22 10:16 Levofloxacin 750 Mg Tab PO 03/03/22 10:01 750 mg Q48HR CANDY Administration Protocol Magnesium Hydroxide 30 ml 02/23/22 05:21 Magnesium Hydroxide (Mom) Oral Liqd Udc PO Q4H PRN Constipation Morphine Sulfate 2 mg 02/23/22 05:21 Morphine 2 Mg/1 Ml Inj IV Q4H PRN Pain, Moderate (4-6) Morphine Sulfate 4 mg 02/23/22 05:21 02/27/22 10:18 Morphine 4 Mg/1 Ml Inj IV 4 mg Q4H PRN Administration Pain , Severe (7-10) Ondansetron HCl 4 mg 02/23/22 05:21 Ondansetron 4 Mg/2 Ml Inj IV Q8H PRN Nausea And Vomiting Pantoprazole Sodium 40 mg 02/25/22 16:30 02/28/22 10:23 Pantoprazole 40 Mg Tab PO 40 mg BIDAC CANDY Administration Sodium Chloride 10 ml 02/23/22 10:00 02/28/22 10:25 Sodium Chloride 0.9% 10 Ml Flush Syringe IV 10 ml BID CANDY Administration Sodium Chloride 10 ml 02/23/22 05:21 Sodium Chloride 0.9% 10 Ml Flush Syringe IV PRN PRN LINE FLUSH Trazodone HCl 50 mg 02/28/22 22:00 Trazodone 50 Mg Tab PO QHS CANDY
[2022-02-28] MEDS: traZODone 50 MG TAB PO SCH (23:10)
[2022-03-01 08:18] LABS: Hematocrit 20.6 % (30.3-42.9); Hemoglobin 6.7 gm/dl (10.1-14.3); Mean Corpuscular HGB Conc 33 % (30-34); Mean Corpuscular Volume 77 fl (79-97); Platelet Count 255 K/mm3 (140-440); Red Blood Count 2.67 M/mm3 (3.65-5.03); Red Cell Distribution Width 16.1 % (13.2-15.2)
[2022-03-01] MEDS: INSULIN REGULAR, HUMAN 100 UNITS/1 ML SUB-Q SCH ×4 (08:22→22:17)
[2022-03-01] MEDS: PANTOPRAZOLE 40 MG TAB PO SCH ×2 (08:22→16:12)
[2022-03-01] MEDS: INSULIN NPH/REGULAR 70/30 INJ SUB-Q SCH ×2 (08:22→16:12)
[2022-03-01 08:32] LABS: Calcium 7.9 mg/dL (8.4-10.2)
[2022-03-01] MEDS: CALCITRIOL 0.25 MCG CAP PO SCH (09:03)
[2022-03-01] MEDS: ESCITALOPRAM 10 MG TAB PO SCH (09:03)
[2022-03-01] MEDS: levoFLOXacin 750 MG TAB PO SCH (09:04)
--- NOTE | 2022-03-01 09:07 | Progress Note ---
Assessment and Plan Assessment and plan: #E. coli bacteremia 1 out of 2 bottles positive for E. coli bacteremia. Rocephin 2 g daily (antibiotic course of 7 days; completes on 03/02/2022) #Acute ischemic CVA #Bilateral lower extremity weakness CT head noncontrast unremarkable. MRI brain without contrast (02/25/2022) revealing "multiple small foci of acute infarction with the largest lesion in the body of the corpus callosum". TTE (02/25/2022) revealing EF 60-65% with normal-sized LV, normal LV systolic function, moderate concentric LVH, unremarkable for PFO, borderline pulmonary hypertension, and RVSP is 25-30 mmHg. Hemoglobin A1c 14.3. Lipid profile: Triglycerides 270, cholesterol 170, LDL 27, HDL 15. Consulted PT/OT; recommending acute rehab. Pending authorization. Neurology consulted; appreciate recs. Patient refusing further MRI studies to further evaluate bilateral lower extremity weakness. #Microcytic anemia Hemoglobin 7.7--> 6.9--.8.0--> 8.5-->7.2 (rechecked and without transfusion) Gastroenterology consulted; appreciate recs EGD and colonoscopy (02/24/2022) revealing hiatal hernia, mild gastritis (biopsies taken), poor colonoscopy prep, and internal hemorrhoids. Patient will follow-up with gastroenterology in the outpatient setting to undergo a PillCam to evaluate possible cause for lower GI bleed. Continue p.o. pantoprazole 40 mg daily #BERRY secondary to vasomotor nephropathyresolved Creatinine 3.3--> 3.6--> 2.9--> 2.0-->1.5-->1.2 Renally dose meds and avoid nephrotoxic drugs. Nephrology consulted; appreciate recs Continue IV fluid resuscitation. #Hyponatremiaresolved Sodium 129--> 137 Nephrology consulted; appreciate recs. Continue IV fluid resuscitation and encourage p.o. intake. #Hypokalemiaresolved Potassium 2.5--> 3.5 Replete. Monitor with repeat BMP. #Insulin dependent type II diabetes mellitus - hemoglobin A1c: 14.3 - home regimen: Metformin 500 mg twice daily, lispro 50 units every morning and 55 units every afternoon, glimepiride 2 mg twice daily - current regimen: NPH 70/30 25 units twice daily + moderate SSI - blood glucose goal 140-180 while inpatient - continue to monitor #Hypertension #Hyperlipidemia - home medications: Hydrochlorothiazide 25 mg daily, amlodipine 10 mg daily, losartan 50 mg daily, simvastatin 20 mg - current medications: Amlodipine 10 mg daily, losartan 50 mg daily, hydrochl orothiazide 25 mg daily, atorvastatin 40 mg daily, metoprolol tartrate 25 mg twice daily - SBP goal <160 and DBP goal <90 while inpatient - continue to monitor #Depression Dietary consulted; appreciate recs Continue Lexapro 5 mg daily and trazodone 50 mg nightly #Advanced care planning -Disease education conducted, care plan discussed, diagnoses discussed, prognosis discussed, and patient acknowledges understanding with care plan -Time: +30 min #Discharge planning - Patient is pending acute rehab authorization and placement - Case management has been made aware. Disposition Plan: Pending acute rehab placement Total Time Spent with Patient (Minutes): 30 minutes History Interval history: No acute events overnight. Hospitalist Physical - Constitutional Vitals: Temp Pulse Resp BP Pulse Ox 98.4 F 99 H 20 147/67 99 02/28/22 23:15 02/28/22 23:15 03/01/22 08:46 02/28/22 23:15 03/01/22 08:46 General appearance: Present: no acute distress, well-nourished, obese, other (Dry Oral Mucosa, Moderate Pallor) - EENT Eyes: Present: PERRL, EOM intact ENT: hearing intact, clear oral mucosa, dentition normal - Neck Neck: Present: supple, normal ROM - Respiratory Respiratory effort: normal Respiratory: bilateral: CTA - Cardiovascular Rhythm: regular Heart Sounds: Present: S1 & S2 - Extremities Extremities: no ischemia, pulses intact, pulses symmetrical, No edema, normal temperature, normal color Peripheral Pulses: within normal limits - Abdominal General gastrointestinal: soft, non-tender, non-distended, normal bowel sounds - Integumentary Integumentary: Present: clear, warm, dry - Psychiatric Psychiatric: appropriate mood/affect, depressed - Neurologic Neurologic: CNII-XII intact - Allied Health Allied health notes reviewed: nursing Results - Labs CBC & Chem 7: 03/01/22 06:32 03/01/22 06:32 Labs: Laboratory Last Values WBC 13.0 K/mm3 (4.5-11.0) H 03/01/22 06:32 RBC 2.67 M/mm3 (3.65-5.03) L 03/01/22 06:32 Hgb 6.7 gm/dl (10.1-14.3) L 03/01/22 06:32 Hct 20.6 % (30.3-42.9) L 03/01/22 06:32 MCV 77 fl (79-97) L 03/01/22 06:32 MCH 25 pg (28-32) L 03/01/22 06:32 MCHC 33 % (30-34) 03/01/22 06:32 RDW 16.1 % (13.2-15.2) H 03/01/22 06:32 Plt Count 255 K/mm3 (140-440) 03/01/22 06:32 Lymph % (Auto) Retail Office Manager 02/26/22 05:54 [place] % (Auto) Retail Office Manager 02/26/22 05:54 Eos % (Auto) Retail Office Manager 02/26/22 05:54 Baso % (Auto) Retail Office Manager 02/26/22 05:54 Lymph # (Auto) Retail Office Manager 02/26/22 05:54 [place] # (Auto) Retail Office Manager 02/26/22 05:54 Eos # (Auto) Retail Office Manager 02/26/22 05:54 Baso # (Auto) Retail Office Manager 02/26/22 05:54 Add Manual Diff Complete 02/27/22 09:54 Total Counted 100 02/27/22 09:54 Seg Neutrophils % Retail Office Manager 02/26/22 05:54 Seg Neuts % (Manual) 86.0 % (40.0-70.0) H 02/27/22 09:54 Band Neutrophils % 0 % 02/27/22 09:54 Lymphocytes % (Manual) 8.0 % (13.4-35.0) L 02/27/22 09:54 Reactive Lymphs % (Man) 0 % 02/27/22 09:54 Monocytes % (Manual) 6.0 % (0.0-7.3) 02/27/22 09:54 Eosinophils % (Manual) 0 % (0.0-4.3) 02/27/22 09:54 Basophils % (Manual) 0 % (0.0-1.8) 02/27/22 09:54 Metamyelocytes % 0 % 02/27/22 09:54 Myelocytes % 0 % 02/27/22 09:54 Promyelocytes % 0 % 02/27/22 09:54 Blast Cells % 0 % 02/27/22 09:54 Nucleated RBC % Not Reportable 02/27/22 09:54 Seg Neutrophils # Retail Office Manager 02/26/22 05:54 Seg Neutrophils # Man 12.0 K/mm3 (1.8-7.7) H 02/27/22 09:54 Band Neutrophils # 0.0 K/mm3 02/27/22 09:54 Lymphocytes # (Manual) 1.1 K/mm3 (1.2-5.4) L 02/27/22 09:54 Abs React Lymphs (Man) 0.0 K/mm3 02/27/22 09:54 Monocytes # (Manual) 0.8 K/mm3 (0.0-0.8) 02/27/22 09:54 Eosinophils # (Manual) 0.0 K/mm3 (0.0-0.4) 02/27/22 09:54 Basophils # (Manual) 0.0 K/mm3 (0.0-0.1) 02/27/22 09:54 Metamyelocytes # 0.0 K/mm3 02/27/22 09:54 Myelocytes # 0.0 K/mm3 02/27/22 09:54 Promyelocytes # 0.0 K/mm3 02/27/22 09:54 Blast Cells # 0.0 K/mm3 02/27/22 09:54 WBC Morphology Not Reportable 02/27/22 09:54 Hypersegmented Neuts Not Reportable 02/27/22 09:54 Hyposegmented Neuts Not Reportable 02/27/22 09:54 Hypogranular Neuts Not Reportable 02/27/22 09:54 Smudge Cells Not Reportable 02/27/22 09:54 Toxic Granulation Not Reportable 02/27/22 09:54 Toxic Vacuolation Not Reportable 02/27/22 09:54 Dohle Bodies Not Reportable 02/27/22 09:54 Pelger-Huet Anomaly Not Reportable 02/27/22 09:54 Fiona Rods Not Reportable 02/27/22 09:54 Platelet Estimate Consistent w auto 02/27/22 09:54 Clumped Platelets Not Reportable 02/27/22 09:54 Plt Clumps, EDTA Not Reportable 02/27/22 09:54 Large Platelets Not Reportable 02/27/22 09:54 Giant Platelets Not Reportable 02/27/22 09:54 Platelet Satelliting Not Reportable 02/27/22 09:54 Plt Morphology Comment Not Reportable 02/27/22 09:54 RBC Morphology Not Reportable 02/27/22 09:54 Dimorphic RBCs Not Reportable 02/27/22 09:54 Polychromasia Not Reportable 02/27/22 09:54 Hypochromasia 1+ 02/27/22 09:54 Poikilocytosis Not Reportable 02/27/22 09:54 Anisocytosis Not Reportable 02/27/22 09:54 Microcytosis Not Reportable 02/27/22 09:54 Macrocytosis Not Reportable 02/27/22 09:54 Spherocytes Not Reportable 02/27/22 09:54 Pappenheimer Bodies Not Reportable 02/27/22 09:54 Sickle Cells Not Reportable 02/27/22 09:54 Target Cells Not Reportable 02/27/22 09:54 Tear Drop Cells Not Reportable 02/27/22 09:54 Ovalocytes Not Reportable 02/27/22 09:54 Helmet Cells Not Reportable 02/27/22 09:54 Hodge-Honaker Bodies Not Reportable 02/27/22 09:54 [place] Rings Not Reportable 02/27/22 09:54 Jose Antonio Cells Not Reportable 02/27/22 09:54 Bite Cells Not Reportable 02/27/22 09:54 Crenated Cell Not Reportable 02/27/22 09:54 Elliptocytes Not Reportable 02/27/22 09:54 Acanthocytes (Spur) Not Reportable 02/27/22 09:54 Rouleaux Not Reportable 02/27/22 09:54 Hemoglobin C Crystals Not Reportable 02/27/22 09:54 Schistocytes Not Reportable 02/27/22 09:54 Malaria parasites Not Reportable 02/27/22 09:54 Son Bodies Not Reportable 02/27/22 09:54 Hem Pathologist Commnt No 02/27/22 09:54 Sodium 133 mmol/L (137-145) L 03/01/22 06:32 Potassium 3.7 mmol/L (3.6-5.0) 03/01/22 06:32 Chloride 98.6 mmol/L (98-107) 03/01/22 06:32 Carbon Dioxide 23 mmol/L (22-30) 03/01/22 06:32 Anion Gap 15 mmol/L 03/01/22 06:32 BUN 19 mg/dL (7-17) H 03/01/22 06:32 Creatinine 1.2 mg/dL (0.6-1.2) 03/01/22 06:32 Estimated GFR 58 ml/min 03/01/22 06:32 BUN/Creatinine Ratio 16 % 03/01/22 06:32 Glucose 92 mg/dL (65-100) 03/01/22 06:32 POC Glucose 144 mg/dL (70-105) H 02/28/22 21:43 Hemoglobin A1c 14.3 % (4-6) H 02/25/22 08:39 Ketones Quantitative Negative (Negative) 02/23/22 03:40 Lactic Acid 1.80 mmol/L (0.7-2.0) 02/24/22 07:57 Calcium 7.9 mg/dL (8.4-10.2) L 03/01/22 06:32 Phosphorus 3.30 mg/dL (2.5-4.5) 02/24/22 06:55 Magnesium 2.20 mg/dL (1.7-2.3) 02/23/22 03:40 Total Bilirubin 1.10 mg/dL (0.1-1.2) 02/23/22 03:40 AST 278 units/L (5-40) H 02/23/22 03:40 ALT 144 units/L (7-56) H 02/23/22 03:40 Alkaline Phosphatase 131 units/L (35-129) H 02/23/22 03:40 Serum Total Protein 5.7 g/dL (6.1-8.1) L 02/24/22 06:55 Total Protein 6.1 g/dL (6.3-8.2) L 02/23/22 03:40 Albumin 2.5 g/dL (3.8-4.8) L 02/24/22 06:55 Albumin/Globulin Ratio 1.1 % 02/23/22 03:40 Kcnas-9-Pneilcdqk 0.8 g/dL (0.2-0.3) H 02/24/22 06:55 Hjdjn-2-Pkwrhlmyf 1.0 g/dL (0.5-0.9) H 02/24/22 06:55 Beta Globulins 0.3 g/dL (0.2-0.5) 02/24/22 06:55 Gamma Globulins 0.7 g/dL (0.8-1.7) L 02/24/22 06:55 Abnorm Protein Band 1 see below 02/24/22 06:55 PEP Interpretation see below H 02/24/22 06:55 Triglycerides 270 mg/dL (2-149) H 02/25/22 04:58 Cholesterol 170 mg/dL (50-199) 02/25/22 04:58 LDL Cholesterol Direct 27 mg/dL (50-130) L 02/25/22 04:58 HDL Cholesterol 15 mg/dL (40-59) L 02/25/22 04:58 Cholesterol/HDL Ratio 11.33 % 02/25/22 04:58 Vitamin B12 1636 pg/mL (211-911) H 02/27/22 09:54 TSH 1.440 mlU/mL (0.270-4.200) 02/27/22 09:54 PTH Intact 304.1 pg/mL (15-65) H 02/24/22 06:55 Urine Color Yellow (Yellow) 02/23/22 04:24 Urine Turbidity Cloudy (Clear) 02/23/22 04:24 Specific Ramsay (Man) 1.020 (1.003-1.030) 02/23/22 04:24 Ur Protein (Man) 2+ mg/dL (Negative) 02/23/22 04:24 Urine Ketones Negative mg/dL (Negative) 02/23/22 04:24 Ur Ketones (Man) Negative (Negative) 02/23/22 04:24 Ur Nitrite (Man) Negative (Negative) 02/23/22 04:24 Ur Reducing Substances Not Reportable 02/23/22 04:24 Urine Bilirubin (Man) Negative (Negative) 02/23/22 04:24 Urine Ictotest Not Reportable 02/23/22 04:24 Leukocyte Esterase (Man) Trace (Negative) 02/23/22 04:24 Urine WBC (Auto) < 1.0 /HPF (0.0-6.0) 02/23/22 04:24 Urine RBC (Auto) < 1.0 /HPF (0.0-6.0) 02/23/22 04:24 Urine Bacteria (Auto) 2+ /HPF (Negative) 02/23/22 04:24 Urine RBC (Manual) 3+ (Negative) 02/23/22 04:24 Nasal Screen MRSA (PCR) Negative (Negative) 02/25/22 Unknown Plasma/Serum Alcohol < 0.01 % (0-0.07) 02/23/22 05:01 Complement C3 116 mg/dL (83-193) 02/24/22 06:55 Complement C4 17 mg/dL (15-57) 02/24/22 06:55 Syphilis IgG/IgM Ab Nonreactive (NonReactive) 02/27/22 09:54 Coronavirus (PCR) Negative (Negative) 02/27/22 Unknown Hepatitis A IgM Ab Non-reactive (NonReactive) 02/23/22 15:51 Hep Bs Antigen Non-reactive (Negative) 02/23/22 15:51 Hep B Core IgM Ab Non-reactive (NonReactive) 02/23/22 15:51 Hepatitis C Antibody Non-reactive (NonReactive) 02/23/22 15:51 Blood Type B POSITIVE 02/25/22 04:58 Antibody Screen Negative 02/25/22 04:58 Crossmatch See Detail 02/25/22 04:58 Microbiology: Microbiology 02/23/22 04:30 Peripheral/Venous Blood Culture - Final NO GROWTH AFTER 5 DAYS Loya/IV: Voiding Method External Female Catheter Active Medications - Current Medications Current Medications: Generic Name Dose Route Start Last Admin Trade Name Freq PRN Reason Stop Dose Admin Acetaminophen 650 mg 02/23/22 05:21 Acetaminophen 325 Mg Tab PO Q4H PRN Pain MILD(1-3)/Fever >100.5/BASS Atorvastatin Calcium 40 mg 02/25/22 22:00 02/28/22 23:10 Atorvastatin 40 Mg Tab PO 40 mg QHS CANDY Administration Calcitriol 0.25 mcg 02/24/22 10:00 03/01/22 09:03 Calcitriol 0.25 Mcg Cap PO 0.25 mcg QDAY CANDY Administration Dextrose 50 ml 02/25/22 07:39 Dextrose 50% In Water (25gm) 50 Ml Syringe IV Q30MIN PRN Hypoglycemia Protocol Escitalopram Oxalate 5 mg 02/28/22 11:00 03/01/22 09:03 Escitalopram 10 Mg Tab PO 5 mg QDAY CANDY Administration Insulin Human Isoph/Insulin Regular 25 unit 02/26/22 08:00 03/01/22 08:22 Insulin Nph/Regular 70/30 Inj SUB-Q Not Given BIDDIAB [facility] Insulin Human Regular 0 units 02/25/22 08:00 03/01/22 08:22 Insulin Regular, Human 100 Units/1 Ml SUB-Q Not Given ACHS [facility] Protocol Levofloxacin 750 mg 03/01/22 10:00 Levofloxacin 750 Mg Tab PO 03/03/22 23:59 Q24HR [facility] Protocol Magnesium Hydroxide 30 ml 02/23/22 05:21 Magnesium Hydroxide (Mom) Oral Liqd Udc PO Q4H PRN Constipation Metoprolol Tartrate 25 mg 03/01/22 10:00 Metoprolol Tartrate 25 Mg Tab PO BID CANDY Morphine Sulfate 2 mg 02/23/22 05:21 Morphine 2 Mg/1 Ml Inj IV Q4H PRN Pain, Moderate (4-6) Morphine Sulfate 4 mg 02/23/22 05:21 02/27/22 10:18 Morphine 4 Mg/1 Ml Inj IV 4 mg Q4H PRN Administration Pain , Severe (7-10) Ondansetron HCl 4 mg 02/23/22 05:21 Ondansetron 4 Mg/2 Ml Inj IV Q8H PRN Nausea And Vomiting Pantoprazole Sodium 40 mg 02/25/22 16:30 03/01/22 08:22 Pantoprazole 40 Mg Tab PO 40 mg BIDAC CANDY Administration Sodium Chloride 10 ml 02/23/22 10:00 03/01/22 09:04 Sodium Chloride 0.9% 10 Ml Flush Syringe IV 10 ml BID CANDY Administration Sodium Chloride 10 ml 02/23/22 05:21 Sodium Chloride 0.9% 10 Ml Flush Syringe IV PRN PRN LINE FLUSH Trazodone HCl 50 mg 02/28/22 22:00 02/28/22 23:10 Trazodone 50 Mg Tab PO 50 mg QHS CANDY Administration Nutrition/Malnutrition Assess - Dietary Evaluation Nutrition/Malnutrition Findings: Nutrition Notes Start: 02/23/22 16:03 Freq: Status: Active Protocol: Document 02/23/22 16:03 EJ (Rec: 02/23/22 16:37 EJ [id number]) Nutrition Notes Need for Assessment generated from: MD Order,complex care nurse,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 Current Diet Clear Liquids Diet (since L ), NPO (from 02/24 00:01). Labs/Tests 02/23: Na 127, Cl 90.0, BUN 73 / Crea 3.3, Glu 204, Ca 8.2. Pertinent Medications 02/23: Humalog 3U, others nutritionally unremarkable. 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 Weight Status Obese Subjective/Other Information RD consult for nutrition education, difficulty chewing, poor oral intake, and dietary supplementation assessments. Pt's PO intake of meals has been Fairly tolerated, according to ADL notes. Pt will be on NPO from midnight due to a procedure planned for 02/24: EGD/ Colonoscopy, according to Progress notes. Pt is on Room Air, O2 saturation @ 97%, according to Physical Assessment History notes. Pt complains of Hematochezia, Nausea, and Abdominal Pain for the last 30 days, according to History & Physical notes. There are no reports of any difficulty chewing documented on the chart at the time, will disregard this consult. I will not prescribe dietary supplementation at the time since Pt will be NPO and GI conditions are uncertain at the time, will assess at F/U. Pt still in critical condition , not a candidate for Nutrition Education at the time, will assess feasibility on F/U. Percent of energy/protein needs met: Prescribed Clear Liquids Diet provides for energy/protein needs (590 Kcal/16 g) during LOS. Pt will be on NPO after midnight. Burn Absent Trauma Absent GI Symptoms Nausea,Constipation,Other Food Allergy No Skin Integrity/Comment Assessment WNL. Current % PO Good (75-100%) Minimum of two criteria No Fluid Accumulation N/A Reduced Cash Applications Associate Strength N/A (non-severe) Protein-Calorie Malnutrition N\\A #1 Nutrition Diagnosis Overweight/obesity Etiology Possibly secondary to Lifestyle. As Evidenced by Signs and Symptoms BMI: 35.5 Kg/m2. Is patient on ventilator? No Is Patient Ambulatory and/or Out of Bed No REE-([facility] or-confined to bed) 1755.708 Kcal/Kg value to use for calculation 14 Approximate Energy Requirements Using 1235 kcal/Kg Calculation Used for Recommendations Kcal/kg Additional Notes Protein: 0.8-1.2 g/Kg AdjBW; 55-83 g/day. Fluids: 1 ml/Kcal, or as per MD. Nutrition Intervention Change Diet Order: When pertinent resume Clear Liquids Diet as tolerated. Goal #1 Adjust the dietary intervention to better serve Pt's energy/protein needs and clinical conditions during LOS . Follow-Up By: 03/02/22 Additional Comments Nutrition education will be provided at F/U, if feasible. Continue monitoring food tolerance, %PO intake of meals , and BM.
[2022-03-01] MEDS: METOPROLOL TARTRATE 25 MG TAB PO SCH ×2 (09:09→22:17)
--- NOTE | 2022-03-01 12:05 | Progress Note ---
Subjective - Reason for Consult Consult date: 03/01/22 Reason for consult: depression - Chief Complaint Chief complaint: The patient was seen today. Her spouse is at bedside. She is smiling and appears upbeat. She sitting up in bed. The patient says she's happy "because he's here." She is articulating her thoughts better. She says she slept well last night. The patient also says her depression has improved. She denies SI/HI or hallucinations. I discuss with them both the need to establish and follow up with outpatient psychiatry. I also informed that the patient would be given scripts and resources to maintain her mental wellness. Her spouse is asking about her physical therapy and recovery. The both thank me at the end of the visit. REVIEW OF SYSTEMS Constitutional: Negative for weight loss ENT: Negative for stridor Respiratory: Negative for cough or hemoptysis All other systems reviewed and are negative MENTAL STATUS EXAMINATION General Appearance and Behavior: Age appropriate, wearing appropriate clothes, polite with questioning, good eye contact, smiling, calm, cooperative Cooperation: cooperative Psychomotor Behavior: Psychomotor normal Mood: a lot better Affect and affective range: congruent with stated mood, Euthymic Thought Process: goal-oriented Thought Content: reality-based Speech: difficulty articulating thoughts Suicidal Ideation: Denies Homicidal Ideation: Denies Hallucination: Denies Delusions: Denies Impulse Control: Normal Insight and Judgment: Limited Memory: Limited Attention: Attentive Orientation: Alert and oriented Assessment: Major Depressive Disorder Assessment Lexapro 5mg po daily Trazodone 50mg po qhs MEDICAL: Per primary team DELIRIUM PRECAUTIONS: Please re-orient patient frequently, keep lights on during the day, and minimize benzodiazepines and opiates as these medications could worsen patient's confusion. 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 FOLLOW-UP: Will sign off. The greenhouse technician to give all necessary outpatient resources. Thank you for the consult. Please contact with any questions and/or concerns. Case staffed with Dr. Meyer Mental Status Exam - Vital signs Last Vital Signs Temp 98.7 F 03/01/22 09:10 Pulse 102 H 03/01/22 09:10 Resp 20 03/01/22 09:10 BP 142/63 03/01/22 09:10 Pulse Ox 94 03/01/22 09:10
[2022-03-01] MEDS: LOSARTAN 50 MG TAB PO SCH (12:41)
[2022-03-01] MEDS: amLODIPine 10 MG TAB PO SCH (12:41)
[2022-03-01] MEDS: hydroCHLOROthiazide 25 MG TAB PO SCH (12:41)
[2022-03-01] MEDS: ASPIRIN 325 MG TAB PO SCH (12:41)
[2022-03-01 15:04] LABS: Band Neutrophils # (Manual) 0.1 K/mm3; Basophils % (Manual) 0 % (0.0-1.8); Hypochromasia 1+; Monocytes % (Manual) 0 % (0.0-7.3); Myelocytes # (Manual) 0.3 K/mm3; Total Cells Counted 100
[2022-03-01 15:05] LABS: Platelet Estimate Consistent w Auto
--- NOTE | 2022-03-01 15:27 | Progress Note ---
Assessment and Plan # Acute Kidney Injury: suspect pre-renal injury, no baseline known, do suspect CKD at baseline. - creatinine improving 3.3->3.6->2.9->2.0->1.5->1.2 - urinalysis noted, check UP/C, check serologies-> pending; hep panel/complements WNL - PTH 304- consistent with secondary hyperparathyroidism; phos WNL, ca low- started calcitriol - renal ultrasound without acute obstruction - glucose control per primary - IVF prn, encourage po nutrition - avoid nephrotoxins - renally dose medications - I/Os- note good urine output - no immediate need for kidney biopsy or renal replacement therapy - outpatient CKD/BERRY follow up on discharge, will arrange # Hyponatremia: suspect pseudohyponatremia in setting of hyperglycemia, now improved/stable # Hyperglycemia, DM: per primary # Elevated Liver Enzymes: GI input noted # Microcytic Anemia: check iron panel, GI input noted, note colonoscopy findings. Hemoglobin last 7.7->7.2->6.7, recommend transfusion # History of anxiety/depression Subjective Date of service: 03/01/22 Interval history: Resting in bed, no acute concerns Objective - Exam Narrative Exam: General appearance: well-developed, well-nourished, obese EENT: ATNC, PERRL Neck: Present: neck supple Respiratory: Clear to Ascultation Heart: regular, S1S2 Gastrointestinal: Present: normoactive bowel sounds Integumentary: no rash, warm and dry Neurologic: no focal deficit, no asterixis, alert and oriented x3 Psychiatric: other (withdrawn) - Vital Signs Vital signs: Vital Signs - 12hr 03/01/22 03/01/22 03/01/22 08:46 09:09 09:10 Temperature 98.7 F Pulse Rate 101 H 102 H Respiratory 20 20 Rate Blood Pressure 142/63 142/63 O2 Sat by Pulse 99 94 Oximetry - Lab 03/01/22 06:32 03/01/22 06:32 Most recent lab results Calcium 7.9 mg/dL (8.4-10.2) L 03/01/22 06:32 Phosphorus 3.30 mg/dL (2.5-4.5) 02/24/22 06:55 Magnesium 2.20 mg/dL (1.7-2.3) 02/23/22 03:40 Medications & Allergies - Medications Allergies/Adverse Reactions: Allergies No Known Allergies Allergy (Verified 12/21/18 13:12) Home Medications: Home Medications Medication Instructions Recorded Confirmed Last Taken Type Glimepiride [Amaryl] 2 mg PO BID 12/21/18 12/21/18 Unknown History Hydroxyzine HCl [hydrOXYzine] 50 mg PO HS PRN 12/21/18 12/21/18 Unknown History Insulin Lispro Protamin/Lispro 50 units SUB-Q QAM 12/21/18 12/21/18 12/21/18 History [HumaLOG Mix 75-25 Kwikpen] Insulin Lispro Protamin/Lispro 55 units SUB-Q QPM 12/21/18 12/21/18 Unknown History [HumaLOG Mix 75-25 Kwikpen] Losartan [Cozaar] 50 mg PO QDAY 12/21/18 12/21/18 Unknown History Simvastatin 20 mg PO QPM 12/21/18 12/21/18 Unknown History Venlafaxine HCl [Effexor Xr] 37.5 mg PO BID 12/21/18 12/21/18 Unknown History amLODIPine 10 mg PO DAILY 12/21/18 12/21/18 Unknown History buPROPion XL [Wellbutrin XL] 150 mg PO QAM 12/21/18 12/21/18 Unknown History hydroCHLOROthiazide [HCTZ] 25 mg PO QDAY 12/21/18 12/21/18 Unknown History metFORMIN [Glucophage] 500 mg PO BIDWM 12/21/18 12/21/18 Unknown History oxyCODONE /ACETAMINOPHEN [Percocet 1 tab PO Q6HR PRN #10 tablet 12/27/18 Unknown Rx 5/325] cephALEXin [Keflex] 500 mg PO QID #30 capsule 01/29/19 Unknown Rx Escitalopram Oxalate [Lexapro] 5 mg PO QDAY #30 03/01/22 Unknown Rx Trazodone HCl 50 mg PO DAILY #30 03/01/22 Unknown Rx Active Medications: Generic Name Dose Route Start Last Admin Trade Name Freq PRN Reason Stop Dose Admin Acetaminophen 650 mg 02/23/22 05:21 Acetaminophen 325 Mg Tab PO Q4H PRN Pain MILD(1-3)/Fever >100.5/BASS Amlodipine Besylate 10 mg 03/01/22 10:00 03/01/22 12:41 Amlodipine 10 Mg Tab PO 10 mg DAILY CANDY Administration Aspirin 325 mg 03/01/22 10:00 03/01/22 12:41 Aspirin 325 Mg Tab PO 325 mg QDAY CANDY Administration Atorvastatin Calcium 40 mg 02/25/22 22:00 02/28/22 23:10 Atorvastatin 40 Mg Tab PO 40 mg QHS CANDY Administration Calcitriol 0.25 mcg 02/24/22 10:00 03/01/22 09:03 Calcitriol 0.25 Mcg Cap PO 0.25 mcg QDAY CANDY Administration Dextrose 50 ml 02/25/22 07:39 Dextrose 50% In Water (25gm) 50 Ml Syringe IV Q30MIN PRN Hypoglycemia Protocol Escitalopram Oxalate 5 mg 02/28/22 11:00 03/01/22 09:03 Escitalopram 10 Mg Tab PO 5 mg QDAY CANDY Administration Hydrochlorothiazide 25 mg 03/01/22 10:00 03/01/22 12:41 Hydrochlorothiazide 25 Mg Tab PO 25 mg QDAY CANDY Administration Insulin Human Isoph/Insulin Regular 25 unit 02/26/22 08:00 03/01/22 08:22 Insulin Nph/Regular 70/30 Inj SUB-Q Not Given BIDDIAB CANDY Insulin Human Regular 0 units 02/25/22 08:00 03/01/22 12:41 Insulin Regular, Human 100 Units/1 Ml SUB-Q 2 units ACHS CANDY Administration Protocol Levofloxacin 750 mg 03/01/22 10:00 03/01/22 09:04 Levofloxacin 750 Mg Tab PO 03/03/22 23:59 750 mg Q24HR CANDY Administration Protocol Losartan Potassium 50 mg 03/01/22 10:00 03/01/22 12:41 Losartan 50 Mg Tab PO 50 mg QDAY CANDY Administration Magnesium Hydroxide 30 ml 02/23/22 05:21 Magnesium Hydroxide (Mom) Oral Liqd Udc PO Q4H PRN Constipation Metoprolol Tartrate 25 mg 03/01/22 10:00 03/01/22 09:09 Metoprolol Tartrate 25 Mg Tab PO 25 mg BID CANDY Administration Morphine Sulfate 2 mg 02/23/22 05:21 Morphine 2 Mg/1 Ml Inj IV Q4H PRN Pain, Moderate (4-6) Morphine Sulfate 4 mg 02/23/22 05:21 02/27/22 10:18 Morphine 4 Mg/1 Ml Inj IV 4 mg Q4H PRN Administration Pain , Severe (7-10) Ondansetron HCl 4 mg 02/23/22 05:21 Ondansetron 4 Mg/2 Ml Inj IV Q8H PRN Nausea And Vomiting Pantoprazole Sodium 40 mg 02/25/22 16:30 03/01/22 08:22 Pantoprazole 40 Mg Tab PO 40 mg BIDAC CANDY Administration Sodium Chloride 10 ml 02/23/22 10:00 03/01/22 09:04 Sodium Chloride 0.9% 10 Ml Flush Syringe IV 10 ml BID CANDY Administration Sodium Chloride 10 ml 02/23/22 05:21 Sodium Chloride 0.9% 10 Ml Flush Syringe IV PRN PRN LINE FLUSH Trazodone HCl 50 mg 02/28/22 22:00 02/28/22 23:10 Trazodone 50 Mg Tab PO 50 mg QHS CANDY Administration
[2022-03-01] MEDS: traZODone 50 MG TAB PO SCH (22:16)
[2022-03-02 07:18] LABS: ANA Screen, IFA Negative (Negative)
[2022-03-02] MEDS: INSULIN NPH/REGULAR 70/30 INJ SUB-Q SCH ×2 (08:00→16:33)
[2022-03-02] MEDS: INSULIN REGULAR, HUMAN 100 UNITS/1 ML SUB-Q SCH ×4 (08:08→23:11)
[2022-03-02] MEDS: PANTOPRAZOLE 40 MG TAB PO SCH ×2 (08:21→16:33)
[2022-03-02] MEDS: CALCITRIOL 0.25 MCG CAP PO SCH (09:11)
[2022-03-02] MEDS: amLODIPine 10 MG TAB PO SCH (09:11)
[2022-03-02] MEDS: LOSARTAN 50 MG TAB PO SCH (09:11)
[2022-03-02] MEDS: ESCITALOPRAM 10 MG TAB PO SCH (09:11)
[2022-03-02] MEDS: hydroCHLOROthiazide 25 MG TAB PO SCH (09:11)
[2022-03-02] MEDS: ASPIRIN 325 MG TAB PO SCH (09:11)
[2022-03-02] MEDS: METOPROLOL TARTRATE 25 MG TAB PO SCH ×2 (09:11→23:11)
[2022-03-02] MEDS: levoFLOXacin 750 MG TAB PO SCH (09:12)
[2022-03-02] MEDS ORDERED: SODIUM CHLORIDE 0.9% 500 ML 500 ML IV NR (09:58)
[2022-03-02 10:28] LABS: Myeloperoxidase Antibody <1.0 AI (<1.0)
--- NOTE | 2022-03-02 10:56 | Progress Note ---
Assessment and Plan Impression: * Acute kidney injury secondary to prerenal azotemia * EColi bacteremia * Hyponatremia * Type II diabetes mellitus * Anemia Plan: * BERRY resolved. Continue conservative management * Abx per primary team * Dose medications for renal function * Avoid potential nephrotoxins * Will follow peripherally Subjective Date of service: 03/02/22 Objective - Vital Signs Vital signs: Vital Signs - 12hr 03/02/22 03/02/22 03/02/22 04:41 08:14 09:11 Temperature 99.3 F 97.7 F Pulse Rate 92 H 91 H 91 H Respiratory 16 20 Rate Blood Pressure 137/61 134/56 134/56 O2 Sat by Pulse 95 96 Oximetry - General Appearance General appearance: well-developed, well-nourished EENT: ATNC Respiratory: Present: Clear to Ascultation Cardiology: regular, S1S2 Gastrointestinal: obese Integumentary: warm and dry Neurologic: alert and oriented x3 Psychiatric: cooperative - Lab 03/01/22 06:32 03/01/22 06:32 Most recent lab results Calcium 7.9 mg/dL (8.4-10.2) L 03/01/22 06:32 Phosphorus 3.30 mg/dL (2.5-4.5) 02/24/22 06:55 Magnesium 2.20 mg/dL (1.7-2.3) 02/23/22 03:40 Medications & Allergies - Medications Allergies/Adverse Reactions: Allergies No Known Allergies Allergy (Verified 12/21/18 13:12) Home Medications: Home Medications Medication Instructions Recorded Confirmed Last Taken Type Glimepiride [Amaryl] 2 mg PO BID 12/21/18 12/21/18 Unknown History Hydroxyzine HCl [hydrOXYzine] 50 mg PO HS PRN 12/21/18 12/21/18 Unknown History Insulin Lispro Protamin/Lispro 50 units SUB-Q QAM 12/21/18 12/21/18 12/21/18 History [HumaLOG Mix 75-25 Kwikpen] Insulin Lispro Protamin/Lispro 55 units SUB-Q QPM 12/21/18 12/21/18 Unknown History [HumaLOG Mix 75-25 Kwikpen] Losartan [Cozaar] 50 mg PO QDAY 12/21/18 12/21/18 Unknown History Simvastatin 20 mg PO QPM 12/21/18 12/21/18 Unknown History Venlafaxine HCl [Effexor Xr] 37.5 mg PO BID 12/21/18 12/21/18 Unknown History amLODIPine 10 mg PO DAILY 12/21/18 12/21/18 Unknown History buPROPion XL [Wellbutrin XL] 150 mg PO QAM 12/21/18 12/21/18 Unknown History hydroCHLOROthiazide [HCTZ] 25 mg PO QDAY 12/21/18 12/21/18 Unknown History metFORMIN [Glucophage] 500 mg PO BIDWM 12/21/18 12/21/18 Unknown History oxyCODONE /ACETAMINOPHEN [Percocet 1 tab PO Q6HR PRN #10 tablet 12/27/18 Unknown Rx 5/325] cephALEXin [Keflex] 500 mg PO QID #30 capsule 01/29/19 Unknown Rx Escitalopram Oxalate [Lexapro] 5 mg PO QDAY #30 03/01/22 Unknown Rx Trazodone HCl 50 mg PO DAILY #30 03/01/22 Unknown Rx Active Medications: Generic Name Dose Route Start Last Admin Trade Name Freq PRN Reason Stop Dose Admin Acetaminophen 650 mg 02/23/22 05:21 Acetaminophen 325 Mg Tab PO Q4H PRN Pain MILD(1-3)/Fever >100.5/BASS Amlodipine Besylate 10 mg 03/01/22 10:00 03/02/22 09:11 Amlodipine 10 Mg Tab PO 10 mg DAILY CANDY Administration Aspirin 325 mg 03/01/22 10:00 03/02/22 09:11 Aspirin 325 Mg Tab PO 325 mg QDAY CANDY Administration Atorvastatin Calcium 40 mg 02/25/22 22:00 03/01/22 22:16 Atorvastatin 40 Mg Tab PO 40 mg QHS CANDY Administration Calcitriol 0.25 mcg 02/24/22 10:00 03/02/22 09:11 Calcitriol 0.25 Mcg Cap PO 0.25 mcg QDAY CANDY Administration Dextrose 50 ml 02/25/22 07:39 Dextrose 50% In Water (25gm) 50 Ml Syringe IV Q30MIN PRN Hypoglycemia Protocol Escitalopram Oxalate 5 mg 02/28/22 11:00 03/02/22 09:11 Escitalopram 10 Mg Tab PO 5 mg QDAY CANDY Administration Hydrochlorothiazide 25 mg 03/01/22 10:00 03/02/22 09:11 Hydrochlorothiazide 25 Mg Tab PO 25 mg QDAY CANDY Administration Sodium Chloride 500 mls @ 0 mls/hr 03/02/22 09:58 Nacl 0.9% 500 Ml IV 03/03/22 09:57 ONCE NR As Directed Insulin Human Isoph/Insulin Regular 25 unit 02/26/22 08:00 03/01/22 16:12 Insulin Nph/Regular 70/30 Inj SUB-Q 25 unit BIDDIAB CANDY Administration Insulin Human Regular 0 units 02/25/22 08:00 03/02/22 08:08 Insulin Regular, Human 100 Units/1 Ml SUB-Q Not Given ACHS CANDY Protocol Levofloxacin 750 mg 03/01/22 10:00 03/02/22 09:12 Levofloxacin 750 Mg Tab PO 03/03/22 23:59 750 mg Q24HR CANDY Administration Protocol Losartan Potassium 50 mg 03/01/22 10:00 03/02/22 09:11 Losartan 50 Mg Tab PO 50 mg QDAY CANDY Administration Magnesium Hydroxide 30 ml 02/23/22 05:21 Magnesium Hydroxide (Mom) Oral Liqd Udc PO Q4H PRN Constipation Metoprolol Tartrate 25 mg 03/01/22 10:00 03/02/22 09:11 Metoprolol Tartrate 25 Mg Tab PO 25 mg BID CANDY Administration Morphine Sulfate 2 mg 02/23/22 05:21 Morphine 2 Mg/1 Ml Inj IV Q4H PRN Pain, Moderate (4-6) Morphine Sulfate 4 mg 02/23/22 05:21 02/27/22 10:18 Morphine 4 Mg/1 Ml Inj IV 4 mg Q4H PRN Administration Pain , Severe (7-10) Ondansetron HCl 4 mg 02/23/22 05:21 03/01/22 16:13 Ondansetron 4 Mg/2 Ml Inj IV 4 mg Q8H PRN Administration Nausea And Vomiting Pantoprazole Sodium 40 mg 02/25/22 16:30 03/02/22 08:21 Pantoprazole 40 Mg Tab PO 40 mg BIDAC CANDY Administration Sodium Chloride 10 ml 02/23/22 10:00 03/02/22 09:12 Sodium Chloride 0.9% 10 Ml Flush Syringe IV 10 ml BID CANDY Administration Sodium Chloride 10 ml 02/23/22 05:21 Sodium Chloride 0.9% 10 Ml Flush Syringe IV PRN PRN LINE FLUSH Trazodone HCl 50 mg 02/28/22 22:00 03/01/22 22:16 Trazodone 50 Mg Tab PO 50 mg QHS CANDY Administration
--- NOTE | 2022-03-02 14:02 | Progress Note ---
Assessment and Plan Assessment and plan: #E. coli bacteremiaresolved 1 out of 2 bottles positive for E. coli bacteremia. Rocephin 2 g daily (antibiotic course of 7 days; completes on 03/02/2022) #Acute ischemic CVA #Bilateral lower extremity weakness CT head noncontrast unremarkable. MRI brain without contrast (02/25/2022) revealing "multiple small foci of acute infarction with the largest lesion in the body of the corpus callosum". TTE (02/25/2022) revealing EF 60-65% with normal-sized LV, normal LV systolic function, moderate concentric LVH, unremarkable for PFO, borderline pulmonary hypertension, and RVSP is 25-30 mmHg. Hemoglobin A1c 14.3. Lipid profile: Triglycerides 270, cholesterol 170, LDL 27, HDL 15. Consulted PT/OT; recommending acute rehab. Pending authorization. Neurology consulted; appreciate recs. Patient refusing further MRI studies to further evaluate bilateral lower extremity weakness. #Microcytic anemia Hemoglobin 7.7--> 6.9--.8.0--> 8.5-->7.2-->6.8 (rechecked and without transfusion). Transfusing 1 unit packed RBC. Gastroenterology consulted; appreciate recs EGD and colonoscopy (02/24/2022) revealing hiatal hernia, mild gastritis (biopsies taken), poor colonoscopy prep, and internal hemorrhoids. Patient will follow-up with gastroenterology in the outpatient setting to undergo a PillCam to evaluate possible cause for lower GI bleed. Continue p.o. pantoprazole 40 mg daily #BERRY secondary to vasomotor nephropathyresolved Creatinine 3.3--> 3.6--> 2.9--> 2.0-->1.5-->1.2 Renally dose meds and avoid nephrotoxic drugs. Nephrology consulted; appreciate recs Continue IV fluid resuscitation. #Hyponatremiaresolved Sodium 129--> 137 Nephrology consulted; appreciate recs. Continue IV fluid resuscitation and encourage p.o. intake. #Hypokalemiaresolved Potassium 2.5--> 3.5 Replete. Monitor with repeat BMP. #Insulin dependent type II diabetes mellitus - hemoglobin A1c: 14.3 - home regimen: Metformin 500 mg twice daily, lispro 50 units every morning and 55 units every afternoon, glimepiride 2 mg twice daily - current regimen: NPH 70/30 25 units twice daily + moderate SSI - blood glucose goal 140-180 while inpatient - continue to monitor #Hypertension #Hyperlipidemia - home medications: Hydrochlorothiazide 25 mg daily, amlodipine 10 mg daily, losartan 50 mg daily, simvastatin 20 mg - current medications: Amlodipine 10 mg daily, losartan 50 mg daily, hydrochlorothiazide 25 mg daily, atorvastatin 40 mg daily, metoprolol tartrate 25 mg twice daily - SBP goal <160 and DBP goal <90 while inpatient - continue to monitor #Depression Dietary consulted; appreciate recs Continue Lexapro 5 mg daily and trazodone 50 mg nightly #Advanced care planning -Disease education conducted, care plan discussed, diagnoses discussed, prognosis discussed, and patient acknowledges understanding with care plan -Time: +30 min #Discharge planning - Patient is pending acute rehab authorization and placement - Case management has been made aware. Disposition Plan: Pending acute rehab authorization Total Time Spent with Patient (Minutes): 30 minutes History Interval history: No acute events overnight. Hospitalist Physical - Constitutional Vitals: Temp Pulse Resp BP Pulse Ox 97.7 F 91 H 20 134/56 96 03/02/22 08:14 03/02/22 09:11 03/02/22 08:14 03/02/22 09:11 03/02/22 08:14 General appearance: Present: no acute distress, well-nourished, obese, other (Dry Oral Mucosa, Moderate Pallor) - EENT Eyes: Present: PERRL, EOM intact ENT: hearing intact, clear oral mucosa, dentition normal - Neck Neck: Present: supple, normal ROM - Respiratory Respiratory effort: normal Respiratory: bilateral: CTA - Cardiovascular Rhythm: regular Heart Sounds: Present: S1 & S2 - Extremities Extremities: no ischemia, pulses intact, pulses symmetrical, No edema, normal temperature, normal color Peripheral Pulses: within normal limits - Abdominal General gastrointestinal: soft, non-tender, non-distended, normal bowel sounds - Integumentary Integumentary: Present: clear, warm, dry - Psychiatric Psychiatric: depressed, other (Limited insight regarding overall medical conditions) - Neurologic Neurologic: CNII-XII intact - Allied Health Allied health notes reviewed: nursing Results - Labs CBC & Chem 7: 03/01/22 06:32 03/01/22 06:32 Labs: Laboratory Last Values WBC 13.0 K/mm3 (4.5-11.0) H 03/01/22 06:32 RBC 2.67 M/mm3 (3.65-5.03) L 03/01/22 06:32 Hgb 6.7 gm/dl (10.1-14.3) L 03/01/22 06:32 Hct 20.6 % (30.3-42.9) L 03/01/22 06:32 MCV 77 fl (79-97) L 03/01/22 06:32 MCH 25 pg (28-32) L 03/01/22 06:32 MCHC 33 % (30-34) 03/01/22 06:32 RDW 16.1 % (13.2-15.2) H 03/01/22 06:32 Plt Count 255 K/mm3 (140-440) 03/01/22 06:32 Lymph % (Auto) [employer]ver Seals 02/26/22 05:54 [place] % (Auto) [employer] Seals 02/26/22 05:54 Eos % (Auto) [employer] Seals 02/26/22 05:54 Baso % (Auto) [employer] Seals 02/26/22 05:54 Lymph # (Auto) [employer] Seals 02/26/22 05:54 [place] # (Auto) [employer] Seals 02/26/22 05:54 Eos # (Auto) Eng[employer] Seals 02/26/22 05:54 Baso # (Auto) Eng[employer] Seals 02/26/22 05:54 Add Manual Diff Complete 03/01/22 06:32 Total Counted 100 03/01/22 06:32 Seg Neutrophils % Eng[employer]ver Seals 02/26/22 05:54 Seg Neuts % (Manual) 90.0 % (40.0-70.0) H 03/01/22 06:32 Band Neutrophils % 1.0 % 03/01/22 06:32 Lymphocytes % (Manual) 4.0 % (13.4-35.0) L 03/01/22 06:32 Reactive Lymphs % (Man) 0 % 03/01/22 06:32 Monocytes % (Manual) 0 % (0.0-7.3) 03/01/22 06:32 Eosinophils % (Manual) 2.0 % (0.0-4.3) 03/01/22 06:32 Basophils % (Manual) 0 % (0.0-1.8) 03/01/22 06:32 Metamyelocytes % 1.0 % 03/01/22 06:32 Myelocytes % 2.0 % 03/01/22 06:32 Promyelocytes % 0 % 03/01/22 06:32 Blast Cells % 0 % 03/01/22 06:32 Nucleated RBC % Not Reportable 03/01/22 06:32 Seg Neutrophils # Engraver Seals 02/26/22 05:54 Seg Neutrophils # Man 11.7 K/mm3 (1.8-7.7) H 03/01/22 06:32 Band Neutrophils # 0.1 K/mm3 03/01/22 06:32 Lymphocytes # (Manual) 0.5 K/mm3 (1.2-5.4) L 03/01/22 06:32 Abs React Lymphs (Man) 0.0 K/mm3 03/01/22 06:32 Monocytes # (Manual) 0.0 K/mm3 (0.0-0.8) 03/01/22 06:32 Eosinophils # (Manual) 0.3 K/mm3 (0.0-0.4) 03/01/22 06:32 Basophils # (Manual) 0.0 K/mm3 (0.0-0.1) 03/01/22 06:32 Metamyelocytes # 0.1 K/mm3 03/01/22 06:32 Myelocytes # 0.3 K/mm3 03/01/22 06:32 Promyelocytes # 0.0 K/mm3 03/01/22 06:32 Blast Cells # 0.0 K/mm3 03/01/22 06:32 WBC Morphology Not Reportable 03/01/22 06:32 Hypersegmented Neuts Not Reportable 03/01/22 06:32 Hyposegmented Neuts Not Reportable 03/01/22 06:32 Hypogranular Neuts Not Reportable 03/01/22 06:32 Smudge Cells Not Reportable 03/01/22 06:32 Toxic Granulation Not Reportable 03/01/22 06:32 Toxic Vacuolation Not Reportable 03/01/22 06:32 Dohle Bodies Not Reportable 03/01/22 06:32 Pelger-Huet Anomaly Not Reportable 03/01/22 06:32 Fiona Rods Not Reportable 03/01/22 06:32 Platelet Estimate Consistent w auto 03/01/22 06:32 Clumped Platelets Not Reportable 03/01/22 06:32 Plt Clumps, EDTA Not Reportable 03/01/22 06:32 Large Platelets Not Reportable 03/01/22 06:32 Giant Platelets Not Reportable 03/01/22 06:32 Platelet Satelliting Not Reportable 03/01/22 06:32 Plt Morphology Comment Not Reportable 03/01/22 06:32 RBC Morphology Not Reportable 03/01/22 06:32 Dimorphic RBCs Not Reportable 03/01/22 06:32 Polychromasia 1+ 03/01/22 06:32 Hypochromasia 1+ 03/01/22 06:32 Poikilocytosis Not Reportable 03/01/22 06:32 Anisocytosis Not Reportable 03/01/22 06:32 Microcytosis Not Reportable 03/01/22 06:32 Macrocytosis Not Reportable 03/01/22 06:32 Spherocytes Not Reportable 03/01/22 06:32 Pappenheimer Bodies Not Reportable 03/01/22 06:32 Sickle Cells Not Reportable 03/01/22 06:32 Target Cells Not Reportable 03/01/22 06:32 Tear Drop Cells Not Reportable 03/01/22 06:32 Ovalocytes Not Reportable 03/01/22 06:32 Helmet Cells Not Reportable 03/01/22 06:32 [place] Bodies Not Reportable 03/01/22 06:32 [place] Rings Not Reportable 03/01/22 06:32 Jose Antonio Cells Not Reportable 03/01/22 06:32 Bite Cells Not Reportable 03/01/22 06:32 Crenated Cell Not Reportable 03/01/22 06:32 Elliptocytes Not Reportable 03/01/22 06:32 Acanthocytes (Spur) Not Reportable 03/01/22 06:32 Rouleaux Not Reportable 03/01/22 06:32 Hemoglobin C Crystals Not Reportable 03/01/22 06:32 Schistocytes Not Reportable 03/01/22 06:32 Malaria parasites Not Reportable 03/01/22 06:32 Son Bodies Not Reportable 03/01/22 06:32 Hem Pathologist Commnt No 03/01/22 06:32 Sodium 133 mmol/L (137-145) L 03/01/22 06:32 Potassium 3.7 mmol/L (3.6-5.0) 03/01/22 06:32 Chloride 98.6 mmol/L (98-107) 03/01/22 06:32 Carbon Dioxide 23 mmol/L (22-30) 03/01/22 06:32 Anion Gap 15 mmol/L 03/01/22 06:32 BUN 19 mg/dL (7-17) H 03/01/22 06:32 Creatinine 1.2 mg/dL (0.6-1.2) 03/01/22 06:32 Estimated GFR 58 ml/min 03/01/22 06:32 BUN/Creatinine Ratio 16 % 03/01/22 06:32 Glucose 92 mg/dL (65-100) 03/01/22 06:32 POC Glucose 124 mg/dL (70-105) H 03/01/22 22:00 Hemoglobin A1c 14.3 % (4-6) H 02/25/22 08:39 Ketones Quantitative Negative (Negative) 02/23/22 03:40 Lactic Acid 1.80 mmol/L (0.7-2.0) 02/24/22 07:57 Calcium 7.9 mg/dL (8.4-10.2) L 03/01/22 06:32 Phosphorus 3.30 mg/dL (2.5-4.5) 02/24/22 06:55 Magnesium 2.20 mg/dL (1.7-2.3) 02/23/22 03:40 Total Bilirubin 1.10 mg/dL (0.1-1.2) 02/23/22 03:40 AST 278 units/L (5-40) H 02/23/22 03:40 ALT 144 units/L (7-56) H 02/23/22 03:40 Alkaline Phosphatase 131 units/L (35-129) H 02/23/22 03:40 Serum Total Protein 5.7 g/dL (6.1-8.1) L 02/24/22 06:55 Total Protein 6.1 g/dL (6.3-8.2) L 02/23/22 03:40 Albumin 2.5 g/dL (3.8-4.8) L 02/24/22 06:55 Albumin/Globulin Ratio 1.1 % 02/23/22 03:40 Qpioc-8-Duabusmpg 0.8 g/dL (0.2-0.3) H 02/24/22 06:55 Kdggl-1-Lawyetvth 1.0 g/dL (0.5-0.9) H 02/24/22 06:55 Beta Globulins 0.3 g/dL (0.2-0.5) 02/24/22 06:55 Gamma Globulins 0.7 g/dL (0.8-1.7) L 02/24/22 06:55 Abnorm Protein Band 1 see below 02/24/22 06:55 PEP Interpretation see below H 02/24/22 06:55 Triglycerides 270 mg/dL (2-149) H 02/25/22 04:58 Cholesterol 170 mg/dL (50-199) 02/25/22 04:58 LDL Cholesterol Direct 27 mg/dL (50-130) L 02/25/22 04:58 HDL Cholesterol 15 mg/dL (40-59) L 02/25/22 04:58 Cholesterol/HDL Ratio 11.33 % 02/25/22 04:58 Vitamin B12 1636 pg/mL (211-911) H 02/27/22 09:54 TSH 1.440 mlU/mL (0.270-4.200) 02/27/22 09:54 PTH Intact 304.1 pg/mL (15-65) H 02/24/22 06:55 Urine Color Yellow (Yellow) 02/23/22 04:24 Urine Turbidity Cloudy (Clear) 02/23/22 04:24 Specific [place] (Man) 1.020 (1.003-1.030) 02/23/22 04:24 Ur Protein (Man) 2+ mg/dL (Negative) 02/23/22 04:24 Urine Ketones Negative mg/dL (Negative) 02/23/22 04:24 Ur Ketones (Man) Negative (Negative) 02/23/22 04:24 Ur Nitrite (Man) Negative (Negative) 02/23/22 04:24 Ur Reducing Substances Not Reportable 02/23/22 04:24 Urine Bilirubin (Man) Negative (Negative) 02/23/22 04:24 Urine Ictotest Not Reportable 02/23/22 04:24 Leukocyte Esterase (Man) Trace (Negative) 02/23/22 04:24 Urine WBC (Auto) < 1.0 /HPF (0.0-6.0) 02/23/22 04:24 Urine RBC (Auto) < 1.0 /HPF (0.0-6.0) 02/23/22 04:24 Urine Bacteria (Auto) 2+ /HPF (Negative) 02/23/22 04:24 Urine RBC (Manual) 3+ (Negative) 02/23/22 04:24 Nasal Screen MRSA (PCR) Negative (Negative) 02/25/22 Unknown Plasma/Serum Alcohol < 0.01 % (0-0.07) 02/23/22 05:01 DARINEL Screen Negative (Negative) 02/24/22 06:55 Proteinase 3 (PR3) Ab <1.0 AI (<1.0) 02/24/22 06:55 Myeloperoxidase Ab <1.0 AI (<1.0) 02/24/22 06:55 Complement C3 116 mg/dL (83-193) 02/24/22 06:55 Complement C4 17 mg/dL (15-57) 02/24/22 06:55 Syphilis IgG/IgM Ab Nonreactive (NonReactive) 02/27/22 09:54 Coronavirus (PCR) Negative (Negative) 02/27/22 Unknown Hepatitis A IgM Ab Non-reactive (NonReactive) 02/23/22 15:51 Hep Bs Antigen Non-reactive (Negative) 02/23/22 15:51 Hep B Core IgM Ab Non-reactive (NonReactive) 02/23/22 15:51 Hepatitis C Antibody Non-reactive (NonReactive) 02/23/22 15:51 Blood Type B POSITIVE 02/25/22 04:58 Antibody Screen Negative 02/25/22 04:58 Crossmatch See Detail 02/25/22 04:58 Loya/IV: Voiding Method External Female Catheter Active Medications - Current Medications Current Medications: Generic Name Dose Route Start Last Admin Trade Name Freq PRN Reason Stop Dose Admin Acetaminophen 650 mg 02/23/22 05:21 Acetaminophen 325 Mg Tab PO Q4H PRN Pain MILD(1-3)/Fever >100.5/BASS Amlodipine Besylate 10 mg 03/01/22 10:00 03/02/22 09:11 Amlodipine 10 Mg Tab PO 10 mg DAILY CANDY Administration Aspirin 325 mg 03/01/22 10:00 03/02/22 09:11 Aspirin 325 Mg Tab PO 325 mg QDAY CANDY Administration Atorvastatin Calcium 40 mg 09/21/22 22:00 03/01/22 22:16 Atorvastatin 40 Mg Tab PO 40 mg QHS CANDY Administration Calcitriol 0.25 mcg 02/24/22 10:00 03/02/22 09:11 Calcitriol 0.25 Mcg Cap PO 0.25 mcg QDAY CANDY Administration Dextrose 50 ml 02/25/22 07:39 Dextrose 50% In Water (25gm) 50 Ml Syringe IV Q30MIN PRN Hypoglycemia Protocol Escitalopram Oxalate 5 mg 02/28/22 11:00 03/02/22 09:11 Escitalopram 10 Mg Tab PO 5 mg QDAY CANDY Administration Hydrochlorothiazide 25 mg 03/01/22 10:00 03/02/22 09:11 Hydrochlorothiazide 25 Mg Tab PO 25 mg QDAY CANDY Administration Sodium Chloride 500 mls @ 0 mls/hr 03/02/22 09:58 Nacl 0.9% 500 Ml IV 03/03/22 09:57 ONCE NR As Directed Insulin Human Isoph/Insulin Regular 25 unit 02/26/22 08:00 03/02/22 08:00 Insulin Nph/Regular 70/30 Inj SUB-Q Not Given BIDDIAB CANDY Insulin Human Regular 0 units 02/25/22 08:00 03/02/22 12:21 Insulin Regular, Human 100 Units/1 Ml SUB-Q 2 units ACHS CANDY Administration Protocol Levofloxacin 750 mg 03/01/22 10:00 03/02/22 09:12 Levofloxacin 750 Mg Tab PO 03/03/22 23:59 750 mg Q24HR CANDY Administration Protocol Losartan Potassium 50 mg 03/01/22 10:00 03/02/22 09:11 Losartan 50 Mg Tab PO 50 mg QDAY CANDY Administration Magnesium Hydroxide 30 ml 02/23/22 05:21 Magnesium Hydroxide (Mom) Oral Liqd Udc PO Q4H PRN Constipation Metoprolol Tartrate 25 mg 03/01/22 10:00 03/02/22 09:11 Metoprolol Tartrate 25 Mg Tab PO 25 mg BID CANDY Administration Morphine Sulfate 2 mg 02/23/22 05:21 Morphine 2 Mg/1 Ml Inj IV Q4H PRN Pain, Moderate (4-6) Morphine Sulfate 4 mg 02/23/22 05:21 02/27/22 10:18 Morphine 4 Mg/1 Ml Inj IV 4 mg Q4H PRN Administration Pain , Severe (7-10) Ondansetron HCl 4 mg 02/23/22 05:21 03/01/22 16:13 Ondansetron 4 Mg/2 Ml Inj IV 4 mg Q8H PRN Administration Nausea And Vomiting Pantoprazole Sodium 40 mg 02/25/22 16:30 03/02/22 08:21 Pantoprazole 40 Mg Tab PO 40 mg BIDAC CANDY Administration Sodium Chloride 10 ml 02/23/22 10:00 03/02/22 09:12 Sodium Chloride 0.9% 10 Ml Flush Syringe IV 10 ml BID CANDY Administration Sodium Chloride 10 ml 02/23/22 05:21 Sodium Chloride 0.9% 10 Ml Flush Syringe IV PRN PRN LINE FLUSH Trazodone HCl 50 mg 02/28/22 22:00 03/01/22 22:16 Trazodone 50 Mg Tab PO 50 mg QHS CANDY Administration Nutrition/Malnutrition Assess - Dietary Evaluation Nutrition/Malnutrition Findings: Nutrition Notes Start: 02/23/22 16: 03 Freq: Status: Active Protocol: Document 02/23/22 16:03 EJ (Rec: 02/23/22 16:37 EJ [id number]) Nutrition Notes Need for Assessment generated from: MD Order,transportation program director,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 Current Diet Clear Liquids Diet (since L ), NPO (from 02/24 00:01). Labs/Tests 02/23: Na 127, Cl 90.0, BUN 73 / Crea 3.3, Glu 204, Ca 8.2. Pertinent Medications 02/23: Humalog 3U, others nutritionally unremarkable. Height 5 ft 2 in Weight 88.18 kg [place] Body Weight (kg) 50.00 BMI 35.5 Intake Prior to Admission Good Weight change and time frame Pt denies having loss body weight [employer]. Weight Status Obese Subjective/Other Information RD consult for nutrition education, difficulty chewing, poor oral intake, and dietary supplementation assessments. Pt's PO intake of meals has been Fairly tolerated, according to ADL notes. Pt will be on NPO from midnight due to a procedure planned for 02/24: EGD/ Colonoscopy, according to Progress notes. Pt is on Room Air, O2 saturation @ 97%, according to Physical Assessment History notes. Pt complains of Hematochezia, Nausea, and Abdominal Pain for the last 30 days, according to History & Physical notes. There are no reports of any difficulty chewing documented on the chart at the time, will disregard this consult. I will not prescribe dietary supplementation at the time since Pt will be NPO and GI conditions are uncertain at the time, will assess at F/U. Pt still in critical condition , not a candidate for Nutrition Education at the time, will assess feasibility on F/U. Percent of energy/protein needs met: Prescribed Clear Liquids Diet provides for energy/protein needs (590 Kcal/16 g) during LOS. Pt will be on NPO after midnight. Burn Absent Trauma Absent GI Symptoms Nausea,Constipation,Other Food Allergy No Skin Integrity/Comment Assessment WNL. Current % PO Good (75-100%) Minimum of two criteria No Fluid Accumulation N/A Reduced Desk Maker Strength N/A (non-severe) Protein-Calorie Malnutrition N\\A #1 Nutrition Diagnosis Overweight/obesity Etiology Possibly secondary to Lifestyle. As Evidenced by Signs and Symptoms BMI: 35.5 Kg/m2. Is patient on ventilator? No Is Patient Ambulatory and/or Out of Bed No REE-([facility]-confined to bed) [phone] Kcal/Kg value to use for calculation 14 Approximate Energy Requirements Using 1235 kcal/Kg Calculation Used for Recommendations Kcal/kg Additional Notes Protein: 0.8-1.2 g/Kg AdjBW; 55-83 g/day. Fluids: 1 ml/Kcal, or as per MD. Nutrition Intervention Change Diet Order: When pertinent resume Clear Liquids Diet as tolerated. Goal #1 Adjust the dietary intervention to better serve Pt's energy/protein needs and clinical conditions during LOS . Follow-Up By: 03/02/22 Additional Comments Nutrition education will be provided at F/U, if feasible. Continue monitoring food tolerance, %PO intake of meals , and BM.
[2022-03-02] MEDS: traZODone 50 MG TAB PO SCH (23:08)
[2022-03-03] MEDS: PANTOPRAZOLE 40 MG TAB PO SCH (08:46)
[2022-03-03] MEDS: INSULIN REGULAR, HUMAN 100 UNITS/1 ML SUB-Q SCH ×2 (08:46→12:31)
[2022-03-03] MEDS: INSULIN NPH/REGULAR 70/30 INJ SUB-Q SCH (08:47)
--- NOTE | 2022-03-03 11:20 | Discharge Summary ---
Providers - Providers Date of Admission: 02/23/22 05:21 Date of discharge: 03/03/22 Attending physician: KRISTIN SIEGEL MD 02/23/22 05:21 Consult to Dietitian/Nutrition [CONS] Routine Physician Instructions: Reason For Exam: Reason for Consult: Diet education Consult to Physician [CONS] Routine Comment: Consulting Provider: NICHOL RODAS Physician Instructions: Reason For Exam: BERRY Consult to Physician [CONS] Routine Comment: Consulting Provider: NIKA MATHEW Physician Instructions: Reason For Exam: Elevated LFT 02/23/22 05:42 Consult to Mental Health [CONS] Routine Reason For Exam: Depression, Mental status changes 02/23/22 06:29 Consult to Physician [CONS] Routine Comment: Consulting Provider: VELIA HOUSTON Physician Instructions: Reason For Exam: H/O Uterine fibroid, Anemia 02/23/22 11:29 Consult to Dietitian/Nutrition [CONS] Routine Physician Instructions: Reason For Exam: decreased po intake Reason for Consult: Poor oral intake 02/25/22 12:06 Occupational Therapy Evaluate and Treat [CONS] Routine Comment: Reason For Exam: Concern for CVA Physical Therapy Evaluation and Treat [CONS] Routine Comment: Reason For Exam: Concern for CVA 02/25/22 12:08 Speech Therapy Evaluation and Treat [CONS] Routine Reason For Exam: Evaluate for possible CVA 02/25/22 12:13 Consult to Physician [CONS] Routine Comment: Consulting Provider: ZEESHAN RIVER Physician Instructions: Reason For Exam: bilateral LE weakness + cannot ambulate 02/25/22 12:14 Consult to Physician [CONS] Routine Comment: Consulting Provider: LOUIS FERRARI Physician Instructions: Reason For Exam: Bilateral LE weakness + cannot ambulate Primary care physician: RONIT SEVERINO PAC-C Hospitalization Reason for admission: Concern for GI bleed, BERRY, hyponatremia, hypokalemia Condition: Stable Pertinent studies: Reviewed. Procedures: Upper endoscopy and colonoscopy Hospital course: Patient is a 51-year-old female past medical history of depression, anxiety, insulin-dependent type 2 diabetes mellitus with hyperglycemia, hypertension, and morbid obesity who presented to the ED with unspecified complaints that included fatigue but denied any obvious discomfort. In the ED, patient was found to be hemodynamically stable with an elevated blood pressure of 165/88 and tachycardic at 110. Patient's labs are remarkable for sodium 127, creatinine 3.3, WBC 12.1, and hemoglobin 7.7. Gastroenterology and nephrology were consulted for further management. The patient's spouse endorsed her starting amitriptyline, and psychiatry was consulted due to a significantly flat affect. The patient underwent upper endoscopy and colonoscopy on 02/24/2022 that were relatively unremarkable aside from a hiatal hernia, mild gastritis (biopsies were taken for further evaluation), and internal hemorrhoids. With further investigation, the patient endorsed having an inability to ambulate for approximately 7 days; however, this was not endorsed to the ED physician upon arrival. Patient underwent CT head noncontrast (unremarkable), and MRI brain without contrast (02/25/2022) revealing "multiple small foci of acute infarction with the largest lesion in the body of the corpus callosum". TTE revealed EF 60 to 65% with relatively normal function and size and unremarkable for PFO. Patient's hemoglobin A1c was found to be 14.3 with elevated lipid profile. Physical therapy and Occupational Therapy were consulted, and she was recommended acute rehab. Surekha rushing has since initiated new medication (Lexapro 5 mg daily and trazodone 50 mg nightly) for her severe depression. Patient's BERRY has since resolved. Patient was incidentally found to have E. coli bacteremia in 1 out of 2 bottles. The patient has since completed a 7-day course of antibiotics. Patient is medically cleared for discharge. Disposition: [facility] Final Discharge Diagnosis (Prints w/discharge instructions): Acute ischemic CVA, bilateral lower extremity weakness, E. coli bacteremia, microcytic anemia, BERRY secondary to vasomotor nephropathy, hyponatremia, hypokalemia, insulin-dependent type 2 diabetes mellitus with hyperglycemia, hypertension, hyperlipidemia, depression, morbid obesity Time spent for discharge: 45 min Core Measure Documentation - Palliative Care Palliative Care/ Comfort Measures: Not Applicable - Core Measures Any of the following diagnoses?: stroke - Stroke Discharge Requirements Statin for LDL = or >70 mg/dl on DC: Yes Anticoag for atrial fib/atrial flutter: Not Applicable Antithrombotic for ischemic stroke: Yes Exam - Constitutional Vitals: Temp Pulse Resp BP Pulse Ox 97.3 F L 80 16 123/69 97 03/03/22 03:43 03/03/22 03:21 03/03/22 03:43 03/03/22 03:21 03/03/22 03:21 General appearance: Present: no acute distress, well-nourished, obese - EENT Eyes: Present: PERRL, EOM intact ENT: hearing intact, clear oral mucosa, dentition normal - Neck Neck: Present: supple, normal ROM - Respiratory Respiratory effort: normal Respiratory: bilateral: CTA - Cardiovascular Rhythm: regular Heart Sounds: Present: S1 & S2 - Extremities Extremities: no ischemia, pulses intact, pulses symmetrical, No edema, normal temperature, normal color Peripheral Pulses: within normal limits - Abdominal General gastrointestinal: Present: soft, non-tender, non-distended, normal bowel sounds Female genitourinary: Present: deferred - Rectal Rectal Exam: deferred - Integumentary Integumentary: Present: clear, warm, dry - Musculoskeletal Musculoskeletal: generalized weakness (Bilateral lower extremities) - Psychiatric Psychiatric: appropriate mood/affect, intact judgment & insight, memory intact, cooperative - Neurologic Neurologic: CNII-XII intact - Allied Health Allied health notes reviewed: nursing Plan Activity: advance as tolerated Diet: low salt, diabetic Additional Instructions: Patient is a 51-year-old female past medical history of depression, anxiety, insulin-dependent type 2 diabetes mellitus with hyperglycemia, hypertension, and morbid obesity who presented to the ED with unspecified complaints that included fatigue but denied any obvious discomfort. In the ED, patient was found to be hemodynamically stable with an elevated blood pressure of 165/88 and tachycardic at 110. Patient's labs are remarkable for sodium 127, creatinine 3.3, WBC 12.1, and hemoglobin 7.7. Gastroenterology and nephrology were consulted for further management. The patient's spouse endorsed her starting amitriptyline, and psychiatry was consulted due to a significantly flat affect. The patient underwent upper endoscopy and colonoscopy on 02/24/2022 that were relatively unremarkable aside from a hiatal hernia, mild gastritis (biopsies were taken for further evaluation), and internal hemorrhoids. With further investigation, the patient endorsed having an inability to ambulate for approximately 7 days; however, this was not endorsed to the ED physician upon arrival. Patient underwent CT head noncontrast (unremarkable), and MRI brain without contrast (02/25/2022) revealing "multiple small foci of acute infarction with the largest lesion in the body of the corpus callosum". TTE revealed EF 60 to 65% with relatively normal function and size and unremarkable for PFO. Patient's hemoglobin A1c was found to be 14.3 with elevated lipid profile. Physical therapy and Occupational Therapy were consulted, and she was recommended acute rehab. Surekha rushing has since initiated new medication (Lexapro 5 mg daily and trazodone 50 mg nightly) for her severe depression. Patient's BERRY has since resolved. Patient was incidentally found to have E. coli bacteremia in 1 out of 2 bottles. The patient has since completed a 7-day course of antibiotics. Patient is medically cleared for discharge. Care Plan Goals: Patient is medically clear for discharge. Assessment: Patient is a 51-year-old female past medical history of depression, anxiety, insulin-dependent type 2 diabetes mellitus with hyperglycemia, hypertension, and morbid obesity who presented to the ED with unspecified complaints that included fatigue but denied any obvious discomfort. In the ED, patient was found to be hemodynamically stable with an elevated blood pressure of 165/88 and tachycardic at 110. Patient's labs are remarkable for sodium 127, creatinine 3.3, WBC 12.1, and hemoglobin 7.7. Gastroenterology and nephrology were consulted for further management. The patient's spouse endorsed her starting amitriptyline, and psychiatry was consulted due to a significantly flat affect. The patient underwent upper endoscopy and colonoscopy on 02/24/2022 that were relatively unremarkable aside from a hiatal hernia, mild gastritis (biopsies were taken for further evaluation), and internal hemorrhoids. With further investigation, the patient endorsed having an inability to ambulate for approximately 7 days; however, this was not endorsed to the ED physician upon arrival. Patient underwent CT head noncontrast (unremarkable), and MRI brain without contrast (02/25/2022) revealing "multiple small foci of acute infarction with the largest lesion in the body of the corpus callosum". TTE revealed EF 60 to 65% with relatively normal function and size and unremarkable for PFO. Patient's hemoglobin A1c was found to be 14.3 with elevated lipid profile. Physical therapy and Occupational Therapy were consulted, and she was recommended acute rehab. Surekha rushing has since initiated new medication (Lexapro 5 mg daily and trazodone 50 mg nightly) for her severe depression. Patient's BERRY has since resolved. Patient was incidentally found to have E. coli bacteremia in 1 out of 2 bottles. The patient has since completed a 7-day course of antibiotics. Patient is medically cleared for discharge. Follow up with: RONIT SEVERINO PAC-C [Primary Care Provider] - 7 Days LOUIS FERRARI MD [Staff Physician] - 14 Days RUSSELL RODRÍGUEZ MD [Staff Physician] - 14 Days Prescriptions: AtorvaSTATin [Lipitor] 40 mg PO QHS #30 tablet Aspirin 325 mg PO QDAY #30 tablet Escitalopram Oxalate [Lexapro] 5 mg PO QDAY #30 Metoprolol [Lopressor TAB] 25 mg PO BID #60 tablet Pantoprazole [Protonix TAB] 40 mg PO DAILY #30 tablet calcitrioL [Rocaltrol] 0.25 mcg PO QDAY #30 capsule Trazodone HCl 50 mg PO DAILY #30
[2022-03-03] MEDS: ASPIRIN 325 MG TAB PO SCH (12:15)
[2022-03-03] MEDS: hydroCHLOROthiazide 25 MG TAB PO SCH (12:16)
[2022-03-03] MEDS: amLODIPine 10 MG TAB PO SCH (12:16)
[2022-03-03] MEDS: CALCITRIOL 0.25 MCG CAP PO SCH (12:17)
[2022-03-03] MEDS: ESCITALOPRAM 10 MG TAB PO SCH (12:17)
[2022-03-03] MEDS: LOSARTAN 50 MG TAB PO SCH (12:18)
[2022-03-03] MEDS: METOPROLOL TARTRATE 25 MG TAB PO SCH (12:19)
[2022-03-03 12:20] VITALS: BP 108/53
[2022-03-03] MEDS: levoFLOXacin 750 MG TAB PO SCH (12:21)
[2022-03-03 12:55] LABS: Hematocrit 25.9 % (30.3-42.9); Hemoglobin 8.6 gm/dl (10.1-14.3)
== END 2022-03-03 14:03 | DRG 64 ==
LOC: ED 19:00 → 3A 02-23 05:21
PROVIDERS: ADMIT Internal Medicine Geriatric Medicine; ATTEND Student in an Organized Health Care Education/Training Program
PROC: 0DJD8ZZ Inspection of Lower Intestinal Tract, Via Natural or Artificial Opening Endoscopic (ICD-10-PCS; principal; 2022-02-24)
PROC: 0DB68ZX Excision of Stomach, Via Natural or Artificial Opening Endoscopic, Diagnostic (ICD-10-PCS; 2022-02-24)
PROC: 30233N1 Transfusion of Nonautologous Red Blood Cells into Peripheral Vein, Percutaneous Approach (ICD-10-PCS; 2022-03-02)
DX: I63.9 Cerebral infarction, unspecified (principal); N17.0 Acute kidney failure with tubular necrosis; E87.1 Hypo-osmolality and hyponatremia; N39.0 Urinary tract infection, site not specified; R78.81 Bacteremia; Z20.822 Contact with and (suspected) exposure to COVID-19; E11.65 Type 2 diabetes mellitus with hyperglycemia; E78.5 Hyperlipidemia, unspecified; F32.9 Major depressive disorder, single episode, unspecified; E86.0 Dehydration; G47.00 Insomnia, unspecified; D50.9 Iron deficiency anemia, unspecified; I10 Essential (primary) hypertension; F41.9 Anxiety disorder, unspecified; G43.909 Migraine, unspecified, not intractable, without status migrainosus; R29.705 NIHSS score 5; K59.00 Constipation, unspecified; K46.9 Unspecified abdominal hernia without obstruction or gangrene; K29.70 Gastritis, unspecified, without bleeding; K64.8 Other hemorrhoids; E66.01 Morbid (severe) obesity due to excess calories; Z71.3 Dietary counseling and surveillance; E87.6 Hypokalemia; B96.20 Unspecified Escherichia coli [E. coli] as the cause of diseases classified elsewhere; G83.14 Monoplegia of lower limb affecting left nondominant side; G83.11 Monoplegia of lower limb affecting right dominant side; Z79.899 Other long term (current) drug therapy; Z68.35 Body mass index [BMI] 35.0-35.9, adult; Z79.4 Long term (current) use of insulin
CPT/HCPCS: 36415; 70450; 70544; 70551; 71045; 76770; 76856; 80048; 80053; 80061; 80074; 80320; 81001; 82010; 82140; 82270; 82306; 82607; 82962; 83036; 83735; 83970; 84100; 84165; 84443; 85007; 85018; 85025; 85027; 86021; 86038; 86160; 86592; 86850; 86900; 86901; 86920; 87040; 87076; 87186; 87641; 88305; 88342; 93005; 93306; 96374; 99285; G0378; J3490; Q0177; Q9967; C8929; C9113; G0480; J0696; J1815; J1885; J2270; J2405; J2704; J3010; J3480; J7030; J7040; P9016; U0003

== ENCOUNTER 2022-03-03 11:25 | Inpatient (IN) | payer OTHER ==
[2022-03-03] MEDS ORDERED: DEXTROSE 50% IN WATER (25GM) 50 ML SYRINGE IV PRN (12:14)
[2022-03-03] MEDS ORDERED: ACETAMINOPHEN 325 MG TAB PO PRN (12:14)
[2022-03-03] MEDS ORDERED: oxyCODONE /ACETAMINOPHEN 5-325MG TAB PO PRN (12:14)
[2022-03-03] MEDS ORDERED: hydrALAZINE 20 MG/1 ML INJ IV PRN (12:22)
[2022-03-03] MEDS ORDERED: ONDANSETRON 4 MG ODT TAB PO PRN (12:22)
[2022-03-03] MEDS ORDERED: POLYETHYLENE GLYCOL 3350 17 GM POWDER PO PRN (12:22)
[2022-03-03] MEDS: HEPARIN 5,000 UNIT/1 ML VIAL SUB-Q SCH ×2 (17:46→21:01)
[2022-03-03] MEDS: INSULIN REGULAR, HUMAN 100 UNITS/1 ML SUB-Q SCH ×3 (17:53→23:35)
[2022-03-03] MEDS: PANTOPRAZOLE 40 MG TAB PO SCH (17:53)
[2022-03-03] MEDS: INSULIN NPH/REGULAR 70/30 INJ SUB-Q SCH (18:09)
[2022-03-03] MEDS: traZODone 50 MG TAB PO SCH (21:02)
[2022-03-04] MEDS: HEPARIN 5,000 UNIT/1 ML VIAL SUB-Q SCH ×3 (05:11→21:37)
--- NOTE | 2022-03-04 07:03 | History and Physical Report ---
History of Present Illness Date: 03/04/22 Date of admission: 03/03/22 14:22 Chief Complaint: CVA History of present illness: 51-year-old female who presented with fatigue in the ED on 02/23/2022. She was found to have anemia and a UTI and was admitted for further treatment. GI was consulted for the anemia and she was found to have gastritis and started on PPI. Stool occult blood was negative. Patient fell and landed on her left wrist during her hospitalization, these areas were x-rayed and showed no acute changes. On 02/25 patient showed signs and symptoms of possible CVA. MRI was ordered which did demonstrate multiple small foci of acute infarction. Therapy was consulted for further evaluation. Psychiatry was also consulted due to the patient's premorbid psychiatric diagnoses. Patient's hemoglobin continued to drop and after reaching the point below 7 she was transfused with 1 unit of packed red blood cells. After the patient was medically stabilized they were transferred for further rehabilitation. All available medical records have been reviewed. Plan of care was discussed with patient. Past History Past Medical History: anemia, diabetes, hypertension, hyperlipidemia, other (Depression) Past Surgical History: Other (Diabetic foot wound debridement) Social history: , lives with family. denies: smoking, alcohol abuse Family history: other (Depression, suicide) Medications and Allergies Allergies Allergy/AdvReac Type Severity Reaction Status Date / Time No Known Allergies Allergy Verified 12/21/18 13:12 Home Medications Medication Instructions Recorded Confirmed Last Taken Type Glimepiride [Amaryl] 2 mg PO BID 12/21/18 12/21/18 Unknown History Hydroxyzine HCl [hydrOXYzine] 50 mg PO HS PRN 12/21/18 12/21/18 Unknown History Insulin Lispro Protamin/Lispro 50 units SUB-Q QAM 12/21/18 12/21/18 12/21/18 History [HumaLOG Mix 75-25 Kwikpen] Insulin Lispro Protamin/Lispro 55 units SUB-Q QPM 12/21/18 12/21/18 Unknown History [HumaLOG Mix 75-25 Kwikpen] Losartan [Cozaar] 50 mg PO QDAY 12/21/18 12/21/18 Unknown History Venlafaxine HCl [Effexor Xr] 37.5 mg PO BID 12/21/18 12/21/18 Unknown History amLODIPine 10 mg PO DAILY 12/21/18 12/21/18 Unknown History hydroCHLOROthiazide [HCTZ] 25 mg PO QDAY 12/21/18 12/21/18 Unknown History metFORMIN [Glucophage] 500 mg PO BIDWM 12/21/18 12/21/18 Unknown History oxyCODONE /ACETAMINOPHEN [Percocet 1 tab PO Q6HR PRN #10 tablet 12/27/18 Unknown Rx 5/325] Escitalopram Oxalate [Lexapro] 5 mg PO QDAY #30 03/01/22 Unknown Rx Trazodone HCl 50 mg PO DAILY #30 03/01/22 Unknown Rx Aspirin 325 mg PO QDAY #30 tablet 03/03/22 Unknown Rx AtorvaSTATin [Lipitor] 40 mg PO QHS #30 tablet 03/03/22 Unknown Rx Metoprolol [Lopressor TAB] 25 mg PO BID #60 tablet 03/03/22 Unknown Rx Pantoprazole [Protonix TAB] 40 mg PO DAILY #30 tablet 03/03/22 Unknown Rx calcitrioL [Rocaltrol] 0.25 mcg PO QDAY #30 capsule 03/03/22 Unknown Rx Active Meds: Active Medications Acetaminophen (Acetaminophen 325 Mg Tab) 650 mg PO Q6H PRN PRN Reason: Pain MILD(1-3)/Fever >100.5/BASS Last Admin: 03/03/22 21:01 Dose: 650 mg Amlodipine Besylate (Amlodipine 10 Mg Tab) 10 mg PO QDAY [facility] Aspirin (Aspirin Ec 325 Mg Tab) 325 mg PO QDAY [facility] Atorvastatin Calcium (Atorvastatin 40 Mg Tab) 40 mg PO QHS [facility] Last Admin: 03/03/22 21:01 Dose: 40 mg Bisacodyl (Bisacodyl 10 Mg Rect Supp) 10 mg [place] QDAY PRN PRN Reason: Constipation Calcitriol (Calcitriol 0.25 Mcg Cap) 0.25 mcg PO QDAY [facility] Dextrose (Dextrose 50% In Water (25gm) 50 Ml Syringe) 50 ml IV Q30MIN PRN; Protocol PRN Reason: Hypoglycemia Escitalopram Oxalate (Escitalopram 10 Mg Tab) 5 mg PO QDAY [facility] Heparin Sodium (Porcine) (Heparin 5,000 Unit/1 Ml Vial) 5,000 unit SUB-Q Q8HR [facility] Last Admin: 03/04/22 05:11 Dose: 5,000 unit Hydralazine HCl (Hydralazine 20 Mg/1 Ml Inj) 10 mg IV Q4H PRN PRN Reason: Hypertension Hydrochlorothiazide (Hydrochlorothiazide 25 Mg Tab) 25 mg PO QDAY [facility] Insulin Human Isoph/Insulin Regular (Insulin Nph/Regular 70/30 Inj) 25 unit SUB-Q BIDDIAB [facility] Last Admin: 03/03/22 18:09 Dose: 25 unit Insulin Human Regular (Insulin Regular, Human 100 Units/1 Ml) 0 units SUB-Q ACHS [facility]; Protocol Last Admin: 03/03/22 23:20 Dose: Not Given Losartan Potassium (Losartan 50 Mg Tab) 50 mg PO QDAY [facility] Metoprolol Tartrate (Metoprolol Tartrate 50 Mg Tab) 50 mg PO QDAY [facility] Ondansetron HCl (Ondansetron 4 Mg Odt Tab) 4 mg PO Q8H PRN PRN Reason: Nausea And Vomiting Oxycodone/Acetaminophen (Oxycodone /Acetaminophen 5-325mg Tab) 1 tab PO Q8H PRN PRN Reason: Pain, Moderate (4-6) Pantoprazole Sodium (Pantoprazole 40 Mg Tab) 40 mg PO BIDAC [facility] Last Admin: 03/03/22 17:53 Dose: 40 mg Polyethylene Glycol (Polyethylene Glycol 3350 17 Gm Powder) 17 gm PO QDAY PRN PRN Reason: Constipation Trazodone HCl (Trazodone 50 Mg Tab) 50 mg PO QHS [facility] Last Admin: 03/03/22 21:02 Dose: 50 mg Review of Systems All systems: negative (ROS negative for 10 systems except as noted below with pertinent positives and negatives.) Constitutional: no fever, no chills Ears, nose, mouth and throat: no decreased hearing, no headache Cardiovascular: no palpitations, no rapid/irregular heart beat Respiratory: no cough with sputum, no shortness of breath Gastrointestinal: no nausea, no vomiting Musculoskeletal: gait dysfunction, frequent falls Integumentary: no rash, no wounds Neurological: weakness, gait dysfunction Psychiatric: anxiety, insomnia, depression Exam - Exam Narrative exam: MUSCULOSKELETAL SPECIALTY EXAM CONSTITUTIONAL: Well developed, well nourished, appropriately groomed, obese. RIGHT hand dominant. LYMPHATIC: No appreciable abnormalities palpable in neck RESPIRATORY: Clear to auscultation bilaterally, no increased work of breathing CARDIOVASCULAR: Regular Rate/ Rhythm, no swelling, edema or tenderness in BUE or BLE. Pulses palpable in all extremities. All extremities warm. GI: + bowel sounds, soft, NTTP, nondistended. INTEGUMENTARY: Normal, no lesion, rash, masses or bruising noted in extremities. MUSCULOSKELETAL: BUE and BLE normal without defect, crepitus, subluxation, effusion, arthritic changes or TTP. RUE 4+/5 RLE 4-/5, ADF 3/5 LUE 4+/5 LLE 4-/5 ROM normal in upper extremities, decreased on lower extremity Tone no increased tone noted on today's exam NEURO: CN II : Visual valdez full to confrontation CN II, III : PERRL CN III, IV, : EOMI CN V : Facial sensation intact CN VII : Symmetric facial expressions and eye closure CN VIII : Hearing intact to finger rustle CN IX, X : Palate/uvula elevate midline, phonation normal CN XI : Intact shoulder shrug and head rotation CN XII : Tongue protrudes midline Sensation intact in all extremities without extinction but is slightly decreased on left upper extremity . Reflexes 1+ bilaterally at biceps, brachioradialis and patella. No clonus at ankles. Coordination intact in BUE, no dysmetria noted. No tremor noted in 4 extremities. Naming and repetition intact. Follows 2 step commands. Aphasia not appreciated Dysarthria not appreciated Dysphagia not appreciated Neglect not appreciated POSTURE and GAIT: Sitting posture good. Balance and gait deferred until seen with therapy. PSYCH: Alert, oriented x3, affect appears euthymic. Insight appears intact. - Constitutional Vitals: Vital Signs - 12hr 03/03/22 03/04/22 03/04/22 22:59 00:04 03:30 Temperature 97.6 F 99.0 F Pulse Rate 100 H 87 Respiratory 18 18 Rate Blood Pressure 136/52 129/58 O2 Sat by Pulse 95 97 97 Oximetry - Labs CBC & Chem 7: 03/04/22 04:00 03/04/22 07:22 Labs: Laboratory Results - last 72 hr 03/03/22 22:56 POC Glucose 87 Assessment and Plan Assessment and plan: Patient was assessed and evaluated for Acute Inpatient Rehab Unit. Due to the patients above-mentioned medical complexity, along with decreased functional mobility and self care, this patient continues to require and be appropriate for a comprehensive, multidisciplinary [id number] rehabilitation program. These needs cannot be met in an outpatient or other less intensive setting. The patient would continue to benefit from skilled therapy intervention for at least 3 hours per day, five days a week, with tech niques specific to the needs of the patient to improve function, activities of daily living, and reintegration into the community. The patient continues to require: -- OT to improve ROM, self-care, and learn use of adaptive equipment -- PT to improve strength and balance, functional transfers, and ambulation with energy conservation techniques to improve functional mobility -- 24 hour RN to ensure and prevent skin breakdown, promote progressive independence while ensuring safety, ensure education regarding medications, and incorporation of the rehabilitation at the bedside -- 24 hour Overedge Sewer to coordinate this interdisciplinary program, and to manage/prevent complications as a result of the patients medical comorbidities. -Plan of care by day 4 -Weekly team conferences With such a program, there is a reasonable certainty that the goals individualized for this patient can be achieved within the specified length of stay. CVA: Continue Secondary Stroke Prevention (Antithrombotic, Statin (Goal LDL-C <70), BP control (Goal <140/90), GLU control (Goal A1c <7), and lifestyle modification). Monitor for recurrent stroke or post-stroke recrudescence. Continue neuromotor therapy as above. Family training when available. Monitor for post stroke depression, cognitive deficits, seizure, dysphagia, aphasia, shoulder hand syndrome, sensory deficits, spasticity, bowel/bladder deficits, sleep disturbance, vision deficits and DVT. Prognosis for recovery and Secondary Stroke Prevention discussed. Follow up with Neurology. No driving until cleared by Neurologist. Hypertension: Continue medications and adjust as needed for normotension. Goal less than 140/90. Diabetes: Continue carb controlled diet, medications and adjust as needed for euglycemia. Anemia: Continue to monitor. Patient received transfusion prior to admission to rehab. Continue to monitor and transfuse if hemoglobin less than 7. Depression: Patient seen by psychiatry on acute care side. Medications adjus kam. Continue medications and monitor for any need to reconsult. Leukocytosis: WBCs have been climbing since 02/26. On labs this morning white count is 14.9. We will check UA C&S, chest x-ray. Patient did receive antibiotics previously for UTI and for 1 positive isolate in blood culture. Constipation: Patient states it has been several days since bowel movement. Does state that she has issues with constipation at home. Discussed as needed medications which have been made available. Monitor for improvement ADL dysfunction: OT will work on improving ability to perform ADLs (including as sistive devices) to increase independence and decrease caregiver burden and improve functional transfers and mobility training. Difficulty walking: PT will work on gait training and proper use of assistive devices and advance as appropriate to use of stairs and outside ambulation on uneven surfaces. Unsteadiness on feet: PT will work on improving static and dynamic sitting and standing balance as well as proper use of assistive devices to decrease risk of falls. Abnormality of gait: PT will work to improve safety and efficiency of gait through neuromotor training and gait training along with instruction on proper use of assistive devices. Muscle weakness: PT & OT will work on strengthening exercises to improve functional strength including mixture of closed and open kinetic chain exerc ises. Debility: PT & OT will work on improving overall functional status to improve participation with ADLs, mobility and social involvement. Fatigue: PT & OT will work on improving endurance through aerobic exercises and therapeutic activity while monitoring patients tolerance for activity and vital signs as needed. DVT ppx: Heparin Pain: Continue physical modalities in therapy and pain medications as needed to achieve functional pain control. Sleep: Monitor and address as needed. Trazodone ordered for sleep. Bowel: Monitor and address as needed. Appetite: Monitor and address as needed. Discharge planning: Pending therapy progress and care plan meeting. Will continue discussion with therapy team, SW, patient and family. Restrictions/ Precautions: Falls WB status: FWB Functional Hx: ADLs: Independent Cognition: Independent Mobility: No AD Barriers to Discharge: Decreased mobility and ability to perform self care, balance deficits, weakness Estimated Length of Stay: 1014 days Discharge Destination: Home with family POST ADMISSION PHYSICIAN EVALUATION I have examined the patient and find that functional status, medical condition and appropriateness for IRF admission are essentially unchanged from those described in the preadmission screening. Will monitor for worsening CVA, worsening depression, recrudescence, shoulder-hand syndrome, increased tone/spasticity, DVT/PE, bowel and bladder complications and complications due to diabetes, hypertension, depression and electrolyte abnormalities. Will attempt to avoid occurrence of these issues or treat them if they present themselves.
[2022-03-04 07:46] LABS: Hematocrit 27.1 % (30.3-42.9); Hemoglobin 8.7 gm/dl (10.1-14.3); Mean Corpuscular HGB Conc 32 % (30-34); Mean Corpuscular Volume 78 fl (79-97); Platelet Count 264 K/mm3 (140-440); Red Cell Distribution Width 17.3 % (13.2-15.2)
[2022-03-04 07:59] LABS: Alanine Aminotransferase 29 units/L (7-56); Albumin 2.7 g/dL (3.9-5); BUN/Creatinine Ratio 17; Blood Urea Nitrogen 17 mg/dL (7-17); Calcium 8.2 mg/dL (8.4-10.2); Hemolysis Index 19
[2022-03-04 09:15] LABS: Eosinophils % (Manual) 0 % (0.0-4.3); Total Cells Counted 100
[2022-03-04 09:16] LABS: Hypochromasia 2+; Target Cells 1+
[2022-03-04 09:17] LABS: Anisocytosis 2+; Large Platelets Few; Platelet Estimate Consistent w Auto
[2022-03-04] MEDS: INSULIN REGULAR, HUMAN 100 UNITS/1 ML SUB-Q SCH ×4 (09:21→21:37)
[2022-03-04] MEDS: hydroCHLOROthiazide 25 MG TAB PO SCH (10:34)
[2022-03-04] MEDS: PANTOPRAZOLE 40 MG TAB PO SCH ×2 (10:34→17:31)
[2022-03-04] MEDS: CALCITRIOL 0.25 MCG CAP PO SCH (10:34)
[2022-03-04] MEDS: METOPROLOL TARTRATE 50 MG TAB PO SCH (10:34)
[2022-03-04] MEDS: ESCITALOPRAM 10 MG TAB PO SCH (10:35)
[2022-03-04] MEDS: ASPIRIN EC 325 MG TAB PO SCH (10:35)
[2022-03-04] MEDS: INSULIN NPH/REGULAR 70/30 INJ SUB-Q SCH ×2 (10:35→17:31)
[2022-03-04] MEDS: amLODIPine 10 MG TAB PO SCH (10:35)
[2022-03-04] MEDS: LOSARTAN 50 MG TAB PO SCH (10:35)
--- NOTE | 2022-03-04 12:07 | XRay Report ---
CHEST 2 VIEWS INDICATION / CLINICAL INFORMATION: Leukocytosis. COMPARISON: 02/23/22. FINDINGS: SUPPORT DEVICES: None. HEART / MEDIASTINUM: The heart size and pulmonary vasculature are normal. LUNGS / PLEURA: No significant pulmonary or pleural abnormality. No pneumothorax. ADDITIONAL FINDINGS: No significant additional findings. IMPRESSION: No acute findings. Signer Name: Dinesh Bobby MD Signed: 03/04/2022 12:02 PM Workstation Name: [id number]
[2022-03-04] MEDS: traZODone 50 MG TAB PO SCH (21:36)
[2022-03-05] MEDS: HEPARIN 5,000 UNIT/1 ML VIAL SUB-Q SCH ×3 (05:20→21:54)
[2022-03-05] MEDS: INSULIN REGULAR, HUMAN 100 UNITS/1 ML SUB-Q SCH ×4 (08:00→21:54)
--- NOTE | 2022-03-05 08:11 | Progress Note ---
Subjective Date of service: 03/05/22 Principal diagnosis: CVA Interval history: 51-year-old female who presented with fatigue in the ED on 02/23/2022. She was found to have anemia and a UTI and was admitted for further treatment. GI was consulted for the anemia and she was found to have gastritis and started on PPI. Stool occult blood was negative. Patient fell and landed on her left wrist during her hospitalization, these areas were x-rayed and showed no acute changes. On 02/25 patient showed signs and symptoms of possible CVA. MRI was ordered which did demonstrate multiple small foci of acute infarction. Therapy was consulted for further evaluation. Psychiatry was also consulted due to the patient's premorbid psychiatric diagnoses. Patient's hemoglobin continued to drop and after reaching the point below 7 she was transfused with 1 unit of packed red blood cells. After the patient was medically stabilized they were transferred for further rehabilitation. All available medical records have been reviewed. Plan of care was discussed with patient. Interval History: Patient is participating in therapy and making reasonable progress. Taking rest breaks as needed. -BM. Denies pain, palpitations, dyspnea, cough, N/V, or joint pain. CVA: Stable without any signs of worsening depression or recrudescence. Continue therapy to improve patient's functioning and overall independence. Hypertension: Currently within normal limits, continue medications monitor and adjust as needed for normotension. Diabetes: Variable control with some values as low as 87 others as high as 237. Continue current medications and adjust as needed for euglycemia. Anemia: Labs currently pending. Yesterday's hemoglobin was 8.7. Monitor and transfuse for less than 7 Depression: Doing well currently on adjust medications by psychiatry on acute care side. Continue to monitor patient will need to follow-up with psychiatry at discharge. Leukocytosis: Elevated to 14.9 yesterday. Current labs are pending. Afebrile and asymptomatic currently. Chest x-ray did not reveal possible source. Urinalysis has not been collected as of yet Constipation: Continue medications. Patient still has not had a bowel movement, will monitor. Reminded patient that medications are available ADL & mobility deficits: Continue working with therapy to improve patient's ability to perform ADLs and mobility with the least amount of assistance as possible. All records, vitals, labs and medications were reviewed. No other issues per patient, nursing or therapy. Objective - Exam Narrative Exam: MUSCULOSKELETAL SPECIALTY EXAM CONSTITUTIONAL: Well developed, well nourished, appropriately groomed, obese. RIGHT hand dominant. RESPIRATORY: Clear to auscultation bilaterally, no increased work of breathing CARDIOVASCULAR: Regular Rate/ Rhythm, no swelling, edema or tenderness in BUE or BLE. All extremities warm. GI: + bowel sounds, soft, NTTP, nondistended. INTEGUMENTARY: Normal, no lesion, rash, masses or bruising noted in extremities. MUSCULOSKELETAL: BUE and BLE normal without defect, crepitus, subluxation, effusion, arthritic changes or TTP. RUE 4+/5 RLE 4-/5, ADF 3/5 LUE 4+/5 LLE 4-/5 ROM normal in upper extremities, decreased on lower extremity Tone no increased tone noted on today's exam NEURO: CN II - XII grossly intact Sensation intact in all extremities without extinction but is slightly decreased on left upper extremity . No tremor noted in 4 extremities. Naming and repetition intact. Follows 2 step commands. Aphasia not appreciated Dysarthria not appreciated Dysphagia not appreciated Neglect not appreciated POSTURE and GAIT: Sitting posture good. Balance and gait deferred until seen with therapy. Transferred with some safety issues but standby assist PSYCH: Alert, oriented x3, affect appears euthymic. Insight appears intact. - Constitutional Vitals: Vital Signs - 12hr 03/04/22 03/05/22 20:05 00:56 Temperature 98.3 F Pulse Rate 84 Respiratory 16 Rate Blood Pressure 134/69 [Left] O2 Sat by Pulse 100 100 Oximetry - Allied health notes Allied health notes reviewed: nursing, PT, OT FIMS assessment as documented by PT/OT/ST: Locomotion- walk/wheelchair Ambulation Distance 25 - Labs CBC & Chem 7: 03/04/22 04:00 03/04/22 07:22 Labs: Laboratory Results - last 72 hr 03/03/22 03/04/22 03/04/22 22:56 04:00 07:22 WBC 14.9 H RBC 3.50 L Hgb 8.7 L Hct 27.1 L MCV 78 L MCH 25 L MCHC 32 RDW 17.3 H Plt Count 264 Add Manual Diff Complete Total Counted 100 Seg Neuts % (Manual) 93.0 H Band Neutrophils % 0 Lymphocytes % (Manual) 3.0 L Reactive Lymphs % (Man) 0 Monocytes % (Manual) 3.0 Eosinophils % (Manual) 0 Basophils % (Manual) 1.0 Metamyelocytes % 0 Myelocytes % 0 Promyelocytes % 0 Blast Cells % 0 Nucleated RBC % Not Reportable Seg Neutrophils # Man 13.9 H Band Neutrophils # 0.0 Lymphocytes # (Manual) 0.4 L Abs React Lymphs (Man) 0.0 Monocytes # (Manual) 0.4 Eosinophils # (Manual) 0.0 Basophils # (Manual) 0.1 Metamyelocytes # 0.0 Myelocytes # 0.0 Promyelocytes # 0.0 Blast Cells # 0.0 WBC Morphology Not Reportable Hypersegmented Neuts Not Reportable Hyposegmented Neuts Not Reportable Hypogranular Neuts Not Reportable Smudge Cells Not Reportable Toxic Granulation Not Reportable Toxic Vacuolation Not Reportable Dohle Bodies Not Reportable Pelger-Huet Anomaly Not Reportable Fiona Rods Not Reportable Platelet Estimate Consistent w auto Clumped Platelets Not Reportable Plt Clumps, EDTA Not Reportable Large Platelets Few Giant Platelets Not Reportable Platelet Satelliting Not Reportable Plt Morphology Comment Not Reportable RBC Morphology Not Reportable Dimorphic RBCs Not Reportable Polychromasia 1+ Hypochromasia 2+ Poikilocytosis Not Reportable Anisocytosis 2+ Microcytosis Not Reportable Macrocytosis Not Reportable Spherocytes Not Reportable Pappenheimer Bodies Not Reportable Sickle Cells Not Reportable Target Cells 1+ Tear Drop Cells Not Reportable Ovalocytes Not Reportable Helmet Cells Not Reportable Hodge-P[place]air[place] Bodies Not Reportable [place] Rings Not Reportable [place] Cells Not Reportable Bite Cells Not Reportable Crenated Cell Not Reportable Elliptocytes Not Reportable Acanthocytes (Spur) Not Reportable Rouleaux Not Reportable Hemoglobin C Crystals Not Reportable Schistocytes Not Reportable Malaria parasites Not Reportable Son Bodies Not Reportable Hem Pathologist Commnt No Sodium 133 L Potassium 3.9 Chloride 99.3 Carbon Dioxide 23 Anion Gap 15 BUN 17 Creatinine 1.0 Estimated GFR > 60 BUN/Creatinine Ratio 17 Glucose 134 H POC Glucose 87 Calcium 8.2 L Total Bilirubin 0.50 AST 30 ALT 29 Alkaline Phosphatase 108 Total Protein 5.8 L Albumin 2.7 L Albumin/Globulin Ratio 0.9 03/04/22 03/04/22 03/04/22 08:12 11:29 16:03 WBC RBC Hgb Hct MCV MCH MCHC RDW Plt Count Add Manual Diff Total Counted Seg Neuts % (Manual) Band Neutrophils % Lymphocytes % (Manual) Reactive Lymphs % (Man) Monocytes % (Manual) Eosinophils % (Manual) Basophils % (Manual) Metamyelocytes % Myelocytes % Promyelocytes % Blast Cells % Nucleated RBC % Seg Neutrophils # Man Band Neutrophils # Lymphocytes # (Manual) Abs React Lymphs (Man) Monocytes # (Manual) Eosinophils # (Manual) Basophils # (Manual) Metamyelocytes # Myelocytes # Promyelocytes # Blast Cells # WBC Morphology Hypersegmented Neuts Hyposegmented Neuts Hypogranular Neuts Smudge Cells Toxic Granulation Toxic Vacuolation Dohle Bodies Pelger-Huet Anomaly Fiona Rods Platelet Estimate Clumped Platelets Plt Clumps, EDTA Large Platelets Giant Platelets Platelet Satelliting Plt Morphology Comment RBC Morphology Dimorphic RBCs Polychromasia Hypochromasia Poikilocytosis Anisocytosis Microcytosis Macrocytosis Spherocytes Pappenheimer Bodies Sickle Cells Target Cells Tear Drop Cells Ovalocytes Helmet Cells Hodge-[place] Bodies [place] Rings [place] Cells Bite Cells Crenated Cell Elliptocytes Acanthocytes (Spur) Rouleaux Hemoglobin C Crystals Schistocytes Malaria parasites Son Bodies Hem Pathologist Commnt Sodium Potassium Chloride Carbon Dioxide Anion Gap BUN Creatinine Estimated GFR BUN/Creatinine Ratio Glucose POC Glucose 149 H 237 H 223 H Calcium Total Bilirubin AST ALT Alkaline Phosphatase Total Protein Albumin Albumin/Globulin Ratio 03/04/22 20:48 WBC RBC Hgb Hct MCV MCH MCHC RDW Plt Count Add Manual Diff Total Counted Seg Neuts % (Manual) Band Neutrophils % Lymphocytes % (Manual) Reactive Lymphs % (Man) Monocytes % (Manual) Eosinophils % (Manual) Basophils % (Manual) Metamyelocytes % Myelocytes % Promyelocytes % Blast Cells % Nucleated RBC % Seg Neutrophils # Man Band Neutrophils # Lymphocytes # (Manual) Abs React Lymphs (Man) Monocytes # (Manual) Eosinophils # (Manual) Basophils # (Manual) Metamyelocytes # Myelocytes # Promyelocytes # Blast Cells # WBC Morphology Hypersegmented Neuts Hyposegmented Neuts Hypogranular Neuts Smudge Cells Toxic Granulation Toxic Vacuolation Dohle Bodies Pelger-Huet Anomaly Fiona Rods Platelet Estimate Clumped Platelets Plt Clumps, EDTA Large Platelets Giant Platelets Platelet Satelliting Plt Morphology Comment RBC Morphology Dimorphic RBCs Polychromasia Hypochromasia Poikilocytosis Anisocytosis Microcytosis Macrocytosis Spherocytes Pappenheimer Bodies Sickle Cells Target Cells Tear Drop Cells Ovalocytes Helmet Cells Hodge-Pitcairn Bodies [place] Rings [place] Cells Bite Cells Crenated Cell Elliptocytes Acanthocytes (Spur) Rouleaux Hemoglobin C Crystals Schistocytes Malaria parasites Son Bodies Hem Pathologist Commnt Sodium Potassium Chloride Carbon Dioxide Anion Gap BUN Creatinine Estimated GFR BUN/Creatinine Ratio Glucose POC Glucose 158 H Calcium Total Bilirubin AST ALT Alkaline Phosphatase Total Protein Albumin Albumin/Globulin Ratio Assessment and Plan CVA: Continue Secondary Stroke Prevention (Antithrombotic, Statin (Goal LDL-C <70), BP control (Goal <140/90), GLU control (Goal A1c <7), and lifestyle modification). Monitor for recurrent stroke or post-stroke recrudescence. Continue neuromotor therapy as above. Family training when available. Monitor for post stroke depression, cognitive deficits, seizure, dysphagia, aphasia, shoulder hand syndrome, sensory deficits, spasticity, bowel/bladder deficits, sleep disturbance, vision deficits and DVT. Prognosis for recovery and Secondary Stroke Prevention discussed. Follow up with Neurology. No driving until cleared by Neurologist. Hypertension: Continue medications and adjust as needed for normotension. Goal less than 140/90. Diabetes: Continue carb controlled diet, medications and adjust as needed for euglycemia. Anemia: Continue to monitor. Patient received transfusion prior to admission to rehab. Continue to monitor and transfuse if hemoglobin less than 7. Depression: Patient seen by psychiatry on acute care side. Medications adjusted. Continue medications and monitor for any need to reconsult. Leukocytosis: WBCs have been climbing since 02/26. On labs this morning white count is 14.9. We will check UA C&S, chest x-ray. Patient did receive antibiotics previously for UTI and for 1 positive isolate in blood culture. Constipation: Patient states it has been several days since bowel movement. Does state that she has issues with constipation at home. Discussed as needed medications which have been made available. Monitor for improvement ADL dysfunction: OT will work on improving ability to perform ADLs (including assistive devices) to increase independence and decrease caregiver burden and improve functional transfers and mobility training. Difficulty walking: PT will work on gait training and proper use of assistive devices and advance as appropriate to use of stairs and outside ambulation on uneven surfaces. Unsteadiness on feet: PT will work on improving static and dynamic sitting and standing balance as well as proper use of assistive devices to decrease risk of falls. Abnormality of gait: PT will work to improve safety and efficiency of gait through neuromotor training and gait training along with instruction on proper use of assistive devices. Muscle weakness: PT & OT will work on strengthening exercises to improve functional strength including mixture of closed and open kinetic chain exercises . Debility: PT & OT will work on improving overall functional status to improve participation with ADLs, mobility and social involvement. Fatigue: PT & OT will work on improving endurance through aerobic exercises and therapeutic activity while monitoring patients tolerance for activity and vital signs as needed. DVT ppx: Heparin Pain: Continue physical modalities in therapy and pain medications as needed to achieve functional pain control. Sleep: Monitor and address as needed. Trazodone ordered for sleep. Bowel: Monitor and address as needed. Appetite: Monitor and address as needed. Discharge planning: Pending therapy progress and care plan meeting. Will continue discussion with therapy team, SW, patient and family. Restrictions/ Precautions: Falls WB status: FWB Functional Hx: ADLs: Independent Cognition: Independent Mobility: No AD Barriers to Discharge: Decreased mobility and ability to perform self care, balance deficits, weakness Estimated Length of Stay: 1014 days Discharge Destination: Home with family
[2022-03-05] MEDS: INSULIN NPH/REGULAR 70/30 INJ SUB-Q SCH ×2 (13:57→17:07)
[2022-03-05] MEDS: CALCITRIOL 0.25 MCG CAP PO SCH (14:01)
[2022-03-05] MEDS: amLODIPine 10 MG TAB PO SCH (14:01)
[2022-03-05] MEDS: hydroCHLOROthiazide 25 MG TAB PO SCH (14:01)
[2022-03-05] MEDS: ESCITALOPRAM 10 MG TAB PO SCH (14:01)
[2022-03-05] MEDS: ASPIRIN EC 325 MG TAB PO SCH (14:01)
[2022-03-05] MEDS: PANTOPRAZOLE 40 MG TAB PO SCH ×2 (14:03→17:07)
[2022-03-05] MEDS: METOPROLOL TARTRATE 50 MG TAB PO SCH (14:07)
[2022-03-05] MEDS: LOSARTAN 50 MG TAB PO SCH (14:07)
[2022-03-05 18:13] LABS: Bilirubin,Urine NEG (Negative); Blood,Urine LG (Negative); Color,Urine Yellow (Yellow); Urobilinogen,Urine < 2 mg/dL (<2.0)
[2022-03-05 18:31] LABS: Mucus,Urine FEW /HPF
[2022-03-05 18:44] LABS: RBC,Urine > 182.0 /HPF (0.0-6.0); WBC,Urine > 182.0 /HPF (0.0-6.0)
[2022-03-05] MEDS: traZODone 50 MG TAB PO SCH (21:54)
[2022-03-05 23:31] LABS: Hemoglobin 7.3 gm/dl (10.1-14.3); Mean Corpuscular HGB Conc 33 % (30-34); Mean Corpuscular Volume 77 fl (79-97); Platelet Count 248 K/mm3 (140-440); Red Blood Count 2.86 M/mm3 (3.65-5.03); Red Cell Distribution Width 17.2 % (13.2-15.2)
[2022-03-06] MEDS: HEPARIN 5,000 UNIT/1 ML VIAL SUB-Q SCH ×3 (06:13→21:56)
[2022-03-06 06:25] LABS: Hematocrit 23.4 % (30.3-42.9); Hemoglobin 7.6 gm/dl (10.1-14.3); Mean Corpuscular HGB Conc 32 % (30-34); Mean Corpuscular Volume 77 fl (79-97); Platelet Count 270 K/mm3 (140-440); Red Blood Count 3.03 M/mm3 (3.65-5.03); Red Cell Distribution Width 17.4 % (13.2-15.2)
[2022-03-06] MEDS: PANTOPRAZOLE 40 MG TAB PO SCH ×2 (08:00→18:09)
[2022-03-06] MEDS: INSULIN REGULAR, HUMAN 100 UNITS/1 ML SUB-Q SCH ×4 (08:00→21:57)
[2022-03-06] MEDS: INSULIN NPH/REGULAR 70/30 INJ SUB-Q SCH ×2 (08:00→18:09)
--- NOTE | 2022-03-06 09:23 | Progress Note ---
Subjective Date of service: 03/06/22 Principal diagnosis: CVA Interval history: 51-year-old female who presented with fatigue in the ED on 02/23/2022. She was found to have anemia and a UTI and was admitted for further treatment. GI was consulted for the anemia and she was found to have gastritis and started on PPI. Stool occult blood was negative. Patient fell and landed on her left wrist during her hospitalization, these areas were x-rayed and showed no acute changes. On 02/25 patient showed signs and symptoms of possible CVA. MRI was ordered which did demonstrate multiple small foci of acute infarction. Therapy was consulted for further evaluation. Psychiatry was also consulted due to the patient's premorbid psychiatric diagnoses. Patient's hemoglobin continued to drop and after reaching the point below 7 she was transfused with 1 unit of packed red blood cells. After the patient was medically stabilized they were transferred for further rehabilitation. All available medical records have been reviewed. Plan of care was discussed with patient. Interval History: Patient is participating in therapy and making reasonable progress. Taking rest breaks as needed. -BM. Denies pain, palpitations, dyspnea, cough, N/V, or joint pain. CVA: Stable without any signs of worsening depression or recrudescence. Continue therapy to improve patient's functioning and overall independence. Hypertension: Currently within normal limits with a few elevations, continue medications monitor and adjust as needed for normotension. Diabetes: Variable control with some values as low as 87 others as high as 237. Continue current medications and adjust as needed for euglycemia. Anemia: 8.7 admit -> 7.3 -> 7.6 today. Monitor and transfuse for less than 7 Depression: Doing well currently on adjust medications by psychiatry on acute care side. Continue to monitor patient will need to follow-up with psychiatry at discharge. UTI/leukocytosis: Elevated to 14.9 then after a late lab draw yesterday decreased to 12.2 and back up to 13.1 this morning. Afebrile and asymptomatic currently. Chest x-ray did not reveal possible source. Urinalysis was collected late however did show bacteria and leukocyte esterace. Urine culture is pending. We will start Levaquin IV until culture comes back and adjust for culture and sensitivity. Constipation: Continue medications. Patient still has not had a bowel movement, will monitor. Reminded patient that medications are available ADL & mobility deficits: Continue working with therapy to improve patient's ability to perform ADLs and mobility with the least amount of assistance as possible. All records, vitals, labs and medications were reviewed. No other issues per patient, nursing or therapy. Objective - Exam Narrative Exam: MUSCULOSKELETAL SPECIALTY EXAM CONSTITUTIONAL: Well developed, well nourished, appropriately groomed, obese. RIGHT hand dominant. RESPIRATORY: Clear to auscultation bilaterally, no increased work of breathing CARDIOVASCULAR: Regular Rate/ Rhythm, no swelling, edema or tenderness in BUE or BLE. All extremities warm. GI: + bowel sounds, soft, NTTP, nondistended. INTEGUMENTARY: Normal, no lesion, rash, masses or bruising noted in extremities. MUSCULOSKELETAL: BUE and BLE normal without defect, crepitus, subluxation, effusion, arthritic changes or TTP. RUE 4+/5 RLE 4-/5, ADF 3/5 LUE 4+/5 LLE 4-/5 ROM normal in upper extremities, decreased on lower extremity Tone no increased tone noted on today's exam NEURO: CN II - XII grossly intact Sensation intact in all extremities without extinction but is slightly decreased on left upper extremity . No tremor noted in 4 extremities. Naming and repetition intact. Follows 2 step commands. Aphasia not appreciated Dysarthria not appreciated Dysphagia not appreciated Neglect not appreciated POSTURE and GAIT: Sitting posture good. Balance reasonable on transfer. Transferred with some safety issues but standby assist PSYCH: Alert, oriented x3, affect appears euthymic. Insight appears intact. - Constitutional Vitals: Vital Signs - 12hr 03/05/22 03/06/22 22:50 08:07 Temperature 98.5 F Pulse Rate 95 H Respiratory 18 Rate Blood Pressure 126/68 O2 Sat by Pulse 100 96 Oximetry - Allied health notes Allied health notes reviewed: nursing, PT, OT, social work FIMS assessment as documented by PT/OT/ST: Locomotion- walk/wheelchair Ambulation Distance 25 - Labs CBC & Chem 7: 03/06/22 05:27 03/04/22 07:22 Labs: Laboratory Results - last 72 hr 03/03/22 03/04/22 03/04/22 22:56 04:00 07:22 WBC 14.9 H RBC 3.50 L Hgb 8.7 L Hct 27.1 L MCV 78 L MCH 25 L MCHC 32 RDW 17.3 H Plt Count 264 Add Manual Diff Complete Total Counted 100 Seg Neuts % (Manual) 93.0 H Band Neutrophils % 0 Lymphocytes % (Manual) 3.0 L Reactive Lymphs % (Man) 0 Monocytes % (Manual) 3.0 Eosinophils % (Manual) 0 Basophils % (Manual) 1.0 Metamyelocytes % 0 Myelocytes % 0 Promyelocytes % 0 Blast Cells % 0 Nucleated RBC % Not Reportable Seg Neutrophils # Man 13.9 H Band Neutrophils # 0.0 Lymphocytes # (Manual) 0.4 L Abs React Lymphs (Man) 0.0 Monocytes # (Manual) 0.4 Eosinophils # (Manual) 0.0 Basophils # (Manual) 0.1 Metamyelocytes # 0.0 Myelocytes # 0.0 Promyelocytes # 0.0 Blast Cells # 0.0 WBC Morphology Not Reportable Hypersegmented Neuts Not Reportable Hyposegmented Neuts Not Reportable Hypogranular Neuts Not Reportable Smudge Cells Not Reportable Toxic Granulation Not Reportable Toxic Vacuolation Not Reportable Dohle Bodies Not Reportable Pelger-Huet Anomaly Not Reportable Fiona Rods Not Reportable Platelet Estimate Consistent w auto Clumped Platelets Not Reportable Plt Clumps, EDTA Not Reportable Large Platelets Few Giant Platelets Not Reportable Platelet Satelliting Not Reportable Plt Morphology Comment Not Reportable RBC Morphology Not Reportable Dimorphic RBCs Not Reportable Polychromasia 1+ Hypochromasia 2+ Poikilocytosis Not Reportable Anisocytosis 2+ Microcytosis Not Reportable Macrocytosis Not Reportable Spherocytes Not Reportable Pappenheimer Bodies Not Reportable Sickle Cells Not Reportable Target Cells 1+ Tear Drop Cells Not Reportable Ovalocytes Not Reportable Helmet Cells Not Reportable Hodge-Berwind Bodies Not Reportable Acworth Rings Not Reportable [place] Cells Not Reportable Bite Cells Not Reportable Crenated Cell Not Reportable Elliptocytes Not Reportable Acanthocytes (Spur) Not Reportable Rouleaux Not Reportable Hemoglobin C Crystals Not Reportable Schistocytes Not Reportable Malaria parasites Not Reportable Son Bodies Not Reportable Hem Pathologist Commnt No Sodium 133 L Potassium 3.9 Chloride 99.3 Carbon Dioxide 23 Anion Gap 15 BUN 17 Creatinine 1.0 Estimated GFR > 60 BUN/Creatinine Ratio 17 Glucose 134 H POC Glucose 87 Calcium 8.2 L Total Bilirubin 0.50 AST 30 ALT 29 Alkaline Phosphatase 108 Total Protein 5.8 L Albumin 2.7 L Albumin/Globulin Ratio 0.9 Urine Color Urine Turbidity Urine pH Ur Specific Cove Urine Protein Urine Glucose (UA) Urine Ketones Urine Blood Urine Nitrite Urine Bilirubin Urine Urobilinogen Ur Leukocyte Esterase Urine WBC (Auto) Urine RBC (Auto) U Epithel Cells (Auto) Urine WBC Clumps Urine Mucus Ur Yeast w Hyphae Urine Yeast (Budding) 03/04/22 03/04/22 03/04/22 08:12 11:29 16:03 WBC RBC Hgb Hct MCV MCH MCHC RDW Plt Count Add Manual Diff Total Counted Seg Neuts % (Manual) Band Neutrophils % Lymphocytes % (Manual) Reactive Lymphs % (Man) Monocytes % (Manual) Eosinophils % (Manual) Basophils % (Manual) Metamyelocytes % Myelocytes % Promyelocytes % Blast Cells % Nucleated RBC % Seg Neutrophils # Man Band Neutrophils # Lymphocytes # (Manual) Abs React Lymphs (Man) Monocytes # (Manual) Eosinophils # (Manual) Basophils # (Manual) Metamyelocytes # Myelocytes # Promyelocytes # Blast Cells # WBC Morphology Hypersegmented Neuts Hyposegmented Neuts Hypogranular Neuts Smudge Cells Toxic Granulation Toxic Vacuolation Dohle Bodies Pelger-Huet Anomaly Fiona Rods Platelet Estimate Clumped Platelets Plt Clumps, EDTA Large Platelets Giant Platelets Platelet Satelliting Plt Morphology Comment RBC Morphology Dimorphic RBCs Polychromasia Hypochromasia Poikilocytosis Anisocytosis Microcytosis Macrocytosis Spherocytes Pappenheimer Bodies Sickle Cells Target Cells Tear Drop Cells Ovalocytes Helmet Cells Hodge-Berwind Bodies Acworth Rings [place] Cells Bite Cells Crenated Cell Elliptocytes Acanthocytes (Spur) Rouleaux Hemoglobin C Crystals Schistocytes Malaria parasites Son Bodies Hem Pathologist Commnt Sodium Potassium Chloride Carbon Dioxide Anion Gap BUN Creatinine Estimated GFR BUN/Creatinine Ratio Glucose POC Glucose 149 H 237 H 223 H Calcium Total Bilirubin AST ALT Alkaline Phosphatase Total Protein Albumin Albumin/Globulin Ratio Urine Color Urine Turbidity Urine pH Ur Specific Cove Urine Protein Urine Glucose (UA) Urine Ketones Urine Blood Urine Nitrite Urine Bilirubin Urine Urobilinogen Ur Leukocyte Esterase Urine WBC (Auto) Urine RBC (Auto) U Epithel Cells (Auto) Urine WBC Clumps Urine Mucus Ur Yeast w Hyphae Urine Yeast (Budding) 03/04/22 03/05/22 03/05/22 20:48 07:43 11:23 WBC RBC Hgb Hct MCV MCH MCHC RDW Plt Count Add Manual Diff Total Counted Seg Neuts % (Manual) Band Neutrophils % Lymphocytes % (Manual) Reactive Lymphs % (Man) Monocytes % (Manual) Eosinophils % (Manual) Basophils % (Manual) Metamyelocytes % Myelocytes % Promyelocytes % Blast Cells % Nucleated RBC % Seg Neutrophils # Man Band Neutrophils # Lymphocytes # (Manual) Abs React Lymphs (Man) Monocytes # (Manual) Eosinophils # (Manual) Basophils # (Manual) Metamyelocytes # Myelocytes # Promyelocytes # Blast Cells # WBC Morphology Hypersegmented Neuts Hyposegmented Neuts Hypogranular Neuts Smudge Cells Toxic Granulation Toxic Vacuolation Dohle Bodies Pelger-Huet Anomaly Fiona Rods Platelet Estimate Clumped Platelets Plt Clumps, EDTA Large Platelets Giant Platelets Platelet Satelliting Plt Morphology Comment RBC Morphology Dimorphic RBCs Polychromasia Hypochromasia Poikilocytosis Anisocytosis Microcytosis Macrocytosis Spherocytes Pappenheimer Bodies Sickle Cells Target Cells Tear Drop Cells Ovalocytes Helmet Cells Hodge-Berwind Bodies Acworth Rings [place] Cells Bite Cells Crenated Cell Elliptocytes Acanthocytes (Spur) Rouleaux Hemoglobin C Crystals Schistocytes Malaria parasites Son Bodies Hem Pathologist Commnt Sodium Potassium Chloride Carbon Dioxide Anion Gap BUN Creatinine Estimated GFR BUN/Creatinine Ratio Glucose POC Glucose 158 H 91 232 H Calcium Total Bilirubin AST ALT Alkaline Phosphatase Total Protein Albumin Albumin/Globulin Ratio Urine Color Urine Turbidity Urine pH Ur Specific Cove Urine Protein Urine Glucose (UA) Urine Ketones Urine Blood Urine Nitrite Urine Bilirubin Urine Urobilinogen Ur Leukocyte Esterase Urine WBC (Auto) Urine RBC (Auto) U Epithel Cells (Auto) Urine WBC Clumps Urine Mucus Ur Yeast w Hyphae Urine Yeast (Budding) 03/05/22 03/05/22 03/05/22 16:00 17:23 21:01 WBC RBC Hgb Hct MCV MCH MCHC RDW Plt Count Add Manual Diff Total Counted Seg Neuts % (Manual) Band Neutrophils % Lymphocytes % (Manual) Reactive Lymphs % (Man) Monocytes % (Manual) Eosinophils % (Manual) Basophils % (Manual) Metamyelocytes % Myelocytes % Promyelocytes % Blast Cells % Nucleated RBC % Seg Neutrophils # Man Band Neutrophils # Lymphocytes # (Manual) Abs React Lymphs (Man) Monocytes # (Manual) Eosinophils # (Manual) Basophils # (Manual) Metamyelocytes # Myelocytes # Promyelocytes # Blast Cells # WBC Morphology Hypersegmented Neuts Hyposegmented Neuts Hypogranular Neuts Smudge Cells Toxic Granulation Toxic Vacuolation Dohle Bodies Pelger-Huet Anomaly Fiona Rods Platelet Estimate Clumped Platelets Plt Clumps, EDTA Large Platelets Giant Platelets Platelet Satelliting Plt Morphology Comment RBC Morphology Dimorphic RBCs Polychromasia Hypochromasia Poikilocytosis Anisocytosis Microcytosis Macrocytosis Spherocytes Pappenheimer Bodies Sickle Cells Target Cells Tear Drop Cells Ovalocytes Helmet Cells Hodge-Berwind Bodies Acworth Rings [place] Cells Bite Cells Crenated Cell Elliptocytes Acanthocytes (Spur) Rouleaux Hemoglobin C Crystals Schistocytes Malaria parasites Son Bodies Hem Pathologist Commnt Sodium Potassium Chloride Carbon Dioxide Anion Gap BUN Creatinine Estimated GFR BUN/Creatinine Ratio Glucose POC Glucose 248 H 148 H Calcium Total Bilirubin AST ALT Alkaline Phosphatase Total Protein Albumin Albumin/Globulin Ratio Urine Color Yellow Urine Turbidity Cloudy Urine pH 5.0 Ur Specific Cove 1.011 Urine Protein 30 mg/dl Urine Glucose (UA) 50 Urine Ketones Neg Urine Blood Lg Urine Nitrite Neg Urine Bilirubin Neg Urine Urobilinogen < 2 Ur Leukocyte Esterase Lg Urine WBC (Auto) > 182.0 H Urine RBC (Auto) > 182.0 U Epithel Cells (Auto) 33.0 H Urine WBC Clumps 1+ Urine Mucus Few Ur Yeast w Hyphae 2+ Urine Yeast (Budding) Few 03/05/22 03/06/22 03/06/22 23:01 05:27 07:56 WBC 12.2 H 13.1 H RBC 2.86 L 3.03 L Hgb 7.3 L 7.6 L Hct 22.0 L 23.4 L MCV 77 L 77 L MCH 25 L 25 L MCHC 33 32 RDW 17.2 H 17.4 H Plt Count 248 270 Add Manual Diff Total Counted Seg Neuts % (Manual) Band Neutrophils % Lymphocytes % (Manual) Reactive Lymphs % (Man) Monocytes % (Manual) Eosinophils % (Manual) Basophils % (Manual) Metamyelocytes % Myelocytes % Promyelocytes % Blast Cells % Nucleated RBC % Seg Neutrophils # Man Band Neutrophils # Lymphocytes # (Manual) Abs React Lymphs (Man) Monocytes # (Manual) Eosinophils # (Manual) Basophils # (Manual) Metamyelocytes # Myelocytes # Promyelocytes # Blast Cells # WBC Morphology Hypersegmented Neuts Hyposegmented Neuts Hypogranular Neuts Smudge Cells Toxic Granulation Toxic Vacuolation Dohle Bodies Pelger-Huet Anomaly Fiona Rods Platelet Estimate Clumped Platelets Plt Clumps, EDTA Large Platelets Giant Platelets Platelet Satelliting Plt Morphology Comment RBC Morphology Dimorphic RBCs Polychromasia Hypochromasia Poikilocytosis Anisocytosis Microcytosis Macrocytosis Spherocytes Pappenheimer Bodies Sickle Cells Target Cells Tear Drop Cells Ovalocytes Helmet Cells Hodge-Berwind Bodies Acworth Rings Jose [place] Cells Bite Cells Crenated Cell Elliptocytes Acanthocytes (Spur) Rouleaux Hemoglobin C Crystals Schistocytes Malaria parasites Son Bodies Hem Pathologist Commnt Sodium Potassium Chloride Carbon Dioxide Anion Gap BUN Creatinine Estimated GFR BUN/Creatinine Ratio Glucose POC Glucose 156 H Calcium Total Bilirubin AST ALT Alkaline Phosphatase Total Protein Albumin Albumin/Globulin Ratio Urine Color Urine Turbidity Urine pH Ur Specific Cove Urine Protein Urine Glucose (UA) Urine Ketones Urine Blood Urine Nitrite Urine Bilirubin Urine Urobilinogen Ur Leukocyte Esterase Urine WBC (Auto) Urine RBC (Auto) U Epithel Cells (Auto) Urine WBC Clumps Urine Mucus Ur Yeast w Hyphae Urine Yeast (Budding) Assessment and Plan CVA: Continue Secondary Stroke Prevention (Antithrombotic, Statin (Goal LDL-C <70), BP control (Goal <140/90), GLU control (Goal A1c <7), and lifestyle modification). Monitor for recurrent stroke or post-stroke recrudescence. Continue neuromotor therapy as above. Family training when available. Monitor for post stroke depression, cognitive deficits, seizure, dysphagia, aphasia, shoulder hand syndrome, sensory deficits, spasticity, bowel/bladder deficits, sleep disturbance, vision deficits and DVT. Prognosis for recovery and Secondary Stroke Prevention discussed. Follow up with Neurology. No driving until cleared by Neurologist. Hypertension: Continue medications and adjust as needed for normotension. Goal less than 140/90. Diabetes: Continue carb controlled diet, medications and adjust as needed for euglycemia. Anemia: Continue to monitor. Patient received transfusion prior to admission to rehab. Continue to monitor and transfuse if hemoglobin less than 7. Hemoglobin decreasing over the last 2 days. Continue to monitor Depression: Patient seen by psychiatry on acute care side. Medications adjusted. Continue medications and monitor for any need to reconsult. Leukocytosis: WBCs have been climbing since 02/26. On labs this morning white count is 14.9. We will check UA C&S, chest x-ray. Patient did receive antibiotics previously for UTI and for 1 positive isolate in blood culture. Urinary tract infection: Awaiting culture and sensitivity. Start empiric antibiotics with Levaquin IV and adjust once culture and sensitivity are available. Constipation: Patient states it has been several days since bowel movement. Does state that she has issues with constipation at home. Discussed as needed medications which have been made available. Monitor for improvement ADL dysfunction: OT will work on improving ability to perform ADLs (including assistive devices) to increase independence and decrease caregiver burden and improve functional transfers and mobility training. Difficulty walking: PT will work on gait training and proper use of assistive devices and advance as appropriate to use of stairs and outside ambulation on uneven surfaces. Unsteadiness on feet: PT will work on improving static and dynamic sitting and standing balance as well as proper use of assistive devices to decrease risk of falls. Abnormality of gait: PT will work to improve safety and efficiency of gait through neuromotor training and gait training along with instruction on proper use of assistive devices. Muscle weakness: PT & OT will work on strengthening exercises to improve functional strength including mixture of closed and open kinetic chain exercises. Debility: PT & OT will work on improving overall functional status to improve participation with ADLs, mobility and social involvement. Fatigue: PT & OT will work on improving endurance through aerobic exercises and therapeutic activity while monitoring patients tolerance for activity and vital signs as needed. DVT ppx: Heparin Pain: Continue physical modalities in therapy and pain medications as needed to achieve functional pain control. Sleep: Monitor and address as needed. Trazodone ordered for sleep. Bowel: Monitor and address as needed. Appetite: Monitor and address as needed. Discharge planning: Pending therapy progress and care plan meeting. Will continue discussion with therapy team, SW, patient and family. May look to discharge sooner based on patient's improvement. Still working on steadiness with gait but she is making fast improvements. Restrictions/ Precautions: Falls WB status: FWB Functional Hx: ADLs: Independent Cognition: Independent Mobility: No AD Barriers to Discharge: Decreased mobility and ability to perform self care, balance deficits, weakness Estimated Length of Stay: 1014 days Discharge Destination: Home with family
[2022-03-06] MEDS: amLODIPine 10 MG TAB PO SCH (10:02)
[2022-03-06] MEDS: ESCITALOPRAM 10 MG TAB PO SCH (10:02)
[2022-03-06] MEDS: hydroCHLOROthiazide 25 MG TAB PO SCH (10:02)
[2022-03-06] MEDS: METOPROLOL TARTRATE 50 MG TAB PO SCH (10:03)
[2022-03-06] MEDS: CALCITRIOL 0.25 MCG CAP PO SCH (10:03)
[2022-03-06] MEDS: LOSARTAN 50 MG TAB PO SCH (10:03)
[2022-03-06] MEDS: ASPIRIN EC 325 MG TAB PO SCH (10:03)
--- NOTE | 2022-03-06 17:22 | IRU Plan of Care ---
Interdisciplinary Plan of Care - IPOC IRU INTERDISCIPLINARY PLAN: [facility] Inpatient Rehab Unit Plan of Care IRU Interdisciplinary Care Plan Start: 03/04/22 16:23 Freq: Status: Active Protocol: Document 03/06/22 17:05 TH (Rec: 03/06/22 17:11 TH [id number]) Interdisciplinary Problem List Interdisciplinary Problem List Interdisciplinary Problem List Impaired Bathing/Grooming, Query Text:Answers will Trigger Problems Impaired Dressing,Impaired and Outcomes on Worklist. Mobility,Impaired Transfers, Impaired Toileting,Knowledge Deficits,Discharge Concerns, Impaired Safety,Medications Education,Diabetes Education IRU Interdisciplinary Care Plan Therapy Services Therapy Services Will Include: Physical Therapy,Occupational Query Text:Patient will be seen for a Therapy minimum of 3 hours of daily therapy 5 out of 7 days a week. Therapy intensity may be adjusted within a 7 consecutive day period to effectively serve the individual needs of the patient. Treatment Frequency/Intensity/Duration Treatment Frequency 5d/wk Treatment Intensity 3 hours per day Treatment Duration 10-14 days Problem Area: Eating/Swallowing Eating/Swallowing Outcomes Eating/Swallowing Interventions Problem Area: Bathing/Grooming Bathing/Grooming Outcomes Improve Graham w/ Grooming,Improve Graham w/ Bathing Bathing/Grooming Interventions ADL Training,Therapeutic Exercise,Therapeutic Activity, Neuromuscular Re-Education, Balance Work,Patient/Caregiver Education Problem Area: Dressing Dressing Outcomes Improve Graham w/ UB Dressing,Improve Graham w/ LB Dressing Dressing Interventions Problem Area: Mobility Mobility Outcomes Improve Graham w/ Bed Mobility,Improve Graham w/ Ambulation,Improve Graham w/ Stairs/Curb Mobility Interventions Therapeutic Exercise, Neuromuscular Re-Ed.,Activity Tolerance Work,Use of Assistive Devices,Patient/ Caregiver Education,Bed Mobility Work,Gait Training Problem Area: Transfers Transfers Outcomes Improve Graham w/ Bed Transfers,Improve Graham w/ Toilet Transfers,Improve Graham w/ Tub/Shower Transfers,Improve Graham w/ Car Transfers Transfers Interventions Transfer Training,Therapeutic Exercise,Neuromuscular Re- Education,Activity Tolerance Work,Use of Assistive Devices, Patient/Caregiver Education Problem Area: Bowel/Bladder Managment Bowel/Bladder Outcomes Bowel/Bladder Interventions Problem Area: Toileting Toileting Outcomes Improve Graham w/ Toileting Toileting Interventions ADL Training,Balance Work, Patient/Caregiver Education Problem Area: Nutrition Nutrition Outcomes Nutrition Interventions Problem Area: Comprehension Comprehension Outcomes Comprehension Interventions Problem Area: Expression Expression Outcomes Expression Interventions Problem Area: Problem Solving Problem Solving Outcomes Problem Solving Interventions Problem Area: Memory Memory Outcomes Memory Interventions Problem Area: Pain Management Pain Management Outcomes Pain Management Interventions Problem Area: Knowledge Deficits Knowledge Deficits Outcomes Demonstrate Ability to Manage Blood Glucose,Verbalize Precautions Knowledge Deficits Interventions Disease/Injury/Sx. Intervention Education,Disease Management Education Problem Area: Skin/Tissue Integrity Skin/Tissue Integrity Outcomes Skin/Tissue Integrity Interventions Problem Area: Social Interaction Social Interaction Outcomes Social Interaction Interventions Problem Area: Adjustment to Disability Adjustment to Disability Outcomes Adjustment to Disability Interventions Problem Area: Discharge Concerns Discharge Concerns Outcomes Discharge w/ Necessary Equipment,Have Home Health/ Outpatient Services Discharge Concerns Interventions Discharge Planning,Equipment Assessment, Acquisition and Placement,Family/Caregiver Training Problem Area: Community Reintegration Community Reintegration Outcomes Community Reintegration Interventions Problem Area: Home Management Home Management Outcomes Home Management Interventions Problem Area: Safety Safety Outcomes Provide Safe Environment, Demonstrate Good Safety w/ Transfers/Mobility Safety Interventions Identify Fall Risk,[place] Pt. to Environment,Reduce Environmental Hazards Problem Area: Medication Education Medication Education Outcomes Medication Education Interventions Problem Area: Diabetes Education Diabetes Education Outcomes Demonstrate Knowledge of Resources Availlable in Diabetic Ed. Folder Diabetes Education Interventions Give Pt. Diabetes Education Folder,Discuss Pathophysiology of Diabetes Problem Area: Oxygenation Oxygenation Outcomes Oxygenation Interventions Problem Area: Cardiovascular Cardiovascular Outcomes Cardiovascular Interventions Physician Only Medical Prognosis and Rehabilitation Good rehab potential, good medical prognosis Potential (Completed by Physician) This plan of care has been developed based on the findings from the pre- admission assessment, post admission physician evaluation, information gathered from the assessments from all therapy disciplines and other pertinent clinician s. The plan of care has been reviewed and discussed in collaboration with the interdisciplinary team. The plan of care will be reviewed and updated at least weekly.
[2022-03-06 20:42] VITALS: BP 117/60
[2022-03-06] MEDS: traZODone 50 MG TAB PO SCH (21:56)
== END 2022-03-06 23:18 | disposition home or self-care (01) | DRG 64 ==
LOC: UNDOADMIN 11:25 → 3A 11:25 → 4A 23:28
PROVIDERS: ADMIT Physical Medicine & Rehabilitation; ATTEND Physical Medicine & Rehabilitation
DX: I63.9 Cerebral infarction, unspecified (principal); N17.0 Acute kidney failure with tubular necrosis; R78.81 Bacteremia; N17.8 Other acute kidney failure; E87.1 Hypo-osmolality and hyponatremia; I10 Essential (primary) hypertension; E11.9 Type 2 diabetes mellitus without complications; E78.5 Hyperlipidemia, unspecified; R13.10 Dysphagia, unspecified; E66.01 Morbid (severe) obesity due to excess calories; Z68.35 Body mass index [BMI] 35.0-35.9, adult; Z71.3 Dietary counseling and surveillance; Z71.82 Exercise counseling; D50.9 Iron deficiency anemia, unspecified; E87.6 Hypokalemia; Z79.4 Long term (current) use of insulin; Z79.84 Long term (current) use of oral hypoglycemic drugs; F32.A Depression, unspecified
CPT/HCPCS: 36415; 71046; 80053; 81001; 82962; 85007; 85025; 85027; 87086; G0378; J3490; Q0177; Q9967; J1644; J1815; J1956; Q0162